=== PATIENT | male | born 1955 | race Caucasian/White ===

== ENCOUNTER 2016-06-09 09:32 | Outpatient (CLI) | payer MEDICAID | END 2016-06-09 09:33 | disposition home or self-care (01) | DX: E11.65 Type 2 diabetes mellitus with hyperglycemia (principal); Z79.899 Other long term (current) drug therapy ==

== ENCOUNTER 2016-07-16 09:00 | Outpatient (CLI) | payer MEDICAID | END 2016-07-16 09:01 | disposition home or self-care (01) | DX: I48.91 Unspecified atrial fibrillation (principal); Z79.01 Long term (current) use of anticoagulants ==

== ENCOUNTER 2016-07-29 13:55 | Outpatient (CLI) | payer MEDICAID | END 2016-07-29 13:56 | disposition home or self-care (01) | DX: G47.33 Obstructive sleep apnea (adult) (pediatric) (principal) ==

== ENCOUNTER 2016-08-15 20:18 | Outpatient (CLI) | payer MEDICAID | END 2016-08-15 20:19 | disposition home or self-care (01) | DX: G47.33 Obstructive sleep apnea (adult) (pediatric) (principal); I48.91 Unspecified atrial fibrillation; Z68.41 Body mass index [BMI] 40.0-44.9, adult ==

== ENCOUNTER 2016-08-21 09:43 | Outpatient (CLI) | payer MEDICAID | END 2016-08-21 09:44 | disposition home or self-care (01) | DX: I48.91 Unspecified atrial fibrillation (principal); Z79.01 Long term (current) use of anticoagulants; E11.65 Type 2 diabetes mellitus with hyperglycemia; Z79.899 Other long term (current) drug therapy ==

== ENCOUNTER 2016-08-25 13:25 | Outpatient (CLI) | payer MEDICAID | END 2016-08-25 13:26 | disposition home or self-care (01) | DX: G47.33 Obstructive sleep apnea (adult) (pediatric) (principal) ==

== ENCOUNTER 2016-09-28 09:51 | Outpatient (CLI) | payer MEDICAID | END 2016-09-28 09:52 | disposition home or self-care (01) | LOC: LAB 09:51 | PROVIDERS: ATTEND Internal Medicine | DX: I48.91 Unspecified atrial fibrillation (principal); Z79.01 Long term (current) use of anticoagulants | CPT/HCPCS: 85610 ==

== ENCOUNTER 2016-10-20 12:37 | Outpatient (CLI) | payer MEDICAID | END 2016-10-20 12:38 | disposition home or self-care (01) | LOC: LAB 12:37 | PROVIDERS: ATTEND Internal Medicine | DX: I48.91 Unspecified atrial fibrillation (principal); Z79.01 Long term (current) use of anticoagulants | CPT/HCPCS: 81599; 85610 ==

== ENCOUNTER 2016-12-06 11:56 | Outpatient (CLI) | payer MEDICAID | END 2016-12-06 11:57 | disposition home or self-care (01) | LOC: LAB 11:56 | PROVIDERS: ATTEND Internal Medicine | DX: I48.91 Unspecified atrial fibrillation (principal); Z79.01 Long term (current) use of anticoagulants | CPT/HCPCS: 85610 ==

== ENCOUNTER 2016-12-17 13:02 | Outpatient (CLI) | payer MEDICAID ==
[2016-12-17 13:56] LABS: HEMOGLOBIN A1C 1.52 g/dL
== END 2016-12-17 13:03 | disposition home or self-care (01) ==
LOC: LAB 13:02
PROVIDERS: ATTEND Physician Assistant Medical
DX: E11.65 Type 2 diabetes mellitus with hyperglycemia (principal); Z79.899 Other long term (current) drug therapy
CPT/HCPCS: 36415; 83036

== ENCOUNTER 2016-12-30 11:37 | Outpatient (CLI) | payer MEDICAID ==
[2016-12-30 12:15] LABS: ALBUMIN/GLOBULIN RATIO 1.1 (1.0-2.2); BILIRUBIN,TOTAL 0.5 mg/dL (0.2-1.0); POTASSIUM 4.8 mmol/L (3.5-5.0)
== END 2016-12-30 11:38 | disposition home or self-care (01) ==
LOC: LAB 11:37
PROVIDERS: ATTEND Physician Assistant Medical
DX: E11.65 Type 2 diabetes mellitus with hyperglycemia (principal); Z79.899 Other long term (current) drug therapy
CPT/HCPCS: 36415; 80053

== ENCOUNTER 2017-02-10 23:29 | Outpatient (CLI) | payer MEDICAID | END 2017-02-10 23:30 | disposition EMS.NT | LOC: EMS 23:29 | PROVIDERS: ATTEND Surgery | DX: T38.3X1A Poisoning by insulin and oral hypoglycemic [antidiabetic] drugs, accidental (unintentional), initial encounter (principal) ==

== ENCOUNTER 2017-02-10 23:48 | Emergency (ER) | payer MEDICAID ==
[2017-02-11 00:10] VITALS: BP 157/95
--- NOTE | 2017-02-11 00:33 | ED Physician Documentation ---
PD HPI OVERDOSE - Stated complaint Stated Complaint: TOOK TOO MUCH INSULIN - Chief complaint Chief Complaint: General - History obtained from History obtained from: Patient - History of Present Illness Timing - onset: How many hours ago (1) Subtance(s) ingested: Diabetes med Associated symptoms: Other (none) Contributing factors: Accidental Similar symptoms before: Has not had sx before Recently seen: Not recently seen - Additional information Additional information: Patient is a 61 year old male with a history of diabetes who is presenting to the emergency department for taking too much insulin. Patient mixed up his long acting and short acting insulins. Patient took 45 of his humalog. Patient states that his sugar originally dropped, but it improved after eating, while on the way to the emergency department. Patient denies any other symptoms at this time. Review of Systems Constitutional: denies: Fever, Chills, Fatigue Eyes: reports: Reviewed and negative Ears: reports: Reviewed and negative Nose: reports: Reviewed and negative Throat: reports: Reviewed and negative Cardiac: denies: Chest pain / pressure, Palpitations GI: denies: Nausea, Vomiting : reports: Reviewed and negative Skin: denies: Rash, Lesions Musculoskeletal: reports: Reviewed and negative Neurologic: denies: Generalized weakness, Focal weakness, Numbness, Difficulty speaking, Near syncope, Syncope, Confused, Altered mental status Immunocompromised: denies: Immunocompromised PD PAST MEDICAL HISTORY - Past Medical History Past Medical History: Yes Cardiovascular: Hypertension, Atrial fibrillation Respiratory: Sleep apnea Neuro: None Endocrine/Autoimmune: Type 2 diabetes GI: None : None HEENT: None Psych: None Musculoskeletal: None Derm: None - Past Surgical History Past Surgical History: Yes General: Colonoscopy Ortho: Knee replacement, Arthroscopic surgery, Other - Present Medications Home Medications: Ambulatory Orders Medication Instructions Recorded Confirmed Metoprolol Succinate 100 mg PO DAILY 05/05/13 02/11/17 Furosemide [Lasix] 80 mg PO DAILY PRN 01/03/14 02/11/17 Insulin Lispro [Humalog] 10 - 20 unit SUBQ QID PRN 01/03/14 02/11/17 Lisinopril 20 mg PO DAILY 01/03/14 02/11/17 Spironolactone 12.5 mg PO DAILY 01/03/14 02/11/17 Warfarin Sodium [Coumadin] 5 mg PO DAILY 01/03/14 02/11/17 Insulin Glargine,Hum.rec.anlog 80 unit SQ QPM 02/03/17 02/11/17 [Edis Walker U-100] - Allergies Allergies/Adverse Reactions: Allergies Allergy/AdvReac Type Severity Reaction Status Date / Time No Known Drug Allergies Allergy Verified 02/11/17 00:13 - Social History Does the pt smoke?: No Smoking Status: Never smoker Does the pt drink ETOH?: No Does the pt have substance abuse?: No - Immunizations Immunizations are current?: Yes - POLST Patient has POLST: No PD ED PE NORMAL - Vitals Vital signs reviewed: Yes - General General: Alert and oriented X 3, No acute distress - HEENT HEENT: Atraumatic, PERRL - Cardiac Cardiac: RRR, No murmur - Respiratory Respiratory: No respiratory distress - Abdomen Abdomen: Other (obese) - Derm Derm: Normal color, Warm and dry - Extremities Extremities: No deformity, No tenderness to palpate - Neuro Neuro: Alert and oriented X 3, No motor deficit, No sensory deficit, Normal speech - Psych Psych: Normal mood Results - Vitals Vitals: Vital Signs - 24 hr 02/10/17 23:52 Temperature 36.1 C L Heart Rate 55 L Respiratory 18 Rate Blood Pressure 157/95 H O2 Saturation 100 Oxygen O2 Source [With Activity] Room air O2 Source [Without Activity] Room air O2 Source Room air - Labs Labs: Laboratory Tests 02/11/17 02/11/17 00:04 00:58 POC Whole Bld Glucose 170 H 182 H PD MEDICAL DECISION MAKING - ED course Complexity details: reviewed old records, reviewed results, re-evaluated patient , considered differential, d/w patient, d/w family ED course: Patient was seen and examined at bedside. Patient was well appearing and in no acute distress. Patient's blood glucose on arrival was 170. Patient was given a sandwich and milk. Repeat blood glucose at 1 hr, was 180. Patient and stated that they wanted to go home and that they would repeat the blood sugar again in an hour. Patient required no further work up and was stable for discharge with outpatient follow up. Departure - Departure Disposition: 01 Home, Self Care Clinical Impression: Insulin overdose Condition: Good Instructions: ED Overdose Accidental Follow-Up: primary,care provider [Other] - As Needed Comments: Your blood sugars remained stable while in the emergency department. You will need to check your blood sugar in an hour from now, but you should be in the clear. You should follow up with your routine visits with your pmd. You may return to the emergency department at any time for new, worsening or uncontrollable symptoms.
== END 2017-02-11 01:16 | disposition home or self-care (01) ==
LOC: ED 23:48
DX: T38.3X1A Poisoning by insulin and oral hypoglycemic [antidiabetic] drugs, accidental (unintentional), initial encounter (principal); E11.9 Type 2 diabetes mellitus without complications; Z79.4 Long term (current) use of insulin; I10 Essential (primary) hypertension; Z96.659 Presence of unspecified artificial knee joint; Z79.01 Long term (current) use of anticoagulants
CPT/HCPCS: 99283

== ENCOUNTER 2017-03-31 13:02 | Outpatient (CLI) | payer MEDICAID | END 2017-03-31 13:03 | disposition home or self-care (01) | LOC: LAB 13:02 | PROVIDERS: ATTEND Internal Medicine | DX: I48.91 Unspecified atrial fibrillation (principal); Z79.01 Long term (current) use of anticoagulants | CPT/HCPCS: 85610 ==

== ENCOUNTER 2017-05-11 16:47 | Outpatient (CLI) | payer MEDICAID | END 2017-05-11 16:48 | disposition home or self-care (01) | LOC: LAB 16:47 | PROVIDERS: ATTEND Internal Medicine | DX: I48.91 Unspecified atrial fibrillation (principal); Z79.01 Long term (current) use of anticoagulants | CPT/HCPCS: 85610 ==

== ENCOUNTER 2017-05-29 13:52 | Emergency (ER) | payer MEDICAID ==
[2017-05-29 14:17] LABS: BILIRUBIN,URINE NEGATIVE (NEGATIVE); GLUCOSE, URINE (UA) NEGATIVE (NEGATIVE); KETONES,URINE (UA) NEGATIVE (NEGATIVE); LEUKOCYTE ESTERASE, URINE NEGATIVE (NEGATIVE); NITRITE,URINE NEGATIVE (NEGATIVE); OCCULT BLOOD,URINE LARGE (NEGATIVE); PH,URINE 6.5 PH (5.0-7.5); PROTEIN,URINE 100 mg/dL (NEGATIVE); UROBILINOGEN,URINE 0.2 (NORMAL) E.U./dL (NORMAL)
[2017-05-29 14:21] LABS: CLARITY,URINE CLOUDY (CLEAR)
[2017-05-29 14:24] LABS: BACTERIA,URINE None Seen /HPF (None Seen); RBC,URINE TNTC /HPF (0-5); SQUAMOUS EPITHELIAL CELL,UR RARE Squamous (<= Few)
[2017-05-29 14:51] LABS: BASOPHILS # (AUTO) 0.1 10^3/uL (0.0-0.1); BASOPHILS % (AUTO) 1.2 %; EOSINOPHILS # (AUTO) 0.1 10^3/uL (0.0-0.7); EOSINOPHILS % (AUTO) 0.9 %; HGB - HEMOGLOBIN 13.6 g/dL (14.0-18.0); LYMPHOCYTES # (AUTO) 1.1 10^3/uL (1.5-3.5); LYMPHOCYTES % (AUTO) 10.3 %; MEAN CORPUSCULAR HEMOGLOBIN 26.8 pg (27.0-31.0); MEAN PLATELET VOLUME 9.3 fL (7.4-11.4); MONOCYTES % (AUTO) 9.1 %; NEUTROPHILS # (AUTO) 8.5 10^3/uL (1.5-6.6); NEUTROPHILS % (AUTO) 78.5 %; PLT - PLATELET COUNT 324 10^3/uL (130-450); RED BLOOD COUNT 5.06 10^6/uL (4.70-6.10); RED CELL DISTRIBUTION WIDTH 15.4 % (12.0-15.0); WHITE BLOOD COUNT 10.9 x10^3/uL (4.8-10.8)
[2017-05-29 15:03] LABS: ALBUMIN 3.5 g/dL (3.2-5.5); ALBUMIN/GLOBULIN RATIO 0.9 (1.0-2.2); BILIRUBIN,TOTAL 0.6 mg/dL (0.2-1.0); CALCIUM 10.2 mg/dL (8.5-10.3); CREATININE 1.1 mg/dL (0.6-1.2); TOTAL PROTEIN 7.2 g/dL (6.7-8.2)
[2017-05-29 15:04] LABS: INR 1.5 (0.8-1.2); PT - PROTHROMBIN TIME 16.2 secs (9.9-12.6)
[2017-05-29] MEDS ORDERED: SODIUM CHLORIDE 0.9% 1,000 ML IV ONE (15:12)
--- NOTE | 2017-05-29 15:12 | ED Physician Documentation ---
PD HPI MALE - Stated complaint Stated Complaint: MALE - Chief complaint Chief Complaint: UTI - History obtained from History obtained from: Patient - History of Present Illness Timing - onset: Other (62-year-old gentleman with history of single kidney stone in the age of 20s without intervention. He is on warfarin for atrial fibrillation. He had an episode of hematuria with small clots that lasted maybe a day about a week and a half ago. He saw his physician, and has to see a new family doctor for a referral to a urologist for I guess probably a cystoscopy. That appointment is not happening for about a month. Today he had gross hematuria again with some anterior discomfort but no flank pain and a small amount of urinary hesitancy.) Review of Systems Ten Systems: 10 systems reviewed and negative Constitutional: denies: Fever, Chills Respiratory: denies: Dyspnea, Cough GI: denies: Nausea, Vomiting, Diarrhea PD PAST MEDICAL HISTORY - Past Medical History Past Medical History: Yes Cardiovascular: Hypertension, Atrial fibrillation Respiratory: Sleep apnea Neuro: None Endocrine/Autoimmune: Type 2 diabetes GI: None : None HEENT: None Psych: None Musculoskeletal: None Derm: None - Past Surgical History Past Surgical History: Yes General: Colonoscopy Ortho: Knee replacement, Arthroscopic surgery, Other - Present Medications Home Medications: Ambulatory Orders Medication Instructions Recorded Confirmed Metoprolol Succinate 100 mg PO DAILY 05/05/13 02/11/17 Furosemide [Lasix] 80 mg PO DAILY PRN 01/03/14 02/11/17 Insulin Lispro [Humalog] 10 - 20 unit SUBQ QID PRN 01/03/14 02/11/17 Lisinopril 20 mg PO DAILY 01/03/14 02/11/17 Spironolactone 12.5 mg PO DAILY 01/03/14 02/11/17 Warfarin Sodium [Coumadin] 5 mg PO DAILY 01/03/14 02/11/17 Insulin Glargine,Hum.rec.anlog 87 unit SQ QPM 02/03/17 03/21/17 [Basaglar Kwikpen U-100] Lorazepam [Ativan] 1 mg PO TID PRN #15 tablet 05/29/17 - Allergies Allergies/Adverse Reactions: Allergies Allergy/AdvReac Type Severity Reaction Status Date / Time No Known Drug Allergies Allergy Verified 02/11/17 00:13 - Social History Does the pt smoke?: No Smoking Status: Never smoker Does the pt drink ETOH?: No Does the pt have substance abuse?: No - Immunizations Immunizations are current?: Yes - POLST Patient has POLST: No PD ED PE NORMAL - Vitals Vital signs reviewed: Yes - General General: Alert and oriented X 3, No acute distress - Abdomen Abdomen: Normal bowel sounds, Soft, Non tender - Derm Derm: Normal color, Warm and dry - Extremities Extremities: No edema, No calf tenderness / cord - Neuro Neuro: Alert and oriented X 3, Normal speech Results - Vitals Vitals: Vital Signs - 24 hr 05/29/17 05/29/17 14:01 19:27 Temperature 37 C 36.2 C L Heart Rate 98 99 Respiratory 20 16 Rate Blood Pressure 123/91 H 155/102 H O2 Saturation 98 100 Oxygen O2 Source [] Room air O2 Source [] Room air O2 Source Room air - Labs Labs: Laboratory Tests 05/29/17 05/29/17 05/29/17 14:08 14:42 14:42 WBC 10.9 H RBC 5.06 Hgb 13.6 L Hct 41.0 L MCV 81.0 MCH 26.8 L MCHC 33.0 RDW 15.4 H Plt Count 324 MPV 9.3 Neut # 8.5 H Lymph # 1.1 L Hyde # 1.0 Eos # 0.1 Baso # 0.1 Absolute Nucleated RBC 0.00 Nucleated RBC % 0.0 PT INR Sodium 131 L Potassium 4.7 Chloride 95 L Carbon Dioxide 26 Anion Gap 10.0 BUN 20 Creatinine 1.1 Estimated GFR (MDRD) 67 L Glucose 270 H Calcium 10.2 Total Bilirubin 0.6 AST 16 ALT 17 Alkaline Phosphatase 93 Total Protein 7.2 Albumin 3.5 Globulin 3.7 Albumin/Globulin Ratio 0.9 L Lipase 23 Urine Color YELLOW Urine Clarity CLOUDY Urine pH 6.5 Ur Specific Franklin 1.020 Urine Protein 100 H Urine Glucose (UA) NEGATIVE Urine Ketones NEGATIVE Urine Occult Blood LARGE H Urine Nitrite NEGATIVE Urine Bilirubin NEGATIVE Urine Urobilinogen 0.2 (NORMAL) Ur Leukocyte Esterase NEGATIVE Urine RBC TNTC H Urine WBC 0-3 Ur Squamous Epith Cells RARE Squamous Urine Bacteria None Seen Ur Microscopic Review INDICATED Urine Culture Comments NOT INDICATED 05/29/17 14:42 WBC RBC Hgb Hct MCV MCH MCHC RDW Plt Count MPV Neut # Lymph # Hyde # Eos # Baso # Absolute Nucleated RBC Nucleated RBC % PT 16.2 H INR 1.5 H Sodium Potassium Chloride Carbon Dioxide Anion Gap BUN Creatinine Estimated GFR (MDRD) Glucose Calcium Total Bilirubin AST ALT Alkaline Phosphatase Total Protein Albumin Globulin Albumin/Globulin Ratio Lipase Urine Color Urine Clarity Urine pH Ur Specific Franklin Urine Protein Urine Glucose (UA) Urine Ketones Urine Occult Blood Urine Nitrite Urine Bilirubin Urine Urobilinogen Ur Leukocyte Esterase Urine RBC Urine WBC Ur Squamous Epith Cells Urine Bacteria Ur Microscopic Review Urine Culture Comments - Rads (name of study) CT IVP Radiology: EMP read contemporaneously (Large exophytic mass from the superior pole of left kidney compatible with renal cell carcinoma, multiple left perirenal and retroperitoneal nodules and masses compatible with metastases, also multiple bibasilar pulmonary nodules, compatible with metastases. There is a soft tissue density in the posterior bladder, could be a bladder mass or blood products.) PD MEDICAL DECISION MAKING - ED course ED course: 62-year-old gentleman is found to have gross hematuria and unfortunately imaging shows likely left renal cell carcinoma with metastases. He did have urinary retention here likely because of clot in the bladder, a Rico was placed and it was irrigated. I spoke with Dr. Trinidad, they will see him in clinic to arrange for appropriate referrals the next few days. We did Remove the Rico to see if he could urinate after this, he was unable to and the Rico was replaced with good output. He was counseled at length about the diagnosis, need for follow-up, necessity to stop warfarin at this point. Departure - Departure Disposition: 01 Home, Self Care Clinical Impression: Hematuria Qualifiers: Hematuria type: gross Qualified Code(s): R31.0 - Gross hematuria Renal cell carcinoma Qualifiers: Laterality: left Qualified Code(s): C64.2 - Malignant neoplasm of left kidney, except renal pelvis Condition: Good Record reviewed to determine appropriate education?: Yes Instructions: ED Catheter Care Rico Prescriptions: Lorazepam [Ativan] 1 mg PO TID PRN #15 tablet PRN Reason: Anxiety Comments: Stop your warfarin for now, follow-up with Dr. Trinidad or Dr. Pennington in the next few days. Return if worse. You can contact me anytime if you have questions, my phone number is [phone], or my email is [email or web address]
[2017-05-29] MEDS ORDERED: IOPAMIDOL-300 100 ML VIAL ONE (16:21)
[2017-05-29] MEDS ORDERED: IOPAMIDOL-300 100 ML VIAL IVP ONE (17:23)
[2017-05-29] MEDS ORDERED: LIDOCAINE 2% URO-JET 5 ML SYRINGE UR STA ×2 (17:38→19:57)
--- NOTE | 2017-05-29 18:08 | CT Report ---
EXAM: CT ABDOMEN AND PELVIS WITHOUT AND WITH CONTRAST (CT IVP) EXAM DATE: 05/29/2017 04:35 PM. CLINICAL HISTORY: Hematuria. COMPARISONS: None. TECHNIQUE: Routine helical imaging was performed through the kidneys, ureters and bladder in the prec ontrast and delayed phases. IV Contrast: 100 mL Isovue-300. Reconstructions: Coronal and sagittal. In accordance with CT protocol optimization, one or more of the following dose reduction techniques w ere utilized for this exam: automated exposure control, adjustment of mA and/or KV based on patient s ize, or use of iterative reconstructive technique. FINDINGS: Lung Bases: Multiple (at least 7) bibasilar pulmonary nodules, the largest a 3.0 x 2.5 cm nodule in t he left lower lobe base (series 6 image 11). Right Kidney/Ureter: Two tiny 1-2 mm nonobstructive intrarenal calculi in the upper pole. Two subcent imeter hypoattenuating foci in the lower pole cortex are too small to characterize further (best seen on coronal series 9 image 52). No hydronephrosis or hydroureter. No perinephric fat stranding. Left Kidney/Ureter: Large multilobular centrally necrotic partially calcified exophytic mass arising from the upper pole measuring approximately 14.6 x 9.1 x 8.0 cm (series 6 image 33, series 9 image 58 ), with adjacent ill-defined retroperitoneal fat stranding. The fat planes between the mass and the s pleen, proximal descending colon, and pancreatic tail are effaced. Multiple enhancing nodules in the left perirenal and left retroperitoneal fat, compatible with metast ases, including the followin. Perirenal nodule anterior to the midportion of the kidney, 3.0 x 2.1 cm (series 6 image 38). 2. Perirenal nodule medial to the midportion of the kidney, 1.8 x 1.4 cm (series 6 image 44). 3. Two adjacent retroperitoneal lesions inferior to the kidney, measuring 4.6 x 3.7 cm and 2.2 x 1.8 cm, respectively (series 6 image 56). Ill-defined nodular soft tissue abutting the medial left hemidiaphragm, measuring up to 2.0 cm thick (series 6 images and 27 through 30). Other Solid Organs: Grossly unremarkable appearance of the liver, spleen, pancreas, and adrenal gland s. Peritoneal Cavity/Bowel: No evidence for bowel obstruction or acute inflammatory process. The appendi x is normal. No free fluid or pneumoperitoneum. Pelvic Organs: Approximately 2.3 x 2.2 cm soft tissue density nodule abutting the posterior bladder w all on the precontrast images (series 5 image 79). A larger filling defect is seen in the posterior b ladder on the delayed phase images (series 6 image 79). Vasculature: Unremarkable. Bones: No suspicious lytic or blastic osseous lesion. Other: Small fat-containing umbilical hernia. IMPRESSION: 1. Large partially calcified exophytic mass arising from the superior pole of the left kidney, maximu m diameter 14.6 cm, appears compatible with renal cell carcinoma. 2. Multiple left perirenal/retroperitoneal nodules and masses, compatible with metastases. 3. Multiple bibasilar pulmonary nodules, also compatible with metastases. 4. Soft tissue density nodule any posterior bladder, with discordant appearance between the precontra st and delayed phase images. Differential considerations include bladder mass and blood products. Con ui developer with angular js direct evaluation. [facility] Referring Provider Line: [phone] SITE ID: [id number]
[2017-05-29] MEDS ORDERED: LORazepam 0.5 MG TABLET PO STA (21:06)
[2017-05-29 21:45] VITALS: BP 152/94
== END 2017-05-29 21:46 | disposition home or self-care (01) ==
LOC: ED 13:52
DX: C64.2 Malignant neoplasm of left kidney, except renal pelvis (principal); C79.9 Secondary malignant neoplasm of unspecified site; R31.0 Gross hematuria; I10 Essential (primary) hypertension; E11.9 Type 2 diabetes mellitus without complications; Z79.4 Long term (current) use of insulin; I48.91 Unspecified atrial fibrillation; Z79.01 Long term (current) use of anticoagulants
CPT/HCPCS: 36415; 51702; 51798; 74178; 80053; 81001; 83690; 85025; 85610; 96360; 96361; 99283; 99284; A9270; Q9967; 81003; 87086

== ENCOUNTER 2017-06-05 11:43 | Emergency (ER) | payer MEDICAID ==
[2017-06-05] MEDS ORDERED: LIDOCAINE 2% URO-JET 5 ML SYRINGE UR STA (12:53)
--- NOTE | 2017-06-05 12:54 | ED Physician Documentation ---
PD HPI MALE - Stated complaint Stated Complaint: MALE - Chief complaint Chief Complaint: Abd Pain - History obtained from History obtained from: Patient - History of Present Illness Timing - onset: How many weeks ago (has had urinary retention apparently from clots and hematuria, with hall in place last week, removed couple days later and then retentiona gain. Had in and out hall in office with clearing of some clots but now retention again. He says he strains at home and will pass a clot and then urinate okay for brief time. Has had gross hematuria for a week or so, with Dx of likely kidney CA. Has biopsy planned in of days and appt with [facility] later this week.) Timing - details: Intermittant Associated symptoms: Unable to urinate, Hematuria. No: Genital sore / lesion PD HPI MALE CONTRIB FACTORS: No: Indwelling catheter Recently seen: Clinic, Emergency Dept Review of Systems Constitutional: denies: Fever, Chills GI: denies: Nausea, Vomiting, Diarrhea : reports: Frequency, Hesitancy, Hematuria Skin: denies: Rash, Lesions PD PAST MEDICAL HISTORY - Past Medical History Past Medical History: Yes Cardiovascular: Hypertension, Atrial fibrillation Respiratory: Sleep apnea Neuro: None Endocrine/Autoimmune: Type 2 diabetes GI: None : None HEENT: None Psych: None Musculoskeletal: None Derm: None - Past Surgical History Past Surgical History: Yes General: Colonoscopy Ortho: Knee replacement, Arthroscopic surgery, Other - Present Medications Home Medications: Ambulatory Orders Medication Instructions Recorded Confirmed Metoprolol Succinate 100 mg PO DAILY 05/05/13 02/11/17 Furosemide [Lasix] 80 mg PO DAILY PRN 01/03/14 02/11/17 Insulin Lispro [Humalog] 10 - 20 unit SUBQ QID PRN 01/03/14 02/11/17 Lisinopril 20 mg PO DAILY 01/03/14 02/11/17 Spironolactone 12.5 mg PO DAILY 01/03/14 02/11/17 Warfarin Sodium [Coumadin] 5 mg PO DAILY 01/03/14 02/11/17 Insulin Glargine,Hum.rec.anlog 87 unit SQ QPM 02/03/17 03/21/17 [Basaglar Kwikpen U-100] Lorazepam [Ativan] 1 mg PO TID PRN #15 tablet 05/29/17 Cephalexin [Keflex] 500 mg PO TID #21 capsule 06/05/17 Oxybutynin [Ditropan] 5 mg PO BID #14 tablet 06/05/17 - Allergies Allergies/Adverse Reactions: Allergies Allergy/AdvReac Type Severity Reaction Status Date / Time No Known Drug Allergies Allergy Verified 02/11/17 00:13 - Social History Does the pt smoke?: No Smoking Status: Never smoker Does the pt drink ETOH?: No Does the pt have substance abuse?: No - Immunizations Immunizations are current?: Yes - POLST Patient has POLST: No PD ED PE NORMAL - Vitals Vital signs reviewed: Yes - General General: Alert and oriented X 3, No acute distress, Well developed/nourished - Neck Neck: Supple, no meningeal sign, No adenopathy - Cardiac Cardiac: RRR, No murmur - Respiratory Respiratory: Clear bilaterally - Abdomen Abdomen: Normal bowel sounds, Soft, No organomegaly, Other (some fullness in bladder area. ) - Male Male : Other (no genital rash nor sores. ) - Back Back: No CVA TTP - Derm Derm: Normal color, Warm and dry - Extremities Extremities: No deformity, No tenderness to palpate - Neuro Neuro: Alert and oriented X 3, No motor deficit, Normal speech Results - Vitals Vitals: Oxygen O2 Source [With Activity] Room air O2 Source [Without Activity] Room air O2 Source Room air PD MEDICAL DECISION MAKING - ED course Complexity details: reviewed results (did get culture result from recent ED visit in [facility] and had positive urine culture, so will start antibiotics based on sensitivities from that. ), re-evaluated patient (feeling better with hall and bladder irrigation. Nurse could not pass 3 way hall ( presume inflammation from recent hall) but did get regular hall and got clots out and regular flow. ), considered differential (does have UTI from recent culture. Also lots of bleeding so most of the retention seems clogging from that. he is flowing okay here and is show how to irrigate his hall. Has had it in third time now, so plan to leave in until better Dx and will probably have more bleeding after kidney biopsy in a couple of days, so best to leave it in for now until bleeding clears. Has appt with [facility] later in the week. ), d/w patient Departure - Departure Disposition: Home, Self Care Clinical Impression: Acute urinary retention Hematuria Qualifiers: Hematuria type: gross Qualified Code(s): R31.0 - Gross hematuria UTI (urinary tract infection) Qualifiers: Urinary tract infection type: acute cystitis Hematuria presence: with hematuria Qualified Code(s): N30.01 - Acute cystitis with hematuria Condition: Stable Record reviewed to determine appropriate education?: Yes Instructions: ED Hematuria, ED Retention Urinary Male Follow-Up: Nirmala Mora ARNP [Primary Care Provider] - Prescriptions: Cephalexin [Keflex] 500 mg PO TID #21 capsule Oxybutynin [Ditropan] 5 mg PO BID #14 tablet Comments: Your urine count culture from [facility] was showing growth of bacteria so we will place her on an antibiotic for the bladder infection. Hopefully this is contributing to some of the bleeding is occurring. It may be coming from the kidney tumor as well. I think the clots are what is causing your urinary retention. Keep the Hall catheter in at this point since removing it did not work very well. Will have an antibiotic and an antispasmodic. Stay off the Coumadin as you currently are. Follow-up with your plans for the kidney biopsy this week as well as following up with the [facility]. Discharge Date/Time: 06/05/17 14:50
[2017-06-05] MEDS ORDERED: cephALEXin 250 MG CAPSULE PO STA (14:22)
[2017-06-05 14:30] VITALS: BP 154/80
[2017-06-05] MEDS ORDERED: OXYBUTYNIN 5MG TABLET PO STA (14:41)
== END 2017-06-05 14:50 | disposition home or self-care (01) ==
LOC: ED 11:43
DX: R33.9 Retention of urine, unspecified (principal); N30.01 Acute cystitis with hematuria; I10 Essential (primary) hypertension; I48.91 Unspecified atrial fibrillation; Z79.01 Long term (current) use of anticoagulants; E11.9 Type 2 diabetes mellitus without complications; Z79.4 Long term (current) use of insulin
CPT/HCPCS: 51703; 51798; 99283; A9270; 81001; 81003; 87086

== ENCOUNTER 2017-06-08 16:43 | Emergency (ER) | payer MEDICAID ==
--- NOTE | 2017-06-08 16:57 | ED Physician Documentation ---
PD HPI MALE - Stated complaint Stated Complaint: BLOCKED HALL CATH - Chief complaint Chief Complaint: UTI - History obtained from History obtained from: Patient - History of Present Illness Timing - onset: Today Timing - details: Abrupt onset Associated symptoms: Hall problem (hall had been working well and much less hematuria. Feeling of retention and hall not flowing today. He tried to irrigate it at home. Does not have appt with Oncology nor for biopsy of kidney until .) Review of Systems Constitutional: denies: Fever, Chills GI: denies: Nausea, Vomiting : reports: Hematuria. denies: Dysuria PD PAST MEDICAL HISTORY - Past Medical History Cardiovascular: Hypertension, Atrial fibrillation Respiratory: Sleep apnea Neuro: None Endocrine/Autoimmune: Type 2 diabetes GI: None : None HEENT: None Psych: None Musculoskeletal: None Derm: None - Past Surgical History Past Surgical History: Yes General: Colonoscopy Ortho: Knee replacement, Arthroscopic surgery, Other - Present Medications Home Medications: Ambulatory Orders Medication Instructions Recorded Confirmed Metoprolol Succinate 100 mg PO DAILY 05/05/13 02/11/17 Furosemide [Lasix] 80 mg PO DAILY PRN 01/03/14 02/11/17 Insulin Lispro [Humalog] 10 - 20 unit SUBQ QID PRN 01/03/14 02/11/17 Lisinopril 20 mg PO DAILY 01/03/14 02/11/17 Spironolactone 12.5 mg PO DAILY 01/03/14 02/11/17 Warfarin Sodium [Coumadin] 5 mg PO DAILY 01/03/14 02/11/17 Insulin Glargine,Hum.rec.anlog 87 unit SQ QPM 02/03/17 03/21/17 [Basaglar Kwikpen U-100] Lorazepam [Ativan] 1 mg PO TID PRN #15 tablet 05/29/17 Cephalexin [Keflex] 500 mg PO TID #21 capsule 06/05/17 Oxybutynin [Ditropan] 5 mg PO BID #14 tablet 06/05/17 - Allergies Allergies/Adverse Reactions: Allergies Allergy/AdvReac Type Severity Reaction Status Date / Time No Known Drug Allergies Allergy Verified 06/08/17 16:52 - Social History Does the pt smoke?: No Smoking Status: Never smoker Does the pt drink ETOH?: No Does the pt have substance abuse?: No - Immunizations Immunizations are current?: Yes - POLST Patient has POLST: No PD ED PE NORMAL - Vitals Vital signs reviewed: Yes - General General: Alert and oriented X 3, No acute distress, Well developed/nourished - Abdomen Abdomen: Normal bowel sounds, Soft, Non tender, No organomegaly, Other (mild distension in bladder area. Hall in place. No draiange at this time. Meatus appears normal. ) - Back Back: No CVA TTP - Derm Derm: Normal color, Warm and dry Results - Vitals Vitals: Vital Signs - 24 hr 06/08/17 06/08/17 16:48 17:57 Temperature 35.8 C L Heart Rate 103 H 90 Respiratory 22 18 Rate Blood Pressure 165/94 H 154/102 H O2 Saturation 97 97 Oxygen O2 Source [With Activity] Room air O2 Source [Without Activity] Room air O2 Source Room air PD MEDICAL DECISION MAKING - ED course Complexity details: considered differential (nursing irrigated the hall and got a clot out and then it flowed well. I would prefer not to swap the hall so to minimize recurrent bleeding. He continues on abx for UTI; presume this is helping some of the bleeding, so it might not be all from the renal tumor. ), d/ w patient Departure - Departure Disposition: 01 Home, Self Care Clinical Impression: Hematuria Qualifiers: Hematuria type: gross Qualified Code(s): R31.0 - Gross hematuria Complication, blocked Hall catheter Qualifiers: Encounter type: subsequent encounter Qualified Code(s): T83.091D - Other mechanical complication of indwelling urethral catheter, subsequent encounter Condition: Stable Record reviewed to determine appropriate education?: Yes Follow-Up: Nirmala Mora ARNP [Primary Care Provider] - [facility] [Provider Group] Comments: Continue current medications. Keep the Hall in place for now. Follow-up with your primary care in the next few days. You could consider following up with urology as well, call for an appointment. Discharge Date/Time: 06/08/17 18:02
[2017-06-08 18:00] VITALS: BP 154/102
== END 2017-06-08 18:02 | disposition home or self-care (01) ==
LOC: ED 16:43
DX: T83.098A Other mechanical complication of other urinary catheter, initial encounter (principal); R31.0 Gross hematuria; I10 Essential (primary) hypertension; I48.91 Unspecified atrial fibrillation; Z79.01 Long term (current) use of anticoagulants; E11.9 Type 2 diabetes mellitus without complications; Z79.4 Long term (current) use of insulin
CPT/HCPCS: 99282

== ENCOUNTER 2017-07-25 16:18 | Outpatient (CLI) | payer MEDICAID | END 2017-07-25 16:19 | disposition home or self-care (01) | LOC: LAB 16:18 | PROVIDERS: ATTEND Nurse Practitioner Family | DX: I48.0 Paroxysmal atrial fibrillation (principal) | CPT/HCPCS: 85610 ==

== ENCOUNTER 2017-08-01 14:24 | Outpatient (CLI) | payer MEDICAID | END 2017-08-01 14:25 | disposition home or self-care (01) | LOC: LAB 14:24 | PROVIDERS: ATTEND Nurse Practitioner Family | DX: I48.0 Paroxysmal atrial fibrillation (principal) | CPT/HCPCS: 85610 ==

== ENCOUNTER 2017-08-05 14:19 | Outpatient (CLI) | payer MEDICAID | END 2017-08-05 14:20 | disposition home or self-care (01) | LOC: LAB 14:19 | PROVIDERS: ATTEND Nurse Practitioner Family | DX: I48.0 Paroxysmal atrial fibrillation (principal) | CPT/HCPCS: 85610 ==

== ENCOUNTER 2017-08-12 16:29 | Outpatient (CLI) | payer MEDICAID | END 2017-08-12 16:30 | disposition home or self-care (01) | LOC: LAB 16:29 | PROVIDERS: ATTEND Nurse Practitioner Family | DX: I48.0 Paroxysmal atrial fibrillation (principal) | CPT/HCPCS: 85610 ==

== ENCOUNTER 2017-08-14 11:19 | Emergency (ER) | payer MEDICAID ==
[2017-08-14 12:08] LABS: BILIRUBIN,URINE NEGATIVE (NEGATIVE); GLUCOSE, URINE (UA) 500 mg/dL (NEGATIVE); KETONES,URINE (UA) NEGATIVE (NEGATIVE); LEUKOCYTE ESTERASE, URINE TRACE (NEGATIVE); NITRITE,URINE NEGATIVE (NEGATIVE); OCCULT BLOOD,URINE LARGE (NEGATIVE); PH,URINE 8.5 PH (5.0-7.5); PROTEIN,URINE 100 mg/dL (NEGATIVE); UROBILINOGEN,URINE 0.2 (NORMAL) E.U./dL (NORMAL)
[2017-08-14 12:10] LABS: CLARITY,URINE HAZY (CLEAR)
[2017-08-14 12:14] LABS: BACTERIA,URINE Many /HPF (None Seen); CRYSTALS,URINE 3-5 Calcium Oxalate /LPF; RBC,URINE TNTC /HPF (0-5); SQUAMOUS EPITHELIAL CELL,UR NONE SEEN (<= Few)
--- NOTE | 2017-08-14 13:36 | ED Physician Documentation ---
PD HPI MALE - Stated complaint Stated Complaint: MALE - Chief complaint Chief Complaint: Abd Pain - History obtained from History obtained from: Patient - History of Present Illness Timing - onset: Last night Timing - duration: Hours (20) Timing - details: Abrupt onset, Now resolved Associated symptoms: Dysuria, Unable to urinate PD HPI MALE CONTRIB FACTORS: Other (bladder cancer) Similar symptoms before: Has not had sx before Recently seen: Other (The patient is undergoing immune modulation for bladder cancer.) - Additional information Additional information: 62-year-old male with bladder cancer has developed acute urinary retention last night. He has been having some pale pink yellow urine and a foul smell and dysuria for 3 days. He has passed blood off and on and last night he was not able to urinate he comes to the emergency department today still unable to urinate and shortly after arrival passes a clot and is able to urinate. He has been able to urinate again since being in the emergency department. He is not taking coumadin now. Review of Systems Constitutional: denies: Fever Eyes: denies: Decreased vision Ears: denies: Ear pain Nose: denies: Congestion Throat: denies: Sore throat Cardiac: denies: Chest pain / pressure, Palpitations Respiratory: denies: Dyspnea, Cough GI: denies: Abdominal Pain, Nausea, Vomiting : reports: Dysuria, Frequency, Unable to Void Skin: denies: Rash Musculoskeletal: denies: Neck pain, Back pain, Extremity pain PD PAST MEDICAL HISTORY - Past Medical History Past Medical History: Yes Cardiovascular: Hypertension, Atrial fibrillation Respiratory: Sleep apnea Neuro: None Endocrine/Autoimmune: Type 2 diabetes GI: None : Other HEENT: None Psych: None Musculoskeletal: None Derm: None Other Past Medical History: Kidney Cancer at [facility] - Past Surgical History Past Surgical History: Yes General: Colonoscopy Ortho: Knee replacement, Arthroscopic surgery, Other - Present Medications Home Medications: Ambulatory Orders Medication Instructions Recorded Confirmed Metoprolol Succinate 100 mg PO DAILY 05/05/13 02/11/17 Furosemide [Lasix] 80 mg PO DAILY PRN 01/03/14 02/11/17 Insulin Lispro [Humalog] 10 - 20 unit SUBQ QID PRN 01/03/14 02/11/17 Lisinopril 20 mg PO DAILY 01/03/14 02/11/17 Spironolactone 12.5 mg PO DAILY 01/03/14 02/11/17 Warfarin Sodium [Coumadin] 5 mg PO DAILY 01/03/14 02/11/17 Insulin Glargine,Hum.rec.anlog 87 unit SQ QPM 02/03/17 03/21/17 [Basaglar Toanikpen U-100] Lorazepam [Ativan] 1 mg PO TID PRN #15 tablet 05/29/17 Cephalexin [Keflex] 500 mg PO TID #21 capsule 06/05/17 Oxybutynin [Ditropan] 5 mg PO BID #14 tablet 06/05/17 Levofloxacin [Levaquin] 500 mg PO DAILY #7 tablet 08/14/17 - Allergies Allergies/Adverse Reactions: Allergies Allergy/AdvReac Type Severity Reaction Status Date / Time No Known Drug Allergies Allergy Verified 08/14/17 11:28 - Social History Does the pt smoke?: No Smoking Status: Never smoker Does the pt drink ETOH?: No Does the pt have substance abuse?: No - Immunizations Immunizations are current?: Yes - POLST Patient has POLST: No PD ED PE NORMAL - Vitals Vital signs reviewed: Yes (tachy and hypertensive) - General General: Alert and oriented X 3, No acute distress, Well developed/nourished - HEENT HEENT: Atraumatic, PERRL - Neck Neck: Supple, no meningeal sign - Respiratory Respiratory: No respiratory distress - Back Back: No CVA TTP, No spinal TTP - Derm Derm: Normal color, Warm and dry, No rash - Extremities Extremities: No deformity, No edema - Neuro Neuro: No motor deficit, No sensory deficit Eye Opening: Spontaneous Motor: Obeys Commands Verbal: Oriented GCS Score: 15 - Psych Psych: Normal mood, Normal affect Results - Vitals Vitals: Vital Signs - 24 hr 08/14/17 11:25 Temperature 36.4 C L Heart Rate 106 H Respiratory 18 Rate Blood Pressure 188/101 H O2 Saturation 110 H Oxygen O2 Source [With Activity] Room air O2 Source [Without Activity] Room air O2 Source Room air - Labs Labs: Laboratory Tests 08/14/17 11:40 Urine Color LT RED Urine Clarity HAZY Urine pH 8.5 H Ur Specific [place] 1.015 Urine Protein 100 H Urine Glucose (UA) 500 H Urine Ketones NEGATIVE Urine Occult Blood LARGE H Urine Nitrite NEGATIVE Urine Bilirubin NEGATIVE Urine Urobilinogen 0.2 (NORMAL) Ur Leukocyte Esterase TRACE H Urine RBC TNTC H Urine WBC 11-25 H Ur Squamous Epith Cells NONE SEEN Urine Crystals 3-5 Calcium Oxalate Urine Bacteria Many H Ur Microscopic Review INDICATED Urine Culture Comments INDICATED PD MEDICAL DECISION MAKING - ED course Complexity details: reviewed old records, reviewed results, re-evaluated patient , considered differential, d/w patient ED course: 62-year-old male has developed acute urinary retention related to hematuria and he appears to have spontaneously resolved this and is able to urinate again. He does not appear to have infection on examination of the urine and we will start him on some Levaquin. Departure - Departure Disposition: 01 Home, Self Care Clinical Impression: UTI (urinary tract infection) Qualifiers: Urinary tract infection type: acute cystitis Hematuria presence: with hematuria Qualified Code(s): N30.01 - Acute cystitis with hematuria Condition: Stable Instructions: ED UTI Cystitis Male Follow-Up: Nirmala Mora ARNP [Primary Care Provider] - Prescriptions: Levofloxacin [Levaquin] 500 mg PO DAILY #7 tablet
[2017-08-14 13:49] VITALS: BP 183/99
== END 2017-08-14 13:53 | disposition home or self-care (01) ==
LOC: ED 11:19
DX: N30.01 Acute cystitis with hematuria (principal); C67.9 Malignant neoplasm of bladder, unspecified; I10 Essential (primary) hypertension; I48.91 Unspecified atrial fibrillation; Z79.01 Long term (current) use of anticoagulants; E11.9 Type 2 diabetes mellitus without complications; Z79.4 Long term (current) use of insulin
CPT/HCPCS: 81001; 81003; 87077; 87086; 99283

== ENCOUNTER 2017-12-12 10:10 | Outpatient (CLI) | payer MEDICAID ==
[2017-12-12 17:59] LABS: BASOPHILS # (AUTO) 0.1 10^3/uL (0.0-0.1); BASOPHILS % (AUTO) 1.1 %; EOSINOPHILS # (AUTO) 0.3 10^3/uL (0.0-0.7); EOSINOPHILS % (AUTO) 3.6 %; LYMPHOCYTES # (AUTO) 1.5 10^3/uL (1.5-3.5); LYMPHOCYTES % (AUTO) 16.3 %; MEAN CORPUSCULAR HEMOGLOBIN 27.7 pg (27.0-31.0); MEAN CORPUSCULAR HGB CONC 32.5 g/dL (32.0-36.0); MEAN CORPUSCULAR VOLUME 85.1 fL (80.0-94.0); MEAN PLATELET VOLUME 10.5 fL (7.4-11.4); MONOCYTES # (AUTO) 1.1 10^3/uL (0.0-1.0); MONOCYTES % (AUTO) 11.7 %; NEUTROPHILS # (AUTO) 6.2 10^3/uL (1.5-6.6); NEUTROPHILS % (AUTO) 67.3 %; PLT - PLATELET COUNT 318 10^3/uL (130-450); RED BLOOD COUNT 5.43 10^6/uL (4.70-6.10); RED CELL DISTRIBUTION WIDTH 15.5 % (12.0-15.0); WHITE BLOOD COUNT 9.2 x10^3/uL (4.8-10.8)
[2017-12-12 18:08] LABS: HB2 TOTAL 16.2 g/dL; HEMOGLOBIN A1C 2.07 g/dL; HEMOGLOBIN A1C % 13.8 % (4.6-6.2)
[2017-12-12 18:28] LABS: ALBUMIN 3.8 g/dL (3.2-5.5); ALBUMIN/GLOBULIN RATIO 1.1 (1.0-2.2); ALKALINE PHOSPHATASE 78 IU/L (42-121); ALT ALANINE AMINOTRANSFERASE 24 IU/L (10-60); AST ASPARTATE AMINOTRANSFERASE 20 IU/L (10-42); BILIRUBIN,TOTAL 0.7 mg/dL (0.2-1.0); BUN - BLOOD UREA NITROGEN 42 mg/dL (6-20); CARBON DIOXIDE - CO2 30 mmol/L (21-32); CHLORIDE 95 mmol/L (101-111); CHOL/HDL RATIO 6.6 (<5.0); CHOLESTEROL 205 mg/dL; CREATININE 0.6 mg/dL (0.6-1.2); GFR - MDRD 136 (>89); GLUCOSE 204 mg/dL (70-100); HDL CHOLESTEROL 31 mg/dL; LDL CHOLESTEROL,CALCULATED 131 mg/dL; LDL/HDL RATIO 4.2 (<3.6); SODIUM 134 mmol/L (135-145); TOTAL PROTEIN 7.3 g/dL (6.7-8.2); VLDL CHOLESTEROL 43 mg/dL
== END 2017-12-12 10:11 ==
LOC: LAB.S 10:10
PROVIDERS: ATTEND Nurse Practitioner Family
DX: E11.9 Type 2 diabetes mellitus without complications (principal); E78.5 Hyperlipidemia, unspecified; I10 Essential (primary) hypertension
CPT/HCPCS: 36415; 80050; 80061; 82043; 83036; 83721

== ENCOUNTER 2018-03-28 11:48 | Outpatient (CLI) | payer OTHER ==
[2018-03-28 12:51] LABS: CREATININE 1.3 mg/dL (0.6-1.2)
== END 2018-03-28 11:49 | disposition home or self-care (01) ==
LOC: LAB 11:48
PROVIDERS: ATTEND Internal Medicine Medical Oncology
DX: C64.9 Malignant neoplasm of unspecified kidney, except renal pelvis (principal)
CPT/HCPCS: 36415; 80048

== ENCOUNTER 2018-11-08 14:18 | Outpatient (CLI) | payer MEDICARE, OTHER ==
--- NOTE | 2018-11-08 20:06 | XRAY Report ---
Reason: COUGH Procedure Date: 11/08/2018 Accession Number: [id number] / [id number] Procedure: WCP - Chest 2 View X-Ray CPT Code: 87984 FULL RESULT: EXAM: CHEST RADIOGRAPHY EXAM DATE: 11/08/2018 02:26 PM. CLINICAL HISTORY: COUGH. COMPARISON: None. TECHNIQUE: 2 views. FINDINGS: Lungs/Pleura: No focal opacities evident. No pleural effusion. No pneumothorax. Normal volumes. Mediastinum: Heart and mediastinal contours are unremarkable. Other: None. IMPRESSION: Normal 2-view chest radiography. RADIA
== END 2018-11-08 14:19 | disposition home or self-care (01) ==
LOC: DI.WCP 14:18
PROVIDERS: ATTEND Family Medicine
DX: R05 Cough (principal); C79.02 Secondary malignant neoplasm of left kidney and renal pelvis
CPT/HCPCS: 36415; 71046; 80053; 84443; 85025

== ENCOUNTER 2018-11-08 14:44 | Outpatient (CLI) | payer MEDICARE, OTHER ==
[2018-11-08 19:01] LABS: BASOPHILS # (AUTO) 0.1 10^3/uL (0.0-0.1); BASOPHILS % (AUTO) 0.9 %; EOSINOPHILS # (AUTO) 0.1 10^3/uL (0.0-0.7); HGB - HEMOGLOBIN 14.7 g/dL (14.0-18.0); LYMPHOCYTES # (AUTO) 0.8 10^3/uL (1.5-3.5); LYMPHOCYTES % (AUTO) 11.2 %; MEAN CORPUSCULAR HEMOGLOBIN 27.6 pg (27.0-31.0); MEAN CORPUSCULAR HGB CONC 31.5 g/dL (32.0-36.0); MEAN CORPUSCULAR VOLUME 87.6 fL (80.0-94.0); MEAN PLATELET VOLUME 12.5 fL (7.4-11.4); MONOCYTES # (AUTO) 0.9 10^3/uL (0.0-1.0); MONOCYTES % (AUTO) 13.2 %; NEUTROPHILS % (AUTO) 72.1 %; PLT - PLATELET COUNT 234 10^3/uL (130-450); RED BLOOD COUNT 5.32 10^6/uL (4.70-6.10); RED CELL DISTRIBUTION WIDTH 13.7 % (12.0-15.0)
[2018-11-08 19:28] LABS: ALBUMIN 3.8 g/dL (3.2-5.5); BILIRUBIN,TOTAL 0.7 mg/dL (0.2-1.0); CALCIUM 8.9 mg/dL (8.5-10.3); CREATININE 1.1 mg/dL (0.6-1.2); TOTAL PROTEIN 7.5 g/dL (6.7-8.2)
== END 2018-11-08 23:59 | disposition home or self-care (01) ==
LOC: LAB.WCP 14:44
PROVIDERS: ATTEND Family Medicine
DX: C79.02 Secondary malignant neoplasm of left kidney and renal pelvis (principal); R05 Cough
CPT/HCPCS: 36415; 80053; 84443; 85025

== ENCOUNTER 2019-01-27 10:58 | Outpatient (CLI) | payer MEDICARE, OTHER ==
[2019-01-27 11:35] LABS: CALCIUM 8.5 mg/dL (8.5-10.3); CREATININE 1.3 mg/dL (0.6-1.2)
== END 2019-01-27 10:59 | disposition home or self-care (01) ==
LOC: LAB 10:58
PROVIDERS: ATTEND Nurse Practitioner
DX: C64.9 Malignant neoplasm of unspecified kidney, except renal pelvis (principal)
CPT/HCPCS: 36415; 80048

== ENCOUNTER 2019-02-28 11:49 | Outpatient (CLI) | payer MEDICARE, OTHER ==
[2019-02-28 19:11] LABS: BASOPHILS # (AUTO) 0.1 10^3/uL (0.0-0.1); BASOPHILS % (AUTO) 1.1 %; EOSINOPHILS # (AUTO) 0.4 10^3/uL (0.0-0.7); EOSINOPHILS % (AUTO) 6.4 %; HGB - HEMOGLOBIN 15.6 g/dL (14.0-18.0); LYMPHOCYTES # (AUTO) 1.6 10^3/uL (1.5-3.5); LYMPHOCYTES % (AUTO) 23.9 %; MEAN CORPUSCULAR HEMOGLOBIN 28.4 pg (27.0-31.0); MEAN CORPUSCULAR HGB CONC 31.5 g/dL (32.0-36.0); MEAN CORPUSCULAR VOLUME 90.2 fL (80.0-94.0); MEAN PLATELET VOLUME 12.4 fL (7.4-11.4); MONOCYTES # (AUTO) 0.8 10^3/uL (0.0-1.0); MONOCYTES % (AUTO) 12.4 %; NEUTROPHILS # (AUTO) 3.6 10^3/uL (1.5-6.6); NEUTROPHILS % (AUTO) 55.4 %; PLT - PLATELET COUNT 286 10^3/uL (130-450); RED CELL DISTRIBUTION WIDTH 14.6 % (12.0-15.0); WHITE BLOOD COUNT 6.5 x10^3/uL (4.8-10.8)
[2019-02-28 19:28] LABS: HB2 TOTAL 15.8 g/dL; HEMOGLOBIN A1C 2.3 g/dL; HEMOGLOBIN A1C % 15.5 % (4.6-6.2)
[2019-02-28 19:29] LABS: ALBUMIN 3.5 g/dL (3.2-5.5); ALBUMIN/GLOBULIN RATIO 1.1 (1.0-2.2); BILIRUBIN,TOTAL 0.9 mg/dL (0.2-1.0); CREATININE 1.1 mg/dL (0.6-1.2); TOTAL PROTEIN 6.7 g/dL (6.7-8.2)
[2019-02-28 19:38] LABS: CREATININE,URINE 133.8 mg/dL; MICROALBUM/CREATININE RATIO,UR 40.4 ug/mg (<30.0); MICROALBUMIN,URINE 5.4 mg/dL (0-300.0)
== END 2019-02-28 23:59 | disposition home or self-care (01) ==
LOC: LAB.WCP 11:49
PROVIDERS: ATTEND Family Medicine
DX: I42.8 Other cardiomyopathies (principal); E11.9 Type 2 diabetes mellitus without complications; I10 Essential (primary) hypertension
CPT/HCPCS: 36415; 80053; 82043; 82570; 83036; 84443; 85025

== ENCOUNTER 2019-04-15 14:26 | Emergency (ER) | payer MEDICARE, OTHER ==
[2019-04-15 14:37] VITALS: BP 116/78
[2019-04-15] MEDS ORDERED: HYDROCORTISONE 10 MG TABLET PO STA (14:48)
--- NOTE | 2019-04-15 14:51 | ED Physician Documentation ---
History of Present Illness - Stated complaint Stated Complaint: MED REFILL - Chief complaint Chief Complaint: General - History obtained from History obtained from: Patient (He is on longstanding hydrocortisone, 15 mg in the morning and 5 mg at night. He ran out yesterday and his usual pharmacy is out of it.) Review of Systems Constitutional: denies: Fever, Chills Eyes: reports: Reviewed and negative Throat: reports: Reviewed and negative Cardiac: reports: Reviewed and negative PD PAST MEDICAL HISTORY - Past Medical History Cardiovascular: Hypertension, Atrial fibrillation Respiratory: Sleep apnea Endocrine/Autoimmune: Type 2 diabetes GI: None : Other HEENT: None Psych: None Musculoskeletal: None Derm: None - Past Surgical History Past Surgical History: Yes General: Colonoscopy Ortho: Knee replacement, Arthroscopic surgery, Other - Present Medications Home Medications: Ambulatory Orders Medication Instructions Recorded Confirmed Metoprolol Succinate 100 mg PO DAILY 05/05/13 02/11/17 Furosemide [Lasix] 80 mg PO DAILY PRN 01/03/14 02/11/17 Insulin Lispro [Humalog] 10 - 20 unit SUBQ QID PRN 01/03/14 02/11/17 Lisinopril 20 mg PO DAILY 01/03/14 02/11/17 Spironolactone 12.5 mg PO DAILY 01/03/14 02/11/17 Warfarin Sodium [Coumadin] 5 mg PO DAILY 01/03/14 02/11/17 Insulin Glargine,Hum.rec.anlog 87 unit SQ QPM 02/03/17 03/21/17 [Basaglar Kwikpen U-100] Lorazepam [Ativan] 1 mg PO TID PRN #15 tablet 05/29/17 Cephalexin [Keflex] 500 mg PO TID #21 capsule 06/05/17 Oxybutynin [Ditropan] 5 mg PO BID #14 tablet 06/05/17 Levofloxacin [Levaquin] 500 mg PO DAILY #7 tablet 08/14/17 Hydrocortisone 3 tab PO DAILY #120 tablet 04/15/19 - Allergies Allergies/Adverse Reactions: Allergies Allergy/AdvReac Type Severity Reaction Status Date / Time No Known Drug Allergies Allergy Verified 04/15/19 14:28 - Social History Does the pt smoke?: No Smoking Status: Never smoker Does the pt drink ETOH?: No Does the pt have substance abuse?: No - Immunizations Immunizations are current?: Yes - POLST Patient has POLST: No PD ED PE NORMAL - Vitals Vital signs reviewed: Yes - General General: Alert and oriented X 3, No acute distress - Derm Derm: Normal color, Warm and dry - Neuro Neuro: Alert and oriented X 3, Normal speech Results - Vitals Vitals: Vital Signs - 24 hr 04/15/19 14:28 Temperature 36.6 C Heart Rate 90 Respiratory 14 Rate Blood Pressure 116/78 O2 Saturation 97 Oxygen O2 Source [With Activity] Room air O2 Source [Without Activity] Room air O2 Source Room air PD MEDICAL DECISION MAKING - ED course ED course: He was given a dose here. I called [facility], they were also out. [facility] does have them. Departure - Departure Disposition: 01 Home, Self Care Clinical Impression: Adrenal insufficiency Condition: Good Record reviewed to determine appropriate education?: Yes Prescriptions: Hydrocortisone 3 tab PO DAILY #120 tablet Comments: [facility] has the medication in [place]. They are open till 6 tonight.
== END 2019-04-15 15:06 | disposition home or self-care (01) ==
LOC: ED 14:26
DX: E27.40 Unspecified adrenocortical insufficiency (principal); Z76.0 Encounter for issue of repeat prescription; I10 Essential (primary) hypertension; E11.9 Type 2 diabetes mellitus without complications; Z79.4 Long term (current) use of insulin; I48.91 Unspecified atrial fibrillation; Z79.01 Long term (current) use of anticoagulants
CPT/HCPCS: 99281; A9270

== ENCOUNTER 2019-05-23 15:27 | Emergency (ER) | payer MEDICARE, OTHER ==
[2019-05-23 15:51] LABS: BILIRUBIN,URINE NEGATIVE (NEGATIVE); GLUCOSE, URINE (UA) NEGATIVE (NEGATIVE); KETONES,URINE (UA) NEGATIVE (NEGATIVE); LEUKOCYTE ESTERASE, URINE NEGATIVE (NEGATIVE); NITRITE,URINE NEGATIVE (NEGATIVE); OCCULT BLOOD,URINE LARGE (NEGATIVE); PROTEIN,URINE NEGATIVE (NEGATIVE); UROBILINOGEN,URINE 0.2 (NORMAL) E.U./dL (NORMAL)
[2019-05-23 15:53] LABS: CLARITY,URINE CLEAR (CLEAR)
[2019-05-23 15:59] LABS: BACTERIA,URINE None Seen /HPF (None Seen); RBC,URINE TNTC /HPF (0-5); SQUAMOUS EPITHELIAL CELL,UR NONE SEEN (<= Few)
[2019-05-23 16:28] LABS: BASOPHILS # (AUTO) 0.1 10^3/uL (0.0-0.1); BASOPHILS % (AUTO) 1.1 %; EOSINOPHILS # (AUTO) 0.4 10^3/uL (0.0-0.7); EOSINOPHILS % (AUTO) 4.2 %; HGB - HEMOGLOBIN 14.4 g/dL (14.0-18.0); LYMPHOCYTES # (AUTO) 1.4 10^3/uL (1.5-3.5); LYMPHOCYTES % (AUTO) 16.5 %; MEAN CORPUSCULAR HEMOGLOBIN 28.6 pg (27.0-31.0); MEAN CORPUSCULAR VOLUME 86.9 fL (80.0-94.0); MEAN PLATELET VOLUME 10.7 fL (7.4-11.4); MONOCYTES # (AUTO) 0.8 10^3/uL (0.0-1.0); MONOCYTES % (AUTO) 9.5 %; NEUTROPHILS # (AUTO) 5.8 10^3/uL (1.5-6.6); NEUTROPHILS % (AUTO) 68.3 %; PLT - PLATELET COUNT 273 10^3/uL (130-450); RED BLOOD COUNT 5.03 10^6/uL (4.70-6.10); RED CELL DISTRIBUTION WIDTH 13.1 % (12.0-15.0); WHITE BLOOD COUNT 8.5 x10^3/uL (4.8-10.8)
[2019-05-23 16:41] LABS: ALBUMIN 3.7 g/dL (3.2-5.5); ALBUMIN/GLOBULIN RATIO 1.2 (1.0-2.2); BILIRUBIN,TOTAL 0.7 mg/dL (0.2-1.0); CALCIUM 8.6 mg/dL (8.5-10.3); CREATININE 1.1 mg/dL (0.6-1.2); TOTAL PROTEIN 6.9 g/dL (6.7-8.2)
--- NOTE | 2019-05-23 16:42 | ED Physician Documentation ---
History of Present Illness - Stated complaint Stated Complaint: MALE - Chief complaint Chief Complaint: Abd Pain - History obtained from History obtained from: Patient, Family - History of Present Illness Timing: Today Pain level max: 8 Pain level now: 0 - Additonal information Additional information: 64-year-old male presents to the emergency department with hematuria today. He has not had an episode of hematuria for several years. The last time was when he was diagnosed with renal cell carcinoma. He is currently on immunotherapy for this. No fevers. No chills. Did have pain in the left flank as well. Chauvin like he had difficulty urinating. He states he did pass a blood clot in his urine. No fevers. No vomiting. Nothing makes it better or worse. He does have a history of ureteral stones as well. Review of Systems Ten Systems: 10 systems reviewed and negative Constitutional: denies: Fever, Chills Cardiac: denies: Chest pain / pressure Respiratory: denies: Cough GI: denies: Vomiting, Diarrhea : reports: Hesitancy, Hematuria. denies: Dysuria Skin: denies: Rash Musculoskeletal: denies: Neck pain Neurologic: denies: Focal weakness, Numbness, Headache PD PAST MEDICAL HISTORY - Past Medical History Cardiovascular: Hypertension, Atrial fibrillation Respiratory: Sleep apnea Endocrine/Autoimmune: Type 2 diabetes GI: None : Other HEENT: None Psych: None Musculoskeletal: None Derm: None - Past Surgical History Past Surgical History: Yes General: Colonoscopy Ortho: Knee replacement, Arthroscopic surgery, Other - Present Medications Home Medications: Ambulatory Orders Medication Instructions Recorded Confirmed Metoprolol Succinate 100 mg PO DAILY 05/05/13 02/11/17 Furosemide [Lasix] 80 mg PO DAILY PRN 01/03/14 02/11/17 Insulin Lispro [Humalog] 10 - 20 unit SUBQ QID PRN 01/03/14 02/11/17 Lisinopril 20 mg PO DAILY 01/03/14 02/11/17 Spironolactone 12.5 mg PO DAILY 01/03/14 02/11/17 Warfarin Sodium [Coumadin] 5 mg PO DAILY 01/03/14 02/11/17 Insulin Glargine,Hum.rec.anlog 87 unit SQ QPM 02/03/17 03/21/17 [Basaglar Kwikpen U-100] Lorazepam [Ativan] 1 mg PO TID PRN #15 tablet 05/29/17 Cephalexin [Keflex] 500 mg PO TID #21 capsule 06/05/17 Oxybutynin [Ditropan] 5 mg PO BID #14 tablet 06/05/17 Levofloxacin [Levaquin] 500 mg PO DAILY #7 tablet 08/14/17 Hydrocortisone 3 tab PO DAILY #120 tablet 04/15/19 - Allergies Allergies/Adverse Reactions: Allergies Allergy/AdvReac Type Severity Reaction Status Date / Time atorvastatin [From Lipitor] Allergy Unknown Verified 04/17/19 11:11 - Social History Does the pt smoke?: No Smoking Status: Never smoker Does the pt drink ETOH?: No Does the pt have substance abuse?: No - Immunizations Immunizations are current?: Yes - POLST Patient has POLST: No PD ED PE NORMAL - Vitals Vital signs reviewed: Yes - General General: Alert and oriented X 3, No acute distress, Well developed/nourished - HEENT HEENT: PERRL, Moist mucous membranes - Neck Neck: Supple, no meningeal sign - Cardiac Cardiac: RRR - Respiratory Respiratory: No respiratory distress, Clear bilaterally - Abdomen Abdomen: Soft, Non tender, Non distended - Back Back: No CVA TTP - Derm Derm: Warm and dry - Neuro Neuro: Alert and oriented X 3 - Psych Psych: Normal mood, Normal affect Results - Vitals Vitals: Vital Signs - 24 hr 05/23/19 05/23/19 15:35 18:28 Temperature 36.1 C L 36.6 C Heart Rate 70 54 L Respiratory 18 18 Rate Blood Pressure 155/108 H 114/68 O2 Saturation 97 95 Oxygen O2 Source [With Activity] Room air O2 Source [Without Activity] Room air O2 Source Room air - Labs Labs: Laboratory Tests 05/23/19 05/23/19 05/23/19 15:42 16:23 16:23 WBC 8.5 RBC 5.03 Hgb 14.4 Hct 43.7 MCV 86.9 MCH 28.6 MCHC 33.0 RDW 13.1 Plt Count 273 MPV 10.7 Neut # (Auto) 5.8 Lymph # (Auto) 1.4 L [place] # (Auto) 0.8 Eos # (Auto) 0.4 Baso # (Auto) 0.1 Absolute Nucleated RBC 0.00 Nucleated RBC % 0.0 Sodium 130 L Potassium 4.1 Chloride 96 L Carbon Dioxide 26 Anion Gap 8.0 BUN 21 H Creatinine 1.1 Estimated GFR (MDRD) 67 L Glucose 104 H Calcium 8.6 Total Bilirubin 0.7 AST 21 ALT 21 Alkaline Phosphatase 58 Total Protein 6.9 Albumin 3.7 Globulin 3.2 Albumin/Globulin Ratio 1.2 Lipase 25 Urine Color YELLOW Urine Clarity CLEAR Urine pH 6.0 Ur Specific [place] 1.010 Urine Protein NEGATIVE Urine Glucose (UA) NEGATIVE Urine Ketones NEGATIVE Urine Occult Blood LARGE H Urine Nitrite NEGATIVE Urine Bilirubin NEGATIVE Urine Urobilinogen 0.2 (NORMAL) Ur Leukocyte Esterase NEGATIVE Urine RBC TNTC H Urine WBC 0-3 Ur Squamous Epith Cells NONE SEEN Urine Bacteria None Seen Ur Microscopic Review INDICATED Urine Culture Comments NOT INDICATED - Rads (name of study) CT abdomen pelvis Radiology: Prelim report reviewed, EMP read contemporaneously, See rad report PD MEDICAL DECISION MAKING - ED course Complexity details: reviewed results, re-evaluated patient, considered differential, d/w patient, d/w family ED course: 64-year-old male with what sounds like ureteral stone that likely passed. He has had ureteral stones in the distant past. His renal cell carcinoma appears to be decreasing. His urinary bladder is diffusely thickened, urinalysis does not show infection. Recommend that he follow-up with urology for cystoscopy. Patient is well-appearing, nontoxic. Afebrile. Patient counseled regarding signs and symptoms for which I believe and urgent re-evaluation would be necessary. Patient with good understanding of and agreement to plan and is comfortable going home at this time This document was made in part using voice recognition software. While efforts are made to proofread this document, sound alike and grammatical errors may occur. Bladder scanner also revealed an empty bladder. IMPRESSION: 1. Interval decrease in the size of the multilobular centrally necrotic and calcified exophytic mass arising from the upper pole of the left kidney now measuring 8 x 5.1 x 7.8 cm compared to 11.8 x 6.7 x 10 cm. 2. Interval near total resolution of the previously seen multiple pulmonary nodules in the bilateral lower lobes with a few remaining tiny nodules as detailed in the findings section of the report. 3. Mild left-sided hydronephrosis. Minimal left-sided hydroureter. This is of unclear etiology. 4. Nonspecific diffuse urinary bladder wall thickening. Departure - Departure Disposition: 01 Home, Self Care Clinical Impression: Hematuria Qualifiers: Hematuria type: gross Qualified Code(s): R31.0 - Gross hematuria Condition: Good Instructions: ED Hematuria Follow-Up: Marcellus Matute MD [Primary Care Provider] - Within 1 week Comments: The cause of your symptoms is unclear today, but may be related to a recently passed kidney stone. Your bladder wall does appear thickened and you should have a cystoscopy with a urologist. Discharge Date/Time: 05/23/19 18:36
[2019-05-23] MEDS ORDERED: IOVERSOL 320 100 ML VIAL IVP ONE (17:07)
[2019-05-23] MEDS ORDERED: SODIUM CHLORIDE 0.9% 1,000 ML IV ONE (17:09)
--- NOTE | 2019-05-23 17:42 | CT Report ---
Reason: L flank pain, hematuria, renal mass Procedure Date: 05/23/2019 Accession Number: [id number] / [id number] Procedure: CT - Abdomen/Pelvis W CPT Code: Final Report FULL RESULT: EXAM: CT ABDOMEN AND PELVIS EXAM DATE: 05/23/2019 05:04 PM. CLINICAL HISTORY: Left flank pain, hematuria, renal mass. COMPARISONS: IVP 05/29/2017 4:35 PM. TECHNIQUE: Routine helical CT imaging was performed through the abdomen and pelvis. IV contrast: OPTI 320 100ML. Enteric contrast: No. Reconstructions: Coronal and sagittal. In accordance with CT protocol optimization, one or more of the following dose reduction techniques were utilized for this exam: automated exposure control, adjustment of mA and/or KV based on patient size, or use of iterative reconstructive technique. FINDINGS: Lung Bases: Mild cardiomegaly. No infiltrates. Bilateral gynecomastia. Interval near total resolution of the previously seen multiple pulmonary nodules in the bilateral lower lobes with a few remaining tiny nodules. Pleural-based nodule measuring 3 mm in the left lower lobe (series #4, image #12). Juxtapleural 5 mm nodule in the left lower lobe (series #4, image #17). Juxtapleural nodule in the right lower lobe measuring 4.5 mm in diameter (series #4 image #4). Liver: Normal. No masses. Gallbladder/Bile Ducts: Unremarkable. Spleen: Normal. Pancreas: Atrophic pancreas. No pancreatic lesions. Adrenal Glands: Normal. Kidneys: Interval decrease in the size of the multilobular centrally necrotic and calcified exophytic mass arising from the upper pole of the left kidney now measuring 8 x 5.1 x 7.8 cm compared to 11.8 x 6.7 x 10 cm. Mild left-sided hydronephrosis. Minimal left-sided hydroureter. No urinary tract stones identified. Peritoneal Cavity/Bowel: Normal caliber of the small bowel without evidence of obstruction. The appendix is well visualized and normal. Pelvic Organs: Diffuse urinary bladder wall thickening. Vasculature: No aneurysms or other significant abnormality. Bones: No significant focal osseous lesions. Other: None. IMPRESSION: 1. Interval decrease in the size of the multilobular centrally necrotic and calcified exophytic mass arising from the upper pole of the left kidney now measuring 8 x 5.1 x 7.8 cm compared to 11.8 x 6.7 x 10 cm. 2. Interval near total resolution of the previously seen multiple pulmonary nodules in the bilateral lower lobes with a few remaining tiny nodules as detailed in the findings section of the report. 3. Mild left-sided hydronephrosis. Minimal left-sided hydroureter. This is of unclear etiology. 4. Nonspecific diffuse urinary bladder wall thickening. RADIA
[2019-05-23] MEDS ORDERED: ACETAMINOPHEN 325 MG TABLET PO STA (17:54)
[2019-05-23 18:29] VITALS: BP 114/68
== END 2019-05-23 18:36 | disposition home or self-care (01) ==
LOC: ED 15:27
DX: R31.0 Gross hematuria (principal); N32.89 Other specified disorders of bladder; C64.2 Malignant neoplasm of left kidney, except renal pelvis; I10 Essential (primary) hypertension; I48.91 Unspecified atrial fibrillation; Z79.01 Long term (current) use of anticoagulants; E11.9 Type 2 diabetes mellitus without complications; Z79.4 Long term (current) use of insulin; R22.32 Localized swelling, mass and lump, left upper limb
CPT/HCPCS: 36415; 74177; 76882; 80053; 81001; 83690; 85025; 99284; A9270; 81003; 87086

== ENCOUNTER 2019-05-23 19:00 | Outpatient (CLI) | payer MEDICARE, OTHER ==
--- NOTE | 2019-05-24 14:15 | Ultrasound Report ---
Reason: LOCALIZED SWELLING. PALP MASS/NODULE LT ARM -SUP TO ELBOW Procedure Date: 05/23/2019 Accession Number: [id number] / [id number] Procedure: US - Ext Limited Non Vascular CPT Code: Final Report FULL RESULT: EXAM: LEFT UPPER EXTREMITY ULTRASOUND - LIMITED EXAM DATE: 05/23/2019 06:49 PM. CLINICAL HISTORY: Localized swelling. Palpable mass/nodule left arm-superior to elbow. COMPARISON: None. TECHNIQUE: Real-time scanning was performed with static images obtained. FINDINGS: Limited focused soft tissue ultrasound of the left arm just above the elbow is performed as indicated by the patient. In the immediate subcutaneous tissues is a wider than tall heterogeneous hypoechoic area with ill-defined borders which overall measures 2.2 x 0.6 x 1.6 cm and demonstrates no appreciable flow by color Doppler. This appearance is nonspecific. IMPRESSION: Nonspecific area in subcutaneous soft tissues. No discrete fluid collection and no convincing vascular mass detected. RADIA
== END 2019-05-23 23:59 | disposition home or self-care (01) ==
LOC: DI 19:00
PROVIDERS: ATTEND Physician Assistant Medical
DX: R22.32 Localized swelling, mass and lump, left upper limb (principal); C64.2 Malignant neoplasm of left kidney, except renal pelvis
CPT/HCPCS: 76882

== ENCOUNTER 2020-02-22 08:25 | Emergency (ER) | payer MEDICARE ==
--- NOTE | 2020-02-22 08:44 | ED Physician Documentation ---
PD HPI MALE - Stated complaint Stated Complaint: MALE - History obtained from History obtained from: Patient - History of Present Illness Timing - onset: Last night (he has intermittent hematuria due to renal cancer. He says the tumor is improved but occasional bleeding. Typically passes small clots and lasts few hours or so. He had more bleeding and clots last night, and was unable to urinate until passed large clot and now feeling distended again.) Timing - duration: Hours (6-8) Timing - details: Abrupt onset, Still present Associated symptoms: Unable to urinate, Hematuria. No: Dysuria PD HPI MALE CONTRIB FACTORS: No: Indwelling catheter Similar symptoms before: Diagnosis (hematuria intermittent from renal cancer) Recently seen: Not recently seen Review of Systems Constitutional: denies: Fever, Chills Nose: denies: Rhinorrhea / runny nose, Congestion Throat: denies: Sore throat Respiratory: denies: Cough GI: reports: Abdominal Pain (bladder area). denies: Nausea, Vomiting : reports: Unable to Void, Hematuria PD PAST MEDICAL HISTORY - Past Medical History Cardiovascular: Hypertension, Atrial fibrillation Respiratory: Sleep apnea Endocrine/Autoimmune: Type 2 diabetes GI: None : Other HEENT: None Psych: None Musculoskeletal: None Derm: None - Past Surgical History Past Surgical History: Yes General: Colonoscopy Ortho: Knee replacement, Arthroscopic surgery, Other - Present Medications Home Medications: Ambulatory Orders Medication Instructions Recorded Confirmed Metoprolol Succinate 100 mg PO DAILY 05/05/13 02/22/20 Lisinopril 20 mg PO DAILY 01/03/14 02/22/20 Spironolactone 12.5 mg PO DAILY 01/03/14 02/22/20 Gabapentin [Neurontin] 600 mg PO TID 02/22/20 02/22/20 Hydrocortisone 5 mg PO BID 02/22/20 02/22/20 Levothyroxine Sodium [Euthyrox] 125 mcg PO DAILY 02/22/20 02/22/20 - Allergies Allergies/Adverse Reactions: Allergies Allergy/AdvReac Type Severity Reaction Status Date / Time atorvastatin [From Lipitor] Allergy Unknown Verified 02/22/20 08:50 - Social History Does the pt smoke?: No Smoking Status: Never smoker Does the pt drink ETOH?: No Does the pt have substance abuse?: No - Immunizations Immunizations are current?: Yes - POLST Patient has POLST: No PD ED PE NORMAL - Vitals Vital signs reviewed: Yes - General General: Alert and oriented X 3, Well developed/nourished, Other (appears uncomfortable due to full bladder) - Cardiac Cardiac: RRR, No murmur - Respiratory Respiratory: Clear bilaterally - Abdomen Abdomen: Normal bowel sounds, Soft, No organomegaly, Other (fullness in bladder area. ) - Male Male : Other (normal external genitalia) - Rectal Rectal: Deferred - Derm Derm: Normal color, Warm and dry - Neuro Neuro: Alert and oriented X 3, No motor deficit, Normal speech Results - Vitals Vitals: Vital Signs - 24 hr 02/22/20 02/22/20 02/22/20 08:33 09:45 10:05 Temperature 36.9 C 36.6 C Heart Rate 59 L 56 L 54 L Respiratory 18 18 18 Rate Blood Pressure 126/68 119/72 119/72 O2 Saturation 96 96 98 02/22/20 02/22/20 10:38 12:00 Temperature 97.7 C H Heart Rate 66 66 Respiratory 18 18 Rate Blood Pressure 121/69 136/79 H O2 Saturation 100 96 Oxygen O2 Source [With Activity] Room air O2 Source [Without Activity] Room air O2 Source Room air - Labs Labs: Laboratory Tests 02/22/20 02/22/20 02/22/20 09:20 09:20 10:04 WBC 8.7 RBC 4.61 L Hgb 13.3 L Hct 40.5 L MCV 87.9 MCH 28.9 MCHC 32.8 RDW 15.4 H Plt Count 227 MPV 11.7 H Neut # (Auto) 5.0 Lymph # (Auto) 1.7 [place] # (Auto) 1.1 H Eos # (Auto) 0.7 Baso # (Auto) 0.1 Absolute Nucleated RBC 0.00 Nucleated RBC % 0.0 Sodium 130 L Potassium 4.0 Chloride 94 L Carbon Dioxide 26 Anion Gap 10.0 BUN 29 H Creatinine 1.6 H Estimated GFR (MDRD) 43 L Glucose 139 H Calcium 8.5 Urine Color RED/BLOODY Urine Clarity CLOUDY Urine pH 6.5 Ur Specific [place] 1.015 Urine Protein 100 H Urine Glucose (UA) NEGATIVE Urine Ketones NEGATIVE Urine Occult Blood LARGE H Urine Nitrite NEGATIVE Urine Bilirubin NEGATIVE Urine Urobilinogen 0.2 (NORMAL) Ur Leukocyte Esterase NEGATIVE Urine RBC TNTC H Urine WBC 0-3 Ur Squamous Epith Cells NONE SEEN Urine Bacteria Rare Ur Microscopic Review INDICATED Urine Culture Comments NOT INDICATED PD MEDICAL DECISION MAKING - ED course Complexity details: re-evaluated patient (presume once his hematuria stops (which has done so in the past on its own) then hall could come out, presume 1- 2 days. ), considered differential (bladder scan showing over 500 ml. Hall placed by nursing with CBI of 2 then third liter of NS. Urine cleared with irrigation (had clots out first) and then was down to very mild hematuria after (faintly red). Sent with hall. ), d/w patient Departure - Departure Disposition: 01 Home, Self Care Clinical Impression: Gross hematuria, Acute urinary retention Condition: Stable Record reviewed to determine appropriate education?: Yes Instructions: ED Catheter Care Hall Follow-Up: [facility] [Provider Group] Comments: Keep the catheter in to allow better drainage while you are still having the bleeding. Once the bleeding resolves, we should build to take the catheter out so hopefully just the next couple of days. Follow-up with your primary care early next week, call today for an appointment. If your bleeding stops and you are doing okay presumably we can get the catheter out at that point. Follow-up here in the ER if your other providers are not able to see you in appropriate timeframe. Discharge Date/Time: 02/22/20 13:45
[2020-02-22] MEDS ORDERED: TRANEXAMIC ACID 1,000 MG in SODIUM CHLORIDE 0.9% 100ML 100 ML IV STA (08:59)
[2020-02-22] MEDS ORDERED: SODIUM CHLORIDE 0.9% 1,000 ML IV STA (08:59)
[2020-02-22 09:25] LABS: BASOPHILS # (AUTO) 0.1 10^3/uL (0.0-0.1); EOSINOPHILS # (AUTO) 0.7 10^3/uL (0.0-0.7); EOSINOPHILS % (AUTO) 8.2 %; HGB - HEMOGLOBIN 13.3 g/dL (14.0-18.0); LYMPHOCYTES # (AUTO) 1.7 10^3/uL (1.5-3.5); LYMPHOCYTES % (AUTO) 19.7 %; MEAN CORPUSCULAR HEMOGLOBIN 28.9 pg (27.0-31.0); MEAN CORPUSCULAR HGB CONC 32.8 g/dL (32.0-36.0); MEAN CORPUSCULAR VOLUME 87.9 fL (80.0-94.0); MEAN PLATELET VOLUME 11.7 fL (7.4-11.4); MONOCYTES # (AUTO) 1.1 10^3/uL (0.0-1.0); MONOCYTES % (AUTO) 12.6 %; NEUTROPHILS % (AUTO) 58.2 %; PLT - PLATELET COUNT 227 10^3/uL (130-450); RED BLOOD COUNT 4.61 10^6/uL (4.70-6.10); RED CELL DISTRIBUTION WIDTH 15.4 % (12.0-15.0); WHITE BLOOD COUNT 8.7 x10^3/uL (4.8-10.8)
[2020-02-22 09:34] LABS: CALCIUM 8.5 mg/dL (8.5-10.3); CREATININE 1.6 mg/dL (0.6-1.2)
[2020-02-22] MEDS ORDERED: LIDOCAINE 2% URO-JET 5 ML SYRINGE UR STA (09:44)
[2020-02-22 10:31] LABS: BILIRUBIN,URINE NEGATIVE (NEGATIVE); CLARITY,URINE CLOUDY (CLEAR); GLUCOSE, URINE (UA) NEGATIVE (NEGATIVE); KETONES,URINE (UA) NEGATIVE (NEGATIVE); LEUKOCYTE ESTERASE, URINE NEGATIVE (NEGATIVE); NITRITE,URINE NEGATIVE (NEGATIVE); OCCULT BLOOD,URINE LARGE (NEGATIVE); PH,URINE 6.5 PH (5.0-7.5); PROTEIN,URINE 100 mg/dL (NEGATIVE); UROBILINOGEN,URINE 0.2 (NORMAL) E.U./dL (NORMAL)
[2020-02-22 10:38] LABS: BACTERIA,URINE Rare /HPF (None Seen); RBC,URINE TNTC /HPF (0-5); SQUAMOUS EPITHELIAL CELL,UR NONE SEEN (<= Few)
[2020-02-22 12:01] VITALS: BP 136/79
== END 2020-02-22 13:45 | disposition home or self-care (01) ==
LOC: ED 08:25
DX: R31.0 Gross hematuria (principal); R33.9 Retention of urine, unspecified; C64.9 Malignant neoplasm of unspecified kidney, except renal pelvis; I10 Essential (primary) hypertension; I48.91 Unspecified atrial fibrillation; Z79.01 Long term (current) use of anticoagulants; E11.9 Type 2 diabetes mellitus without complications
CPT/HCPCS: 36415; 80048; 81001; 81003; 85025; 87086; 99283; 99284

== ENCOUNTER 2020-02-23 05:43 | Emergency (ER) | payer MEDICARE, OTHER ==
--- NOTE | 2020-02-23 06:07 | ED Physician Documentation ---
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 Hall catheter was placed at that time and left in at time of discharge; he slept most of the day after getting back home and thus did not drink as much fluid as he intended to. 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 Review of Systems Constitutional: denies: Fever, Chills, Sweats GI: reports: Abdominal Pain (suprapubic fullness). denies: Nausea, Vomiting : reports: Unable to Void, Hall Problem PD PAST MEDICAL HISTORY - Past Medical History Cardiovascular: Hypertension, Atrial fibrillation Respiratory: Sleep apnea Endocrine/Autoimmune: Type 2 diabetes GI: None : Other HEENT: None Psych: None Musculoskeletal: None Derm: None - Past Surgical History Past Surgical History: Yes General: Colonoscopy Ortho: Knee replacement, Arthroscopic surgery, Other - Present Medications Home Medications: Ambulatory Orders Medication Instructions Recorded Confirmed Metoprolol Succinate 100 mg PO DAILY 05/05/13 02/22/20 Lisinopril 20 mg PO DAILY 01/03/14 02/22/20 Spironolactone 12.5 mg PO DAILY 01/03/14 02/22/20 Gabapentin [Neurontin] 600 mg PO TID 02/22/20 02/22/20 Hydrocortisone 5 mg PO BID 02/22/20 02/22/20 Levothyroxine Sodium [Euthyrox] 125 mcg PO DAILY 02/22/20 02/22/20 - Allergies Allergies/Adverse Reactions: Allergies Allergy/AdvReac Type Severity Reaction Status Date / Time atorvastatin [From Lipitor] Allergy Unknown Verified 02/22/20 08:50 - Social History Does the pt smoke?: No Smoking Status: Never smoker Does the pt drink ETOH?: No Does the pt have substance abuse?: No - Immunizations Immunizations are current?: Yes - POLST Patient has POLST: No PD ED PE NORMAL - Vitals Vital signs reviewed: Yes - General General: Alert and oriented X 3, Well developed/nourished, Other (appears uncomfortable) - Abdomen Abdomen: Soft, Other (suprapubic fullness and TTP. hall in place with no urine in bag) - Back Back: No CVA TTP Results - Vitals Vitals: Vital Signs - 24 hr 02/23/20 02/23/20 05:47 07:01 Temperature 36.5 C Heart Rate 66 70 Respiratory 16 16 Rate Blood Pressure 157/76 H 155/78 H O2 Saturation 98 97 Oxygen O2 Source [With Activity] Room air O2 Source [Without Activity] Room air O2 Source Room air PD MEDICAL DECISION MAKING - ED course Complexity details: reviewed old records, considered differential, d/w patient, d/w family ED course: RN irrigated hall with return of brown/tea-colored urine and improvement in symptoms. I then hand-irrigated the hall using a 50cc syringe (maintaining sterile technique) and was able to retrieve several clots this way. The last se veral 50cc irrigations were smooth going in and returned without clots and very faint blood-tinge in otherwise clear irrigant, which would suggest against any active, significant bleeding. Patient reported complete resolution of his symptoms. I emphasized the need for maintaining steady PO intake in order to keep UO up and steady (which, in turn, will minimize risk of clots forming and blocking the catheter). Departure - Departure Disposition: 01 Home, Self Care Clinical Impression: Complication, blocked Hall catheter Condition: Good Instructions: ED Catheter Care Hall, ED Hematuria, ED Retention Urinary Male Follow-Up: Marcellus Matute MD [Primary Care Provider] - Comments: You will need to follow up with your primary care provider in the next 2-3 days for removal of the catheter. Your primary care provider might refer you to a urologist instead. If you cannot arrange to have the catheter taken out within this time frame, you can go to an urgent care center, walk-in clinic, or return to the emergency department for catheter removal. You will likely need a referral to see a urologist if you are not already established with one. Depending on your insurance, options might include the [facility] in [place] ([address] [address], [address] in [place] or [place]). The general number for [facility] is . Discharge Date/Time: 02/23/20 07:01
[2020-02-23 07:02] VITALS: BP 155/78
== END 2020-02-23 07:01 | disposition home or self-care (01) ==
LOC: ED 05:43
DX: T83.091A Other mechanical complication of indwelling urethral catheter, initial encounter (principal); Y84.6 Urinary catheterization as the cause of abnormal reaction of the patient, or of later complication, without mention of misadventure at the time of the procedure; I10 Essential (primary) hypertension; E11.9 Type 2 diabetes mellitus without complications
CPT/HCPCS: 99281; 99283

== ENCOUNTER 2020-02-25 07:17 | Outpatient (CLI) | payer MEDICARE, OTHER | END 2020-02-25 07:18 | disposition critical access hospital (66) | LOC: EMS 07:17 | PROVIDERS: ATTEND Surgery | DX: R41.0 Disorientation, unspecified (principal) | CPT/HCPCS: A0425; A0429 ==

== ENCOUNTER 2020-02-25 07:31 | Inpatient (IN) | payer MEDICARE, OTHER ==
--- NOTE | 2020-02-25 07:54 | ED Physician Documentation ---
PD HPI ALTERED MENTAL STATUS - Stated complaint Stated Complaint: AMS - History obtained from History obtained from: Family, EMS - History of Present Illness Timing - onset: Last night Timing - duration: Hours Timing - details: Gradual onset, Still present Quality / character: Less responsive Associated symptoms: Urinary sx, General weakness. No: Fever, Headache, Stiff neck, Dyspnea, Cough, NVD, Focal weakness, Seizure activity, Syncope Contributing factors: Diabetic, Cancer, Recent illness (hall cath placed). 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 He recently had a Hall catheter placed in the emergency department for clot retention and this remains in place. He has developed altered level of consciousness on awakening this morning his summoned the ambulance. She is not initially available for history. The patient himself is unable to provide any meaningful history. The is able to acknowledge that he was less responsive last night than usual and needed help to use his insulin last night. She relates that he was not febrile and that he watched the game yesterday and sat by the [employer]. 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 Review of Systems Unable to obtain: Confused PD PAST MEDICAL HISTORY - Past Medical History Cardiovascular: Hypertension, Atrial fibrillation Respiratory: Sleep apnea Endocrine/Autoimmune: Type 2 diabetes GI: None : Other HEENT: None Psych: None Musculoskeletal: None Derm: None - Past Surgical History Past Surgical History: Yes General: Colonoscopy Ortho: Knee replacement, Arthroscopic surgery, Other - Present Medications Home Medications: Ambulatory Orders Medication Instructions Recorded Confirmed Metoprolol Succinate 150 mg PO DAILY 05/05/13 02/25/20 Lisinopril 20 mg PO DAILY 01/03/14 02/25/20 Spironolactone 12.5 mg PO DAILY PRN 01/03/14 02/25/20 Gabapentin [Neurontin] 600 mg PO TID 02/22/20 02/25/20 Hydrocortisone 5 mg PO BID 02/22/20 02/25/20 Furosemide 80 mg PO DAILY 02/25/20 02/25/20 Levothyroxine Sodium [Euthyrox] 125 mcg PO DAILY 02/25/20 02/25/20 - Allergies Allergies/Adverse Reactions: Allergies Allergy/AdvReac Type Severity Reaction Status Date / Time atorvastatin [From Lipitor] Allergy Unknown Verified 02/25/20 10:16 - Social History Does the pt smoke?: No Smoking Status: Never smoker Does the pt drink ETOH?: No Does the pt have substance abuse?: No - Immunizations Immunizations are current?: Yes - POLST Patient has POLST: No PD ED PE NORMAL - Vitals Vital signs reviewed: Yes (hypertensive mild) - General General: No acute distress, Well developed/nourished - HEENT HEENT: Atraumatic, PERRL, EOMI - Neck Neck: Supple, no meningeal sign, No bony TTP - Cardiac Cardiac: RRR, No murmur - Respiratory Respiratory: No respiratory distress, Clear bilaterally - Abdomen Abdomen: Normal bowel sounds, Soft, Non tender, Non distended, No organomegaly - Back Back: No CVA TTP, No spinal TTP - Derm Derm: Normal color, Warm and dry, No rash - Extremities Extremities: No deformity, No edema - Neuro Neuro: funds development director 2-12 intact, No motor deficit, No sensory deficit, Normal speech Eye Opening: Spontaneous Motor: Localizes to Pain Verbal: Confused GCS Score: 13 - Psych Psych: Normal mood, Normal affect Results - Vitals Vitals: Vital Signs - 24 hr 02/25/20 02/25/20 02/25/20 07:32 08:26 08:53 Temperature 37.1 C Heart Rate 83 82 87 Respiratory 18 18 Rate Blood Pressure 122/97 H 151/82 H O2 Saturation 98 95 02/25/20 02/25/20 02/25/20 09:41 11:29 11:49 Temperature Heart Rate 85 79 89 Respiratory 16 18 18 Rate Blood Pressure 114/84 H 171/88 H 124/72 O2 Saturation 94 95 92 Oxygen O2 Source [] Room air O2 Source [] Room air O2 Source Room air - EKG (time done) 0856 Rate: Rate (enter#) (84) Rhythm: Atrial fibrillation Intervals: LBBB Compare to prior EKG: Changed from prior EKG (SPT Left bundle branch block has occurred ) Computer interpretation: Agree with computer - Labs Labs: Laboratory Tests 02/25/20 02/25/20 02/25/20 08:05 08:05 08:05 WBC 10.5 RBC 4.43 L Hgb 13.0 L Hct 38.1 L MCV 86.0 MCH 29.3 MCHC 34.1 RDW 14.0 Plt Count 241 MPV 11.2 Neut # (Auto) 7.2 H Lymph # (Auto) 1.4 L [place] # (Auto) 1.5 H Eos # (Auto) 0.4 Baso # (Auto) 0.1 Absolute Nucleated RBC 0.00 Nucleated RBC % 0.0 Sodium 121 L Potassium 4.1 Chloride 84 L Carbon Dioxide 25 Anion Gap 12.0 BUN 20 Creatinine 1.7 H Estimated GFR (MDRD) 41 L Glucose 93 Lactic Acid 1.1 Calcium 8.2 L Total Bilirubin 1.7 H AST 16 ALT 13 Alkaline Phosphatase 81 Troponin I High Sens Total Protein 6.5 L Albumin 3.6 Globulin 2.9 Albumin/Globulin Ratio 1.2 Lipase 20 L Urine Color Urine Clarity Urine pH Ur Specific [place] Urine Protein Urine Glucose (UA) Urine Ketones Urine Occult Blood Urine Nitrite Urine Bilirubin Urine Urobilinogen Ur Leukocyte Esterase Urine RBC Urine WBC Ur Squamous Epith Cells Urine Bacteria Ur Microscopic Review Urine Culture Comments Urine Opiates Screen Ur Oxycodone Screen Urine Methadone Screen Ur Propoxyphene Screen Ur Barbiturates Screen Ur Tricyclics Screen Ur Phencyclidine Scrn Ur Amphetamine Screen U Methamphetamines Scrn U Benzodiazepines Scrn Urine Cocaine Screen U Cannabinoids Screen SARS-CoV-2 (PCR) 02/25/20 02/25/20 02/25/20 08:05 08:26 09:48 WBC RBC Hgb Hct MCV MCH MCHC RDW Plt Count MPV Neut # (Auto) Lymph # (Auto) [place] # (Auto) Eos # (Auto) Baso # (Auto) Absolute Nucleated RBC Nucleated RBC % Sodium Potassium Chloride Carbon Dioxide Anion Gap BUN Creatinine Estimated GFR (MDRD) Glucose Lactic Acid Calcium Total Bilirubin AST ALT Alkaline Phosphatase Troponin I High Sens 9.1 Total Protein Albumin Globulin Albumin/Globulin Ratio Lipase Urine Color YELLOW Urine Clarity CLEAR Urine pH 7.0 Ur Specific [place] 1.015 Urine Protein 100 H Urine Glucose (UA) NEGATIVE Urine Ketones 15 H Urine Occult Blood LARGE H Urine Nitrite NEGATIVE Urine Bilirubin NEGATIVE Urine Urobilinogen 1 (NORMAL) Ur Leukocyte Esterase NEGATIVE Urine RBC TNTC H Urine WBC 0-3 Ur Squamous Epith Cells NONE SEEN Urine Bacteria Few Ur Microscopic Review INDICATED Urine Culture Comments NOT INDICATED Urine Opiates Screen NEGATIVE Ur Oxycodone Screen NEGATIVE Urine Methadone Screen NEGATIVE Ur Propoxyphene Screen NEGATIVE Ur Barbiturates Screen NEGATIVE Ur Tricyclics Screen NEGATIVE Ur Phencyclidine Scrn NEGATIVE Ur Amphetamine Screen NEGATIVE U Methamphetamines Scrn NEGATIVE U Benzodiazepines Scrn NEGATIVE Urine Cocaine Screen NEGATIVE U Cannabinoids Screen NEGATIVE SARS-CoV-2 (PCR) NOT DETECTED - Rads (name of study) CT head Radiology: Prelim report reviewed (Impression: 1. No acute intracranial abnormality.), EMP read indepedently, See rad report chest Radiology: Prelim report reviewed (Impression: Reduced inspiratory volume but mild pulmonary edema and a new finding of cardiomegaly is present when compared to 11/08/2018 comparison chest plain films.), EMP read indepedently, See rad report Procedures - IVC sono (time) 0748 Bedside IVC sono: IVC measures (cm) (0.79), IVC collapsed c insp (cm) (complete), Dehydration (est >2 liter deficit.) PD MEDICAL DECISION MAKING - ED course Complexity details: reviewed old records, reviewed results, re-evaluated patient, considered differential, d/w patient, d/w family, d/w financial consultant ([facility]affae[facility]don[facility] recommends checking cortisol level and administering hydrocortisone. ) ED course: 64-year-old male with a history of renal cell carcinoma and diabetes and atrial fibrillation has developed altered mental status is found to be significantly dehydrated on interrogation the inferior vena cava and he is found to be hyponatremic. He is administered IV saline. Urine does not appear infected. Chest does not appear infected. lactate is normal as well as WBC. Vitals are stable. Findings are hyponatremia and dehydration. CT of head is without abnormality. CVA is in the differential but symptoms came on slowly like a metabolic encephalopathy. He is able to answer questions with less latency but still with the wrong or no answer. Hospitalist paged [phone]. Departure - Departure Disposition: 66 [facility] DC/Xfer Clinical Impression: Hyponatremia Altered mental status Qualifiers: Altered mental status type: stupor Qualified Code(s): R40.1 - Stupor
[2020-02-25 08:16] LABS: BASOPHILS # (AUTO) 0.1 10^3/uL (0.0-0.1); BASOPHILS % (AUTO) 0.8 %; EOSINOPHILS # (AUTO) 0.4 10^3/uL (0.0-0.7); EOSINOPHILS % (AUTO) 3.7 %; LYMPHOCYTES # (AUTO) 1.4 10^3/uL (1.5-3.5); LYMPHOCYTES % (AUTO) 13.3 %; MEAN CORPUSCULAR HEMOGLOBIN 29.3 pg (27.0-31.0); MEAN CORPUSCULAR HGB CONC 34.1 g/dL (32.0-36.0); MEAN PLATELET VOLUME 11.2 fL (7.4-11.4); MONOCYTES # (AUTO) 1.5 10^3/uL (0.0-1.0); MONOCYTES % (AUTO) 13.9 %; NEUTROPHILS # (AUTO) 7.2 10^3/uL (1.5-6.6); NEUTROPHILS % (AUTO) 67.8 %; PLT - PLATELET COUNT 241 10^3/uL (130-450); RED BLOOD COUNT 4.43 10^6/uL (4.70-6.10); WHITE BLOOD COUNT 10.5 x10^3/uL (4.8-10.8)
[2020-02-25 08:28] LABS: MUDS CUTOFF CONCENTRATIONS CUTOFF CONC BELOW:
[2020-02-25 08:29] LABS: ALBUMIN 3.6 g/dL (3.2-5.5); ALBUMIN/GLOBULIN RATIO 1.2 (1.0-2.2); BILIRUBIN,TOTAL 1.7 mg/dL (0.2-1.0); CALCIUM 8.2 mg/dL (8.5-10.3); CREATININE 1.7 mg/dL (0.6-1.2); TOTAL PROTEIN 6.5 g/dL (6.7-8.2)
[2020-02-25 08:54] LABS: BILIRUBIN,URINE NEGATIVE (NEGATIVE); GLUCOSE, URINE (UA) NEGATIVE (NEGATIVE); KETONES,URINE (UA) 15 mg/dL (NEGATIVE); LEUKOCYTE ESTERASE, URINE NEGATIVE (NEGATIVE); NITRITE,URINE NEGATIVE (NEGATIVE); OCCULT BLOOD,URINE LARGE (NEGATIVE); PROTEIN,URINE 100 mg/dL (NEGATIVE); UROBILINOGEN,URINE 1 (NORMAL) E.U./dL (NORMAL)
--- NOTE | 2020-02-25 08:57 | XRAY Report ---
PROCEDURE: Chest 1 View X-Ray INDICATIONS: alterered LOC TECHNIQUE: One view of the chest was acquired. COMPARISON: 2 view chest 11/08/2018 FINDINGS: Surgical changes and devices: None. Lungs and pleura: No pleural effusions or pneumothorax. Lungs are abnormal with reduced inspiratory volume but also a mild pulmonary edema pattern. Mediastinum: Mediastinal contours appear normal. Heart size is mildly enlarged. Bones and chest wall: No suspicious bony lesions. Overlying soft tissues appear unremarkable. IMPRESSION: Reduced inspiratory volume but mild pulmonary edema and a new finding of cardiomegaly is present when compared to the 11/08/2018 comparison chest plain films. Reviewed by: Jurgen Sanabria MD on 02/25/2020 8:55 AM [facility] Approved by: Jurgen Saanbria MD on 02/25/2020 8:55 AM [facility] Station ID: [id number]
[2020-02-25 09:02] LABS: CLARITY,URINE CLEAR (CLEAR)
[2020-02-25 09:11] LABS: AMPHETAMINE SCREEN,URINE NEGATIVE (NEGATIVE); BENZODIAZEPINES SCREEN, URINE NEGATIVE (NEGATIVE); COCAINE SCREEN URINE NEGATIVE (NEGATIVE); METHADONE SCREEN, URINE NEGATIVE (NEGATIVE); METHAMPHETAMINES SCREEN, URINE NEGATIVE (NEGATIVE); OPIATE SCREEN, URINE NEGATIVE (NEGATIVE); OXYCODONE SCREEN, URINE NEGATIVE (NEGATIVE); PROPOXYPHENE SCREEN, URINE NEGATIVE (NEGATIVE); TRICYCLIC ANTIDEPRESSANT,URINE NEGATIVE (NEGATIVE)
--- NOTE | 2020-02-25 09:29 | CT Report ---
PROCEDURE: HEAD WO INDICATIONS: altered LOC TECHNIQUE: Noncontrast 4.5 mm thick angled axial sections acquired from the foramen magnum to the vertex. For r adiation dose reduction, the following was used: automated exposure control, adjustment of mA and/or kV according to patient size. COMPARISON: None. FINDINGS: Image quality: There is mild motion artifact. CSF spaces: Basal cisterns are patent. No extra-axial fluid collections. Ventricles are normal in size and shape. Brain: No intracranial hemorrhage, mass, or mass effect. Whitley-white matter interface appears preser geno. Skull and face: Calvarium and visualized facial bones are intact, without suspicious lesions. Sinuses: Visualized sinuses demonstrate moderate mucosal thickening within the ethmoid sinuses. Ther e is also mild mucosal thickening in the sphenoid sinuses. A mucosal polyp or sinus retention cyst is demonstrated within the left maxillary sinus inferiorly. IMPRESSION: 1. No acute intracranial abnormality. Reviewed by: Franc Juarez MD on 02/25/2020 9:28 AM [facility] Approved by: Franc Juarez MD on 02/25/2020 9:28 AM [facility] Station ID: [id number]
[2020-02-25 09:35] LABS: BACTERIA,URINE Few /HPF (None Seen); RBC,URINE TNTC /HPF (0-5); SQUAMOUS EPITHELIAL CELL,UR NONE SEEN (<= Few)
[2020-02-25] MEDS ORDERED: SODIUM CHLORIDE 0.9% 1,000 ML IV STA (09:38)
[2020-02-25] MEDS ORDERED: ACETAMINOPHEN 325 MG TABLET PO STA (11:51)
[2020-02-25] MEDS ORDERED: HYDROCORTISONE SUCCINATE 100 MG/2 ML VIAL IVP STA (11:51)
[2020-02-25] MEDS ORDERED: ACETAMINOPHEN 325 MG TABLET PO PRN (12:51)
[2020-02-25] MEDS ORDERED: ONDANSETRON 4 MG/2 ML VIAL IVP PRN (12:51)
[2020-02-25] MEDS ORDERED: DEXTROSE 5%-0.9% NACL 1,000 ML IV SCH (13:00)
--- NOTE | 2020-02-25 13:06 | PHARMACY PROGRESS NOTE ---
- Best Possible Medication History Admit Date and Time: 02/25/20 1249 Processed by: Pharmacy Medication History completed: Yes Patient Interview: Completed Secondary Source(s): Physician records, Pharmacy records, Insurance records (PATIENT INTERVIEWED BY HOLE PUNCHER STRAP. PATIENT PROVIDED A LIST OF HIS MEDICATIONS ) As the person ultimately responsible for medication therapy, providers are able to order a medication from an existing home medication list in [facility] via the "Reconcile Routine" prior to Confirmation of that medication by bioinformatics support specialist. Such practice is discouraged except when the physician, in their clinical judgment, deems that a medical need exists for a medication without regard to previous use.
[2020-02-25 14:08] LABS: CALCIUM 7.8 mg/dL (8.5-10.3); CREATININE 1.6 mg/dL (0.6-1.2)
[2020-02-25] MEDS ORDERED: LORazepam 2 MG/ML VIAL IVP ONE (14:21)
[2020-02-25] MEDS ORDERED: LORazepam 2 MG/ML VIAL IVP SCH (14:21)
[2020-02-25] MEDS: HYDROCORTISONE SUCCINATE 100 MG/2 ML VIAL IVP SCH (17:51)
[2020-02-25] MEDS: SODIUM CHLORIDE FLUSH 0.9% 10 ML SYRINGE IVP SCH (17:51)
--- NOTE | 2020-02-25 19:40 | PROVIDER PROGRESS NOTE ---
Hospitalist Cross-cover Note - Cross-Cover Note Cross-Cover Note: I was called to evaluate the patient by the ICU nurse; he is behaving more combative, trying to pull off his wrist restraints. When Ativan 0.5 mg IV x1 was given, he did sleep for approximately 20 minutes and was apneic and needed nasal cannula supplemental oxygen but awoke after 20 minutes and is now possibly more confused I evaluated the patient. BP and HR are within normal limits. He responds to his name and tries to have a conversation, and momentarily stops fidgeting and tries to answer but first has a long pause and then his answer is not on topic. The speech is not slurred. He has no focal deficits grossly, by evaluating his movements. Impression: Continued altered mental status of unknown etiology Plan: Continue with treatment as begun including ICU monitoring of neuro checks Plan brain MRI if there is no improvement overnight, and with the use of sedatives during the imaging, to prevent motion artifact. We will try to not give sedatives or narcotics in order to monitor improvement of his neuro status. Critical care time spent: 30 minutes.
--- NOTE | 2020-02-25 20:04 | HISTORY & PHYSICAL EXAMINATION ---
DATE OF SERVICE: 02/25/2020 Physician: Kinga Galvan MD HISTORY OF PRESENT ILLNESS: This is a 64-year-old white male with a history of diabetes, no longer o n insulin. Therefore, presumed diet controlled, history of atrial fibrillation, not on anticoagulant s, history of renal cell carcinoma, undergoing some type of treatment, has had hematuria in the past, has history of hypertension, sleep apnea, knee replacement. Patient came to this ER the last 2 days for hematuria, had a Rico catheter placed on the first visit and was sent home, developed obstructi on with clots and required an ER visit yesterday and had the bladder flushed, clots were removed. Th e same Rico catheter was left in place and he was discharged home again. After that, he became some what unlike himself, was slow to answer. This morning he did not recognize his . She found him on the floor and called an ambulance. He was brought to the ER and found to have normal vital signs with blood pressure 114/84, atrial fibrillation at a rate of 85 and labs showed normal white blood co unt, normal lactic acid level, urinalysis that had hematuria, but electrolytes showed a sodium of 121 , which was new. He also had a mildly elevated creatinine, which was new at 1.6. He was very confus ed and fidgety, pulling at things. He underwent a head CT that showed no abnormalities. The emergen cy room doctor called the [facility] who are his oncologists and they recommended t hat he have a cortisol level checked and hydrocortisone IV administered for probable adrenal insuffic iency. The cortisol level came back somewhat after leaving the emergency room at a very low value co nsistent with adrenal crisis. Patient is being admitted to the ICU for findings of adrenal crisis, a ltered mental status, new left bundle branch block and chest x-ray showing new CHF. He received 2 li ters of IV saline in the ER; therefore close observation for development of pulmonary edema is plancindi mccall in the ICU. PAST MEDICAL HISTORY 1. Diabetes. 2. Sleep apnea. 3. Hypertension. 4. Hypothyroidism. 5. Chronic atrial fibrillation. 6. Renal cell cancer. 7. History of hematuria. 8. Recent hematuria. ALLERGIES: ATORVASTATIN. MEDICATIONS 1. Gabapentin 600 mg t.i.d. 2. Lisinopril 20 mg daily. 3. Spironolactone 12.5 mg daily p.r.n. 4. Lasix 80 mg daily. 5. Hydrocortisone 5 mg b.i.d. 6. Levothyroxine 125 mcg daily. 7. Toprol-XL 150 mg daily. REVIEW OF SYSTEMS: A comprehensive review of systems was performed from chart review and speaking to patient with his minimal and vague answers and speaking to the ER doctor. The pertinent positives a re listed above, the rest are negative. 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 He lives with his . He is a nonsmoker, who never smoked. Alcohol history is not known. FAMILY HISTORY: No inherited diseases. PHYSICAL EXAMINATION GENERAL: Middle-aged white male who is squirming in bed, pulling at his handrails, lifting up his fe et and kicking. He stops doing that when his name is called, and he answers by a very long pause and then a somewhat inappropriate answers and gives no details. VITAL SIGNS: Blood pressure 161/100, heart rate 105 in atrial fibrillation, low grade temperature of 37.6, room air saturation 95%, respiratory rate 19. HEENT: Reveals cheeks are flushed. Oral mucosa is moist. NECK: Positive JVD, but he is performing Valsalva and is supine. CHEST: Clear. HEART: Irregular. No murmurs are heard. ABDOMEN: Soft, nontender, nondistended. Decreased bowel sounds. EXTREMITIES: No clubbing, cyanosis or edema. NEUROLOGIC: Nonfocal, disoriented x3. LABORATORY DATA: Sodium 121, potassium 4.1, BUN 20, creatinine 1.7, glucose 93. Lactic acid 1.1, bi lirubin 1.7, normal liver tests. Troponin I 9.1. The repeat troponin is 18.9. BNP 685. Lipase nor mal. TSH high at 11.3. The 8 a.m. cortisol low at 0.4. White blood count 10.5, hemoglobin 13, plat elet count 241. INR was not done. Urinalysis showed high protein, high ketones, large blood and few bacteria and negative leukocyte esterase and negative nitrites. Serum toxicology was entirely negat ki. His serologies showed COVID negative status. Head CT was within normal limits. CHEST X-RAY: Mild pulmonary edema and cardiomegaly. EKG: Atrial fibrillation, left bundle branch block. Since his last EKG, which was 5 years ago appro ximately, left bundle branch block is new. A bedside echo currently being done is showing 4-chamber enlargement, septal flattening, depressed left ventricular function with ejection fraction of about 2 0%. Depressed RV function severely as well. Mild pulmonary hypertension. IMPRESSION/DIAGNOSES 1. Altered mental status. This could be from his hyponatremia, a stroke that is not seen on CT scan , would require a brain MRI, possibly from UTI related to bladder manipulation with the Rico repeate dly over the last few days, from brain hypoperfusion given the adrenal crisis and findings of cardiom yopathy, unlikely to be from diabetes. 2. Hyponatremia. 3. Adrenal crisis. 4. Acute kidney injury. 5. Renal cell cancer. 6. Chronic atrial fibrillation 7. New left bundle branch block. 8. New onset of congestive heart failure. 9. Cor pulmonale. 10. Hypothyroid. 11. History of hypertension. 12. History of sleep apnea. 13. Diabetes mellitus, presumably diet controlled. PLAN: Admit patient to the ICU on telemetry. Continue with hydrocortisone IV management 100 mg t.i. d. and transition to oral treatment when he is able. Cycle troponins to determine if this is an acut e myocardial infarction, currently there is concern with doubling of his troponin I, but it has not r isen excessively. Continue with IV hydration of saline, but at a very slow rate, because of the alre aram existent mild congestive heart failure on chest x-ray and elevated BNP and findings of cardiomyop athy, but continue to replace his serum sodium slowly, following his sodium q.8-12h. Continue the Fo jasmine in place, measure her I's and O's. Follow his electrolytes and creatinine daily. Begin treatmen t of the hypothyroidism with a higher dose of thyroid replacement, which will be given by IV now sinc e oral intake is not reliable. Continue with any CPAP device that he has while he is here. Advance his diet when possible to a diabetic diet. Begin hypoglycemic protocol and fingerstick checks and in sulin sliding scale coverage. We will proceed on to a brain MRI if he is no longer agitated for furt her workup of his persistent altered mental status. He currently will need wrist restraints for safe ty. We will try to avoid narcotics or benzodiazepines for sedatives in order to watch his neurologic status. Do neurologic checks every shift. CODE STATUS: FULL CODE. DEEP VENOUS THROMBOSIS PROPHYLAXIS: SCDs. ATTESTATION: Patient is expected to be discharged or transferred to another facility within 96 hours : Yes. cc: Marcellus Matute MD TD: 02/25/2020 19:38
[2020-02-25] MEDS: SODIUM CHLORIDE FLUSH 0.9% 10 ML SYRINGE IVP PRN (20:54)
[2020-02-25] MEDS: DEXTROSE 5%-0.9% NACL 1,000 ML IV SCH (20:54)
[2020-02-25] MEDS: HALOPERIDOL 5 MG/ML VIAL IVP PRN (20:54)
[2020-02-25] MEDS: FAMOTIDINE 20 MG/2 ML SYRINGE IVP SCH (20:55)
[2020-02-25] MEDS ORDERED: HYDROCORTISONE 10 MG TABLET PO SCH (21:00)
[2020-02-25] MEDS: GABAPENTIN 300 MG CAPSULE PO SCH (21:06)
[2020-02-26] MEDS: HYDROCORTISONE SUCCINATE 100 MG/2 ML VIAL IVP SCH ×3 (00:08→21:34)
[2020-02-26] MEDS: SODIUM CHLORIDE FLUSH 0.9% 10 ML SYRINGE IVP SCH ×4 (00:09→17:45)
[2020-02-26] MEDS: DEXTROSE 5%-0.9% NACL 1,000 ML IV SCH (02:36)
[2020-02-26] MEDS: HALOPERIDOL 5 MG/ML VIAL IVP PRN ×2 (02:37→17:44)
[2020-02-26 05:53] LABS: BASOPHILS % (AUTO) 0.2 %; HGB - HEMOGLOBIN 13.7 g/dL (14.0-18.0); LYMPHOCYTES # (AUTO) 0.5 10^3/uL (1.5-3.5); LYMPHOCYTES % (AUTO) 4.5 %; MEAN CORPUSCULAR HGB CONC 34.3 g/dL (32.0-36.0); MEAN CORPUSCULAR VOLUME 84.6 fL (80.0-94.0); MEAN PLATELET VOLUME 11.8 fL (7.4-11.4); MONOCYTES # (AUTO) 0.5 10^3/uL (0.0-1.0); MONOCYTES % (AUTO) 4.7 %; NEUTROPHILS # (AUTO) 10.3 10^3/uL (1.5-6.6); NEUTROPHILS % (AUTO) 90.1 %; PLT - PLATELET COUNT 253 10^3/uL (130-450); RED BLOOD COUNT 4.73 10^6/uL (4.70-6.10); RED CELL DISTRIBUTION WIDTH 13.7 % (12.0-15.0); WHITE BLOOD COUNT 11.4 x10^3/uL (4.8-10.8)
[2020-02-26 06:03] LABS: ALBUMIN 3.6 g/dL (3.2-5.5); ALBUMIN/GLOBULIN RATIO 1.1 (1.0-2.2); BILIRUBIN,TOTAL 1.9 mg/dL (0.2-1.0); CALCIUM 8.3 mg/dL (8.5-10.3); CREATININE 1.6 mg/dL (0.6-1.2)
[2020-02-26] MEDS: GABAPENTIN 300 MG CAPSULE PO SCH (06:32)
[2020-02-26] MEDS ORDERED: LEVOTHYROXINE 125 MCG TABLET PO SCH (07:00)
[2020-02-26] MEDS ORDERED: LEVOTHYROXINE 100 MCG VIAL IVP SCH (07:00)
[2020-02-26] MEDS ORDERED: HYDROCORTISONE SUCCINATE 100 MG/2 ML VIAL IVP SCH (08:00)
[2020-02-26] MEDS ORDERED: METOPROLOL SUCCINATE 50 MG TABLET PO SCH (09:00)
[2020-02-26] MEDS ORDERED: DEXTROSE 5% 1,000 ML IV SCH (09:00)
[2020-02-26] MEDS: ACETAMINOPHEN 1,000 MG/100 ML 100 ML IV PRN ×2 (09:30→15:43)
[2020-02-26] MEDS: METOPROLOL 5 MG/5 ML VIAL IVP SCH ×3 (09:39→23:31)
[2020-02-26] MEDS: NITROGLYCERIN 0.2 MG/HR PATCH TOP SCH (09:50)
[2020-02-26] MEDS: FAMOTIDINE 20 MG/2 ML SYRINGE IVP SCH ×2 (10:33→21:34)
[2020-02-26] MEDS: SODIUM CHLORIDE FLUSH 0.9% 10 ML SYRINGE IVP PRN ×4 (10:34→15:46)
[2020-02-26] MEDS: KETOROLAC 15 MG/ML VIAL IVP PRN ×2 (12:12→21:34)
[2020-02-26] MEDS: hydrALAZINE INJ 20 MG/ML VIAL IVP SCH ×2 (12:16→21:34)
[2020-02-26] MEDS: INSULIN REGULAR HUMAN 300 UNIT/3 ML VIAL SUBQ SCH ×2 (14:11→17:40)
[2020-02-26] MEDS ORDERED: SODIUM CHLORIDE 0.65% NASAL SPRAY NAS PRN (16:15)
--- NOTE | 2020-02-26 17:57 | PROVIDER PROGRESS NOTE ---
Assessment/Plan - Problem List (1) Altered mental status Qualifiers: Altered mental status type: disorientation Qualified Code(s): R41.0 - Disorientation, unspecified Assessment/Plan: The was able to give some more back information: During the 2 days he had to come to the ER for hematuria and the Rico plugged with clots, the instructions were to drink plenty of fluids and he was drinking just water. She says that he had about 1 gallon on Tuesday and 1 gallon on Tuesday. She then herself realized he should have been having electrolyte drinks. His sodium is improving and it is paralleling a slow improvement in his confusion. A brain MRI is still pending today (2) Hyponatremia Assessment/Plan: With the above explanation, it appears to be free water excess as the cause and his hypopnatremia, which is improving with a rising sodium. He received saline but then this was discontinued because of findings of new cardiomyopathy on Echo. (3) Acute urinary retention Assessment/Plan: This was likely related to clots obstructing his urethra on Sat and then needed irrigation of the bladder for bladder obstruction on Sun. He still has his Rico. Since being admitted there has been no hematuria on gross inspection (4) RAMBO (acute kidney injury) Assessment/Plan: Proving with the gentle hydration that he received and avoiding nephrotoxins. Follow BMP daily. (5) Adrenal crisis Assessment/Plan: His serum cortisol level was negligible. He is on stress doses of hydrocortisone 100 mg IV 3 times daily, since he cannot yet swallow (6) Renal cell carcinoma Qualifiers: Qualified Code(s): C64.2 - Malignant neoplasm of left kidney, except renal pelvis Assessment/Plan: The explained today that he was getting immunotherapy which had side effects of hypothyroidism and adrenal insufficiency which were known and he does need higher doses of each of these replacements currently. (7) Hypothyroidism Assessment/Plan: TSH was measured and was very low. He received IV thyroid treatment. The etiology appears to be related to the immunotherapy he is getting for his renal cell cancer. When he is able to eat, will resume his thyroid replacement, a higher dose as needed. (8) Chronic a-fib Assessment/Plan: The rate is under good control since he has been here. He has needed IV forms of medications due to his confusion and could not follow directions to even swallow. He will have switch back to p.o. meds tomorrow. He is not on anticoagulation because of hematuria in the past and currently. (9) New onset left bundle branch block (LBBB) Assessment/Plan: The told me that he has not seen a greenskeeper head in about 2 years when he used to be followed by Dr. Tracy at the [facility] for his chronic A. fib. She thinks it was because he did not accept the patient's medical insurance. It is unknown when he last had an EKG, the last one here on record is 4 years previously. Echo was done to evaluate the new LBBB and it showed a cardiomyopathy. The was informed of this. He is on IV forms of beta-yajaira, hydralazine and nitrates (because of creatinine elevation). Tomorrow we will switch over to oral meds for treatment of cardiomyopathy. He will need cardiology follow-up after discharge (10) Cardiomyopathy Assessment/Plan: New LBBB was the clue the which led to the order for the Echo that found four- chamber dilatation and cardiomyopathy. He ruled out for an acute DE by his troponins Perhaps he has uncontrolled A. fib RVR that has created a tachycardia-induced cardiomyopathy. He needs work-up for CAD as the cause. His thyroid level is also low which could have made this a mix edematous cardiomyopathy. The said that he has been "very tired recently". He was not really short of breath however. He could not walk far because of painful peripheral neuropathy related to his immune therapy. He will need cardiology follow-up as an outpatient soon after discharge (11) Cor pulmonale Assessment/Plan: With this finding in addition to the left-sided failure, perhaps he does not have CAD but a more global problem like tachycardia induced or thyroid failure associated heart dysfunction. (12) Peripheral neuropathy Assessment/Plan: He had pain which was improved slightly with Tylenol then a dose of Toradol. Usually is on gabapentin but has not been able to take p.o. meds. The was able to describe that this was caused by his immunotherapy for renal cell CA. Hopefully he can be restarted on his gabapentin tomorrow. (13) History of hypertension Assessment/Plan: Will start to resume p.o. meds hopefully tomorrow (14) History of sleep apnea Assessment/Plan: If he is on a CPAP device at home, it was ordered to be used here (15) Diet-controlled diabetes mellitus Assessment/Plan: 1 year ago he was on insulin. The told me he worked hard on his weight and lost about 60 pounds and the insulin needs decreased. Insulin is not on his med list currently therefore we assumed he was diet controlled diabetic. The A1c is 7 which is outstanding. Continue with a diabetic diet and sliding scale insulin coverage - Current Meds Current Meds: Current Medications Generic Name Dose Route Start Last Admin Trade Name Freq PRN Reason Stop Dose Admin Famotidine 20 mg 02/25/20 21:00 02/26/20 10:33 Pepcid IVP 20 mg BID TORI Administration Haloperidol 5 mg 02/25/20 20:43 02/26/20 17:44 Haldol Inj IVP 5 mg Q6H PRN Administration Agitation Hydralazine HCl 5 mg 02/26/20 09:00 02/26/20 12:16 Apresoline Inj IVP 5 mg BID TORI Administration Hydrocortisone Sodium Succinate 100 mg 02/26/20 14:00 02/26/20 14:20 Solu-Cortef IVP 100 mg TID TORI Administration Acetaminophen 100 mls @ 400 mls/hr 02/26/20 08:54 02/26/20 16:00 Ofirmev IV Infused Q6HR PRN Infusion Pain or Fever > 38C (100.4F) Insulin Human Regular 1 - 5 unit 02/26/20 13:10 02/26/20 17:40 Humulin R SUBQ 1 unit Q6HR TORI Administration Protocol Ketorolac Tromethamine 15 mg 02/26/20 10:44 02/26/20 12:12 Toradol Inj (15mg) IVP 03/02/20 10:43 15 mg Q6HR PRN Administration PAIN Levothyroxine Sodium 150 mcg 02/26/20 07:00 02/26/20 06:31 Synthroid Inj IVP 150 mcg Q5D TORI Administration Metoprolol Tartrate 5 mg 02/26/20 09:00 02/26/20 15:46 Lopressor Inj IVP 5 mg Q8H TORI Administration Nitroglycerin 1 patch 02/26/20 10:00 02/26/20 09:50 Nitro-Dur TOP 1 patch DAILY TORI Administration Sodium Chloride 10 ml 02/25/20 12:51 02/26/20 15:46 Normal Saline Flush 0.9% IVP 10 ml PRN PRN Administration NEEDED PER PROVIDER ORDERS Sodium Chloride 10 ml 02/25/20 17:00 02/26/20 17:45 Normal Saline Flush 0.9% IVP 10 ml 0100,0900,1700 TORI Administration Sodium Chloride 2 sprays 02/26/20 16:15 02/26/20 17:09 Whitman AYANA 2 sprays Q4HR PRN Administration Nasal Congestion - Lab Result Fish Bone Diagrams: 02/26/20 05:24 02/26/20 14:57 - Additional Planning My Orders: My Active Orders 02/25/20 17:00 Sodium Chloride Flush 0.9% [Normal Saline Flush 0.9%] 10 ml IVP 0100,0900,1700 02/25/20 20:16 Home CPAP/BiPAP [RC] .ONCE 02/25/20 21:00 Famotidine [Pepcid] 20 mg IVP BID 02/26/20 07:00 Levothyroxine Inj [Synthroid Inj] 150 mcg IVP Q5D 02/26/20 08:54 Acetaminophen 1,000 mg/100 ml [Ofirmev] 100 ml IV Q6HR 02/26/20 08:56 DIET [NPO] [DIET] 02/26/20 09:00 Dextrose 5% [D5w] 1,000 ml IV TKO Metoprolol Inj [Lopressor Inj] 5 mg IVP Q8H hydrALAZINE INJ [Apresoline Inj] 5 mg IVP BID 02/26/20 10:00 Nitroglycerin 0.2 mg/Hr Patch [Nitro-Dur] 1 patch TOP DAILY 02/26/20 10:44 Ketorolac Inj (15Mg) [Toradol Inj (15Mg)] 15 mg IVP Q6HR PRN 02/26/20 13:09 Blood Glucose POC [RC] 0000,0600,1200,1800 Initiate Hypoglycemia Protocol [RC] .protocol 02/26/20 13:10 Insulin Regular Human [Humulin R] 1 - 5 unit SUBQ Q6HR 02/26/20 14:00 Hydrocortisone Succinate [Solu-CORTEF] 100 mg IVP TID 02/26/20 16:15 Sodium Chloride 0.65% [Whitman] 2 sprays AYANA Q4HR PRN 02/26/20 21:00 SODIUM [CHEM] Q6H Triamcinolone 0.1% Cream [Kenalog 0.1% Cream] 1 applic TOP BID 02/27/20 03:00 SODIUM [CHEM] Q6H 02/27/20 05:00 BMP - BASIC METABOLIC PANEL [CHEM] DAILYLAB CBC W/O DIFF (HEMOGRAM) [HEME] DAILYLAB 02/27/20 09:00 SODIUM [CHEM] Q6H 02/28/20 05:00 BMP - BASIC METABOLIC PANEL [CHEM] DAILYLAB CBC W/O DIFF (HEMOGRAM) [HEME] DAILYLAB 02/29/20 05:00 BMP - BASIC METABOLIC PANEL [CHEM] DAILYLAB CBC W/O DIFF (HEMOGRAM) [HEME] DAILYLAB Subjective - Subjective Patient Reports: Feeling Better, Resting Comfortably, Other (Says hi and smiles, tries to follow cues, feels tired) Nursing Reports: Other (He was still fidgety and confused this morning, by 4 PM he was able to smile and carry on a conversation and tell jokes but is still intermittently disoriented) Objective Vital Signs: Vital Signs - 24 hr 02/25/20 02/25/20 02/25/20 18:00 19:00 20:00 Temperature 36.7 C Heart Rate [ 101 H 93 112 H Monitoring electrodes] Respiratory 19 17 23 Rate Blood Pressure Blood Pressure 154/105 H 161/101 H [Left Brachial artery] Blood Pressure [Right Brachial artery] O2 Saturation 95 98 100 02/25/20 02/25/20 02/25/20 21:15 22:00 23:00 Temperature Heart Rate [ 96 86 94 Monitoring electrodes] Respiratory 14 14 15 Rate Blood Pressure Blood Pressure [Left Brachial artery] Blood Pressure 130/93 H 153/94 H 153/94 H [Right Brachial artery] O2 Saturation 94 99 97 02/26/20 02/26/20 02/26/20 00:00 01:00 02:00 Temperature 36.4 C L Heart Rate [ 96 101 H 103 H Monitoring electrodes] Respiratory 16 21 16 Rate Blood Pressure Blood Pressure [Left Brachial artery] Blood Pressure 164/93 H 145/99 H [Right Brachial artery] O2 Saturation 92 96 02/26/20 02/26/20 02/26/20 03:08 04:00 05:29 Temperature 36.9 C Heart Rate [ 85 75 96 Monitoring electrodes] Respiratory 16 16 19 Rate Blood Pressure Blood Pressure [Left Brachial artery] Blood Pressure 116/77 136/79 H 187/97 H [Right Brachial artery] O2 Saturation 94 97 02/26/20 02/26/20 02/26/20 06:25 07:42 09:00 Temperature 36.8 C Heart Rate [ 99 84 93 Monitoring electrodes] Respiratory 21 24 22 Rate Blood Pressure Blood Pressure [Left Brachial artery] Blood Pressure 170/95 H 161/120 H 171/86 H [Right Brachial artery] O2 Saturation 96 98 02/26/20 02/26/20 02/26/20 09:39 09:52 09:55 Temperature Heart Rate [ 73 79 Monitoring electrodes] Respiratory 16 Rate Blood Pressure 171/86 H Blood Pressure [Left Brachial artery] Blood Pressure 148/82 H 150/127 H [Right Brachial artery] O2 Saturation 99 02/26/20 02/26/20 02/26/20 10:02 10:05 10:20 Temperature Heart Rate [ 78 82 80 Monitoring electrodes] Respiratory Rate Blood Pressure Blood Pressure [Left Brachial artery] Blood Pressure 143/86 H 139/96 H 152/89 H [Right Brachial artery] O2 Saturation 02/26/20 02/26/20 02/26/20 10:30 11:00 11:56 Temperature 36.5 C Heart Rate [ 82 75 95 Monitoring electrodes] Respiratory 15 23 Rate Blood Pressure Blood Pressure [Left Brachial artery] Blood Pressure 126/57 L 116/73 [Right Brachial artery] O2 Saturation 96 02/26/20 02/26/20 02/26/20 12:16 12:31 12:45 Temperature Heart Rate [ 92 90 Monitoring electrodes] Respiratory Rate Blood Pressure 170/104 H Blood Pressure [Left Brachial artery] Blood Pressure 166/90 H 155/109 H [Right Brachial artery] O2 Saturation 02/26/20 02/26/20 02/26/20 12:56 13:31 14:00 Temperature Heart Rate [ 94 103 H 87 Monitoring electrodes] Respiratory 15 18 Rate Blood Pressure Blood Pressure [Left Brachial artery] Blood Pressure 144/129 H 158/92 H 152/90 H [Right Brachial artery] O2 Saturation 97 02/26/20 02/26/20 02/26/20 15:00 15:46 16:00 Temperature 36.9 C Heart Rate [ 104 H 87 Monitoring electrodes] Respiratory 17 17 Rate Blood Pressure 147/93 H Blood Pressure [Left Brachial artery] Blood Pressure 147/93 H 128/74 [Right Brachial artery] O2 Saturation 96 02/26/20 02/26/20 02/26/20 16:05 16:12 17:00 Temperature 36.6 C Heart Rate [ 82 84 Monitoring electrodes] Respiratory 19 Rate Blood Pressure Blood Pressure [Left Brachial artery] Blood Pressure 112/92 H 139/80 H 160/87 H [Right Brachial artery] O2 Saturation Oxygen O2 Source [With Activity] Room air O2 Source [Without Activity] Room air O2 Source Room air I&O (Last 24 Hrs): Intake and Output Totals x24h 02/24/20 02/25/20 02/26/20 23:59 23:59 23:59 Intake Total 1999 2040.25 Output Total 1520 2757 Balance 480 -715.75 General: Alert HEENT: Atraumatic, Mucous membr. moist/pink Neck: Supple, No JVD Neuro: Alert, Disoriented Cardiovascular: No murmurs, Other (Irregularly irregular) Respiratory: No respiratory distress Abdomen: Soft Extremities: No edema - Results Results: Laboratory Results WBC 11.4 x10^3/uL (4.8-10.8) H 02/26/20 05:24 RBC 4.73 10^6/uL (4.70-6.10) 02/26/20 05:24 Hgb 13.7 g/dL (14.0-18.0) L 02/26/20 05:24 Hct 40.0 % (42.0-52.0) L 02/26/20 05:24 MCV 84.6 fL (80.0-94.0) 02/26/20 05:24 MCH 29.0 pg (27.0-31.0) 02/26/20 05:24 MCHC 34.3 g/dL (32.0-36.0) 02/26/20 05:24 RDW 13.7 % (12.0-15.0) 02/26/20 05:24 Plt Count 253 10^3/uL (130-450) 02/26/20 05:24 MPV 11.8 fL (7.4-11.4) H 02/26/20 05:24 Neut # (Auto) 10.3 10^3/uL (1.5-6.6) H 02/26/20 05:24 Lymph # (Auto) 0.5 10^3/uL (1.5-3.5) L 02/26/20 05:24 [place] # (Auto) 0.5 10^3/uL (0.0-1.0) 02/26/20 05:24 Eos # (Auto) 0.0 10^3/uL (0.0-0.7) 02/26/20 05:24 Baso # (Auto) 0.0 10^3/uL (0.0-0.1) 02/26/20 05:24 Absolute Nucleated RBC 0.00 x10^3/uL 02/26/20 05:24 Nucleated RBC % 0.0 /100WBC 02/26/20 05:24 Sodium 130 mmol/L (135-145) L 02/26/20 14:57 Potassium 4.3 mmol/L (3.5-5.0) 02/26/20 05:24 Chloride 98 mmol/L (101-111) L 02/26/20 05:24 Carbon Dioxide 20 mmol/L (21-32) L 02/26/20 05:24 Anion Gap 11.0 (6-13) 02/26/20 05:24 BUN 18 mg/dL (6-20) 02/26/20 05:24 Creatinine 1.6 mg/dL (0.6-1.2) H 02/26/20 05:24 Estimated GFR (MDRD) 43 (>89) L 02/26/20 05:24 Glucose 232 mg/dL (70-100) H 02/26/20 05:24 Estimat Average Glucose 154 mg/dL (70-100) H 02/26/20 08:45 Hemoglobin A1c % 7.0 % (4.27-6.07) H 02/26/20 08:45 Lactic Acid 1.1 mmol/L (0.5-2.2) 02/25/20 08:05 Calcium 8.3 mg/dL (8.5-10.3) L 02/26/20 05:24 Total Bilirubin 1.9 mg/dL (0.2-1.0) H 02/26/20 05:24 AST 21 IU/L (10-42) 02/26/20 05:24 ALT 15 IU/L (10-60) 02/26/20 05:24 Alkaline Phosphatase 82 IU/L (42-121) 02/26/20 05:24 Total Creatine Kinase 172 IU/L (22-269) 02/26/20 05:04 Troponin I High Sens 18.4 ng/L (2.3-19.7) 02/26/20 05:04 B-Natriuretic Peptide 2189 pg/mL (5-100) H 02/26/20 05:04 Total Protein 7.0 g/dL (6.7-8.2) 02/26/20 05:24 Albumin 3.6 g/dL (3.2-5.5) 02/26/20 05:24 Globulin 3.4 g/dL (2.1-4.2) 02/26/20 05:24 Albumin/Globulin Ratio 1.1 (1.0-2.2) 02/26/20 05:24 Lipase 20 U/L (22-51) L 02/25/20 08:05 TSH 11.23 uIU/mL (0.34-5.60) H 02/25/20 13:10 Cortisol 0.4 ug/dL 02/25/20 08:05 Urine Color YELLOW 02/25/20 08:26 Urine Clarity CLEAR (CLEAR) 02/25/20 08:26 Urine pH 7.0 PH (5.0-7.5) 02/25/20 08:26 Ur Specific [place] 1.015 (1.002-1.030) 02/25/20 08:26 Urine Protein 100 mg/dL (NEGATIVE) H 02/25/20 08:26 Urine Glucose (UA) NEGATIVE mg/dL (NEGATIVE) 02/25/20 08:26 Urine Ketones 15 mg/dL (NEGATIVE) H 02/25/20 08:26 Urine Occult Blood LARGE (NEGATIVE) H 02/25/20 08:26 Urine Nitrite NEGATIVE (NEGATIVE) 02/25/20 08:26 Urine Bilirubin NEGATIVE (NEGATIVE) 02/25/20 08:26 Urine Urobilinogen 1 (NORMAL) E.U./dL (NORMAL) 02/25/20 08:26 Ur Leukocyte Esterase NEGATIVE (NEGATIVE) 02/25/20 08:26 Urine RBC TNTC /HPF (0-5) H 02/25/20 08:26 Urine WBC 0-3 /HPF (0-3) 02/25/20 08:26 Ur Squamous Epith Cells NONE SEEN (<= Few) 02/25/20 08:26 Urine Bacteria Few /HPF (None Seen) 02/25/20 08:26 Ur Microscopic Review INDICATED 02/25/20 08:26 Urine Culture Comments NOT INDICATED 02/25/20 08:26 Nasal Screen MRSA (PCR) NEGATIVE (NEGATIVE) 02/26/20 05:40 Urine Opiates Screen NEGATIVE (NEGATIVE) 02/25/20 08:26 Ur Oxycodone Screen NEGATIVE (NEGATIVE) 02/25/20 08:26 Urine Methadone Screen NEGATIVE (NEGATIVE) 02/25/20 08:26 Ur Propoxyphene Screen NEGATIVE (NEGATIVE) 02/25/20 08:26 Ur Barbiturates Screen NEGATIVE (NEGATIVE) 02/25/20 08:26 Ur Tricyclics Screen NEGATIVE (NEGATIVE) 02/25/20 08:26 Ur Phencyclidine Scrn NEGATIVE (NEGATIVE) 02/25/20 08:26 Ur Amphetamine Screen NEGATIVE (NEGATIVE) 02/25/20 08:26 U Methamphetamines Scrn NEGATIVE (NEGATIVE) 02/25/20 08:26 U Benzodiazepines Scrn NEGATIVE (NEGATIVE) 02/25/20 08:26 Urine Cocaine Screen NEGATIVE (NEGATIVE) 02/25/20 08:26 U Cannabinoids Screen NEGATIVE (NEGATIVE) 02/25/20 08:26 SARS-CoV-2 (PCR) NOT DETECTED 02/25/20 09:48 - Procedures Procedures: Procedures ENDO RECTUM POLYPECTOMY (05/28/14) ENDOSC POLYPECTOMY OF LG INTEST (05/28/14) TOTAL KNEE REPLACEMENT (01/07/14)
[2020-02-26] MEDS: TRIAMCINOLONE 0.1% CREAM 15 GM TUBE TOP SCH (20:42)
[2020-02-26] MEDS ORDERED: HYDROCORTISONE 10 MG TABLET PO SCH (21:00)
[2020-02-27] MEDS: INSULIN REGULAR HUMAN 300 UNIT/3 ML VIAL SUBQ SCH (00:16)
[2020-02-27] MEDS: SODIUM CHLORIDE FLUSH 0.9% 10 ML SYRINGE IVP PRN ×5 (02:10→14:08)
[2020-02-27] MEDS: HALOPERIDOL 5 MG/ML VIAL IVP PRN ×2 (02:10→04:09)
[2020-02-27] MEDS: KETOROLAC 15 MG/ML VIAL IVP PRN (04:11)
[2020-02-27 07:14] LABS: CALCIUM 8.3 mg/dL (8.5-10.3); CREATININE 1.9 mg/dL (0.6-1.2)
[2020-02-27 07:17] LABS: MEAN CORPUSCULAR HEMOGLOBIN 29.2 pg (27.0-31.0); MEAN CORPUSCULAR HGB CONC 34.1 g/dL (32.0-36.0); MEAN CORPUSCULAR VOLUME 85.6 fL (80.0-94.0); MEAN PLATELET VOLUME 11.6 fL (7.4-11.4); RED BLOOD COUNT 4.45 10^6/uL (4.70-6.10); RED CELL DISTRIBUTION WIDTH 14.5 % (12.0-15.0); WHITE BLOOD COUNT 17.3 x10^3/uL (4.8-10.8)
[2020-02-27] MEDS ORDERED: ACETAMINOPHEN 325 MG TABLET PO PRN (07:41)
[2020-02-27] MEDS: HYDROCORTISONE SUCCINATE 100 MG/2 ML VIAL IVP SCH ×2 (08:18→14:08)
[2020-02-27] MEDS: SODIUM CHLORIDE FLUSH 0.9% 10 ML SYRINGE IVP SCH ×3 (08:18→21:14)
--- NOTE | 2020-02-27 08:38 | MRI Report ---
PROCEDURE: Brain W/O INDICATIONS: Acute altered mental status TECHNIQUE: Noncontrast axial T1 spin echo, axial T2 fast spin echo, sagittal and axial FLAIR, coronal T2 fast sp in echo, axial gradient echo, axial diffusion and ADC through the brain. COMPARISON: CT head 02/25/2020. FINDINGS: Image quality: Excellent. CSF Spaces: Basal cisterns are patent. No extra-axial fluid collections. Ventricles are normal in size and shape. Brain: No intracranial masses or hemorrhage. Small, approximately 5 mm in diameter lesion with mixed T2 signal and susceptibility artifact noted in the right frontal lobe which likely represents a smal l cavernous angioma. [place]/white matter interface is normal. Brainstem appears normal. Diffusion-robinson ghted images demonstrate no acute ischemic insult. Small, chronic lacunar infarcts are noted in the r ight parietal subcortical white matter in the left thalamus. Normal intravascular flow voids are pres ent. Skull and face: Calvarium has normal marrow signal. Orbits appear normal. Sinuses: Sinuses and mastoids are clear. IMPRESSION: 1. No acute intracranial disease process. 2. Small, chronic right parietal subcortical white matter and left thalamic lacunar infarcts. 3. Mild, diffuse cerebral volume loss. 4. Probable 5 mm right frontal cavernous angioma. Reviewed by: Eli Forbes MD, PhD on 02/27/2020 8:37 AM PST Approved by: Eli Forbes MD, PhD on 02/27/2020 8:37 AM PST Station ID: [id number]
[2020-02-27] MEDS: GABAPENTIN 300 MG CAPSULE PO SCH ×3 (08:40→21:02)
[2020-02-27] MEDS: METOPROLOL SUCCINATE 50 MG TABLET PO SCH (08:41)
[2020-02-27] MEDS: NITROGLYCERIN 0.2 MG/HR PATCH TOP SCH (08:42)
[2020-02-27] MEDS: INSULIN ASPART 300 UNIT/3 ML PEN SUBQ SCH ×4 (08:50→21:04)
[2020-02-27] MEDS: FAMOTIDINE 20 MG/2 ML SYRINGE IVP SCH (09:37)
[2020-02-27] MEDS: hydrALAZINE INJ 20 MG/ML VIAL IVP SCH (09:37)
[2020-02-27 09:46] LABS: BILIRUBIN,URINE NEGATIVE (NEGATIVE); GLUCOSE, URINE (UA) NEGATIVE (NEGATIVE); KETONES,URINE (UA) TRACE mg/dL (NEGATIVE); LEUKOCYTE ESTERASE, URINE TRACE (NEGATIVE); NITRITE,URINE NEGATIVE (NEGATIVE); OCCULT BLOOD,URINE LARGE (NEGATIVE); PH,URINE 5.5 PH (5.0-7.5); PROTEIN,URINE 100 mg/dL (NEGATIVE); UROBILINOGEN,URINE 1 (NORMAL) E.U./dL (NORMAL)
[2020-02-27 09:50] LABS: CLARITY,URINE CLOUDY (CLEAR); RBC,URINE TNTC /HPF (0-5); SQUAMOUS EPITHELIAL CELL,UR NONE SEEN (<= Few)
[2020-02-27 09:51] LABS: BACTERIA,URINE Few /HPF (None Seen)
[2020-02-27] MEDS: TRIAMCINOLONE 0.1% CREAM 15 GM TUBE TOP SCH ×2 (12:30→21:10)
--- NOTE | 2020-02-27 15:39 | PROVIDER PROGRESS NOTE ---
Assessment/Plan - Problem List (1) Altered mental status Qualifiers: Altered mental status type: disorientation Qualified Code(s): R41.0 - Disorientation, unspecified Assessment/Plan: The MRI of the brain shows old lacunar infarct in the left thalamus and diffuse volume loss. Still hyponatremic at 131. We cannot give saline any faster because of his newly diagnosed cardiomyopathy. Will allow him to rest today, hopefully the Haldol will be wearing off. We will plan to not use any further sedatives, sleeping meds, narcotics, anti-psychotics. Possible Neurology input may be needed tomorrow. (2) Hyponatremia Assessment/Plan: 130 has improved to 131 today, then again 130. This was done by giving 2 L of saline on the day of admission then IV rates were decreased significantly when cardiomyopathy was diagnosed on Echo. Will limit free water intake daily The diet has no salt restriction Will start loop diuretic tomorrow (3) Acute urinary retention Assessment/Plan: Was the reason for ER visit on Tuesday and Tuesday and the Tuesday visit was for bladder irrigation and clots were found. Today the urine in the Rico bag is brown-red. We will order urinalysis to determine if this is heme pigment. Will order as needed Rico irrigation (4) RAMBO (acute kidney injury) Assessment/Plan: Is creatinine still remains elevated, this is despite no IV diuretics since admission, he got 2 L of saline on the first day to manage the hyponatremia. Follow BUN/creatinine daily. Avoid nephrotoxins. Because of the orthostasis, will treat this like cardiorenal syndrome and begin his p.o. Lasix and spironolactone starting tomorrow (5) Adrenal insufficiency Assessment/Plan: Will resume his own p.o. hydrocortisone 5 mg twice daily starting tomorrow, stop the IV dose (6) Hypothyroidism Assessment/Plan: TSH was very elevated at 11. When he was somnolent he got a dose of IV thyroid 150 micrograms x1. We will start a higher dose of Synthroid tomorrow, he was on 125 mcg at home, will begin 150 mcg daily (7) Renal cell carcinoma Qualifiers: Qualified Code(s): C64.2 - Malignant neoplasm of left kidney, except renal pelvis Assessment/Plan: As per history. (8) Chronic a-fib Assessment/Plan: He is on Toprol-XL for rate control, the dose at home was 150 mg, here he is on 100 mg because of "soft" blood pressures. He is not on any aspirin or DOAC because of recurrent hematuria (9) New onset left bundle branch block (LBBB) Assessment/Plan: New diagnosis this admission. Led to an echo which showed findings of a newly diagnosed cardiomyopathy (10) Cardiomyopathy Assessment/Plan: He was already on beta-yajaira and JUSTIN inhibitor. The JUSTIN has been stopped because of RAMBO. Yesterday he was put on IV hydralazine with nitrates. Tomorrow we will change t his to p.o. hydralazine and continue topical nitro patch. Bobby will start Lasix because of continued orthopnea symptoms. Also resume spironolactone (11) Cor pulmonale Assessment/Plan: New diagnosis by echo done this admission (12) Peripheral neuropathy Assessment/Plan: His p.o. gabapentin has been started today for treatment of painful neuropathy (13) History of hypertension Assessment/Plan: As per history. (14) History of sleep apnea Assessment/Plan: As per history, his home CPAP device has been ordered to use here (15) Diet-controlled diabetes mellitus Assessment/Plan: 1 year ago the A1c was 14, on this admission it is 7. The described that he did a lot of work to lose 60 pounds and adjusted his diet. He is no longer on oral agents or insulin at home. He is on a carb controlled diet ordered here and sliding scale insulin insulin for coverage - Current Meds Current Meds: Current Medications Generic Name Dose Route Start Last Admin Trade Name Freq PRN Reason Stop Dose Admin Acetaminophen 650 mg 02/27/20 07:41 02/27/20 08:40 Tylenol PO 650 mg Q4HR PRN Administration Pain or Fever > 38C (100.4F) Famotidine 20 mg 02/25/20 21:00 02/27/20 09:37 Pepcid IVP 20 mg BID TORI Administration Gabapentin 600 mg 02/27/20 08:00 02/27/20 13:54 Neurontin PO 600 mg TID TORI Administration Haloperidol 5 mg 02/25/20 20:43 02/27/20 04:09 Haldol Inj IVP 5 mg Q6H PRN Administration Agitation Hydralazine HCl 5 mg 02/26/20 09:00 02/27/20 09:37 Apresoline Inj IVP 5 mg BID TORI Administration Hydrocortisone Sodium Succinate 100 mg 02/26/20 14:00 02/27/20 14:08 Solu-Cortef IVP 100 mg TID TORI Administration Insulin Aspart 1 - 5 unit 02/27/20 08:00 02/27/20 12:12 Novolog SUBQ 2 unit 0800,1200,1700,2100 TORI Administration Protocol Levothyroxine Sodium 150 mcg 02/26/20 07:00 02/26/20 06:31 Synthroid Inj IVP 150 mcg Q5D TORI Administration Metoprolol Succinate 100 mg 02/27/20 09:00 02/27/20 08:41 Toprol Xl PO 100 mg DAILY TORI Administration Nitroglycerin 1 patch 02/26/20 10:00 02/27/20 08:42 Nitro-Dur TOP 1 patch DAILY TORI Administration Sodium Chloride 10 ml 02/25/20 12:51 02/27/20 14:08 Normal Saline Flush 0.9% IVP 10 ml PRN PRN Administration NEEDED PER PROVIDER ORDERS Sodium Chloride 10 ml 02/25/20 17:00 02/27/20 08:18 Normal Saline Flush 0.9% IVP 10 ml 0100,0900,1700 TORI Administration Sodium Chloride 2 sprays 02/26/20 16:15 02/26/20 17:09 Starke AYANA 2 sprays Q4HR PRN Administration Nasal Congestion Triamcinolone Acetonide 1 applic 02/26/20 21:00 02/26/20 20:42 Kenalog 0.1% Cream TOP 1 applic BID TORI Administration - Lab Result Fish Bone Diagrams: 02/27/20 07:00 02/27/20 14:22 - Additional Planning My Orders: My Active Orders 02/26/20 16:15 Sodium Chloride 0.65% [Starke] 2 sprays AYANA Q4HR PRN 02/26/20 21:00 Triamcinolone 0.1% Cream [Kenalog 0.1% Cream] 1 applic TOP BID 02/27/20 Lunch Regular Diet [DIET] 02/27/20 Dinner Carb-controlled Diet [DIET] 02/28/20 05:00 BMP - BASIC METABOLIC PANEL [CHEM] DAILYLAB CBC W/O DIFF (HEMOGRAM) [HEME] DAILYLAB 02/29/20 05:00 BMP - BASIC METABOLIC PANEL [CHEM] DAILYLAB CBC W/O DIFF (HEMOGRAM) [HEME] DAILYLAB Subjective - Subjective Patient Reports: Resting Comfortably Nursing Reports: Other (He prefers to sleep sitting up (has been orthopneic for weeks, per )) Objective Vital Signs: Vital Signs - 24 hr 02/26/20 02/26/20 02/26/20 15:46 16:00 16:05 Temperature Heart Rate Heart Rate [ 87 82 Monitoring electrodes] Respiratory 17 Rate Blood Pressure 147/93 H Blood Pressure [Left Brachial artery] Blood Pressure 128/74 112/92 H [Right Brachial artery] O2 Saturation 02/26/20 02/26/20 02/26/20 16:12 17:00 17:56 Temperature 36.6 C Heart Rate Heart Rate [ 84 78 Monitoring electrodes] Respiratory 19 18 Rate Blood Pressure Blood Pressure [Left Brachial artery] Blood Pressure 139/80 H 160/87 H 152/82 H [Right Brachial artery] O2 Saturation 98 02/26/20 02/26/20 02/26/20 19:52 20:00 21:00 Temperature 36.6 C Heart Rate Heart Rate [ 96 107 H Monitoring electrodes] Respiratory 19 28 H Rate Blood Pressure Blood Pressure [Left Brachial artery] Blood Pressure 162/100 H [Right Brachial artery] O2 Saturation 97 02/26/20 02/26/20 02/26/20 22:00 23:00 23:31 Temperature Heart Rate Heart Rate [ 100 89 Monitoring electrodes] Respiratory 16 9 L Rate Blood Pressure 130/87 H Blood Pressure 130/87 H [Left Brachial artery] Blood Pressure [Right Brachial artery] O2 Saturation 02/27/20 02/27/20 02/27/20 00:00 01:00 02:00 Temperature 36.4 C L Heart Rate Heart Rate [ 84 100 98 Monitoring electrodes] Respiratory 12 16 20 Rate Blood Pressure Blood Pressure [Left Brachial artery] Blood Pressure 137/81 H 156/95 H [Right Brachial artery] O2 Saturation 97 98 02/27/20 02/27/20 02/27/20 03:00 04:17 05:00 Temperature 36.9 C Heart Rate Heart Rate [ 84 95 93 Monitoring electrodes] Respiratory 18 23 Rate Blood Pressure Blood Pressure [Left Brachial artery] Blood Pressure 158/59 H 125/88 H [Right Brachial artery] O2 Saturation 27 L 02/27/20 02/27/20 02/27/20 06:00 07:00 08:00 Temperature 36.3 C L Heart Rate Heart Rate [ 84 109 H 93 Monitoring electrodes] Respiratory 19 16 13 Rate Blood Pressure Blood Pressure [Left Brachial artery] Blood Pressure 124/83 H 172/104 H 145/103 H [Right Brachial artery] O2 Saturation 97 02/27/20 02/27/20 02/27/20 09:00 09:37 10:00 Temperature Heart Rate Heart Rate [ 93 118 H Monitoring electrodes] Respiratory 15 25 H Rate Blood Pressure 155/87 H Blood Pressure [Left Brachial artery] Blood Pressure 155/87 H 114/84 H [Right Brachial artery] O2 Saturation 02/27/20 02/27/20 02/27/20 10:30 11:03 11:56 Temperature 36.4 C L Heart Rate Heart Rate [ 95 104 H 70 Monitoring electrodes] Respiratory 13 14 Rate Blood Pressure Blood Pressure [Left Brachial artery] Blood Pressure 128/81 H 138/101 H 136/101 H [Right Brachial artery] O2 Saturation 96 02/27/20 02/27/20 02/27/20 12:00 13:00 13:03 Temperature 36.4 C L 36.4 C L Heart Rate 86 Heart Rate [ 70 71 Monitoring electrodes] Respiratory 14 14 15 Rate Blood Pressure Blood Pressure [Left Brachial artery] Blood Pressure 136/101 H 106/76 [Right Brachial artery] O2 Saturation 96 98 02/27/20 14:00 Temperature Heart Rate Heart Rate [ 85 Monitoring electrodes] Respiratory 17 Rate Blood Pressure Blood Pressure [Left Brachial artery] Blood Pressure 127/82 H [Right Brachial artery] O2 Saturation Oxygen O2 Source [With Activity] Room air O2 Source [Without Activity] Room air O2 Source Room air I&O (Last 24 Hrs): Intake and Output Totals x24h 02/25/20 02/26/20 02/27/20 23:59 23:59 23:59 Intake Total 1999 2040.25 200 Output Total 1520 2897 336 Balance 480 -855.75 -136 General: Other (sleeping in a chair) HEENT: Mucous membr. moist/pink Neck: Supple Neuro: Other (He was able to carry out conversations with the nurse before falling asleep and could feed himself today but was still "foggy" after getting Haldol last night for MRI) - Results Results: Laboratory Results WBC 17.3 x10^3/uL (4.8-10.8) H 02/27/20 07:00 RBC 4.45 10^6/uL (4.70-6.10) L 02/27/20 07:00 Hgb 13.0 g/dL (14.0-18.0) L 02/27/20 07:00 Hct 38.1 % (42.0-52.0) L 02/27/20 07:00 MCV 85.6 fL (80.0-94.0) 02/27/20 07:00 MCH 29.2 pg (27.0-31.0) 02/27/20 07:00 MCHC 34.1 g/dL (32.0-36.0) 02/27/20 07:00 RDW 14.5 % (12.0-15.0) 02/27/20 07:00 Plt Count 280 10^3/uL (130-450) 02/27/20 07:00 MPV 11.6 fL (7.4-11.4) H 02/27/20 07:00 Neut # (Auto) 10.3 10^3/uL (1.5-6.6) H 02/26/20 05:24 Lymph # (Auto) 0.5 10^3/uL (1.5-3.5) L 02/26/20 05:24 [place] # (Auto) 0.5 10^3/uL (0.0-1.0) 02/26/20 05:24 Eos # (Auto) 0.0 10^3/uL (0.0-0.7) 02/26/20 05:24 Baso # (Auto) 0.0 10^3/uL (0.0-0.1) 02/26/20 05:24 Absolute Nucleated RBC 0.00 x10^3/uL 02/26/20 05:24 Nucleated RBC % 0.0 /100WBC 02/26/20 05:24 Sodium 130 mmol/L (135-145) L 02/27/20 14:22 Potassium 4.5 mmol/L (3.5-5.0) 02/27/20 07:00 Chloride 99 mmol/L (101-111) L 02/27/20 07:00 Carbon Dioxide 20 mmol/L (21-32) L 02/27/20 07:00 Anion Gap 12.0 (6-13) 02/27/20 07:00 BUN 25 mg/dL (6-20) H 02/27/20 07:00 Creatinine 1.9 mg/dL (0.6-1.2) H 02/27/20 07:00 Estimated GFR (MDRD) 36 (>89) L 02/27/20 07:00 Glucose 166 mg/dL (70-100) H 02/27/20 07:00 Estimat Average Glucose 154 mg/dL (70-100) H 02/26/20 08:45 Hemoglobin A1c % 7.0 % (4.27-6.07) H 02/26/20 08:45 Lactic Acid 1.1 mmol/L (0.5-2.2) 02/25/20 08:05 Calcium 8.3 mg/dL (8.5-10.3) L 02/27/20 07:00 Total Bilirubin 1.9 mg/dL (0.2-1.0) H 02/26/20 05:24 AST 21 IU/L (10-42) 02/26/20 05:24 ALT 15 IU/L (10-60) 02/26/20 05:24 Alkaline Phosphatase 82 IU/L (42-121) 02/26/20 05:24 Total Creatine Kinase 145 IU/L (22-269) 02/27/20 07:00 Troponin I High Sens 18.4 ng/L (2.3-19.7) 02/26/20 05:04 B-Natriuretic Peptide 2189 pg/mL (5-100) H 02/26/20 05:04 Total Protein 7.0 g/dL (6.7-8.2) 02/26/20 05:24 Albumin 3.6 g/dL (3.2-5.5) 02/26/20 05:24 Globulin 3.4 g/dL (2.1-4.2) 02/26/20 05:24 Albumin/Globulin Ratio 1.1 (1.0-2.2) 02/26/20 05:24 Lipase 20 U/L (22-51) L 02/25/20 08:05 TSH 11.23 uIU/mL (0.34-5.60) H 02/25/20 13:10 Cortisol 0.4 ug/dL 11/02/20 08:05 Urine Color RED/BLOODY 02/27/20 09:22 Urine Clarity CLOUDY (CLEAR) 02/27/20 09:22 Urine pH 5.5 PH (5.0-7.5) 02/27/20 09:22 Ur Specific [place] 1.025 (1.002-1.030) 02/27/20 09:22 Urine Protein 100 mg/dL (NEGATIVE) H 02/27/20 09:22 Urine Glucose (UA) NEGATIVE mg/dL (NEGATIVE) 02/27/20 09:22 Urine Ketones TRACE mg/dL (NEGATIVE) 02/27/20 09:22 Urine Occult Blood LARGE (NEGATIVE) H 02/27/20 09:22 Urine Nitrite NEGATIVE (NEGATIVE) 02/27/20 09:22 Urine Bilirubin NEGATIVE (NEGATIVE) 02/27/20 09:22 Urine Urobilinogen 1 (NORMAL) E.U./dL (NORMAL) 02/27/20 09:22 Ur Leukocyte Esterase TRACE (NEGATIVE) H 02/27/20 09:22 Urine RBC TNTC /HPF (0-5) H 02/27/20 09:22 Urine WBC 0-3 /HPF (0-3) 02/27/20 09:22 Ur Squamous Epith Cells NONE SEEN (<= Few) 02/27/20 09:22 Urine Bacteria Few /HPF (None Seen) 02/27/20 09:22 Ur Microscopic Review INDICATED 02/25/20 08:26 Urine Culture Comments NOT INDICATED 02/25/20 08:26 Urine Sodium 16.0 mmol/L 02/27/20 09:22 Nasal Screen MRSA (PCR) NEGATIVE (NEGATIVE) 02/26/20 05:40 Urine Opiates Screen NEGATIVE (NEGATIVE) 02/25/20 08:26 Ur Oxycodone Screen NEGATIVE (NEGATIVE) 02/25/20 08:26 Urine Methadone Screen NEGATIVE (NEGATIVE) 02/25/20 08:26 Ur Propoxyphene Screen NEGATIVE (NEGATIVE) 02/25/20 08:26 Ur Barbiturates Screen NEGATIVE (NEGATIVE) 02/25/20 08:26 Ur Tricyclics Screen NEGATIVE (NEGATIVE) 02/25/20 08:26 Ur Phencyclidine Scrn NEGATIVE (NEGATIVE) 02/25/20 08:26 Ur Amphetamine Screen NEGATIVE (NEGATIVE) 02/25/20 08:26 U Methamphetamines Scrn NEGATIVE (NEGATIVE) 02/25/20 08:26 U Benzodiazepines Scrn NEGATIVE (NEGATIVE) 02/25/20 08:26 Urine Cocaine Screen NEGATIVE (NEGATIVE) 02/25/20 08:26 U Cannabinoids Screen NEGATIVE (NEGATIVE) 02/25/20 08:26 SARS-CoV-2 (PCR) NOT DETECTED 02/25/20 09:48 - Procedures Procedures: Procedures ENDO RECTUM POLYPECTOMY (05/28/14) ENDOSC POLYPECTOMY OF LG INTEST (05/28/14) TOTAL KNEE REPLACEMENT (01/07/14)
[2020-02-27] MEDS ORDERED: SPIRONOLACTONE 25 MG TABLET PO PRN (16:05)
[2020-02-27] MEDS: FAMOTIDINE 20 MG TABLET PO SCH (21:03)
[2020-02-27] MEDS ORDERED: diphenhydrAMINE 25 MG CAPSULE PO STA (21:20)
[2020-02-28 04:52] LABS: HGB - HEMOGLOBIN 12.1 g/dL (14.0-18.0); MEAN CORPUSCULAR HEMOGLOBIN 29.2 pg (27.0-31.0); MEAN CORPUSCULAR VOLUME 85.8 fL (80.0-94.0); MEAN PLATELET VOLUME 11.5 fL (7.4-11.4); RED BLOOD COUNT 4.15 10^6/uL (4.70-6.10); RED CELL DISTRIBUTION WIDTH 15.1 % (12.0-15.0); WHITE BLOOD COUNT 14.5 x10^3/uL (4.8-10.8)
[2020-02-28 04:57] LABS: CALCIUM 8.1 mg/dL (8.5-10.3); CREATININE 1.9 mg/dL (0.6-1.2)
[2020-02-28] MEDS: GABAPENTIN 300 MG CAPSULE PO SCH ×3 (06:16→21:03)
[2020-02-28] MEDS: LEVOTHYROXINE 25 MCG TABLET PO SCH (06:17)
[2020-02-28] MEDS: LEVOTHYROXINE 100 MCG TABLET PO SCH (06:18)
--- NOTE | 2020-02-28 07:50 | PROVIDER PROGRESS NOTE ---
Assessment/Plan - Problem List (1) Altered mental status Qualifiers: Altered mental status type: disorientation Qualified Code(s): R41.0 - Disorientation, unspecified Assessment/Plan: Last night he became oriented x3, but could not remember the events that led up to this hospitalization. Brain MRI was completed and shows 2 small areas with lacunar thalamic infarcts plus some brain atrophy. It appears that the inciting event to cause this confusion is the hyponatremia with sodium of 121 at admission. It probably occurred when he was told to " drink a lot of fluids" and he drank a gallon of plain water each day, Tuesday and Tuesday then the confusion started Tuesday. Will transfer patient out of ICU today. Will order PT and OT evaluation. If his mental status remains stable and the OT and PT evaluations are good, and if serum sodium continues to improves tomorrow, we are planning discharge tomorrow to his home. (2) Hyponatremia Assessment/Plan: Today sodium was 132. Today he will start his loop diuretic and free water restriction has been added to his diet. Follow BMP daily. (3) Acute urinary retention Assessment/Plan: This Rico has been in place since he came to the ER on Tuesday which is 5 days ago, Then he came back 4 days ago because it was blocked with clots that needed to be irrigated. His urinalysis yesterday showed high RBCs and high blood on dipstick. Irrigation of the bladder has been ordered to be done daily. He will need Urology follow-up and will be discharged with a Rico. (4) RAMBO (acute kidney injury) Assessment/Plan: Admission creatinine was 1.7. It has increased to 1.9 and has been stable at this number for 3 days. His baseline creatinine is 0.8-1.3. I suspect this is continued ATN from urinary tract obstruction as above or from hypovolemia which she had at admission. Because he will be starting Lasix and spironolactone today, watching BUN/creatinine carefully. Depending on the morning labs tomorrow, his doses of diuretics will be adjusted and he will need follow-up by his PCP/ or a computer information science professor. (5) Adrenal insufficiency Assessment/Plan: Per history, he was on hydrocortisone 5 mg p.o. twice daily because of adrenal insufficiency caused by his cancer therapy. This has been resumed orally, he received several days of IV when he could not eat because of obtundation. (6) Hypothyroidism Assessment/Plan: The TSH is elevated at 11.3 indicating under treatment with thyroid replacement. He received a dose of IV thyroid and his oral thyroid dose has been increased from what he was on pre-admission. Need a TSH level done in several months and follow-up with the PCP regarding proper dose (7) Renal cell carcinoma Qualifiers: Qualified Code(s): C64.2 - Malignant neoplasm of left kidney, except renal pelvis Assessment/Plan: As per Hx (8) Chronic a-fib Assessment/Plan: Heart rate is controlled on his current dose of oral metoprolol. He is not on anticoagulation or aspirin because of recurrent hematuria (9) New onset left bundle branch block (LBBB) Assessment/Plan: As seen at this admission (10) Cardiomyopathy Assessment/Plan: An echo was ordered because of the new left bundle branch block, this shows four-chamber dilatation and LV and RV cardiomyopathy. Because it is global, it is suspected to be from possibly tachycardia-induced cardiomyopathy or hypothyroidism related. He will need work-up for CAD after discharge. His beta-yajaira dose continues while here. He is on hydralazine with nitrates now, because of the RAMBO and lisinopril has been stopped. His Lasix and spironolactone are being resumed today. He has not needed supplemental oxygen at rest during this hospitalization. An oximetry walk test will be done on the day of discharge to see if he needs new home O2. (11) History of hypertension Assessment/Plan: Current new combination of meds are keeping blood pressure under control (12) Peripheral neuropathy Assessment/Plan: He is back on his p.o. meds to treat his painful peripheral neuropathy (13) Cor pulmonale Assessment/Plan: As per the Echo done this admission. It was learned today that the patient has sleep apnea and does not use his CPAP, does not tolerate it. (14) History of sleep apnea Assessment/Plan: As above (15) Diet-controlled diabetes mellitus Assessment/Plan: A1c was fourteen 1 year ago, is 7 at this admission. He lost 60 pounds and was able to come off Insulin use, and now has diet controlled diabetes. Diabetic diet is ordered here, with sliding scale insulin coverage if needed. - Current Meds Current Meds: Current Medications Generic Name Dose Route Start Last Admin Trade Name Freq PRN Reason Stop Dose Admin Acetaminophen 650 mg 02/27/20 07:41 02/27/20 08:40 Tylenol PO 650 mg Q4HR PRN Administration Pain or Fever > 38C (100.4F) Famotidine 20 mg 02/27/20 21:00 02/27/20 21:03 Pepcid PO 20 mg BID TORI Administration Gabapentin 600 mg 02/27/20 08:00 02/28/20 06:16 Neurontin PO 600 mg TID TORI Administration Insulin Aspart 1 - 5 unit 02/27/20 08:00 02/27/20 21:04 Novolog SUBQ 2 unit 0800,1200,1700,2100 TORI Administration Protocol Levothyroxine Sodium 100 mcg 02/28/20 07:00 02/28/20 06:18 Synthroid PO 100 mcg QDAC TORI Administration Levothyroxine Sodium 50 mcg 02/28/20 07:00 02/28/20 06:17 Synthroid PO 50 mcg QDAC TORI Administration Metoprolol Succinate 100 mg 02/27/20 09:00 02/27/20 08:41 Toprol Xl PO 100 mg DAILY TORI Administration Nitroglycerin 1 patch 02/26/20 10:00 02/27/20 08:42 Nitro-Dur TOP 1 patch DAILY TORI Administration Sodium Chloride 10 ml 02/25/20 12:51 02/27/20 14:08 Normal Saline Flush 0.9% IVP 10 ml PRN PRN Administration NEEDED PER PROVIDER ORDERS Sodium Chloride 10 ml 02/25/20 17:00 02/27/20 21:14 Normal Saline Flush 0.9% IVP 10 ml 0100,0900,1700 TORI Administration Sodium Chloride 2 sprays 02/26/20 16:15 02/26/20 17:09 [place] AYANA 2 sprays Q4HR PRN Administration Nasal Congestion Triamcinolone Acetonide 1 applic 02/26/20 21:00 02/27/20 21:10 Kenalog 0.1% Cream TOP 1 applic BID TORI Administration - Lab Result Fish Bone Diagrams: 02/28/20 04:40 02/28/20 04:40 - Additional Planning My Orders: My Active Orders 02/27/20 16:05 Spironolactone [Aldactone] 12.5 mg PO DAILY PRN 02/27/20 Dinner Carb-controlled Diet [DIET] 02/27/20 16:22 Miscellaenous Nursing Order [RC] DAILY 02/27/20 21:00 Famotidine [Pepcid] 20 mg PO BID 02/28/20 Evaluate and Treat OT [OT] Routine Evaluate and Treat PT [PT] Routine 02/28/20 07:00 Levothyroxine [Synthroid] 100 mcg PO QDAC Levothyroxine [Synthroid] 50 mcg PO QDAC 02/28/20 07:43 Transfer [Admit \\ Transfer \\ Status] [RC] .ONCE 02/28/20 07:44 Telemetry-Discontinue [RC] .ONCE 02/28/20 08:00 Hydrocortisone [Cortef] 5 mg PO BID 02/28/20 09:00 Furosemide [Lasix] 80 mg PO DAILY 02/28/20 17:00 hydrALAZINE [Apresoline] 10 mg PO TIDWM 02/29/20 05:00 BMP - BASIC METABOLIC PANEL [CHEM] DAILYLAB CBC W/O DIFF (HEMOGRAM) [HEME] DAILYLAB Subjective - Subjective Patient Reports: Feeling Better, Resting Comfortably (sitting up in chair) Objective Vital Signs: Vital Signs - 24 hr 02/27/20 02/27/20 02/27/20 08:00 09:00 09:37 Temperature 36.3 C L Heart Rate Heart Rate [ 93 93 Monitoring electrodes] Respiratory 13 15 Rate Blood Pressure 155/87 H Blood Pressure 145/103 H 155/87 H [Right Brachial artery] O2 Saturation 97 02/27/20 02/27/20 02/27/20 10:00 10:30 11:03 Temperature Heart Rate Heart Rate [ 118 H 95 104 H Monitoring electrodes] Respiratory 25 H 13 Rate Blood Pressure Blood Pressure 114/84 H 128/81 H 138/101 H [Right Brachial artery] O2 Saturation 02/27/20 02/27/20 02/27/20 11:56 12:00 13:00 Temperature 36.4 C L 36.4 C L Heart Rate Heart Rate [ 70 70 71 Monitoring electrodes] Respiratory 14 14 14 Rate Blood Pressure Blood Pressure 136/101 H 136/101 H 106/76 [Right Brachial artery] O2 Saturation 96 96 02/27/20 02/27/20 02/27/20 13:03 14:00 16:58 Temperature 36.4 C L 36.6 C Heart Rate 86 Heart Rate [ 85 82 Monitoring electrodes] Respiratory 15 17 17 Rate Blood Pressure Blood Pressure 127/82 H 142/88 H [Right Brachial artery] O2 Saturation 98 97 02/27/20 02/28/20 21:07 04:00 Temperature 36.7 C Heart Rate Heart Rate [ 86 84 Monitoring electrodes] Respiratory 14 16 Rate Blood Pressure Blood Pressure 132/86 H 131/60 H [Right Brachial artery] O2 Saturation 98 98 Oxygen O2 Source [With Activity] Room air O2 Source [Without Activity] Room air O2 Source Room air I&O (Last 24 Hrs): Intake and Output Totals x24h 02/26/20 02/27/20 02/28/20 23:59 23:59 23:59 Intake Total 2041.25 650 200 Output Total 2897 706 170 Balance -855.75 -56 30 General: Alert, Oriented x3 HEENT: Mucous membr. moist/pink Neck: Supple, No JVD Neuro: Alert, Non Focal Cardiovascular: Regular rate Respiratory: No respiratory distress Abdomen: Soft Extremities: No edema - Results Results: Laboratory Results WBC 14.5 x10^3/uL (4.8-10.8) H 02/28/20 04:40 RBC 4.15 10^6/uL (4.70-6.10) L 02/28/20 04:40 Hgb 12.1 g/dL (14.0-18.0) L 02/28/20 04:40 Hct 35.6 % (42.0-52.0) L 02/28/20 04:40 MCV 85.8 fL (80.0-94.0) 02/28/20 04:40 MCH 29.2 pg (27.0-31.0) 02/28/20 04:40 MCHC 34.0 g/dL (32.0-36.0) 02/28/20 04:40 RDW 15.1 % (12.0-15.0) H 02/28/20 04:40 Plt Count 281 10^3/uL (130-450) 02/28/20 04:40 MPV 11.5 fL (7.4-11.4) H 02/28/20 04:40 Neut # (Auto) 10.3 10^3/uL (1.5-6.6) H 02/26/20 05:24 Lymph # (Auto) 0.5 10^3/uL (1.5-3.5) L 02/26/20 05:24 [place] # (Auto) 0.5 10^3/uL (0.0-1.0) 02/26/20 05:24 Eos # (Auto) 0.0 10^3/uL (0.0-0.7) 02/26/20 05:24 Baso # (Auto) 0.0 10^3/uL (0.0-0.1) 02/26/20 05:24 Absolute Nucleated RBC 0.00 x10^3/uL 02/26/20 05:24 Nucleated RBC % 0.0 /100WBC 02/26/20 05:24 Sodium 132 mmol/L (135-145) L 02/28/20 04:40 Potassium 4.4 mmol/L (3.5-5.0) 02/28/20 04:40 Chloride 100 mmol/L (101-111) L 02/28/20 04:40 Carbon Dioxide 23 mmol/L (21-32) 02/28/20 04:40 Anion Gap 9.0 (6-13) 02/28/20 04:40 BUN 33 mg/dL (6-20) H 02/28/20 04:40 Creatinine 1.9 mg/dL (0.6-1.2) H 02/28/20 04:40 Estimated GFR (MDRD) 36 (>89) L 02/28/20 04:40 Glucose 151 mg/dL (70-100) H 02/28/20 04:40 Estimat Average Glucose 154 mg/dL (70-100) H 02/26/20 08:45 Hemoglobin A1c % 7.0 % (4.27-6.07) H 02/26/20 08:45 Lactic Acid 1.1 mmol/L (0.5-2.2) 02/25/20 08:05 Calcium 8.1 mg/dL (8.5-10.3) L 02/28/20 04:40 Total Bilirubin 1.9 mg/dL (0.2-1.0) H 02/26/20 05:24 AST 21 IU/L (10-42) 02/26/20 05:24 ALT 15 IU/L (10-60) 02/26/20 05:24 Alkaline Phosphatase 82 IU/L (42-121) 02/26/20 05:24 Total Creatine Kinase 145 IU/L (22-269) 02/27/20 07:00 Troponin I High Sens 18.4 ng/L (2.3-19.7) 02/26/20 05:04 B-Natriuretic Peptide 2189 pg/mL (5-100) H 02/26/20 05:04 Total Protein 7.0 g/dL (6.7-8.2) 02/26/20 05:24 Albumin 3.6 g/dL (3.2-5.5) 02/26/20 05:24 Globulin 3.4 g/dL (2.1-4.2) 02/26/20 05:24 Albumin/Globulin Ratio 1.1 (1.0-2.2) 02/26/20 05:24 Lipase 20 U/L (22-51) L 02/25/20 08:05 TSH 11.23 uIU/mL (0.34-5.60) H 02/25/20 13:10 Cortisol 0.4 ug/dL 02/25/20 08:05 Urine Color RED/BLOODY 02/27/20 09:22 Urine Clarity CLOUDY (CLEAR) 02/27/20 09:22 Urine pH 5.5 PH (5.0-7.5) 02/27/20 09:22 Ur Specific [place] 1.025 (1.002-1.030) 02/27/20 09:22 Urine Protein 100 mg/dL (NEGATIVE) H 02/27/20 09:22 Urine Glucose (UA) NEGATIVE mg/dL (NEGATIVE) 02/27/20 09:22 Urine Ketones TRACE mg/dL (NEGATIVE) 02/27/20 09:22 Urine Occult Blood LARGE (NEGATIVE) H 02/27/20 09:22 Urine Nitrite NEGATIVE (NEGATIVE) 02/27/20 09:22 Urine Bilirubin NEGATIVE (NEGATIVE) 02/27/20 09:22 Urine Urobilinogen 1 (NORMAL) E.U./dL (NORMAL) 02/27/20 09:22 Ur Leukocyte Esterase TRACE (NEGATIVE) H 02/27/20 09:22 Urine RBC TNTC /HPF (0-5) H 02/27/20 09:22 Urine WBC 0-3 /HPF (0-3) 02/27/20 09:22 Ur Squamous Epith Cells NONE SEEN (<= Few) 02/27/20 09:22 Urine Bacteria Few /HPF (None Seen) 02/27/20 09:22 Ur Microscopic Review INDICATED 02/25/20 08:26 Urine Culture Comments NOT INDICATED 02/25/20 08:26 Urine Sodium 16.0 mmol/L 02/27/20 09:22 Nasal Screen MRSA (PCR) NEGATIVE (NEGATIVE) 02/26/20 05:40 Urine Opiates Screen NEGATIVE (NEGATIVE) 02/25/20 08:26 Ur Oxycodone Screen NEGATIVE (NEGATIVE) 02/25/20 08:26 Urine Methadone Screen NEGATIVE (NEGATIVE) 02/25/20 08:26 Ur Propoxyphene Screen NEGATIVE (NEGATIVE) 02/25/20 08:26 Ur Barbiturates Screen NEGATIVE (NEGATIVE) 02/25/20 08:26 Ur Tricyclics Screen NEGATIVE (NEGATIVE) 02/25/20 08:26 Ur Phencyclidine Scrn NEGATIVE (NEGATIVE) 02/25/20 08:26 Ur Amphetamine Screen NEGATIVE (NEGATIVE) 02/25/20 08:26 U Methamphetamines Scrn NEGATIVE (NEGATIVE) 02/25/20 08:26 U Benzodiazepines Scrn NEGATIVE (NEGATIVE) 02/25/20 08:26 Urine Cocaine Screen NEGATIVE (NEGATIVE) 02/25/20 08:26 U Cannabinoids Screen NEGATIVE (NEGATIVE) 02/25/20 08:26 SARS-CoV-2 (PCR) NOT DETECTED 02/25/20 09:48 - Procedures Procedures: Procedures ENDO RECTUM POLYPECTOMY (05/28/14) ENDOSC POLYPECTOMY OF LG INTEST (05/28/14) TOTAL KNEE REPLACEMENT (01/07/14)
[2020-02-28] MEDS: HYDROCORTISONE 10 MG TABLET PO SCH (08:28)
[2020-02-28] MEDS: NITROGLYCERIN 0.2 MG/HR PATCH TOP SCH (08:30)
[2020-02-28] MEDS: METOPROLOL SUCCINATE 50 MG TABLET PO SCH (08:30)
[2020-02-28] MEDS: FAMOTIDINE 20 MG TABLET PO SCH ×2 (08:32→21:03)
[2020-02-28] MEDS: FUROSEMIDE 40 MG TABLET PO SCH (08:32)
[2020-02-28] MEDS: SODIUM CHLORIDE FLUSH 0.9% 10 ML SYRINGE IVP PRN (08:33)
[2020-02-28] MEDS: INSULIN ASPART 300 UNIT/3 ML PEN SUBQ SCH ×4 (08:34→21:04)
[2020-02-28] MEDS: TRIAMCINOLONE 0.1% CREAM 15 GM TUBE TOP SCH ×2 (08:43→21:05)
[2020-02-28] MEDS ORDERED: SPIRONOLACTONE 25 MG TABLET PO SCH (12:00)
[2020-02-28] MEDS: SODIUM CHLORIDE FLUSH 0.9% 10 ML SYRINGE IVP SCH ×3 (16:55→21:05)
--- NOTE | 2020-02-28 17:01 | Discharge Plan ---
Discharge Plan Problem Reviewed?: Yes Disposition: Home, Self Care Condition: Stable Prescriptions: hydrALAZINE [Apresoline] 10 mg PO TIDWM #90 tablet Nitroglycerin 0.2 mg/Hr Patch [Nitro-Dur] 1 patch TOP DAILY #30 patch Levothyroxine [Synthroid] 100 mcg PO QDAC #30 tablet Levothyroxine [Synthroid] 50 mcg PO QDAC #30 tablet Metoprolol Succinate [Toprol Xl] 100 mg PO DAILY #30 tablet Calcium Carbonate [Tums (Calcium Carbonate 500mg)] 500 mg PO BID #14 tablet Diet: Diabetic Activity Restrictions: Activity as Tolerated Shower Restrictions: No Driving Restrictions: Yes (You must see your PCP to be cleared to resume driving) Instruction Topics: Hyponatremia Dc Health Concerns: You were admitted in serious condition, confused, delusional and the cause appeared to be severely low sodium in your bloodstream and low thyroid level. The imaging of your brain showed mild changes of aging. Because of how confused you were, you need to see your PCP for the okay to resume driving. A separate new finding is congestive heart failure from a weak heart muscle. You are being discharged on several new medications to treat this. Your PCP needs to refer you to a Director Clinical Data for further evaluation and management of your heart condition. After that, you qualify to attend CHF Education and Cardiac Rehab classes here at the "[facility]"; you will need a referral from your Director Clinical Data or Primary Care Provider then. We continued your Rico catheter to help drain your bladder, because it appears you are still getting blood and clots occasionally. You need to see a Urologist soon for further management of this. Keep any upcoming appointments with your Oncologist. Your Synthroid dose needed to be increased. Take the medicines on this new medication list, do not take any of the old medications not listed here. Your new medication prescriptions were electronically sent to your [facility] pharmacy in [place]. Plan of Treatment: As above. Care Goals: Improvement in symptoms and stabilization are the goals. Assessment: Patient and understand and are agreeable with the plan. Additional Instructions or Follow Up instructions: If you have new or worsening symptoms, call your PCP, or Director Clinical Data, Oncologist or Urologist for advice, or come to the ER. No Smoking: If you smoke, Please STOP! Call for help. Follow-up with: Marcellus Matute MD [Primary Care Provider] -
[2020-02-28] MEDS: hydrALAZINE 10 MG TABLET PO SCH (17:18)
[2020-02-29 05:25] LABS: HGB - HEMOGLOBIN 12.6 g/dL (14.0-18.0); MEAN CORPUSCULAR HEMOGLOBIN 29.1 pg (27.0-31.0); MEAN CORPUSCULAR HGB CONC 32.9 g/dL (32.0-36.0); MEAN CORPUSCULAR VOLUME 88.5 fL (80.0-94.0); MEAN PLATELET VOLUME 11.4 fL (7.4-11.4); RED BLOOD COUNT 4.33 10^6/uL (4.70-6.10); RED CELL DISTRIBUTION WIDTH 15.4 % (12.0-15.0)
[2020-02-29 05:37] LABS: CALCIUM 7.7 mg/dL (8.5-10.3); CREATININE 1.7 mg/dL (0.6-1.2)
[2020-02-29] MEDS: LEVOTHYROXINE 25 MCG TABLET PO SCH (06:16)
[2020-02-29] MEDS: GABAPENTIN 300 MG CAPSULE PO SCH (06:16)
[2020-02-29] MEDS: LEVOTHYROXINE 100 MCG TABLET PO SCH (06:17)
[2020-02-29 07:50] VITALS: BP 121/85
--- NOTE | 2020-02-29 07:59 | DISCHARGE SUMMARY ---
Discharge Summary Admit Date: 02/25/20 Discharge Date: 02/29/20 Discharging Provider: Dr Kinga Galvan Primary Care Provider: Dr Marcellus Matute Code Status: Attempt Resuscitation Condition at Discharge: Stable Discharge Disposition: 01 Home, Self Care - HPI History of Present Illness: This is a 64-year-old white male with history of diabetes on diet control, chronic A.fib, not on anticoagulation because of hematuria, history of renal cell carcinoma, adrenal insufficiency from his cancer treatment, hypertension, and sleep apnea but does not tolerate CPAP. He came to the ER 2 days ago for hematuria and a Rico catheter was placed, but he developed urinary obstruction from blood clots on the next day and required bladder irrigation in the ER. The Rico catheter was left in place and he was discharged home. The following day he was slow to answer, very confused, did not recognize his . She called an ambulance. He had normal vital signs, A.fib at a rate of 85, normal white blood count, normal lactic acid level, urinalysis with hematuria and electrolytes showed a sodium of 121 which is new. He has mildly elevated creatinine of 1.6 which is new. He is very confused, fidgety, delirious. His head CT showed no abnormalities. His EKG shows a new LBBB, compared to several years ago. He has received 2L of saline in the ER. The ER doctor called the [facility] who advised that we give him higher doses of cortisol to avoid adrenal crisis. The patient is being admitted to the ICU for altered mental status, hem aturia, marked hyponatremia, EKG showing new left bundle branch block, and on chest x-ray he has new CHF. - HOSPITAL COURSE Hospital Course: (1) Altered mental status He remained delerious and confused for 3 days, exacerbated by needing to give Haldol, to undergo MRI. The brain MRI showed 2 small areas with lacunar thalamic infarcts plus some brain atrophy. As the serum sodium david, he became oriented x3, but could not remember the events that led up to this hospitalization. It appears that the inciting event to cause this confusion was the hyponatremia, with sodium of 121 at admission. It probably occurred when he was told to "drink a lot of fluids" by the ER, and he drank a gallon of plain water each day, Tuesday and Tuesday, then the confusion started Tuesday. He had PT and OT evaluation, was able to walk and do ADLs independently, and was discharged home in stable condition. (2) Hyponatremia The ER gave 2L of saline before it was known that he had an LVEF of 20%. He then got D5NS at [facility], while he was obtunded and not eating for several days. The serum sodium was closely monitored. It david very slowly, over several days, to 131. When he awoke, Lasix was started, in the hope it would give free water clearance. The admitted she had been forcing him to drink a gallon of w ater on that Sat and Sun when he came to the ER for hematuria, having been instructed to "drink alot of fluids". On the day of discharge, serum sodium was 135. He was told to NOT to drink plain water, to use salt sparingly and was discharged on daily Lasix. (3) Acute urinary retention This Rico has been in place to releive urinary retension, when he came to the ER on Tuesday02/23/20. Then he came back on 02/24/20 because it was the catheter was plugged with clots that needed to be irrigated. His urinalysis showed high RBCs and high blood on dipstick. Daily Irrigation of the bladder with saline was ordered here. He will need referral to Urology SAR[facility], or follow- up with Oncology SARAH (if they managed his prior hematuria). He was discharged with a Rico. (4) RAMBO (acute kidney injury) His baseline creatinine is 0.8-1.3. Admission creatinine was 1.7, which increased to 1.9 for several days. I suspect this was RAMBO from post- obstruction or from cardio-renal syndrome. When he was awake, Lasix and Spironolactone were started and his BUN/creatinine were 34/1.7 at discharge. This will need follow-up by his PCP or Oncologist or Urologist. (5) Adrenal insufficiency Per history, he was on hydrocortisone 5 mg p.o. twice daily because of adrenal insufficiency caused by his cancer therapy. He received several days of iv Hydrocortisone, then we resumed his dose orally. (6) Hypothyroidism The TSH was very elevated at 11.3, indicating under-treatment with thyroid replacement. This may have contributed to his lethargy. He received a dose of IV thyroid and his oral thyroid dose was increased from what he was on pre- admission. He needs a TSH level done in several months and follow-up with the PCP or Oncologist regarding proper dosing. (7) Renal cell carcinoma As per Hx. (8) Chronic a-fib Heart rate was controlled on Metoprolol, but his home dose was decreased, in order to start new meds, because he ran a "soft" blood pressure. He is not on a nticoagulation or aspirin because of recurrent hematuria. (9) New onset left bundle branch block (LBBB) This was seen at this admission. The could not recall where the most recent latest EKG was done, for comparison. (10) Cardiomyopathy An Echo was ordered because of the new left bundle branch block, that showed four-chamber dilatation and LV and RV cardiomyopathy. The LVEF is 20%. Because it is global, it is suspected to be possibly from tachycardia-induced cardiomyopathy or hypothyroidism related. The later admitted he has been sleeping upright in a recliner for months; he was likely orthopneic. He will need work-up for CAD after discharge and referral to a Diagnostics Sales Developer. His beta- yajaira continued while here. He was started on Hydralazine with Nitrates, because of the RAMBO and Lisinopril was stopped. His Lasix and Spironolactone wer resumed when he could swallow pills. He had an oximetry walk test done on the day of discharge, and kailey were 96% on room air, he did not need new home O2 ordered. (11) History of hypertension Current new combination of meds are keeping blood pressure under control. (12) Peripheral neuropathy He was kept on his p.o. meds to treat his painful peripheral neuropathy. (13) Cor pulmonale Cor pulmonale was found on Echo done this admission. Perhaps untreated sleep apnea caused this. (14) History of sleep apnea As above. He unfortunately does not tolerate a CPAP, per his . (15) Diet-controlled diabetes mellitus A1c was 14, one year ago, and now A1c is 7 at this admission. He lost 60 pounds over a year and was able to come off Insulin use, and now has diet controlled diabetes. A diabetic diet was ordered here, with sliding scale insulin coverage if needed. - ALLERGIES Allergies/Adverse Reactions: Allergies Allergy/AdvReac Type Severity Reaction Status Date / Time atorvastatin [From Lipitor] Allergy Unknown Verified 02/25/20 10:16 - MEDICATIONS Home Medications: Ambulatory Orders Medication Instructions Recorded Confirmed Gabapentin [Neurontin] 600 mg PO TID 02/22/20 02/25/20 Hydrocortisone 5 mg PO BID 02/22/20 02/25/20 Furosemide 80 mg PO DAILY 02/25/20 02/25/20 Levothyroxine [Synthroid] 50 mcg PO QDAC #30 tablet 02/28/20 Levothyroxine [Synthroid] 100 mcg PO QDAC #30 tablet 02/28/20 Metoprolol Succinate [Toprol Xl] 100 mg PO DAILY #30 tablet 02/28/20 Nitroglycerin 0.2 mg/Hr Patch 1 patch TOP DAILY #30 patch 02/28/20 [Nitro-Dur] Spironolactone [Aldactone] 12.5 mg PO 1200 tablet 02/28/20 hydrALAZINE [Apresoline] 10 mg PO TIDWM #90 tablet 02/28/20 Calcium Carbonate [Tums (Calcium 500 mg PO BID #14 tablet 02/29/20 Carbonate 500mg)] - PHYSICAL EXAM AT DISCHARGE General Appearance: positive: No acute distress, Alert Eyes Bilateral: positive: Normal inspection, EOMI ENT: positive: ENT inspection nml, No signs of dehydration Neck: positive: Nml inspection, No JVD Respiratory: positive: No respiratory distress, Breath sounds nml Cardiovascular: positive: No murmur, Irregularly irregular Abdomen: positive: Non-tender, Nml bowel sounds, No distention Skin: positive: Warm, Dry Extremities: positive: Non-tender, No pedal edema Neurologic/Psychiatric: positive: Oriented x3, Motor nml - LABS Result Diagrams: 02/29/20 04:35 02/29/20 04:35 - DIAGNOSTIC IMAGING Diagnostic Imaging Results: Final report reviewed - FOLLOW UP Follow Up: See PCP, and see [facility] Oncologist in the next 1-2 weeks. Patient needs a referral to Cardiology and probably to Urology. - TIME SPENT Time Spent in Discharge (Minutes): 60
[2020-02-29] MEDS: METOPROLOL SUCCINATE 50 MG TABLET PO SCH (08:09)
[2020-02-29] MEDS: hydrALAZINE 10 MG TABLET PO SCH (08:10)
[2020-02-29] MEDS: FUROSEMIDE 40 MG TABLET PO SCH (08:10)
[2020-02-29] MEDS: NITROGLYCERIN 0.2 MG/HR PATCH TOP SCH (08:10)
[2020-02-29] MEDS: FAMOTIDINE 20 MG TABLET PO SCH (08:10)
[2020-02-29] MEDS: HYDROCORTISONE 10 MG TABLET PO SCH (08:11)
[2020-02-29] MEDS: SODIUM CHLORIDE FLUSH 0.9% 10 ML SYRINGE IVP SCH (08:16)
[2020-02-29] MEDS ORDERED: CALCIUM CARBONATE CHEW 500 MG TABLET PO SCH ×2 (09:00→10:00)
[2020-02-29] MEDS ORDERED: BACITRACIN ZINC OINT 1 PACKET TOP PRN (09:43)
[2020-03-01] MEDS ORDERED: LEVOTHYROXINE 75 MCG TABLET PO SCH (07:00)
== END 2020-02-29 10:20 | disposition home or self-care (01) | DRG 640 ==
LOC: EDUNIT# → ED 07:31 → ICU 12:49
PROVIDERS: ADMIT Internal Medicine; ATTEND Internal Medicine
DX: E87.1 Hypo-osmolality and hyponatremia (principal); N17.0 Acute kidney failure with tubular necrosis; E27.2 Addisonian crisis; I48.20 Chronic atrial fibrillation, unspecified; C64.2 Malignant neoplasm of left kidney, except renal pelvis; I50.1 Left ventricular failure, unspecified; I13.0 Hypertensive heart and chronic kidney disease with heart failure and stage 1 through stage 4 chronic kidney disease, or unspecified chronic kidney disease; I43 Cardiomyopathy in diseases classified elsewhere; E27.3 Drug-induced adrenocortical insufficiency; R41.0 Disorientation, unspecified; T45.1X5A Adverse effect of antineoplastic and immunosuppressive drugs, initial encounter; R31.9 Hematuria, unspecified; I44.7 Left bundle-branch block, unspecified; G47.30 Sleep apnea, unspecified; R33.8 Other retention of urine; E03.2 Hypothyroidism due to medicaments and other exogenous substances; I27.81 Cor pulmonale (chronic); E11.42 Type 2 diabetes mellitus with diabetic polyneuropathy; E11.22 Type 2 diabetes mellitus with diabetic chronic kidney disease; N18.9 Chronic kidney disease, unspecified; G31.9 Degenerative disease of nervous system, unspecified; I48.91 Unspecified atrial fibrillation; Z86.73 Personal history of transient ischemic attack (TIA), and cerebral infarction without residual deficits; Z78.1 Physical restraint status; E11.9 Type 2 diabetes mellitus without complications; Z79.899 Other long term (current) drug therapy; Z79.52 Long term (current) use of systemic steroids; Z20.828 Contact with and (suspected) exposure to other viral communicable diseases
CPT/HCPCS: 36415; 70450; 70551; 71045; 80048; 80053; 81001; 82533; 82550; 83036; 83605; 83690; 83880; 84295; 84300; 84443; 84484; 85025; 85027; 87040; 87150; 93005; 93306; 96374; 97161; 97165; 99285; A9270; J0131; J1815; J2060; U0004; 80306; 81003; 87086

== ENCOUNTER 2020-03-03 22:07 | Emergency (ER) | payer MEDICARE, OTHER ==
--- NOTE | 2020-03-03 22:42 | ED Physician Documentation ---
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 This was relieved with irrigation of the bladder which resulted in return of several clots and the output was mostly clear (only faint red tinge) by the time he was discharged (I was the ED physician at that time). He returned 02/24 for AMS and found to be hyponatremic, which was attributed to patient drinking excessive amount of free water, as he was instructed to increase his oral fluid intake to decrease risk of the catheter clotting up again with blood clot. This inpatient stay was also complicated by fluid overload, and d/c summary indicates he has a 20% EF. His sodium deficit was eventually corrected as was his fluid overload and he was discharged 02/28. He has upcoming appointment with PMD which is to obtain urology referral. He returns at this time due to the catheter once again becoming blocked as indicated by gradually increasing suprapubic pain and pressure and urge to urin ate without UO into the hall bag. His urine continues to have gross hematuria. Just prior to my evaluation of patient, the ED RN was able to hand-irrigate the catheter with return of blood clots and large UO which resulted in resolution of his symptoms Review of Systems Constitutional: denies: Fever GI: reports: Abdominal Pain (suprapubic pain) : reports: Unable to Void, Hall Problem PD PAST MEDICAL HISTORY - Past Medical History Cardiovascular: Hypertension, Atrial fibrillation Respiratory: Sleep apnea Endocrine/Autoimmune: Type 2 diabetes GI: None : Other HEENT: None Psych: None Musculoskeletal: None Derm: None - Past Surgical History Past Surgical History: Yes General: Colonoscopy Ortho: Knee replacement, Arthroscopic surgery, Other - Present Medications Home Medications: Ambulatory Orders Medication Instructions Recorded Confirmed Gabapentin [Neurontin] 600 mg PO TID 02/22/20 03/03/20 Hydrocortisone 5 mg PO BID 02/22/20 03/03/20 Furosemide 80 mg PO DAILY 02/25/20 03/03/20 Levothyroxine [Synthroid] 50 mcg PO QDAC #30 tablet 02/28/20 03/03/20 Levothyroxine [Synthroid] 100 mcg PO QDAC #30 tablet 02/28/20 03/03/20 Metoprolol Succinate [Toprol Xl] 100 mg PO DAILY #30 tablet 02/28/20 03/03/20 Nitroglycerin 0.2 mg/Hr Patch 1 patch TOP DAILY #30 patch 02/28/20 03/03/20 [Nitro-Dur] Spironolactone [Aldactone] 12.5 mg PO 1200 tablet 02/28/20 03/03/20 hydrALAZINE [Apresoline] 10 mg PO TIDWM #90 tablet 02/28/20 03/03/20 Calcium Carbonate [Tums (Calcium 500 mg PO BID #14 tablet 02/29/20 03/03/20 Carbonate 500mg)] Isosorbide Mononitrate ER [Imdur] 30 PO DAILY 03/03/20 - Allergies Allergies/Adverse Reactions: Allergies Allergy/AdvReac Type Severity Reaction Status Date / Time atorvastatin [From Lipitor] Allergy Unknown Verified 02/25/20 10:16 - Social History Does the pt smoke?: No Smoking Status: Unknown if ever smoked Does the pt drink ETOH?: No Does the pt have substance abuse?: No - Immunizations Immunizations are current?: Yes - POLST Patient has POLST: No PD ED PE NORMAL - Vitals Vital signs reviewed: Yes - General General: Alert and oriented X 3, No acute distress (ED RN notes that patient was in obvious painful distress on arrival, resolved after hall irrigated), Well developed/nourished - Respiratory Respiratory: No respiratory distress, Clear bilaterally - Abdomen Abdomen: Soft, Non tender - Male Male : Other (3-way hall catheter in place with UO in bag with gross hematuria) - Back Back: No CVA TTP - Derm Derm: Normal color, Warm and dry Results - Vitals Vitals: Vital Signs - 24 hr 03/03/20 03/04/20 03/04/20 22:12 00:14 02:00 Temperature 36.1 C L 36.4 C L 36.4 C L Heart Rate 84 82 84 Respiratory 20 16 14 Rate Blood Pressure 139/106 H 145/89 H 130/82 H O2 Saturation 98 99 99 03/04/20 02:04 Temperature 36.4 C L Heart Rate 84 Respiratory 14 Rate Blood Pressure 130/83 H O2 Saturation 99 Oxygen O2 Source [With Activity] Room air O2 Source [Without Activity] Room air O2 Source Room air - Labs Labs: Laboratory Tests 03/03/20 03/03/20 03/04/20 23:25 23:25 00:40 WBC 12.5 H RBC 4.27 L Hgb 12.4 L Hct 37.7 L MCV 88.3 MCH 29.0 MCHC 32.9 RDW 15.4 H Plt Count 327 MPV 11.1 Neut # (Auto) 7.9 H Lymph # (Auto) 2.1 [place] # (Auto) 1.4 H Eos # (Auto) 1.0 H Baso # (Auto) 0.1 Absolute Nucleated RBC 0.00 Nucleated RBC % 0.0 PT 12.8 H INR 1.2 APTT 31.8 Sodium 135 Potassium 4.5 Chloride 97 L Carbon Dioxide 27 Anion Gap 11.0 BUN 34 H Creatinine 2.0 H Estimated GFR (MDRD) 34 L Glucose 136 H Calcium 8.8 Total Bilirubin 0.8 AST 18 ALT 20 Alkaline Phosphatase 83 Total Protein 7.0 Albumin 3.9 Globulin 3.1 Albumin/Globulin Ratio 1.3 Lipase 31 PD MEDICAL DECISION MAKING - ED course Complexity details: reviewed old records, reviewed results, re-evaluated patient, considered differential, d/w patient ED course: tonight's labs reveal stable h/h. bun are comparable to previous, with creatinine up from recent values of 1.7 and 1.9 to 2.0, but BUN slightly dec reased/improved from previous/most recent. Patient did not have obstruction of hall for remainder of stay although his UO continued to have gross hematuria (I did not see clots in bag during ED stay). I tried to obtain urology consult for consideration of transfer and inpatient evaluation, first at [facility] and then at [place]. Unfortunately, neither of these facilities have beds available and thus I did not speak to a urologist (if urologist were to recommend transfer, this would not be feasible, and contacting urology would not expedite outpatient f/u without proper referral). I offered to contact other facilities in ensuing discussion with the patient (such as [place] or hospitals in [place] such as [facility], [facility] or [facility]). He declines this and says he prefers d/c home at this time, will contact his PMD and his oncologist in the morning to see if there might be a means of expediting the referral and f/u process to get in to see a urologist. I encouraged him to return if he feels worse in any way Departure - Departure Disposition: 01 Home, Self Care Clinical Impression: Gross hematuria Complication, blocked Hall catheter Qualifiers: Encounter type: initial encounter Qualified Code(s): T83.091A - Other mechanical complication of indwelling urethral catheter, initial encounter Condition: Good Instructions: ED Catheter Care Jacky, DELICIA Hematuria Follow-Up: Alban Connor MD [Primary Care Provider] - Discharge Date/Time: 03/04/20 02:05
[2020-03-04 00:15] LABS: BASOPHILS # (AUTO) 0.1 10^3/uL (0.0-0.1); BASOPHILS % (AUTO) 0.7 %; EOSINOPHILS % (AUTO) 7.6 %; HGB - HEMOGLOBIN 12.4 g/dL (14.0-18.0); LYMPHOCYTES # (AUTO) 2.1 10^3/uL (1.5-3.5); LYMPHOCYTES % (AUTO) 16.4 %; MEAN CORPUSCULAR HGB CONC 32.9 g/dL (32.0-36.0); MEAN CORPUSCULAR VOLUME 88.3 fL (80.0-94.0); MEAN PLATELET VOLUME 11.1 fL (7.4-11.4); MONOCYTES # (AUTO) 1.4 10^3/uL (0.0-1.0); MONOCYTES % (AUTO) 11.1 %; NEUTROPHILS # (AUTO) 7.9 10^3/uL (1.5-6.6); NEUTROPHILS % (AUTO) 63.3 %; PLT - PLATELET COUNT 327 10^3/uL (130-450); RED BLOOD COUNT 4.27 10^6/uL (4.70-6.10); RED CELL DISTRIBUTION WIDTH 15.4 % (12.0-15.0); WHITE BLOOD COUNT 12.5 x10^3/uL (4.8-10.8)
[2020-03-04 00:28] LABS: ALBUMIN 3.9 g/dL (3.2-5.5); ALBUMIN/GLOBULIN RATIO 1.3 (1.0-2.2); BILIRUBIN,TOTAL 0.8 mg/dL (0.2-1.0); CALCIUM 8.8 mg/dL (8.5-10.3)
[2020-03-04 00:51] LABS: INR 1.2 (0.8-1.2); PT - PROTHROMBIN TIME 12.8 secs (9.9-12.6)
[2020-03-04 00:58] LABS: PARTIAL THROMBOPLASTIN TIME 31.8 secs (24.9-33.3)
[2020-03-04 02:05] VITALS: BP 130/83
== END 2020-03-04 02:05 | disposition home or self-care (01) ==
LOC: ED 22:07
DX: T83.091A Other mechanical complication of indwelling urethral catheter, initial encounter (principal); Y84.6 Urinary catheterization as the cause of abnormal reaction of the patient, or of later complication, without mention of misadventure at the time of the procedure; R31.0 Gross hematuria; I10 Essential (primary) hypertension; E11.9 Type 2 diabetes mellitus without complications
CPT/HCPCS: 36415; 80053; 83690; 85025; 85610; 85730; 99283; 99284

== ENCOUNTER 2020-03-06 12:10 | Outpatient (CLI) | payer MEDICARE, OTHER ==
[2020-03-06 12:53] LABS: CALCIUM 9.6 mg/dL (8.5-10.3); CREATININE 1.8 mg/dL (0.6-1.2)
== END 2020-03-06 12:11 | disposition home or self-care (01) ==
LOC: LAB 12:10
PROVIDERS: ATTEND Internal Medicine Cardiovascular Disease
DX: I50.9 Heart failure, unspecified (principal)
CPT/HCPCS: 36415; 80048; 83880

== ENCOUNTER 2020-03-06 19:30 | Emergency (ER) | payer MEDICARE, OTHER ==
[2020-03-06 21:25] LABS: GLUCOSE, URINE (UA) NEGATIVE (NEGATIVE); KETONES,URINE (UA) TRACE mg/dL (NEGATIVE); LEUKOCYTE ESTERASE, URINE LARGE (NEGATIVE); NITRITE,URINE POSITIVE (NEGATIVE); OCCULT BLOOD,URINE LARGE (NEGATIVE)
[2020-03-06 21:28] LABS: BILIRUBIN,URINE NEGATIVE (NEGATIVE); CLARITY,URINE BLOODY (CLEAR); ICTOTEST,URINE NEGATIVE
[2020-03-06 21:35] LABS: BACTERIA,URINE Many /HPF (None Seen); RBC,URINE TNTC /HPF (0-5); SQUAMOUS EPITHELIAL CELL,UR RARE Squamous (<= Few)
--- NOTE | 2020-03-06 21:39 | ED Physician Documentation ---
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 He has been seen in the emergency department with clot retention and a Rico catheter was placed he has had retention to other times and has had success with irrigation of the catheter. He has not seen urology as yet and he is seeing his oncologist and his primary care doctor. Review of Systems Constitutional: denies: Fever Eyes: denies: Decreased vision Ears: denies: Ear pain Nose: denies: Congestion Throat: denies: Sore throat Cardiac: denies: Chest pain / pressure, Palpitations Respiratory: denies: Dyspnea, Cough GI: denies: Abdominal Pain, Nausea, Vomiting : reports: Hematuria, Rico Problem. denies: Dysuria, Frequency Skin: denies: Rash Musculoskeletal: denies: Neck pain, Back pain, Extremity pain PD PAST MEDICAL HISTORY - Past Medical History Past Medical History: Yes Cardiovascular: Hypertension, Atrial fibrillation Respiratory: Sleep apnea Endocrine/Autoimmune: Type 2 diabetes GI: None : Other HEENT: None Psych: None Musculoskeletal: None Derm: None - Past Surgical History Past Surgical History: Yes General: Colonoscopy Ortho: Knee replacement, Arthroscopic surgery, Other - Present Medications Home Medications: Ambulatory Orders Medication Instructions Recorded Confirmed Gabapentin [Neurontin] 600 mg PO TID 02/22/20 03/03/20 Hydrocortisone 5 mg PO BID 02/22/20 03/03/20 Furosemide 80 mg PO DAILY 02/25/20 03/03/20 Levothyroxine [Synthroid] 50 mcg PO QDAC #30 tablet 02/28/20 03/03/20 Levothyroxine [Synthroid] 100 mcg PO QDAC #30 tablet 02/28/20 03/03/20 Metoprolol Succinate [Toprol Xl] 100 mg PO DAILY #30 tablet 02/28/20 03/03/20 Nitroglycerin 0.2 mg/Hr Patch 1 patch TOP DAILY #30 patch 02/28/20 03/03/20 [Nitro-Dur] Spironolactone [Aldactone] 12.5 mg PO 1200 tablet 02/28/20 03/03/20 hydrALAZINE [Apresoline] 10 mg PO TIDWM #90 tablet 02/28/20 03/03/20 Calcium Carbonate [Tums (Calcium 500 mg PO BID #14 tablet 02/29/20 03/03/20 Carbonate 500mg)] Isosorbide Mononitrate ER [Imdur] 30 PO DAILY 03/03/20 Amox/Clav 875/125 [Augmentin] 1 each PO Q12H #14 tablet 03/06/20 - Allergies Allergies/Adverse Reactions: Allergies Allergy/AdvReac Type Severity Reaction Status Date / Time atorvastatin [From Lipitor] Allergy Unknown Verified 03/06/20 19:44 - Social History Does the pt smoke?: No Smoking Status: Never smoker Does the pt drink ETOH?: No Does the pt have substance abuse?: No - Immunizations Immunizations are current?: Yes - POLST Patient has POLST: No PD ED PE NORMAL - Vitals Vital signs reviewed: Yes (Hypertensive mild) - General General: Alert and oriented X 3, No acute distress, Well developed/nourished - HEENT HEENT: Atraumatic, PERRL, EOMI - Neck Neck: Supple, no meningeal sign, No bony TTP - Cardiac Cardiac: RRR, No murmur - Respiratory Respiratory: No respiratory distress, Clear bilaterally - Abdomen Abdomen: Normal bowel sounds, Soft, Non tender, Non distended, No organomegaly - Back Back: No CVA TTP, No spinal TTP - Derm Derm: Normal color, Warm and dry, No rash - Extremities Extremities: No deformity - Neuro Neuro: Alert and oriented X 3, 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, No motor deficit, No sensory deficit, Normal speech Eye Opening: Spontaneous Motor: Obeys Commands Verbal: Oriented GCS Score: 15 - Psych Psych: Normal mood, Normal affect Results - Vitals Vitals: Vital Signs - 24 hr 03/06/20 03/06/20 19:36 22:04 Temperature 98.2 C H 36.6 C Heart Rate 56 L 60 Respiratory 18 18 Rate Blood Pressure 134/92 H 130/90 H O2 Saturation 97 98 Oxygen O2 Source [With Activity] Room air O2 Source [Without Activity] Room air O2 Source Room air - Labs Labs: Laboratory Tests 03/06/20 21:19 Urine Color RED/BLOODY Urine Clarity BLOODY Urine pH 7.0 Ur Specific [place] 1.010 Urine Protein Urine Glucose (UA) NEGATIVE Urine Ketones TRACE Urine Occult Blood LARGE H Urine Nitrite POSITIVE H Urine Bilirubin NEGATIVE Urine Urobilinogen Ur Leukocyte Esterase LARGE H Urine RBC TNTC H Urine WBC 6-10 H Ur Squamous Epith Cells RARE Squamous Urine Bacteria Many H Ur Microscopic Review INDICATED Urine Culture Comments INDICATED PD MEDICAL DECISION MAKING - ED course Complexity details: reviewed results, re-evaluated patient, considered differential, d/w patient, d/w family ED course: 64-year-old male with a Rico catheter in place has developed clot retention again and his catheter is irrigated by the RN with success and he has free- flowing hematuria. A urinalysis done is concerning for the possibility of infection and the patient is administered Augmentin orally. We will place him on a short course. The patient is concerned about the reason for his intermittent hematuria and there is consideration for tumor necrosis. Departure - Departure Disposition: 01 Home, Self Care Clinical Impression: Complication, blocked Rico catheter Qualifiers: Encounter type: initial encounter Qualified Code(s): T83.091A - Other mechanical complication of indwelling urethral catheter, initial encounter UTI (urinary tract infection) Qualifiers: Urinary tract infection type: acute cystitis Hematuria presence: with hematuria Qualified Code(s): N30.01 - Acute cystitis with hematuria Instructions: ED Catheter Care Rico, ED UTI Cystitis Male Follow-Up: Alban Connor MD [Primary Care Provider] - Prescriptions: Amox/Clav 875/125 [Augmentin] 1 each PO Q12H #14 tablet Discharge Date/Time: 03/06/20 22:04
[2020-03-06] MEDS ORDERED: AMOX/CLAV 875 MG/125 MG TABLET PO STA (21:56)
[2020-03-06 22:06] VITALS: BP 130/90
== END 2020-03-06 22:04 | disposition home or self-care (01) ==
LOC: ED 19:30
DX: T83.83XA Hemorrhage due to genitourinary prosthetic devices, implants and grafts, initial encounter (principal); N39.0 Urinary tract infection, site not specified; I48.91 Unspecified atrial fibrillation; Z79.01 Long term (current) use of anticoagulants; E11.9 Type 2 diabetes mellitus without complications; I11.0 Hypertensive heart disease with heart failure; I50.9 Heart failure, unspecified
CPT/HCPCS: 36415; 80048; 81001; 83880; 87077; 87086; 87181; 99283; A9270; 81003

== ENCOUNTER 2020-03-19 13:31 | Inpatient (IN) | payer MEDICARE, OTHER ==
[2020-03-19] MEDS ORDERED: SODIUM CHLORIDE 0.9% 1,000 ML IV STA (13:55)
[2020-03-19] MEDS ORDERED: HYDROCORTISONE SUCCINATE 100 MG/2 ML VIAL IVP STA (13:58)
[2020-03-19 14:00] LABS: BASOPHILS # (AUTO) 0.1 10^3/uL (0.0-0.1); BASOPHILS % (AUTO) 0.6 %; EOSINOPHILS # (AUTO) 0.4 10^3/uL (0.0-0.7); EOSINOPHILS % (AUTO) 5.5 %; HGB - HEMOGLOBIN 13.4 g/dL (14.0-18.0); LYMPHOCYTES # (AUTO) 0.8 10^3/uL (1.5-3.5); LYMPHOCYTES % (AUTO) 9.9 %; MEAN CORPUSCULAR HEMOGLOBIN 29.3 pg (27.0-31.0); MEAN CORPUSCULAR HGB CONC 33.1 g/dL (32.0-36.0); MEAN CORPUSCULAR VOLUME 88.4 fL (80.0-94.0); MEAN PLATELET VOLUME 10.7 fL (7.4-11.4); MONOCYTES # (AUTO) 0.5 10^3/uL (0.0-1.0); MONOCYTES % (AUTO) 6.8 %; NEUTROPHILS # (AUTO) 6.1 10^3/uL (1.5-6.6); NEUTROPHILS % (AUTO) 76.6 %; PLT - PLATELET COUNT 404 10^3/uL (130-450); RED BLOOD COUNT 4.58 10^6/uL (4.70-6.10); RED CELL DISTRIBUTION WIDTH 14.6 % (12.0-15.0)
[2020-03-19 14:10] LABS: ALBUMIN 4.1 g/dL (3.2-5.5); ALBUMIN/GLOBULIN RATIO 1.1 (1.0-2.2); CALCIUM 9.6 mg/dL (8.5-10.3); CREATININE 1.8 mg/dL (0.6-1.2)
--- NOTE | 2020-03-19 14:18 | ED Physician Documentation ---
History of Present Illness - Stated complaint Stated Complaint: ALTERED MENTAL STATUS - Chief complaint Chief Complaint: Neuro - History obtained from History obtained from: Patient, Family - History of Present Illness Timing: Today - Additonal information Additional information: 64 y/o male undergoing treatment for renal cell CA has developed altered mental status this morning while his was picking up his hydrocortisone. She indicates he is agitated and cannot recall. His is able to help us with history and indicates he has had follow up with his primary and the catheter has been removed and he no longer has the hematuria. He still has not seen the urologist. He is seeing his cancer doctor at [facility] and has planned follow up for the hematuria with the urologist at the beginning of next month. Review of Systems Constitutional: denies: Fever Eyes: denies: Decreased vision Ears: denies: Ear pain Nose: denies: Rhinorrhea / runny nose, Congestion Throat: denies: Sore throat Cardiac: denies: Chest pain / pressure Respiratory: denies: Dyspnea, Cough GI: reports: Abdominal Pain : denies: Dysuria, Frequency, Incontinent, Hematuria Skin: denies: Rash Musculoskeletal: denies: Neck pain, Back pain, Extremity pain Neurologic: reports: Confused, Altered mental status. denies: Generalized weakness, Focal weakness, Numbness, Difficulty speaking, Syncope, Seizure, Headache, Head injury, LOC PD PAST MEDICAL HISTORY - Past Medical History Cardiovascular: Hypertension, Atrial fibrillation Respiratory: Sleep apnea Endocrine/Autoimmune: Type 2 diabetes GI: None : Other HEENT: None Psych: None Musculoskeletal: None Derm: None - Past Surgical History Past Surgical History: Yes General: Colonoscopy Ortho: Knee replacement, Arthroscopic surgery, Other - Present Medications Home Medications: Ambulatory Orders Medication Instructions Recorded Confirmed Gabapentin [Neurontin] 600 mg PO TID 02/22/20 03/03/20 Hydrocortisone 5 mg PO BID 02/22/20 03/03/20 Furosemide 80 mg PO DAILY 02/25/20 03/03/20 Levothyroxine [Synthroid] 50 mcg PO QDAC #30 tablet 02/28/20 03/03/20 Levothyroxine [Synthroid] 100 mcg PO QDAC #30 tablet 02/28/20 03/03/20 Metoprolol Succinate [Toprol Xl] 100 mg PO DAILY #30 tablet 02/28/20 03/03/20 Nitroglycerin 0.2 mg/Hr Patch 1 patch TOP DAILY #30 patch 02/28/20 03/03/20 [Nitro-Dur] Spironolactone [Aldactone] 12.5 mg PO 1200 tablet 02/28/20 03/03/20 hydrALAZINE [Apresoline] 10 mg PO TIDWM #90 tablet 02/28/20 03/03/20 Calcium Carbonate [Tums (Calcium 500 mg PO BID #14 tablet 02/29/20 03/03/20 Carbonate 500mg)] Isosorbide Mononitrate ER [Imdur] 30 PO DAILY 03/03/20 Amox/Clav 875/125 [Augmentin] 1 each PO Q12H #14 tablet 03/06/20 - Allergies Allergies/Adverse Reactions: Allergies Allergy/AdvReac Type Severity Reaction Status Date / Time atorvastatin [From Lipitor] Allergy Unknown Verified 03/19/20 13:51 - Social History Does the pt smoke?: No Smoking Status: Never smoker Does the pt drink ETOH?: No Does the pt have substance abuse?: No - Immunizations Immunizations are current?: Yes - POLST Patient has POLST: No PD ED PE NORMAL - Vitals Vital signs reviewed: Yes (hypertensive mild) - General General: Well developed/nourished, Other (aggitated and not oriented. recognized me on arrival but could not say where he was. ) - HEENT HEENT: Atraumatic, PERRL, EOMI - Neck Neck: Supple, no meningeal sign - Cardiac Cardiac: RRR, No murmur - Respiratory Respiratory: No respiratory distress, Clear bilaterally - Abdomen Abdomen: Normal bowel sounds, Soft, Non tender, Non distended, No organomegaly - Back Back: No CVA TTP, No spinal TTP - Derm Derm: Normal color, Warm and dry, No rash - Extremities Extremities: No deformity, Other (There are petechiae to the feet and part way up the calf bilaterally associated with the patient's wearing of compression stockings.) - Neuro Neuro: No motor deficit, No sensory deficit, Normal speech Eye Opening: Spontaneous Motor: Obeys Commands Verbal: Confused GCS Score: 14 - Psych Psych: Normal affect, Other (mood is aggitated and anxious) Results - Vitals Vitals: Vital Signs - 24 hr 03/19/20 03/19/20 03/19/20 13:45 14:07 15:06 Temperature 36.0 C L 36.7 C Heart Rate 80 80 68 Respiratory 13 19 18 Rate Blood Pressure 138/75 H 116/88 H 143/74 H O2 Saturation 100 97 99 03/19/20 03/19/20 03/19/20 15:42 16:27 16:38 Temperature 36.6 C Heart Rate 84 76 80 Respiratory 18 16 14 Rate Blood Pressure 121/73 139/87 H 135/80 H O2 Saturation 97 96 98 Oxygen O2 Source [] Room air O2 Source [] Room air O2 Source Room air - EKG (time done) 1339 Rate: Rate (enter#) (85) Rhythm: Atrial fibrillation Intervals: LBBB - Labs Labs: Laboratory Tests 03/19/20 03/19/20 03/19/20 13:37 13:40 13:40 WBC 8.0 RBC 4.58 L Hgb 13.4 L Hct 40.5 L MCV 88.4 MCH 29.3 MCHC 33.1 RDW 14.6 Plt Count 404 MPV 10.7 Neut # (Auto) 6.1 Lymph # (Auto) 0.8 L [place] # (Auto) 0.5 Eos # (Auto) 0.4 Baso # (Auto) 0.1 Absolute Nucleated RBC 0.00 Nucleated RBC % 0.0 Sodium 137 Potassium 4.3 Chloride 97 L Carbon Dioxide 27 Anion Gap 13.0 BUN 40 H Creatinine 1.8 H Estimated GFR (MDRD) 38 L Glucose 224 H POC Whole Bld Glucose 218 H Lactic Acid Calcium 9.6 Total Bilirubin 1.0 AST 24 ALT 25 Alkaline Phosphatase 83 Total Protein 8.0 Albumin 4.1 Globulin 3.9 Albumin/Globulin Ratio 1.1 Lipase 36 Urine Color Urine Clarity Urine pH Ur Specific [place] Urine Protein Urine Glucose (UA) Urine Ketones Urine Occult Blood Urine Nitrite Urine Bilirubin Urine Urobilinogen Ur Leukocyte Esterase Ur Microscopic Review Urine Culture Comments 03/19/20 03/19/20 14:09 14:15 WBC RBC Hgb Hct MCV MCH MCHC RDW Plt Count MPV Neut # (Auto) Lymph # (Auto) [place] # (Auto) Eos # (Auto) Baso # (Auto) Absolute Nucleated RBC Nucleated RBC % Sodium Potassium Chloride Carbon Dioxide Anion Gap BUN Creatinine Estimated GFR (MDRD) Glucose POC Whole Bld Glucose Lactic Acid 1.4 Calcium Total Bilirubin AST ALT Alkaline Phosphatase Total Protein Albumin Globulin Albumin/Globulin Ratio Lipase Urine Color YELLOW Urine Clarity CLEAR Urine pH 7.0 Ur Specific [place] 1.015 Urine Protein NEGATIVE Urine Glucose (UA) NEGATIVE Urine Ketones NEGATIVE Urine Occult Blood TRACE-INTA Urine Nitrite NEGATIVE Urine Bilirubin NEGATIVE Urine Urobilinogen 0.2 (NORMAL) Ur Leukocyte Esterase NEGATIVE Ur Microscopic Review NOT INDICATED Urine Culture Comments NOT INDICATED - Rads (name of study) CT head Radiology: Prelim report reviewed (Impression: 1. No acute intracranial abnormality.), EMP read indepedently, See rad report Procedures - IVC sono (time) 1350 Bedside IVC sono: IVC measures (cm) (0.89), Dehydration (est 2 liter deficit.) PD MEDICAL DECISION MAKING - ED course Complexity details: reviewed old records, reviewed results, re-evaluated patient, considered differential, d/w patient, d/w family ED course: 64-year-old male with history of diabetes and afib is undergoing treatment for renal cell carcinoma arrives to the emergency department today acutely confused. He has had similar presentation previously associated with hyponatremia and with infection. In the past 2 weeks since his last ED visit the patient has been back in to see the oncologist and his primary and he has been able to get the catheter removed and no further hematuria has occurred. Todays presentation with altered mental status does not have an obvious reason. He did not clear up after administration of hydrocortisone and fluids and acutely required ativan for sedation as he was anxious and agitated. Departure - Departure Disposition: ED Place in Observation Clinical Impression: Altered mental status Qualifiers: Altered mental status type: delirium Qualified Code(s): R41.0 - Disorientation, unspecified
[2020-03-19 14:19] LABS: BILIRUBIN,URINE NEGATIVE (NEGATIVE); GLUCOSE, URINE (UA) NEGATIVE (NEGATIVE); KETONES,URINE (UA) NEGATIVE (NEGATIVE); LEUKOCYTE ESTERASE, URINE NEGATIVE (NEGATIVE); NITRITE,URINE NEGATIVE (NEGATIVE); OCCULT BLOOD,URINE TRACE-INTA (NEGATIVE); PROTEIN,URINE NEGATIVE (NEGATIVE); UROBILINOGEN,URINE 0.2 (NORMAL) E.U./dL (NORMAL)
[2020-03-19 14:20] LABS: CLARITY,URINE CLEAR (CLEAR)
[2020-03-19] MEDS ORDERED: LORazepam 2 MG/ML VIAL IVP STA ×2 (14:30→17:11)
--- NOTE | 2020-03-19 15:48 | CT Report ---
PROCEDURE: HEAD WO INDICATIONS: altered LOC TECHNIQUE: Noncontrast 4.5 mm thick angled axial sections acquired from the foramen magnum to the vertex. For r adiation dose reduction, the following was used: automated exposure control, adjustment of mA and/or kV according to patient size. COMPARISON: 02/25/2020. FINDINGS: Image quality: Excellent. CSF spaces: Basal cisterns are patent. No extra-axial fluid collections. Ventricles are normal in size. Brain: No intracranial hemorrhage, mass, or mass effect. Whitley-white matter interface appears preserv ed. Skull and face: Calvarium and visualized facial bones are intact, without suspicious lesions. Sinuses: Visualized sinuses demonstrate mild mucosal thickening within the ethmoid and sphenoid sinu ses. There is also a mucosal polyp or sinus retention cyst within the visualized left maxillary sinus . Mastoid air cells are clear. IMPRESSION: 1. No acute intracranial abnormality. Reviewed by: Franc Juarez MD on 03/19/2020 3:47 PM PST Approved by: Franc Juarez MD on 03/19/2020 3:47 PM PST Station ID: [id number]
--- NOTE | 2020-03-19 16:46 | XRAY Report ---
PROCEDURE: Chest 1 View X-Ray INDICATIONS: delerium TECHNIQUE: One view of the chest was acquired. COMPARISON: 02/25/2020 FINDINGS: Surgical changes and devices: None. Lungs and pleura: No pleural effusions or pneumothorax. There is central pulmonary vascular congesti on and interstitial prominence. Mediastinum: Mediastinal contours appear normal. Heart is enlarged Bones and chest wall: No suspicious bony lesions. Overlying soft tissues appear unremarkable. IMPRESSION: CHF. Reviewed by: Eli Forbes MD, PhD on 03/19/2020 4:45 PM PST Approved by: Eli Forbes MD, PhD on 03/19/2020 4:45 PM PST Station ID: [id number]
[2020-03-19] MEDS ORDERED: ONDANSETRON 4 MG/2 ML VIAL IVP PRN (17:29)
[2020-03-19 17:43] LABS: MUDS CUTOFF CONCENTRATIONS CUTOFF CONC BELOW:
[2020-03-19 17:53] LABS: C. PNEUMONIAE- RESP PCR PANEL NOT DETECTED
[2020-03-19 18:11] LABS: AMPHETAMINE SCREEN,URINE NEGATIVE (NEGATIVE); BENZODIAZEPINES SCREEN, URINE NEGATIVE (NEGATIVE); COCAINE SCREEN URINE NEGATIVE (NEGATIVE); METHAMPHETAMINES SCREEN, URINE NEGATIVE (NEGATIVE); OPIATE SCREEN, URINE NEGATIVE (NEGATIVE); TRICYCLIC ANTIDEPRESSANT,URINE NEGATIVE (NEGATIVE)
[2020-03-19 18:12] LABS: METHADONE SCREEN, URINE NEGATIVE (NEGATIVE); OXYCODONE SCREEN, URINE NEGATIVE (NEGATIVE); PROPOXYPHENE SCREEN, URINE NEGATIVE (NEGATIVE)
[2020-03-19] MEDS ORDERED: HALOPERIDOL 5 MG/ML VIAL IVP ONE (18:40)
--- NOTE | 2020-03-19 20:03 | HISTORY & PHYSICAL EXAMINATION ---
Chief Complaint - Chief Complaint Chief Complaint: Abrupt change in mental status this morning History of Present Illness - Admitted From Admitted From:: Home - History Obtained From Records Reviewed: Jose History obtained from: Dr. Cordova, Jose, and Exam Limitations: Patient is confused - History of Present Illness HPI Comment/Other: This gentleman has a history of renal cell carcinoma dx'd 2 yrs ago and is on immunotherapy and was just admitted February 24 for altered mental status due to hyponatremia. 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 His last dose of nivolumab was over a month ago. He was due for a dose a week ago. Was placed in the ICU and treated as adrenal crisis and his labs gradually normali zed with discharge February 28. During that stay he was found to have an ejection fraction of 20%. We also found out that the had been forcing him to drink a gallon of water for his hematuria after having been instructed "to drink lots of fluids" for the hematuria. With that discharge he was told to use salt sparingly, drink plain water but not force himself. He was discharged with a Rico catheter because hematuria was causing clots that would cause him to be obstructed. He was also hypothyroid and Synthroid was started after IV Synthroid. He was seen in the ER March 03 because his catheter was not working. It was irrigated and he was sent home. This was after several attempts were made to transfer him for urological evaluation but there were no beds available. He then returned again March 06. Still as yet not seeing urology and again having clot retention and catheter obstruction. He was given Augmentin orally sent home.He has also been seen by his senior group manager, Dr. Tracy. His medications were reviewed. Hydralazine was increased from 10 mg 3 times daily to 25 mg 3 times daily. His does not think there were any other changes. She does not oversee his medications. He struggles with remembering to take them. Usually his hydralazine is only twice daily. On Tuesday she prompted him to change his pill pack for the week and he said that he did it and so she trusted him. For unclear reasons he has not taken his hydrocortisone for the last 3 days. She realized that today. But has seemed "normal". There has been no fever, chills, sore throat. No headache. No rhinorrhea, coryza. There has been no coughing, wheezing, chest congestion. There is no abdominal pain, diarrhea, change in bowel habits. His catheter has been removed. There is no urgency, frequency, or hematuria. The only thing that she noted about him was he was "not feeling well". This is for about 2 days. He was nauseated, not wanting to eat anything. Very quiet. Did not want to talk and was much less interactive than usual. But there were no hallucinations, no episodes of disorientation. While he and his are at the pharmacy picking up his medications this morning, he abruptly had a change in his speech pattern and orientation. She had gotten him up this morning. Again he was very quiet did not want to eat. But she did not want to leave him at home so she drove to the [facility] pharmacy to the [facility] [place] pickup. While they were there picking it up, he suddenly became very confused. Agitated. Tried to get out of the car but could not do it because he could not unhook the seatbelt. She got herself out of the car and went to the passenger side and managed to prompt him to stay in the car. He was not making much sense. Every once in while he was groaning and moaning. He was not saying he was in pain. She drove from the [facility] pharmacy parking lot to the EMS office located next to the hospital. They know the EMS people there. The EMS person instructed her to drive to the hospital and they met them here in our emergency room. His temperature was 36. Heart rate 80. Respiration 13. Blood pressure 138/75. 100% saturation on room air. He was seen by the same emergency physician that is seen him for the last 2 times for his Rico catheter so the patient is well-known to this ER physician. It was noted that this was a completely new status for this patient. He was disoriented. Fighting with the nurses. Once he did state that his stomach hurt. He kept on reaching for the socks on his feet. Neck was supple without meningismus. A negative respiratory, cardiac exam. Negative abdominal exam. He had some petechiae of the feet and calf associated with his compression stocking. He was able to obey commands but disoriented. CT of the head had no acute intracranial abnormality. White cell count was 8. BMP was normal other than an elevated glucose of 224. Liver enzymes were normal. Review of systems: Review of systems not able to be done since the patient is still confused and unable to be prompted. She describes him as less interactive over the last couple of years due to the immunotherapy. Sleeps a lot, and his previous habit of avid book reading has come down to him reading his Bible and not much else. He will also occasionally watch TV. Maximum weight was 127 kg in May 2017. His maximum weight this year was 115 kg. Then he went down to 103 kg with his February admission. He is now 94 kg with today's admission. His main complaints are that of fatigue. And he itches all over. He is scratching himself raw. He is also developing peripheral neuropathy of his feet that make his sting and burn. He has a little bit of edema so he has been using 2 pairs of compression stockings but they are not knee-high. They are only up to his ankles. That has left him with a little bit of rash where his socks are compressing them.She pays the bills. She always has. He rarely drives in the last couple of years because he is just so tired. But he has driven a couple of times in the last month.He is able to complete his activities of daily living with bathing himself, feeding himself, dressing himself. The patient is now placed in observation for acute change in mental status. History - Past Medical History Cardiovascular: reports: Congestive heart failure (Chronic systolic heart failure on echo April 2013 with severe global left ventricular systolic dysfunction and ejection fraction of 30 to 35%. Pulmonary hypertension. Transfer to [place] for coronary angiogram with Fidel Tracy after that admission. EF on 02/2020 20%), Hypertension, Atrial fibrillation (diagnosed 04/2013 w eval for cp. ) Respiratory: reports: Sleep apnea (mild on sleep study 06/2015 w CPAP recomm) Neuro: reports: CVA ( Brain MRI done February 26 with a hyponatremia had no acute intracranial disease. Small, chronic right parietal subcortical white matter and left thalamic lacunar infarcts. ) Endocrine/Autoimmune: reports: Type 2 diabetes GI: reports: Colon polyps (Constipation bright red blood per rectum with colonoscopy May 2014 with polypectomy and diverticulosis) : reports: Other (Renal cell carcinoma with adrenal insufficiency. still on treatment. Sees Raffaele BRADY.) HEENT: reports: None Psych: reports: None Musculoskeletal: reports: Osteoarthritis (oxford uni arthroplasty Left 12/2013) Derm: reports: None MRSA Hx?: No Other Past Medical History: kidney cancer - Past Surgical History General: reports: Colonoscopy Ortho: reports: Knee replacement, Arthroscopic surgery, Other - Family & Social History Family History Comment/Other: Dad of old age 89. Mom was living in care facility, diabetic. 80s when she . half Sister with diabetes. brother of suicide. other sister in car accident. 4 kids: completely healthy. one son w crohn's? Living arrangement: At home Living Situation: With spouse/s.o. 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 and and his live in their own home. Does not smoke. Drinks 1 drink once a month. No history of alcohol abuse or recreational substance abuse - Substance History Use: Uses substance without health or social issues: NONE Abuse: Recurrent use of substance despite neg consequences: NONE Dependence: Experiences withdrawal or developed tolerances: NONE - POLST Patient has POLST: No POLST Status: DNR Meds/Allgy - Home Medications Home Medications: Ambulatory Orders Medication Instructions Recorded Confirmed Gabapentin [Neurontin] 600 mg PO TID 02/22/20 03/19/20 Hydrocortisone 5 mg PO BID 02/22/20 03/03/20 Furosemide 80 mg PO DAILY 02/25/20 03/19/20 Spironolactone [Aldactone] 12.5 mg PO 1200 tablet 02/28/20 03/19/20 Isosorbide Mononitrate ER [Imdur] 30 mg PO DAILY 03/03/20 03/19/20 Aspirin [Aspirin EC] 81 mg PO DAILY 03/19/20 03/19/20 Levothyroxine Sodium [Euthyrox] 150 mcg PO QDAC 03/19/20 03/19/20 Metoprolol Succinate [Toprol Xl] 100 mg PO DAILY 03/19/20 03/19/20 hydrALAZINE [Apresoline] 25 mg PO TID 03/19/20 03/19/20 - Allergies Allergies/Adverse Reactions: Allergies Allergy/AdvReac Type Severity Reaction Status Date / Time atorvastatin [From Lipitor] Allergy Unknown Verified 03/19/20 13:51 Review of Systems - All Other Systems All Other Systems: reports: Other Prior Level of Functionality: See history of present illness Exam - Vital Signs Reviewed Vital Signs: Yes Vital Signs: Vital Signs x48h Temp Pulse Pulse Resp BP BP Pulse Ox 03/19/20 19:21 36.3 C L 98 18 153/83 H 98 03/19/20 16:38 80 14 135/80 H 98 03/19/20 16:27 76 16 139/87 H 96 03/19/20 15:42 36.6 C 84 18 121/73 97 03/19/20 15:06 36.7 C 68 18 143/74 H 99 03/19/20 14:07 80 19 116/88 H 97 03/19/20 13:45 36.0 C L 80 13 138/75 H 100 - Physical Exam General Appearance: positive: Moderate distress, Other (He lays on his back, groans/moans and is scratching himself wherever he can reach. He has numerous excoriations on the triceps and shoulder area bilaterally. He is starting to rub his right lateral calf raw. He can be calm down with the touch and the use of voice but only momentarily and it start) Eyes Bilateral: positive: PERRL, EOMI ENT: positive: Dry mucous membranes, Other (No mucosal petechiae, no Rosana) Neck: positive: No JVD. negative: Stiff neck, Carotid bruit Respiratory: positive: Chest non-tender, No respiratory distress. negative: Wheezes, Rales, Rhonchi Cardiovascular: positive: Irregularly irregular, Systolic murmur. negative: Gallop/S4, Friction rub Peripheral Pulses: positive: 1+ Abdomen: positive: Non-tender, No organomegaly, Nml bowel sounds, No distention Skin: positive: Warm, Dry, Pallor, Other (Numerous, numerous excoriations from scratching wherever his hands contact. Petechiae where his socks are around his ankles) Extremities: positive: Non-tender, Full ROM Neurologic/Psychiatric: positive: CN's nml (2-12), Motor nml, Disoriented to person, Disoriented to place, Disoriented to time, Slurred/abnml speech Conclusion/Plan - Problem List (1) Altered mental status Conclusion/Plan: With his last admission this gentleman had hyponatremia in the face of water intoxication. He also had adrenal insufficiency. His sodium was slowly corrected with water restriction, steroids. In the face of an ejection fraction of 20%. He now presents with a sudden, abrupt change in mental status and d elirium. There is no infectious review of systems that preceded this. His exam is negative for infection. He does not have an elevated white cell count, fever, and CT of head without acute intracranial abnormality. He does not drink alcohol. He has not had any recent travel. I thought of ITP or TTP but his platelets are normal. Nivolumab is not associated with this type of encephalopathy. It is associated with pituitary and adrenal insufficiency as noted in this patient. I thought of lymphangitic spread of his cancer but Brain MRI done February 26 with a hyponatremia had no acute intracranial disease. Small, chronic right parietal subcortical white matter and left thalamic lacunar infarcts. Mild diffuse cerebral volume loss. A 5 mm right frontal cavernous angioma. No signs of meningismus on exam. The only new factor is stopping his hydrocortisone 3 to 4 days ago. He is not taking any mood altering or mind altering substances. He is received 1 L of fluid in the emergency room. Ativan. Masters.I discussed the case with the PA on-call for [facility], Romina Mckeon. She reviewed the case. She has been involved with nivolumab since it was in human trial and is very experience with this medication over 8 years. She does not think he is getting a reaction to this medication. Plan: Place in observation Resume steroids but do so in stress doses.Will assume that it is the lack of hydrocortisone that is causing this. Continue to monitor to see if he improves Consider Repeat MRI of head if he does not clear. Would be looking for metastatic disease. Consider lumbar puncture tomorrow morning. Urine tox screen Orders. Qualifiers: Altered mental status type: delirium Qualified Code(s): R41.0 - Disorientation, unspecified (2) Adrenal insufficiency Conclusion/Plan: Cortisol level drawn is 4.6. Low. Plan: Stress dose steroids and then adjust as needed (3) Acute kidney injury Conclusion/Plan: Baseline creatinine is usually 0.8-1.6. Since his status, he has been consistently above that. Some element of obstruction on Rico catheter in the ER has been addressed. P.o. intake has been slightly restricted since his admission for water intoxication and he is on diuretics. Plan: Gingerly hydrate with 1 to 2 L of fluid and repeat creatinine in the morning (4) Chronic systolic heart failure Conclusion/Plan: Medications include spironolactone, metoprolol, hydralazine, Lasix, Imdur. Will verify with his if he has been seen by Dr. Tracy recently. At this time exam shows his CHF to be compensated. There is no crackles, no JVD. (5) Diet-controlled diabetes mellitus Conclusion/Plan: He is not on any diabetic medications at home. Glucose was 218 and 224 on admission. Plan: [id number] glucose checks with sliding scale insulin (6) Generalized pruritus Conclusion/Plan: Benadryl IV. Topical lotion - Lab Results Lab results reviewed: Yes Fish Bones: 03/19/20 13:40 03/19/20 13:40 - Diagnostic Imaging Results Diagnostic Imaging Results: positive: Final report reviewed Diagnostic Imaging Results Comments: Chest x-ray has central pulmonary vascular congestion and interstitial prominence. CT of head without acute intracranial abnormality Brain MRI done February 26 with a hyponatremia had no acute intracranial disease. Small, chronic right parietal subcortical white matter and left thalamic lacunar infarcts. - EKG Results EKG Interpreted Independently: No EKG Comparison: Unchanged from prior EKG EKG Findings: Atrial fibrillation with rate is controlled. Left bundle branch block. No change from previous EKG. Core Measures - Anticipated LOS I expect patient to be DC'd or transferred within 96 hours.: Yes - DVT/VTE - Prophylaxis VTE/DVT Device ordered at admit?: Yes
[2020-03-19] MEDS ORDERED: LACTATED RINGERS 1,000 ML IV SCH (21:00)
[2020-03-19] MEDS: INSULIN ASPART 300 UNIT/3 ML PEN SUBQ SCH (21:33)
[2020-03-19 21:40] LABS: MUDS CUTOFF CONCENTRATIONS CUTOFF CONC BELOW:
[2020-03-19] MEDS ORDERED: CALAMINE/ZINC OXIDE 177 ML BOTTLE TOP PRN (21:49)
[2020-03-19 21:50] LABS: AMPHETAMINE SCREEN,URINE NEGATIVE (NEGATIVE); BENZODIAZEPINES SCREEN, URINE NEGATIVE (NEGATIVE); COCAINE SCREEN URINE NEGATIVE (NEGATIVE); METHADONE SCREEN, URINE NEGATIVE (NEGATIVE); METHAMPHETAMINES SCREEN, URINE NEGATIVE (NEGATIVE); OPIATE SCREEN, URINE NEGATIVE (NEGATIVE); OXYCODONE SCREEN, URINE NEGATIVE (NEGATIVE); PROPOXYPHENE SCREEN, URINE NEGATIVE (NEGATIVE); TRICYCLIC ANTIDEPRESSANT,URINE NEGATIVE (NEGATIVE)
--- NOTE | 2020-03-19 21:52 | ADVANCE CARE PLANNING NOTE ---
Advance Care Planning - Planning Encounter Date: 03/19/20 Time: 21:50 Purpose: Establish CODE STATUS Parties in Attendance: , patient, hospitalist. is on the phone. Decisional Capacity of the Patient: Patient is not able to contribute to the conversation. He intermittently moans, is frantically reaching places to scratch himself. - Diagnosis for Encounter (1) Renal cell carcinoma Qualifiers: Laterality: unspecified laterality Qualified Code(s): C64.9 - Malignant neoplasm of unspecified kidney, except renal pelvis Summary: Diagnosed approximately 2 years ago. On nivolumab therapy. That in turn causes pituitary and adrenal insufficiency. Last dose a month ago. Was due last week and unclear why he did not have follow-up dose. - Encounter Subjective/Patient's Story: History is obtained mainly through the . 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 He is a very independent person. She hesitates to offer him help too much because he may not accept the help. And she would like him to remain as independent as possible. He was diagnosed with renal cell carcinoma approximately 2 years ago. In reviewing his history she is surprised at some of the things I am discussing. For instance she is not aware that he has had congestive heart failure diagnosed since 2013. As far she knows he just had "atrial fibrillation" diagnosed in April 2013. She is now aware of his congestive heart failure because of the recent echo that showed him to have an ejection of 20% with his recent hospitalization earlier this month for hyponatremia. He is on "therapy" but she is unable to name the medication. While she knows that he takes his medications for diabetes, hypertension, congestive heart failure, she lets him create his own pill pack and take his own medications. She describes him as less interactive over the last couple of years due to the immunotherapy. Sleeps a lot, and his previous habit of avid book reading has come down to him reading his Bible and not much else. He will also occasionally watch TV. Maximum weight was 127 kg in May 2017. His maximum weight this year was 115 kg. Then he went down to 103 kg with his February admission. He is now 94 kg with today's admission. His main complaints are that of fatigue. And he itches all over. He is scratching himself raw. He is also developing peripheral neuropathy of his feet that make his sting and burn. He has a little bit of edema so he has been using 2 pairs of compression stockings but they are not knee-high. They are only up to his ankles. That has left him with a little bit of rash where his socks are compressing them.She pays the bills. She always has. He rarely drives in the last couple of years because he is just so tired. But he has driven a couple of times in the last month.He is able to complete his activities of daily living with bathing himself, feeding himself, dressing himself. He has been having problems with hematuria. Has not been able to see urology yet. But has seen his sleeve machine tender in follow-up. Unfortunately he has been unable to take his medications as instructed. He just does not remember to do so. When I asked about resuscitation status, she hesitated because they have not discussed resuscitative status in an open and nessa discussion. She generally knows what he would want, and she does know that he would not want to be on life support or have his life prolonged if it was his time to go. She is worried that "you need a legal piece of paper" to make that happen. They do not have that piece of paper. She is also started to get more overwhelmed with just the day-to-day aspect of managing his illnesses, doctor's appointments, and what needs to be done. She laments that she probably gave him too much water to control his hematuria at the beginning of the month with led to his admission for hyponatremia. She and his primary care provider have discussed getting some help. Primary care provider is making referral for palliative care. Objective/Medical Story: This gentleman has a history of renal cell carcinoma dx'd 2 yrs ago and is on immunotherapy and was just admitted February 24 for altered mental status due to hyponatremia. 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 His last dose of nivolumab was over a month ago. He was due for a dose a week ago. Was placed in the ICU and treated as adrenal crisis and his labs gradually normalized with discharge February 28. During that stay he was found to have an ejection fraction of 20%. We also found out that the had been forcing him to drink a gallon of water for his hematuria after having been instructed "to drink lots of fluids" for the hematuria. With that discharge he was told to use salt sparingly, drink plain water but not force himself. He was discharged with a Rico catheter because hematuria was causing clots that would cause him to be obstructed. He was also hypothyroid and Synthroid was started after IV Synthroid. He was seen in the ER March 03 because his catheter was not working. It was irrigated and he was sent home. This was after several attempts were made to transfer him for urological evaluation but there were no beds available. He then returned again March 06. Still as yet not seeing urology and again having clot retention and catheter obstruction. He was given Augmentin orally sent home.He has also been seen by his sleeve machine tender, Dr. Tracy. His medications were reviewed. Hydralazine was increased from 10 mg 3 times daily to 25 mg 3 times daily. His does not think there were any other changes. She does not oversee his medications. He struggles with remembering to take them. Usually his hydralazine is only twice daily. On Tuesday she prompted him to change his pill pack for the week and he said that he did it and so she trusted him. For unclear reasons he has not taken his hydrocortisone for the last 3 days. She realized that today. But has seemed "normal". There has been no fever, chills, sore throat. No headache. No rhinorrhea, coryza. There has been no coughing, wheezing, chest congestion. There is no abdominal pain, diarrhea, change in bowel habits. His catheter has been removed. There is no urgency, frequency, or hematuria. The only thing that she noted about him was he was "not feeling well". This is for about 2 days. He was nauseated, not wanting to eat anything. Very quiet. Did not want to talk and was much less interactive than usual. But there were no hallucinations, no episodes of disorientation. While he and his are at the pharmacy picking up his medications this morning, he abruptly had a change in his speech pattern and orientation. She had gotten him up this morning. Again he was very quiet did not want to eat. But she did not want to leave him at home so she drove to the [facility] to the [facility] pickup. While they were there picking it up, he suddenly became very confused. Agitated. Tried to get out of the car but could not do it because he could not unhook the seatbelt. She got herself out of the car and went to the passenger side and managed to prompt him to stay in the car. He was not making much sense. Every once in while he was groaning and moaning. He was not saying he was in pain. She drove from the [facility] pharmacy parking lot to the EMS office located next to the hospital. They know the EMS people there. The EMS person instructed her to drive to the hospital and they met them here in our emergency room. His temperature was 36. Heart rate 80. Respiration 13. Blood pressure 138/75. 100% saturation on room air. He was seen by the same emergency physician that is seen him for the last 2 times for his Rico catheter so the patient is well-known to this ER physician. It was noted that this was a completely new status for this patient. He was disoriented. Fighting with the nurses. Once he did state that his stomach hurt. He kept on reaching for the socks on his feet. Neck was supple without meningismus. A negative respiratory, cardiac exam. Negative abdominal exam. He had some petechiae of the feet and calf associated with his compression stocking. He was able to obey commands but disoriented. CT of the head had no acute intracranial abnormality. White cell count was 8. BMP was normal other than an elevated glucose of 224. Liver enzymes were normal. - Past Medical History Cardiovascular: reports: Congestive heart failure (Chronic systolic heart failure on April 2013 with severe global left ventricular systolic dysfunction and ejection fraction of 30 to 35%. Pulmonary hypertension. Transfer to [place] for coronary angiogram with Fidel Tracy after that admission. EF on 02/2020 20%), Hypertension, Atrial fibrillation (diagnosed 04/2013 w eval for cp. ) Respiratory: reports: Sleep apnea (mild on sleep study 06/2015 w CPAP recomm) Neuro: reports: CVA ( Brain MRI done February 26 with a hyponatremia had no acute intracranial disease. Small, chronic right parietal subcortical white matter and left thalamic lacunar infarcts. ) Endocrine/Autoimmune: reports: Type 2 diabetes GI: reports: Colon polyps (Constipation bright red blood per rectum with colonoscopy May 2014 with polypectomy and diverticulosis) : reports: Other (Renal cell carcinoma with adrenal insufficiency. still on treatment. Sees Raffaele BRADY.) HEENT: reports: None Psych: reports: None Musculoskeletal: reports: Osteoarthritis (oxford uni arthroplasty Left 12/2013) Derm: reports: None MRSA Hx?: No Other Past Medical History: kidney cancer - Past Surgical History General: reports: Colonoscopy Ortho: reports: Knee replacement, Arthroscopic surgery, Other Goals of Care: 1. Goals of care of actually not been discussed between she and her , for him. In speaking for him tonight she knows that he would not want his life prolonged if it was this time to go. He would want to remain as independent as possible. They have not discussed what would happen if he got completely dependent on someone to take care of him with his illness. They have never really discussed placement in a chcf facility, assisted living facility, etc. 2. To get through this admission and work-up to find out why he is so confused 3. To continue treatment for his renal cell carcinoma Plan: 1. Palliative care consultation will be called in. 2. DO NOT RESUSCITATE status. 3. After this admission, sit down with and kids to discuss plans for the future. Code Status: Do Not Attempt Resuscitation Time spent on advance care plannin
[2020-03-19] MEDS: diphenhydrAMINE INJ 50 MG/ML VIAL IVP PRN (22:16)
[2020-03-19] MEDS: HYDROCORTISONE SUCCINATE 100 MG/2 ML VIAL IVP SCH (23:09)
[2020-03-20] MEDS: ACETAMINOPHEN 325 MG TABLET PO PRN ×2 (00:47→06:44)
[2020-03-20] MEDS: SODIUM CHLORIDE FLUSH 0.9% 10 ML SYRINGE IVP SCH ×3 (04:20→17:06)
[2020-03-20] MEDS: diphenhydrAMINE INJ 50 MG/ML VIAL IVP PRN (04:25)
[2020-03-20] MEDS: SODIUM CHLORIDE FLUSH 0.9% 10 ML SYRINGE IVP PRN ×5 (04:25→21:13)
[2020-03-20 05:05] LABS: BASOPHILS # (AUTO) 0.1 10^3/uL (0.0-0.1); BASOPHILS % (AUTO) 0.6 %; EOSINOPHILS % (AUTO) 0.4 %; HGB - HEMOGLOBIN 12.8 g/dL (14.0-18.0); LYMPHOCYTES # (AUTO) 0.8 10^3/uL (1.5-3.5); LYMPHOCYTES % (AUTO) 7.6 %; MEAN CORPUSCULAR HEMOGLOBIN 28.4 pg (27.0-31.0); MEAN CORPUSCULAR HGB CONC 31.8 g/dL (32.0-36.0); MEAN CORPUSCULAR VOLUME 89.6 fL (80.0-94.0); MEAN PLATELET VOLUME 10.7 fL (7.4-11.4); MONOCYTES # (AUTO) 0.5 10^3/uL (0.0-1.0); MONOCYTES % (AUTO) 4.7 %; NEUTROPHILS # (AUTO) 9.3 10^3/uL (1.5-6.6); NEUTROPHILS % (AUTO) 86.1 %; PLT - PLATELET COUNT 402 10^3/uL (130-450); RED CELL DISTRIBUTION WIDTH 14.6 % (12.0-15.0); WHITE BLOOD COUNT 10.8 x10^3/uL (4.8-10.8)
[2020-03-20 05:27] LABS: CALCIUM 9.2 mg/dL (8.5-10.3); CREATININE 1.8 mg/dL (0.6-1.2); PHOSPHORUS 4.4 mg/dL (2.5-4.6)
[2020-03-20] MEDS ORDERED: HALOPERIDOL 5 MG/ML VIAL IVP ONE ×2 (05:31→15:52)
[2020-03-20] MEDS: HYDROCORTISONE SUCCINATE 100 MG/2 ML VIAL IVP SCH ×3 (06:43→19:30)
--- NOTE | 2020-03-20 08:09 | PROVIDER PROGRESS NOTE ---
Subjective - Prog Note Date Prog Note Date: 03/20/20 - Subjective Subjective: He still remains altered in bed. He will mumble words when spoken to. Current Medications - Current Medications Current Medications: Active Medications Acetaminophen (Tylenol) 650 mg PO Q4HR PRN PRN Reason: Pain 1 to 4 Last Admin: 03/20/20 06:44 Dose: 650 mg Documented by: Calamine (Calamine Lotion) 1 applic TOP Q6HR PRN PRN Reason: ITCHING Last Admin: 03/20/20 16:50 Dose: 1 applic Documented by: Diphenhydramine HCl (Benadryl Inj) 25 mg IVP Q6H PRN PRN Reason: ITCHING Last Admin: 03/20/20 04:25 Dose: 25 mg Documented by: Hydralazine HCl (Apresoline) 25 mg PO TID [facility] Hydrocortisone Sodium Succinate (Solu-Cortef) 50 mg IVP Q6HR [facility] Last Admin: 03/20/20 11:57 Dose: 50 mg Documented by: Thiamine HCl 100 mg/ Sodium (Chloride) 51 mls @ 100 mls/hr IV DAILY [facility] Last Infusion: 03/20/20 15:38 Dose: Infused Documented by: Insulin Aspart (Novolog) 1 - 9 unit SUBQ 0800,1200,1700,2100 [facility]; Protocol Last Admin: 03/20/20 17:06 Dose: 3 unit Documented by: Isosorbide Mononitrate (Imdur) 30 mg PO DAILY [facility] Levothyroxine Sodium (Synthroid) 125 mcg PO QDAC [facility] Metoprolol Succinate (Toprol Xl) 100 mg PO DAILY [facility] Sodium Chloride (Normal Saline Flush 0.9%) 10 ml IVP PRN PRN PRN Reason: NEEDED PER PROVIDER ORDERS Last Admin: 03/20/20 11:57 Dose: 10 ml Documented by: Sodium Chloride (Normal Saline Flush 0.9%) 10 ml IVP 0100,0900,1700 [facility] Last Admin: 03/20/20 17:06 Dose: 10 ml Documented by: Spironolactone (Aldactone) 12.5 mg PO 1200 [facility] Gabapentin [Neurontin] 600 mg PO TID 02/22/20 Furosemide 80 mg PO DAILY 02/25/20 Isosorbide Mononitrate ER [Imdur] 30 mg PO DAILY 03/03/20 Aspirin [Aspirin EC] 81 mg PO DAILY 03/19/20 Levothyroxine Sodium [Euthyrox] 150 mcg PO QDAC 03/19/20 Metoprolol Succinate [Toprol Xl] 100 mg PO DAILY 03/19/20 hydrALAZINE [Apresoline] 25 mg PO TID 03/19/20 Hydrocortisone [Cortef] 5 mg PO BID 03/20/20 Objective - Vital Signs/Intake & Output Reviewed Vital Signs: Yes Vital Signs: Vital Signs x48h Temp Pulse Resp BP BP Pulse Ox 03/20/20 07:45 107 H 16 140/67 H 97 03/20/20 05:00 36.3 C L 59 L 18 153/95 H 95 Intake & Output: Intake & Output 03/17/20 03/18/20 03/19/20 03/20/20 23:59 23:59 23:59 23:59 Intake Total 1000 Output Total 1000 Balance 1000 -1000 - Objective General Appearance: positive: Alert, Mild distress, Other (He is very restless in bed moving around) Eyes Bilateral: positive: Normal inspection, PERRL, Conjunctivae nml ENT: positive: ENT inspection nml Neck: positive: Nml inspection, Other (He does not appear to have any neck tenderness on exam. He is moving his neck in all directions.) Respiratory: positive: No respiratory distress. negative: Wheezes, Rales Cardiovascular: positive: Regular rate & rhythm, No murmur. negative: Tachycardia, Systolic murmur Abdomen: positive: Non-tender, No distention. negative: Tenderness Skin: positive: Warm, Dry, Other (Multiple excoriations noted over all his extre mities.) Extremities: positive: No pedal edema Neurologic/Psychiatric: positive: Other (He appears to have no focal deficits on exam. He is moving all 4 extremities. Speech is mumbled. He is very restless.) - Lab Results Fish Bones: 03/20/20 04:45 03/20/20 04:45 Other Labs: Lab Results x24hrs 03/20/20 03/20/20 03/20/20 Range/Units 07:41 04:45 04:45 WBC (4.8-10.8) x10^3/uL RBC (4.70-6.10) 10^6/uL Hgb (14.0-18.0) g/dL Hct (42.0-52.0) % MCV (80.0-94.0) fL MCH (27.0-31.0) pg MCHC (32.0-36.0) g/dL RDW (12.0-15.0) % Plt Count (130-450) 10^3/uL MPV (7.4-11.4) fL Neut # (Auto) (1.5-6.6) 10^3/uL Lymph # (Auto) (1.5-3.5) 10^3/uL Emmet # (Auto) (0.0-1.0) 10^3/uL Eos # (Auto) (0.0-0.7) 10^3/uL Baso # (Auto) (0.0-0.1) 10^3/uL Absolute Nucleated RBC x10^3/uL Nucleated RBC % /100WBC Sodium 139 (135-145) mmol/L Potassium 4.1 (3.5-5.0) mmol/L Chloride 99 L (101-111) mmol/L Carbon Dioxide 26 (21-32) mmol/L Anion Gap 14.0 H (6-13) BUN 40 H (6-20) mg/dL Creatinine 1.8 H (0.6-1.2) mg/dL Estimated GFR (MDRD) 38 L (>89) Glucose 184 H (70-100) mg/dL POC Whole Bld Glucose 153 H (70 - 100) mg/dL Lactic Acid (0.5-2.2) mmol/L Calcium 9.2 (8.5-10.3) mg/dL Phosphorus 4.4 (2.5-4.6) mg/dL Magnesium 2.0 (1.7-2.8) mg/dL Total Bilirubin (0.2-1.0) mg/dL AST (10-42) IU/L ALT (10-60) IU/L Alkaline Phosphatase (42-121) IU/L Total Protein (6.7-8.2) g/dL Albumin (3.2-5.5) g/dL Globulin (2.1-4.2) g/dL Albumin/Globulin Ratio (1.0-2.2) Lipase (22-51) U/L TSH 0.61 (0.34-5.60) uIU/mL Cortisol 4pm Sample ug/dL Urine Color Urine Clarity (CLEAR) Urine pH (5.0-7.5) PH Ur Specific [place] (1.002-1.030) Urine Protein (NEGATIVE) mg/dL Urine Glucose (UA) (NEGATIVE) mg/dL Urine Ketones (NEGATIVE) mg/dL Urine Occult Blood (NEGATIVE) Urine Nitrite (NEGATIVE) Urine Bilirubin (NEGATIVE) Urine Urobilinogen (NORMAL) E.U./dL Ur Leukocyte Esterase (NEGATIVE) Ur Microscopic Review Urine Culture Comments Nasal Adenovirus (PCR) Nasal B. parapertussis DNA (PCR) Nasal Coronavir 229E PCR Nasal Coronavir HKU1 PCR Nasal Coronavir NL63 PCR Nasal Coronavir OC43 PCR Nasal Enterovir/Rhinovir PCR Nasal Influenza B PCR Nasal Influenza A PCR Nasal Parainfluen 1 PCR Nasal Parainfluen 2 PCR Nasal Parainfluen 3 PCR Nasal Parainfluen 4 PCR Nasal RSV (PCR) Nasal B.pertussis DNA PCR Nasal C.pneumoniae (PCR) [place] Human Metapneumo PCR Nasal M.pneumoniae (PCR) Nasal SARS-CoV-2 (PCR) Urine Opiates Screen (NEGATIVE) Ur Oxycodone Screen (NEGATIVE) Urine Methadone Screen (NEGATIVE) Ur Propoxyphene Screen (NEGATIVE) Ur Barbiturates Screen (NEGATIVE) Ur Tricyclics Screen (NEGATIVE) Ur Phencyclidine Scrn (NEGATIVE) Ur Amphetamine Screen (NEGATIVE) U Methamphetamines Scrn (NEGATIVE) U Benzodiazepines Scrn (NEGATIVE) Urine Cocaine Screen (NEGATIVE) U Cannabinoids Screen (NEGATIVE) 03/20/20 03/19/20 03/19/20 Range/Units 04:45 20:37 16:55 WBC 10.8 (4.8-10.8) x10^3/uL RBC 4.50 L (4.70-6.10) 10^6/uL Hgb 12.8 L (14.0-18.0) g/dL Hct 40.3 L (42.0-52.0) % MCV 89.6 (80.0-94.0) fL MCH 28.4 (27.0-31.0) pg MCHC 31.8 L (32.0-36.0) g/dL RDW 14.6 (12.0-15.0) % Plt Count 402 (130-450) 10^3/uL MPV 10.7 (7.4-11.4) fL Neut # (Auto) 9.3 H (1.5-6.6) 10^3/uL Lymph # (Auto) 0.8 L (1.5-3.5) 10^3/uL Emmet # (Auto) 0.5 (0.0-1.0) 10^3/uL Eos # (Auto) 0.0 (0.0-0.7) 10^3/uL Baso # (Auto) 0.1 (0.0-0.1) 10^3/uL Absolute Nucleated RBC 0.00 x10^3/uL Nucleated RBC % 0.0 /100WBC Sodium (135-145) mmol/L Potassium (3.5-5.0) mmol/L Chloride (101-111) mmol/L Carbon Dioxide (21-32) mmol/L Anion Gap (6-13) BUN (6-20) mg/dL Creatinine (0.6-1.2) mg/dL Estimated GFR (MDRD) (>89) Glucose (70-100) mg/dL POC Whole Bld Glucose 186 H (70 - 100) mg/dL Lactic Acid (0.5-2.2) mmol/L Calcium (8.5-10.3) mg/dL Phosphorus (2.5-4.6) mg/dL Magnesium (1.7-2.8) mg/dL Total Bilirubin (0.2-1.0) mg/dL AST (10-42) IU/L ALT (10-60) IU/L Alkaline Phosphatase (42-121) IU/L Total Protein (6.7-8.2) g/dL Albumin (3.2-5.5) g/dL Globulin (2.1-4.2) g/dL Albumin/Globulin Ratio (1.0-2.2) Lipase (22-51) U/L TSH (0.34-5.60) uIU/mL Cortisol 4pm Sample ug/dL Urine Color Urine Clarity (CLEAR) Urine pH (5.0-7.5) PH Ur Specific [place] (1.002-1.030) Urine Protein (NEGATIVE) mg/dL Urine Glucose (UA) (NEGATIVE) mg/dL Urine Ketones (NEGATIVE) mg/dL Urine Occult Blood (NEGATIVE) Urine Nitrite (NEGATIVE) Urine Bilirubin (NEGATIVE) Urine Urobilinogen (NORMAL) E.U./dL Ur Leukocyte Esterase (NEGATIVE) Ur Microscopic Review Urine Culture Comments Nasal Adenovirus (PCR) NOT DETECTED Nasal B. parapertussis DNA (PCR) NOT DETECTED Nasal Coronavir 229E PCR NOT DETECTED Nasal Coronavir HKU1 PCR NOT DETECTED Nasal Coronavir NL63 PCR NOT DETECTED Nasal Coronavir OC43 PCR NOT DETECTED Nasal Enterovir/Rhinovir PCR NOT DETECTED Nasal Influenza B PCR NOT DETECTED Nasal Influenza A PCR NOT DETECTED Nasal Parainfluen 1 PCR NOT DETECTED Nasal Parainfluen 2 PCR NOT DETECTED Nasal Parainfluen 3 PCR NOT DETECTED Nasal Parainfluen 4 PCR NOT DETECTED Nasal RSV (PCR) NOT DETECTED Nasal B.pertussis DNA PCR NOT DETECTED Nasal C.pneumoniae (PCR) NOT DETECTED [place] Human Metapneumo PCR NOT DETECTED Nasal M.pneumoniae (PCR) NOT DETECTED Nasal SARS-CoV-2 (PCR) NOT DETECTED Urine Opiates Screen (NEGATIVE) Ur Oxycodone Screen (NEGATIVE) Urine Methadone Screen (NEGATIVE) Ur Propoxyphene Screen (NEGATIVE) Ur Barbiturates Screen (NEGATIVE) Ur Tricyclics Screen (NEGATIVE) Ur Phencyclidine Scrn (NEGATIVE) Ur Amphetamine Screen (NEGATIVE) U Methamphetamines Scrn (NEGATIVE) U Benzodiazepines Scrn (NEGATIVE) Urine Cocaine Screen (NEGATIVE) U Cannabinoids Screen (NEGATIVE) 03/19/20 03/19/20 03/19/20 Range/Units 14:15 14:15 14:15 WBC (4.8-10.8) x10^3/uL RBC (4.70-6.10) 10^6/uL Hgb (14.0-18.0) g/dL Hct (42.0-52.0) % MCV (80.0-94.0) fL MCH (27.0-31.0) pg MCHC (32.0-36.0) g/dL RDW (12.0-15.0) % Plt Count (130-450) 10^3/uL MPV (7.4-11.4) fL Neut # (Auto) (1.5-6.6) 10^3/uL Lymph # (Auto) (1.5-3.5) 10^3/uL Emmet # (Auto) (0.0-1.0) 10^3/uL Eos # (Auto) (0.0-0.7) 10^3/uL Baso # (Auto) (0.0-0.1) 10^3/uL Absolute Nucleated RBC x10^3/uL Nucleated RBC % /100WBC Sodium (135-145) mmol/L Potassium (3.5-5.0) mmol/L Chloride (101-111) mmol/L Carbon Dioxide (21-32) mmol/L Anion Gap (6-13) BUN (6-20) mg/dL Creatinine (0.6-1.2) mg/dL Estimated GFR (MDRD) (>89) Glucose (70-100) mg/dL POC Whole Bld Glucose (70 - 100) mg/dL Lactic Acid (0.5-2.2) mmol/L Calcium (8.5-10.3) mg/dL Phosphorus (2.5-4.6) mg/dL Magnesium (1.7-2.8) mg/dL Total Bilirubin (0.2-1.0) mg/dL AST (10-42) IU/L ALT (10-60) IU/L Alkaline Phosphatase (42-121) IU/L Total Protein (6.7-8.2) g/dL Albumin (3.2-5.5) g/dL Globulin (2.1-4.2) g/dL Albumin/Globulin Ratio (1.0-2.2) Lipase (22-51) U/L TSH (0.34-5.60) uIU/mL Cortisol 4pm Sample ug/dL Urine Color YELLOW Urine Clarity CLEAR (CLEAR) Urine pH 7.0 (5.0-7.5) PH Ur Specific [place] 1.015 (1.002-1.030) Urine Protein NEGATIVE (NEGATIVE) mg/dL Urine Glucose (UA) NEGATIVE (NEGATIVE) mg/dL Urine Ketones NEGATIVE (NEGATIVE) mg/dL Urine Occult Blood TRACE-INTA (NEGATIVE) Urine Nitrite NEGATIVE (NEGATIVE) Urine Bilirubin NEGATIVE (NEGATIVE) Urine Urobilinogen 0.2 (NORMAL) (NORMAL) E.U./dL Ur Leukocyte Esterase NEGATIVE (NEGATIVE) Ur Microscopic Review NOT INDICATED Urine Culture Comments NOT INDICATED Nasal Adenovirus (PCR) Nasal B. parapertussis DNA (PCR) Nasal Coronavir 229E PCR Nasal Coronavir HKU1 PCR Nasal Coronavir NL63 PCR Nasal Coronavir OC43 PCR Nasal Enterovir/Rhinovir PCR Nasal Influenza B PCR Nasal Influenza A PCR Nasal Parainfluen 1 PCR Nasal Parainfluen 2 PCR Nasal Parainfluen 3 PCR Nasal Parainfluen 4 PCR Nasal RSV (PCR) Nasal B.pertussis DNA PCR Nasal C.pneumoniae (PCR) [place] Human Metapneumo PCR Nasal M.pneumoniae (PCR) Nasal SARS-CoV-2 (PCR) Urine Opiates Screen NEGATIVE NEGATIVE (NEGATIVE) Ur Oxycodone Screen NEGATIVE NEGATIVE (NEGATIVE) Urine Methadone Screen NEGATIVE NEGATIVE (NEGATIVE) Ur Propoxyphene Screen NEGATIVE NEGATIVE (NEGATIVE) Ur Barbiturates Screen NEGATIVE NEGATIVE (NEGATIVE) Ur Tricyclics Screen NEGATIVE NEGATIVE (NEGATIVE) Ur Phencyclidine Scrn NEGATIVE NEGATIVE (NEGATIVE) Ur Amphetamine Screen NEGATIVE NEGATIVE (NEGATIVE) U Methamphetamines Scrn NEGATIVE NEGATIVE (NEGATIVE) U Benzodiazepines Scrn NEGATIVE NEGATIVE (NEGATIVE) Urine Cocaine Screen NEGATIVE NEGATIVE (NEGATIVE) U Cannabinoids Screen NEGATIVE NEGATIVE (NEGATIVE) 03/19/20 03/19/20 03/19/20 Range/Units 14:09 13:40 13:40 WBC (4.8-10.8) x10^3/uL RBC (4.70-6.10) 10^6/uL Hgb (14.0-18.0) g/dL Hct (42.0-52.0) % MCV (80.0-94.0) fL MCH (27.0-31.0) pg MCHC (32.0-36.0) g/dL RDW (12.0-15.0) % Plt Count (130-450) 10^3/uL MPV (7.4-11.4) fL Neut # (Auto) (1.5-6.6) 10^3/uL Lymph # (Auto) (1.5-3.5) 10^3/uL Emmet # (Auto) (0.0-1.0) 10^3/uL Eos # (Auto) (0.0-0.7) 10^3/uL Baso # (Auto) (0.0-0.1) 10^3/uL Absolute Nucleated RBC x10^3/uL Nucleated RBC % /100WBC Sodium (135-145) mmol/L Potassium (3.5-5.0) mmol/L Chloride (101-111) mmol/L Carbon Dioxide (21-32) mmol/L Anion Gap (6-13) BUN (6-20) mg/dL Creatinine (0.6-1.2) mg/dL Estimated GFR (MDRD) (>89) Glucose (70-100) mg/dL POC Whole Bld Glucose (70 - 100) mg/dL Lactic Acid 1.4 (0.5-2.2) mmol/L Calcium (8.5-10.3) mg/dL Phosphorus (2.5-4.6) mg/dL Magnesium (1.7-2.8) mg/dL Total Bilirubin (0.2-1.0) mg/dL AST (10-42) IU/L ALT (10-60) IU/L Alkaline Phosphatase (42-121) IU/L Total Protein (6.7-8.2) g/dL Albumin (3.2-5.5) g/dL Globulin (2.1-4.2) g/dL Albumin/Globulin Ratio (1.0-2.2) Lipase (22-51) U/L TSH 0.80 (0.34-5.60) uIU/mL Cortisol 4pm Sample 4.6 ug/dL Urine Color Urine Clarity (CLEAR) Urine pH (5.0-7.5) PH Ur Specific [place] (1.002-1.030) Urine Protein (NEGATIVE) mg/dL Urine Glucose (UA) (NEGATIVE) mg/dL Urine Ketones (NEGATIVE) mg/dL Urine Occult Blood (NEGATIVE) Urine Nitrite (NEGATIVE) Urine Bilirubin (NEGATIVE) Urine Urobilinogen (NORMAL) E.U./dL Ur Leukocyte Esterase (NEGATIVE) Ur Microscopic Review Urine Culture Comments Nasal Adenovirus (PCR) Nasal B. parapertussis DNA (PCR) Nasal Coronavir 229E PCR Nasal Coronavir HKU1 PCR Nasal Coronavir NL63 PCR Nasal Coronavir OC43 PCR Nasal Enterovir/Rhinovir PCR Nasal Influenza B PCR Nasal Influenza A PCR Nasal Parainfluen 1 PCR Nasal Parainfluen 2 PCR Nasal Parainfluen 3 PCR Nasal Parainfluen 4 PCR Nasal RSV (PCR) Nasal B.pertussis DNA PCR Nasal C.pneumoniae (PCR) [place] Human Metapneumo PCR Nasal M.pneumoniae (PCR) Nasal SARS-CoV-2 (PCR) Urine Opiates Screen (NEGATIVE) Ur Oxycodone Screen (NEGATIVE) Urine Methadone Screen (NEGATIVE) Ur Propoxyphene Screen (NEGATIVE) Ur Barbiturates Screen (NEGATIVE) Ur Tricyclics Screen (NEGATIVE) Ur Phencyclidine Scrn (NEGATIVE) Ur Amphetamine Screen (NEGATIVE) U Methamphetamines Scrn (NEGATIVE) U Benzodiazepines Scrn (NEGATIVE) Urine Cocaine Screen (NEGATIVE) U Cannabinoids Screen (NEGATIVE) 03/19/20 03/19/20 03/19/20 Range/Units 13:40 13:40 13:37 WBC 8.0 (4.8-10.8) x10^3/uL RBC 4.58 L (4.70-6.10) 10^6/uL Hgb 13.4 L (14.0-18.0) g/dL Hct 40.5 L (42.0-52.0) % MCV 88.4 (80.0-94.0) fL MCH 29.3 (27.0-31.0) pg MCHC 33.1 (32.0-36.0) g/dL RDW 14.6 (12.0-15.0) % Plt Count 404 (130-450) 10^3/uL MPV 10.7 (7.4-11.4) fL Neut # (Auto) 6.1 (1.5-6.6) 10^3/uL Lymph # (Auto) 0.8 L (1.5-3.5) 10^3/uL Emmet # (Auto) 0.5 (0.0-1.0) 10^3/uL Eos # (Auto) 0.4 (0.0-0.7) 10^3/uL Baso # (Auto) 0.1 (0.0-0.1) 10^3/uL Absolute Nucleated RBC 0.00 x10^3/uL Nucleated RBC % 0.0 /100WBC Sodium 137 (135-145) mmol/L Potassium 4.3 (3.5-5.0) mmol/L Chloride 97 L (101-111) mmol/L Carbon Dioxide 27 (21-32) mmol/L Anion Gap 13.0 (6-13) BUN 40 H (6-20) mg/dL Creatinine 1.8 H (0.6-1.2) mg/dL Estimated GFR (MDRD) 38 L (>89) Glucose 224 H (70-100) mg/dL POC Whole Bld Glucose 218 H (70 - 100) mg/dL Lactic Acid (0.5-2.2) mmol/L Calcium 9.6 (8.5-10.3) mg/dL Phosphorus (2.5-4.6) mg/dL Magnesium (1.7-2.8) mg/dL Total Bilirubin 1.0 (0.2-1.0) mg/dL AST 24 (10-42) IU/L ALT 25 (10-60) IU/L Alkaline Phosphatase 83 (42-121) IU/L Total Protein 8.0 (6.7-8.2) g/dL Albumin 4.1 (3.2-5.5) g/dL Globulin 3.9 (2.1-4.2) g/dL Albumin/Globulin Ratio 1.1 (1.0-2.2) Lipase 36 (22-51) U/L TSH (0.34-5.60) uIU/mL Cortisol 4pm Sample ug/dL Urine Color Urine Clarity (CLEAR) Urine pH (5.0-7.5) PH Ur Specific [place] (1.002-1.030) Urine Protein (NEGATIVE) mg/dL Urine Glucose (UA) (NEGATIVE) mg/dL Urine Ketones (NEGATIVE) mg/dL Urine Occult Blood (NEGATIVE) Urine Nitrite (NEGATIVE) Urine Bilirubin (NEGATIVE) Urine Urobilinogen (NORMAL) E.U./dL Ur Leukocyte Esterase (NEGATIVE) Ur Microscopic Review Urine Culture Comments Nasal Adenovirus (PCR) Nasal B. parapertussis DNA (PCR) Nasal Coronavir 229E PCR Nasal Coronavir HKU1 PCR Nasal Coronavir NL63 PCR Nasal Coronavir OC43 PCR Nasal Enterovir/Rhinovir PCR Nasal Influenza B PCR Nasal Influenza A PCR Nasal Parainfluen 1 PCR Nasal Parainfluen 2 PCR Nasal Parainfluen 3 PCR Nasal Parainfluen 4 PCR Nasal RSV (PCR) Nasal B.pertussis DNA PCR Nasal C.pneumoniae (PCR) [place] Human Metapneumo PCR Nasal M.pneumoniae (PCR) Nasal SARS-CoV-2 (PCR) Urine Opiates Screen (NEGATIVE) Ur Oxycodone Screen (NEGATIVE) Urine Methadone Screen (NEGATIVE) Ur Propoxyphene Screen (NEGATIVE) Ur Barbiturates Screen (NEGATIVE) Ur Tricyclics Screen (NEGATIVE) Ur Phencyclidine Scrn (NEGATIVE) Ur Amphetamine Screen (NEGATIVE) U Methamphetamines Scrn (NEGATIVE) U Benzodiazepines Scrn (NEGATIVE) Urine Cocaine Screen (NEGATIVE) U Cannabinoids Screen (NEGATIVE) ABX Reporting Has patient been on IV antibiotics over the past 48 hours?: No Assessment/Plan - Problem List (1) Encephalopathy Impression: He has shown slight improvement but still quite encephalopathic. Etiology is not clear at this time. CT of the head was unremarkable. His labs unremarkable including ammonia, TSH. His cortisol was low and received stress dose steroids and would expect him to improve by now if this was adrenal crisis. Given he is immunocompromised, we will proceed with a lumbar puncture today and send out for CSF studies. Although he is not febrile, the concern for possible encephalitis. If he is still altered tomorrow, will consider MRI although this may be difficult study without sedation. Check blood cultures. Check vitamin B12, folate. If his lumbar puncture is unremarkable and there is no clear etiology, will reach out to neurology to discuss further work-up and if there is a need for transfer. (2) Adrenal insufficiency Impression: He had stopped taking his hydrocortisone prior to admission. He is now on stress dose steroids. His growth level was slightly low at 4.6. I would expect him to improve from a mental standpoint if this was due to an adrenal insufficiency. Electrolytes have been unremarkable. We will continue stress dose steroids for the time being. We will change him to oral hydrocortisone once he is consistently taking p.o. (3) Acute kidney injury Impression: His creatinine is stable at 1.8. It has been stable in this range since his last admission. His creatinine was 1.1 earlier on this year. At this point, this may be chronic kidney disease. We will hold off on further IV fluids given his x-ray showed pulmonary edema although he does not appear to be in acute heart failure. Monitor his renal function. (4) Chronic systolic heart failure Impression: His chest x-ray did reveal pulmonary edema but he is not hypoxic and is not dyspneic. We will resume his home medications although he may not be able to take p.o. due to his altered mental status. (5) Generalized pruritus Impression: The etiology of this is not clear. His LFTs are within normal limits. We will continue with calamine lotion. We will use Benadryl but will limit the use of it given his encephalopathy. (6) Renal cell carcinoma Impression: He has a history of renal cell carcinoma and is followed at the [facility]. He is on nivolumab. He will need outpatient follow-up. Qualifiers: Laterality: unspecified laterality Qualified Code(s): C64.9 - Malignant neoplasm of unspecified kidney, except renal pelvis (7) Diet-controlled diabetes mellitus Impression: His A1c is elevated 7.5%. We will continue with a diet as tolerated. Sliding scale.
[2020-03-20 08:20] LABS: HEMOGLOBIN A1c% 7.5 % (4.27-6.07)
[2020-03-20] MEDS: INSULIN ASPART 300 UNIT/3 ML PEN SUBQ SCH ×4 (11:32→21:30)
[2020-03-20] MEDS: THIAMINE INJ 100 MG in SODIUM CHLORIDE 0.9% 50 ML IV SCH (15:07)
[2020-03-20] MEDS ORDERED: LORazepam 2 MG/ML VIAL IVP STA ×3 (17:31→21:06)
[2020-03-20] MEDS ORDERED: LORazepam 2 MG/ML VIAL ONE (21:19)
[2020-03-20] MEDS: hydrALAZINE 25 MG TABLET PO SCH (21:33)
[2020-03-20 21:59] LABS: CSF - GLUCOSE 102 mg/dL (45-70)
[2020-03-20 22:13] LABS: CLARITY,CSF CLEAR (CLEAR); COLOR,CSF COLORLESS (COLORLESS); CSF TUBE # CSF TUBE# 3; CSF XANTHOCHROMIA ABSENT (ABSENT); RED BLOOD CELL,CSF 47 /mm^3 (0-1); WHITE BLOOD CELL,CSF 4 /mm^3 (0-5)
--- NOTE | 2020-03-20 22:14 | ANESTHESIA PROCEDURE NOTE ---
Diagnosis: mental status changes Procedure: diagnostic lumbar puncture Consent for Procedure(s) Verified and Reviewed: No Height and Weight: Height 5 ft 7 in Weight (kg) 94 kg Body Mass Index 32.4 Vital Signs: Temp Pulse Resp BP Pulse Ox 36.4 C L 85 20 138/66 H 95 03/20/20 20:03 03/20/20 20:03 03/20/20 20:03 03/20/20 20:03 03/20/20 20:03 Allergies atorvastatin [From Lipitor] Allergy (Verified 03/19/20 13:51) Unknown Requesting Provider: Ana Location: [facility] ASA classification: 3-Severe systemic disease Is this case an emergency?: Yes Anes. Monitoring and Equipment: Sterile prep and drape Anes. Procedure Start Time: 20:30 Anes. Procedure Stop Time: 21:25 Procedure Notes: Patient confused, combative, LP medically needed for diagnosis to work up new mental status changes. Unable to obtain consent. Patient lightly sedated with ativan. Placed right lateral, choraprep x1, 20 g spinal needle at L4-5 attempt x2, CSF clear, 1-2 ccs in each of 4 vials. opening pressures not obtained.
[2020-03-21] MEDS: HYDROCORTISONE SUCCINATE 100 MG/2 ML VIAL IVP SCH ×4 (00:17→17:37)
[2020-03-21] MEDS: SODIUM CHLORIDE FLUSH 0.9% 10 ML SYRINGE IVP SCH ×3 (00:18→17:36)
[2020-03-21] MEDS: ACETAMINOPHEN 325 MG TABLET PO PRN ×2 (01:44→11:35)
[2020-03-21 05:05] LABS: BASOPHILS # (AUTO) 0.1 10^3/uL (0.0-0.1); BASOPHILS % (AUTO) 0.6 %; EOSINOPHILS % (AUTO) 0.1 %; HGB - HEMOGLOBIN 12.2 g/dL (14.0-18.0); LYMPHOCYTES # (AUTO) 0.7 10^3/uL (1.5-3.5); LYMPHOCYTES % (AUTO) 4.5 %; MEAN CORPUSCULAR HEMOGLOBIN 28.6 pg (27.0-31.0); MEAN CORPUSCULAR HGB CONC 32.1 g/dL (32.0-36.0); MEAN CORPUSCULAR VOLUME 89.2 fL (80.0-94.0); MEAN PLATELET VOLUME 11.2 fL (7.4-11.4); MONOCYTES # (AUTO) 0.8 10^3/uL (0.0-1.0); MONOCYTES % (AUTO) 4.9 %; NEUTROPHILS # (AUTO) 14.5 10^3/uL (1.5-6.6); NEUTROPHILS % (AUTO) 89.2 %; PLT - PLATELET COUNT 379 10^3/uL (130-450); RED BLOOD COUNT 4.26 10^6/uL (4.70-6.10); RED CELL DISTRIBUTION WIDTH 14.7 % (12.0-15.0); WHITE BLOOD COUNT 16.2 x10^3/uL (4.8-10.8)
[2020-03-21 05:17] LABS: CALCIUM 9.1 mg/dL (8.5-10.3); CREATININE 1.6 mg/dL (0.6-1.2); PHOSPHORUS 3.3 mg/dL (2.5-4.6)
[2020-03-21] MEDS: hydrALAZINE 25 MG TABLET PO SCH ×2 (06:48→14:26)
[2020-03-21] MEDS: SODIUM CHLORIDE FLUSH 0.9% 10 ML SYRINGE IVP PRN ×2 (06:48→06:51)
[2020-03-21] MEDS: diphenhydrAMINE INJ 50 MG/ML VIAL IVP PRN (06:50)
[2020-03-21] MEDS ORDERED: LEVOTHYROXINE 125 MCG TABLET PO SCH (07:00)
[2020-03-21] MEDS: METOPROLOL 5 MG/5 ML VIAL IVP SCH ×3 (08:00→17:36)
[2020-03-21] MEDS: ISOSORBIDE MONONITRATE ER 30 MG TABLET PO SCH ×2 (08:11→11:36)
[2020-03-21] MEDS: INSULIN ASPART 300 UNIT/3 ML PEN SUBQ SCH ×2 (08:18→12:08)
[2020-03-21] MEDS ORDERED: HALOPERIDOL 5 MG/ML VIAL IVP ONE (08:25)
[2020-03-21] MEDS ORDERED: METOPROLOL SUCCINATE 50 MG TABLET PO SCH (09:00)
[2020-03-21] MEDS ORDERED: SPIRONOLACTONE 25 MG TABLET PO SCH (12:00)
[2020-03-21] MEDS: THIAMINE INJ 100 MG in SODIUM CHLORIDE 0.9% 50 ML IV SCH (12:00)
[2020-03-21] MEDS ORDERED: MIDAZOLAM 2 MG/2 ML VIAL IM STA (12:36)
--- NOTE | 2020-03-21 13:15 | DISCHARGE SUMMARY ---
Discharge Summary Admit Date: 03/19/20 Discharge Date: 03/21/20 Discharging Provider: Sim Perez Primary Care Provider: Alban Connor Code Status: Do Not Attempt Resuscitation Discharge Disposition: 02 Transfer Acute Care Hosp Discharge Facility Name: [facility] - DIAGNOSES Admission Diagnoses: Altered mental status Renal insufficiency Acute kidney injury Chronic systolic heart Diet-controlled diabetes mellitus Generalized pruritus Discharge Diagnoses with Status of Each Condition: Encephalopathy - ongoing. Adrenal insufficiency - stable. Acute kidney injury - stable. Chronic systolic heart failure - stable. Atrial fibrillation with rapid ventricular response - ongoing. Renal cell carcinoma - stable. Generalized pruritus - stable. Diet-controlled diabetes mellitus - stable. - HPI History of Present Illness: H&P per Dr. Tamayo: This gentleman has a history of renal cell carcinoma dx'd 2 yrs ago and is on immunotherapy and was just admitted February 24 for altered mental status due to hyponatremia. 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 His last dose of nivolumab was over a month ago. He was due for a dose a week ago. Was placed in the ICU and treated as adrenal crisis and his labs gradually normalized with discharge February 28. During that stay he was found to have an ejection fraction of 20%. We also found out that the had been forcing him to drink a gallon of water for his hematuria after having been instructed "to drink lots of fluids" for the hematuria. With that discharge he was told to use salt sparingly, drink plain water but not force himself. He was discharged with a Rico catheter because hematuria was causing clots that would cause him to be obstructed. He was also hypothyroid and Synthroid was started after IV Synthroid. He was seen in the ER March 03 because his catheter was not working. It was irrigated and he was sent home. This was after several attempts were made to transfer him for urological evaluation but there were no beds available. He then returned again March 06. Still as yet not seeing urology and again having clot retention and catheter obstruction. He was given Augmentin orally sent home.He has also been seen by his side laster, Dr. Tracy. His medications were reviewed. Hydralazine was increased from 10 mg 3 times daily to 25 mg 3 times daily. His does not think there were any other changes. She does not oversee his medications. He struggles with remembering to take them. Usually his hydralazine is only twice daily. On Tuesday she prompted him to change his pill pack for the week and he said that he did it and so she trusted him. For unclear reasons he has not taken his hydrocortisone for the last 3 days. She realized that today. But has seemed "normal". There has been no fever, chills, sore throat. No headache. No rhinorrhea, coryza. There has been no coughing, wheezing, chest congestion. There is no abdominal pain, diarrhea, change in bowel habits. His catheter has been removed. There is no urgency, frequency, or hematuria. The only thing that she noted about him was he was "not feeling well". This is for about 2 days. He was nauseated, not wanting to eat anything. Very quiet. Did not want to talk and was much less interactive than usual. But there were no hallucinations, no episodes of disorientation. While he and his are at the pharmacy picking up his medications this morning, he abruptly had a change in his speech pattern and orientation. She had gotten him up this morning. Again he was very quiet did not want to eat. But she did not want to leave him at home so she drove to the [facility] pharmacy to the [facility]. While they were there picking it up, he suddenly became very confused. Agitated. Tried to get out of the car but could not do it because he could not unhook the seatbelt. She got herself out of the car and went to the passenger side and managed to prompt him to stay in the car. He was not making much sense. Every once in while he was groaning and moaning. He was not saying he was in pain. She drove from the [facility] parking lot to the EMS office located next to the hospital. They know the EMS people there. The EMS person instructed her to drive to the hospital and they met them here in our emergency room. His temperature was 36. Heart rate 80. Respiration 13. Blood pressure 138/75. 100% saturation on room air. He was seen by the same emergency physician that is seen him for the last 2 times for his Rico catheter so the patient is well-known to this ER physician. It was noted that this was a completely new status for this patient. He was disoriented. Fighting with the nurses. Once he did state that his stomach hurt. He kept on reaching for the socks on his feet. Neck was supple without meningismus. A negative respiratory, cardiac exam. Negative abdominal exam. He had some petechiae of the feet and calf associated with his compression stocking. He was able to obey commands but disoriented. CT of the head had no acute intracranial abnormality. White cell count was 8. BMP was normal other than an elevated glucose of 224. Liver enzymes were normal. Review of systems: Review of systems not able to be done since the patient is still confused and unable to be prompted. She describes him as less interactive over the last co uple of years due to the immunotherapy. Sleeps a lot, and his previous habit of avid book reading has come down to him reading his Bible and not much else. He will also occasionally watch TV. Maximum weight was 127 kg in May 2017. His maximum weight this year was 115 kg. Then he went down to 103 kg with his February admission. He is now 94 kg with today's admission. His main complaints are that of fatigue. And he itches all over. He is scratching himself raw. He is also developing peripheral neuropathy of his feet that make his sting and burn. He has a little bit of edema so he has been using 2 pairs of compression stockings but they are not knee-high. They are only up to his ankles. That has left him with a little bit of rash where his socks are compressing them.She pays the bills. She always has. He rarely drives in the last couple of years because he is just so tired. But he has driven a couple of times in the last month.He is able to complete his activities of daily living with bathing himself, feeding himself, dressing himself. The patient is now placed in observation for acute change in mental status. - CONSULTS | PROCEDURES Procedures: CT of the head showed no acute intracranial abnormalities. Chest x-ray on admission was consistent with pulmonary vascular congestion. - HOSPITAL COURSE Hospital Course: He was admitted to the floor for encephalopathy of unclear etiology. His initial labs were unremarkable. Given he had been off of hydrocortisone for 3 days, there was concern for possible adrenal crisis causing his encephalopathy although his electrolytes did not suggest this. He was started on stress dose steroids. Cortisol checked on admission at 4 PM was 4.6. TSH was also checked and was stable at 0.61. He is on Synthroid 150 mcg at home and so this was decreased to [address] of the head showed no acute abnormalities. He was given gentle IV hydration given his creatinine was 1.8 which is relatively stable over the past month but is increased from earlier on in the year when his baseline was 1.1. An ammonia was also checked and was normal at 11.6. Vitamin B12 was elevated at 1400 and folate was 41. Lactic acid was normal. He was checked for COVID-19 and this was negative. Lactic acid was also normal. Blood cultures were drawn on hospital day 2 and have been negative to date. His urinalysis was unremarkable. Toxicology screen was negative. He still remained encephalopathic after 24 hours. Given his ongoing encephalopathy, a lumbar puncture was pursued. Initial studies showed CSF WBC was 4. RBC was 47. Glucose was 102. Total protein was 44. Gram stain showed no organisms seen and no white blood cells seen. There has been no growth to date. We were unable to obtain opening pressures. On the following hospital day, his white count did increase to 16,000. He has shown no evidence of fever and there has been no obvious source of infection. Given his history of urinary retention, he has been bladder scanned multiple times and there is no evidence of urinary retention. The plan was to obtain MRI of the brain today as it was not available on here at our facility. As the patient is being transferred to higher level of care, this was deferred until transfer. I did speak with his oncologist, Dr. Raffaele Zarate, the day of transfer to discuss his ongoing encephalopathy and unclear etiology. He agreed with transfer to higher level of care. The patient's , preferred staying local due to concerns over Covid. Dr. Zarate felt [facility] would be the ideal hospital for the patient given that is where he is followed for his renal cell carcinoma and if there is concerns for autoimmune encephalitis, he can be treated with IVIG or steroids if necessary. This was discussed with the patient's and she is in agreement for transfer. The patient does have a history of atrial fibrillation and he is currently in rapid ventricular response with rates in the 120s. He has been started on Lopressor 5 mg IV every 6 hours given he cannot take oral pills consistently. He is not on anticoagulation due to his history of hematuria. He has not been started on antibiotics due to lack of obvious infection. I did speak with Dr. Hernandez of the oncology service who graciously ac cepted the patient in transfer. - ALLERGIES Allergies/Adverse Reactions: Allergies Allergy/AdvReac Type Severity Reaction Status Date / Time atorvastatin [From Lipitor] Allergy Unknown Verified 03/19/20 13:51 - MEDICATIONS Home Medications: Ambulatory Orders Medication Instructions Recorded Confirmed Gabapentin [Neurontin] 600 mg PO TID 02/22/20 03/19/20 Furosemide 80 mg PO DAILY 02/25/20 03/19/20 Spironolactone [Aldactone] 12.5 mg PO 1200 tablet 02/28/20 03/19/20 Isosorbide Mononitrate ER [Imdur] 30 mg PO DAILY 03/03/20 03/19/20 Aspirin [Aspirin EC] 81 mg PO DAILY 03/19/20 03/19/20 Levothyroxine Sodium [Euthyrox] 150 mcg PO QDAC 03/19/20 03/19/20 Metoprolol Succinate [Toprol Xl] 100 mg PO DAILY 03/19/20 03/19/20 hydrALAZINE [Apresoline] 25 mg PO TID 03/19/20 03/19/20 Hydrocortisone [Cortef] 5 mg PO BID 03/20/20 - PHYSICAL EXAM AT DISCHARGE General Appearance: positive: Other (He is lying in bed with his legs where his head should be. He is restless and appears uncomfortable. He will mumble a few words here and there. Does not follow commands.) Eyes Bilateral: positive: PERRL, Conjunctivae nml ENT: positive: ENT inspection nml Neck: positive: Nml inspection, Other (No nuchal rigidity. No neck tenderness. He is able to move his neck spontaneously.) Respiratory: positive: No respiratory distress. negative: Wheezes, Rales Cardiovascular: positive: Irregularly irregular, Tachycardia. negative: Regular rate & rhythm, Bradycardia, Systolic murmur Abdomen: positive: Non-tender, No distention. negative: Tenderness, Guarding, Rebound Skin: positive: Warm, Dry, Other (Multiple excoriations noted over his extremities.) Extremities: positive: No pedal edema Neurologic/Psychiatric: positive: Other (Moving all 4 extremities. He does not follow commands.) Physical Exam Other/Comments: Vital Signs - 24 hr 03/20/20 03/20/20 03/20/20 16:41 16:57 20:03 Temperature 36.9 C 36.9 C 36.4 C L Heart Rate 88 Heart Rate [ 88 85 Brachial] Respiratory 19 19 20 Rate Blood Pressure Blood Pressure 162/84 H 138/66 H [Left Brachial artery] Blood Pressure [Right Ankle] O2 Saturation 96 96 95 03/20/20 03/21/20 03/21/20 23:32 04:55 08:00 Temperature 36.7 C 36.4 C L Heart Rate Heart Rate [ 90 143 H 114 H Brachial] Respiratory 18 24 Rate Blood Pressure 145/109 H Blood Pressure 149/89 H 128/83 H 127/83 H [Left Brachial artery] Blood Pressure [Right Ankle] O2 Saturation 94 97 03/21/20 03/21/20 03/21/20 08:24 12:00 13:00 Temperature 36.5 C Heart Rate Heart Rate [ 126 H 139 H Brachial] Respiratory 21 20 Rate Blood Pressure Blood Pressure 144/80 H 135/62 H 109/89 H [Left Brachial artery] Blood Pressure [Right Ankle] O2 Saturation 100 96 03/21/20 03/21/20 03/21/20 14:20 14:26 14:30 Temperature Heart Rate Heart Rate [ 45 L 127 H Brachial] Respiratory Rate Blood Pressure 148/101 H Blood Pressure 148/101 H [Left Brachial artery] Blood Pressure 153/122 H [Right Ankle] O2 Saturation 03/21/20 03/21/20 03/21/20 14:35 14:40 14:45 Temperature Heart Rate Heart Rate [ 64 116 H 119 H Brachial] Respiratory Rate Blood Pressure Blood Pressure 209/159 H 147/102 H 140/98 H [Left Brachial artery] Blood Pressure [Right Ankle] O2 Saturation 03/21/20 14:59 Temperature Heart Rate Heart Rate [ 67 Brachial] Respiratory Rate Blood Pressure Blood Pressure 153/137 H [Left Brachial artery] Blood Pressure [Right Ankle] O2 Saturation Oxygen O2 Source [With Activity] Room air O2 Source [Without Activity] Room air O2 Source Room air - LABS Result Diagrams: 03/21/20 04:10 03/21/20 04:10 Other Lab Results: Laboratory Tests 03/19/20 03/19/20 03/19/20 13:37 13:40 13:40 WBC 8.0 RBC 4.58 L Hgb 13.4 L Hct 40.5 L MCV 88.4 MCH 29.3 MCHC 33.1 RDW 14.6 Plt Count 404 MPV 10.7 Neut # (Auto) 6.1 Lymph # (Auto) 0.8 L [place] # (Auto) 0.5 Eos # (Auto) 0.4 Baso # (Auto) 0.1 Absolute Nucleated RBC 0.00 Nucleated RBC % 0.0 Sodium 137 Potassium 4.3 Chloride 97 L Carbon Dioxide 27 Anion Gap 13.0 BUN 40 H Creatinine 1.8 H Estimated GFR (MDRD) 38 L Glucose 224 H POC Whole Bld Glucose 218 H Estimat Average Glucose Hemoglobin A1c % Lactic Acid Calcium 9.6 Phosphorus Magnesium Total Bilirubin 1.0 AST 24 ALT 25 Alkaline Phosphatase 83 Ammonia Total Protein 8.0 Albumin 4.1 Globulin 3.9 Albumin/Globulin Ratio 1.1 Lipase 36 Vitamin B12 Folate TSH Cortisol AM Sample Cortisol 4pm Sample Urine Color Urine Clarity Urine pH Ur Specific [place] Urine Protein Urine Glucose (UA) Urine Ketones Urine Occult Blood Urine Nitrite Urine Bilirubin Urine Urobilinogen Ur Leukocyte Esterase Ur Microscopic Review Urine Culture Comments CSF Color CSF Clarity Xanthrochromic CSF WBC CSF RBC CSF Cell Count Tube # CSF Glucose CSF Total Protein Nasal Adenovirus (PCR) Nasal B. parapertussis DNA (PCR) Nasal Coronavir 229E PCR Nasal Coronavir HKU1 PCR Nasal Coronavir NL63 PCR Nasal Coronavir OC43 PCR Nasal Enterovir/Rhinovir PCR Nasal Influenza B PCR Nasal Influenza A PCR Nasal Parainfluen 1 PCR Nasal Parainfluen 2 PCR Nasal Parainfluen 3 PCR Nasal Parainfluen 4 PCR Nasal RSV (PCR) Nasal B.pertussis DNA PCR Nasal C.pneumoniae (PCR) [place] Human Metapneumo PCR Nasal M.pneumoniae (PCR) Nasal SARS-CoV-2 (PCR) Urine Opiates Screen Ur Oxycodone Screen Urine Methadone Screen Ur Propoxyphene Screen Ur Barbiturates Screen Ur Tricyclics Screen Ur Phencyclidine Scrn Ur Amphetamine Screen U Methamphetamines Scrn U Benzodiazepines Scrn Urine Cocaine Screen U Cannabinoids Screen 03/19/20 03/19/20 03/19/20 13:40 13:40 14:09 WBC RBC Hgb Hct MCV MCH MCHC RDW Plt Count MPV Neut # (Auto) Lymph # (Auto) [place] # (Auto) Eos # (Auto) Baso # (Auto) Absolute Nucleated RBC Nucleated RBC % Sodium Potassium Chloride Carbon Dioxide Anion Gap BUN Creatinine Estimated GFR (MDRD) Glucose POC Whole Bld Glucose Estimat Average Glucose Hemoglobin A1c % Lactic Acid 1.4 Calcium Phosphorus Magnesium Total Bilirubin AST ALT Alkaline Phosphatase Ammonia Total Protein Albumin Globulin Albumin/Globulin Ratio Lipase Vitamin B12 Folate TSH 0.80 Cortisol AM Sample Cortisol 4pm Sample 4.6 Urine Color Urine Clarity Urine pH Ur Specific [place] Urine Protein Urine Glucose (UA) Urine Ketones Urine Occult Blood Urine Nitrite Urine Bilirubin Urine Urobilinogen Ur Leukocyte Esterase Ur Microscopic Review Urine Culture Comments CSF Color CSF Clarity Xanthrochromic CSF WBC CSF RBC CSF Cell Count Tube # CSF Glucose CSF Total Protein Nasal Adenovirus (PCR) Nasal B. parapertussis DNA (PCR) Nasal Coronavir 229E PCR Nasal Coronavir HKU1 PCR Nasal Coronavir NL63 PCR Nasal Coronavir OC43 PCR Nasal Enterovir/Rhinovir PCR Nasal Influenza B PCR Nasal Influenza A PCR Nasal Parainfluen 1 PCR Nasal Parainfluen 2 PCR Nasal Parainfluen 3 PCR Nasal Parainfluen 4 PCR Nasal RSV (PCR) Nasal B.pertussis DNA PCR Nasal C.pneumoniae (PCR) [place] Human Metapneumo PCR Nasal M.pneumoniae (PCR) Nasal SARS-CoV-2 (PCR) Urine Opiates Screen Ur Oxycodone Screen Urine Methadone Screen Ur Propoxyphene Screen Ur Barbiturates Screen Ur Tricyclics Screen Ur Phencyclidine Scrn Ur Amphetamine Screen U Methamphetamines Scrn U Benzodiazepines Scrn Urine Cocaine Screen U Cannabinoids Screen 03/19/20 03/19/20 03/19/20 14:15 14:15 14:15 WBC RBC Hgb Hct MCV MCH MCHC RDW Plt Count MPV Neut # (Auto) Lymph # (Auto) [place] # (Auto) Eos # (Auto) Baso # (Auto) Absolute Nucleated RBC Nucleated RBC % Sodium Potassium Chloride Carbon Dioxide Anion Gap BUN Creatinine Estimated GFR (MDRD) Glucose POC Whole Bld Glucose Estimat Average Glucose Hemoglobin A1c % Lactic Acid Calcium Phosphorus Magnesium Total Bilirubin AST ALT Alkaline Phosphatase Ammonia Total Protein Albumin Globulin Albumin/Globulin Ratio Lipase Vitamin B12 Folate TSH Cortisol AM Sample Cortisol 4pm Sample Urine Color YELLOW Urine Clarity CLEAR Urine pH 7.0 Ur Specific [place] 1.015 Urine Protein NEGATIVE Urine Glucose (UA) NEGATIVE Urine Ketones NEGATIVE Urine Occult Blood TRACE-INTA Urine Nitrite NEGATIVE Urine Bilirubin NEGATIVE Urine Urobilinogen 0.2 (NORMAL) Ur Leukocyte Esterase NEGATIVE Ur Microscopic Review NOT INDICATED Urine Culture Comments NOT INDICATED CSF Color CSF Clarity Xanthrochromic CSF WBC CSF RBC CSF Cell Count Tube # CSF Glucose CSF Total Protein Nasal Adenovirus (PCR) Nasal B. parapertussis DNA (PCR) Nasal Coronavir 229E PCR Nasal Coronavir HKU1 PCR Nasal Coronavir NL63 PCR Nasal Coronavir OC43 PCR Nasal Enterovir/Rhinovir PCR Nasal Influenza B PCR Nasal Influenza A PCR Nasal Parainfluen 1 PCR Nasal Parainfluen 2 PCR Nasal Parainfluen 3 PCR Nasal Parainfluen 4 PCR Nasal RSV (PCR) Nasal B.pertussis DNA PCR Nasal C.pneumoniae (PCR) [place] Human Metapneumo PCR Nasal M.pneumoniae (PCR) Nasal SARS-CoV-2 (PCR) Urine Opiates Screen NEGATIVE NEGATIVE Ur Oxycodone Screen NEGATIVE NEGATIVE Urine Methadone Screen NEGATIVE NEGATIVE Ur Propoxyphene Screen NEGATIVE NEGATIVE Ur Barbiturates Screen NEGATIVE NEGATIVE Ur Tricyclics Screen NEGATIVE NEGATIVE Ur Phencyclidine Scrn NEGATIVE NEGATIVE Ur Amphetamine Screen NEGATIVE NEGATIVE U Methamphetamines Scrn NEGATIVE NEGATIVE U Benzodiazepines Scrn NEGATIVE NEGATIVE Urine Cocaine Screen NEGATIVE NEGATIVE U Cannabinoids Screen NEGATIVE NEGATIVE 03/19/20 03/19/20 03/20/20 16:55 20:37 04:45 WBC 10.8 RBC 4.50 L Hgb 12.8 L Hct 40.3 L MCV 89.6 MCH 28.4 MCHC 31.8 L RDW 14.6 Plt Count 402 MPV 10.7 Neut # (Auto) 9.3 H Lymph # (Auto) 0.8 L [place] # (Auto) 0.5 Eos # (Auto) 0.0 Baso # (Auto) 0.1 Absolute Nucleated RBC 0.00 Nucleated RBC % 0.0 Sodium Potassium Chloride Carbon Dioxide Anion Gap BUN Creatinine Estimated GFR (MDRD) Glucose POC Whole Bld Glucose 186 H Estimat Average Glucose Hemoglobin A1c % Lactic Acid Calcium Phosphorus Magnesium Total Bilirubin AST ALT Alkaline Phosphatase Ammonia Total Protein Albumin Globulin Albumin/Globulin Ratio Lipase Vitamin B12 Folate TSH Cortisol AM Sample Cortisol 4pm Sample Urine Color Urine Clarity Urine pH Ur Specific [place] Urine Protein Urine Glucose (UA) Urine Ketones Urine Occult Blood Urine Nitrite Urine Bilirubin Urine Urobilinogen Ur Leukocyte Esterase Ur Microscopic Review Urine Culture Comments CSF Color CSF Clarity Xanthrochromic CSF WBC CSF RBC CSF Cell Count Tube # CSF Glucose CSF Total Protein Nasal Adenovirus (PCR) NOT DETECTED Nasal B. parapertussis DNA (PCR) NOT DETECTED Nasal Coronavir 229E PCR NOT DETECTED Nasal Coronavir HKU1 PCR NOT DETECTED Nasal Coronavir NL63 PCR NOT DETECTED Nasal Coronavir OC43 PCR NOT DETECTED Nasal Enterovir/Rhinovir PCR NOT DETECTED Nasal Influenza B PCR NOT DETECTED Nasal Influenza A PCR NOT DETECTED Nasal Parainfluen 1 PCR NOT DETECTED Nasal Parainfluen 2 PCR NOT DETECTED Nasal Parainfluen 3 PCR NOT DETECTED Nasal Parainfluen 4 PCR NOT DETECTED Nasal RSV (PCR) NOT DETECTED Nasal B.pertussis DNA PCR NOT DETECTED Nasal C.pneumoniae (PCR) NOT DETECTED [place] Human Metapneumo PCR NOT DETECTED Nasal M.pneumoniae (PCR) NOT DETECTED Nasal SARS-CoV-2 (PCR) NOT DETECTED Urine Opiates Screen Ur Oxycodone Screen Urine Methadone Screen Ur Propoxyphene Screen Ur Barbiturates Screen Ur Tricyclics Screen Ur Phencyclidine Scrn Ur Amphetamine Screen U Methamphetamines Scrn U Benzodiazepines Scrn Urine Cocaine Screen U Cannabinoids Screen 03/20/20 03/20/20 03/20/20 04:45 04:45 04:45 WBC RBC Hgb Hct MCV MCH MCHC RDW Plt Count MPV Neut # (Auto) Lymph # (Auto) [place] # (Auto) Eos # (Auto) Baso # (Auto) Absolute Nucleated RBC Nucleated RBC % Sodium 139 Potassium 4.1 Chloride 99 L Carbon Dioxide 26 Anion Gap 14.0 H BUN 40 H Creatinine 1.8 H Estimated GFR (MDRD) 38 L Glucose 184 H POC Whole Bld Glucose Estimat Average Glucose 169 H Hemoglobin A1c % 7.5 H Lactic Acid Calcium 9.2 Phosphorus 4.4 Magnesium 2.0 Total Bilirubin AST ALT Alkaline Phosphatase Ammonia Total Protein Albumin Globulin Albumin/Globulin Ratio Lipase Vitamin B12 Folate TSH 0.61 Cortisol AM Sample Cortisol 4pm Sample Urine Color Urine Clarity Urine pH Ur Specific [place] Urine Protein Urine Glucose (UA) Urine Ketones Urine Occult Blood Urine Nitrite Urine Bilirubin Urine Urobilinogen Ur Leukocyte Esterase Ur Microscopic Review Urine Culture Comments CSF Color CSF Clarity Xanthrochromic CSF WBC CSF RBC CSF Cell Count Tube # CSF Glucose CSF Total Protein Nasal Adenovirus (PCR) Nasal B. parapertussis DNA (PCR) Nasal Coronavir 229E PCR Nasal Coronavir HKU1 PCR Nasal Coronavir NL63 PCR Nasal Coronavir OC43 PCR Nasal Enterovir/Rhinovir PCR Nasal Influenza B PCR Nasal Influenza A PCR Nasal Parainfluen 1 PCR Nasal Parainfluen 2 PCR Nasal Parainfluen 3 PCR Nasal Parainfluen 4 PCR Nasal RSV (PCR) Nasal B.pertussis DNA PCR Nasal C.pneumoniae (PCR) [place] Human Metapneumo PCR Nasal M.pneumoniae (PCR) Nasal SARS-CoV-2 (PCR) Urine Opiates Screen Ur Oxycodone Screen Urine Methadone Screen Ur Propoxyphene Screen Ur Barbiturates Screen Ur Tricyclics Screen Ur Phencyclidine Scrn Ur Amphetamine Screen U Methamphetamines Scrn U Benzodiazepines Scrn Urine Cocaine Screen U Cannabinoids Screen 03/20/20 03/20/20 03/20/20 07:41 09:39 11:57 WBC RBC Hgb Hct MCV MCH MCHC RDW Plt Count MPV Neut # (Auto) Lymph # (Auto) [place] # (Auto) Eos # (Auto) Baso # (Auto) Absolute Nucleated RBC Nucleated RBC % Sodium Potassium Chloride Carbon Dioxide Anion Gap BUN Creatinine Estimated GFR (MDRD) Glucose POC Whole Bld Glucose 153 H 171 H Estimat Average Glucose Hemoglobin A1c % Lactic Acid Calcium Phosphorus Magnesium Total Bilirubin AST ALT Alkaline Phosphatase Ammonia 11.6 Total Protein Albumin Globulin Albumin/Globulin Ratio Lipase Vitamin B12 Folate TSH Cortisol AM Sample Cortisol 4pm Sample Urine Color Urine Clarity Urine pH Ur Specific [place] Urine Protein Urine Glucose (UA) Urine Ketones Urine Occult Blood Urine Nitrite Urine Bilirubin Urine Urobilinogen Ur Leukocyte Esterase Ur Microscopic Review Urine Culture Comments CSF Color CSF Clarity Xanthrochromic CSF WBC CSF RBC CSF Cell Count Tube # CSF Glucose CSF Total Protein Nasal Adenovirus (PCR) Nasal B. parapertussis DNA (PCR) Nasal Coronavir 229E PCR Nasal Coronavir HKU1 PCR Nasal Coronavir NL63 PCR Nasal Coronavir OC43 PCR Nasal Enterovir/Rhinovir PCR Nasal Influenza B PCR Nasal Influenza A PCR Nasal Parainfluen 1 PCR Nasal Parainfluen 2 PCR Nasal Parainfluen 3 PCR Nasal Parainfluen 4 PCR Nasal RSV (PCR) Nasal B.pertussis DNA PCR Nasal C.pneumoniae (PCR) [place] Human Metapneumo PCR Nasal M.pneumoniae (PCR) Nasal SARS-CoV-2 (PCR) Urine Opiates Screen Ur Oxycodone Screen Urine Methadone Screen Ur Propoxyphene Screen Ur Barbiturates Screen Ur Tricyclics Screen Ur Phencyclidine Scrn Ur Amphetamine Screen U Methamphetamines Scrn U Benzodiazepines Scrn Urine Cocaine Screen U Cannabinoids Screen 03/20/20 03/20/20 03/20/20 13:51 16:33 20:00 WBC RBC Hgb Hct MCV MCH MCHC RDW Plt Count MPV Neut # (Auto) Lymph # (Auto) [place] # (Auto) Eos # (Auto) Baso # (Auto) Absolute Nucleated RBC Nucleated RBC % Sodium Potassium Chloride Carbon Dioxide Anion Gap BUN Creatinine Estimated GFR (MDRD) Glucose POC Whole Bld Glucose 200 H 137 H Estimat Average Glucose Hemoglobin A1c % Lactic Acid Calcium Phosphorus Magnesium Total Bilirubin AST ALT Alkaline Phosphatase Ammonia Total Protein Albumin Globulin Albumin/Globulin Ratio Lipase Vitamin B12 1404 H Folate 41.00 TSH Cortisol AM Sample Cortisol 4pm Sample Urine Color Urine Clarity Urine pH Ur Specific [place] Urine Protein Urine Glucose (UA) Urine Ketones Urine Occult Blood Urine Nitrite Urine Bilirubin Urine Urobilinogen Ur Leukocyte Esterase Ur Microscopic Review Urine Culture Comments CSF Color CSF Clarity Xanthrochromic CSF WBC CSF RBC CSF Cell Count Tube # CSF Glucose CSF Total Protein Nasal Adenovirus (PCR) Nasal B. parapertussis DNA (PCR) Nasal Coronavir 229E PCR Nasal Coronavir HKU1 PCR Nasal Coronavir NL63 PCR Nasal Coronavir OC43 PCR Nasal Enterovir/Rhinovir PCR Nasal Influenza B PCR Nasal Influenza A PCR Nasal Parainfluen 1 PCR Nasal Parainfluen 2 PCR Nasal Parainfluen 3 PCR Nasal Parainfluen 4 PCR Nasal RSV (PCR) Nasal B.pertussis DNA PCR Nasal C.pneumoniae (PCR) [place] Human Metapneumo PCR Nasal M.pneumoniae (PCR) Nasal SARS-CoV-2 (PCR) Urine Opiates Screen Ur Oxycodone Screen Urine Methadone Screen Ur Propoxyphene Screen Ur Barbiturates Screen Ur Tricyclics Screen Ur Phencyclidine Scrn Ur Amphetamine Screen U Methamphetamines Scrn U Benzodiazepines Scrn Urine Cocaine Screen U Cannabinoids Screen 03/20/20 03/21/20 03/21/20 21:25 04:10 04:10 WBC 16.2 H RBC 4.26 L Hgb 12.2 L Hct 38.0 L MCV 89.2 MCH 28.6 MCHC 32.1 RDW 14.7 Plt Count 379 MPV 11.2 Neut # (Auto) 14.5 H Lymph # (Auto) 0.7 L [place] # (Auto) 0.8 Eos # (Auto) 0.0 Baso # (Auto) 0.1 Absolute Nucleated RBC 0.00 Nucleated RBC % 0.0 Sodium 142 Potassium 3.8 Chloride 104 Carbon Dioxide 24 Anion Gap 14.0 H BUN 37 H Creatinine 1.6 H Estimated GFR (MDRD) 43 L Glucose 198 H POC Whole Bld Glucose Estimat Average Glucose Hemoglobin A1c % Lactic Acid Calcium 9.1 Phosphorus 3.3 Magnesium 2.0 Total Bilirubin AST ALT Alkaline Phosphatase Ammonia Total Protein Albumin Globulin Albumin/Globulin Ratio Lipase Vitamin B12 Folate TSH Cortisol AM Sample Cortisol 4pm Sample Urine Color Urine Clarity Urine pH Ur Specific [place] Urine Protein Urine Glucose (UA) Urine Ketones Urine Occult Blood Urine Nitrite Urine Bilirubin Urine Urobilinogen Ur Leukocyte Esterase Ur Microscopic Review Urine Culture Comments CSF Color COLORLESS CSF Clarity CLEAR Xanthrochromic ABSENT CSF WBC 4 CSF RBC 47 H CSF Cell Count Tube # CSF TUBE# 3 CSF Glucose 102 H CSF Total Protein 44 Nasal Adenovirus (PCR) Nasal B. parapertussis DNA (PCR) Nasal Coronavir 229E PCR Nasal Coronavir HKU1 PCR Nasal Coronavir NL63 PCR Nasal Coronavir OC43 PCR Nasal Enterovir/Rhinovir PCR Nasal Influenza B PCR Nasal Influenza A PCR Nasal Parainfluen 1 PCR Nasal Parainfluen 2 PCR Nasal Parainfluen 3 PCR Nasal Parainfluen 4 PCR Nasal RSV (PCR) Nasal B.pertussis DNA PCR Nasal C.pneumoniae (PCR) [place] Human Metapneumo PCR Nasal M.pneumoniae (PCR) Nasal SARS-CoV-2 (PCR) Urine Opiates Screen Ur Oxycodone Screen Urine Methadone Screen Ur Propoxyphene Screen Ur Barbiturates Screen Ur Tricyclics Screen Ur Phencyclidine Scrn Ur Amphetamine Screen U Methamphetamines Scrn U Benzodiazepines Scrn Urine Cocaine Screen U Cannabinoids Screen 03/21/20 03/21/20 03/21/20 08:16 08:49 12:04 WBC RBC Hgb Hct MCV MCH MCHC RDW Plt Count MPV Neut # (Auto) Lymph # (Auto) [place] # (Auto) Eos # (Auto) Baso # (Auto) Absolute Nucleated RBC Nucleated RBC % Sodium Potassium Chloride Carbon Dioxide Anion Gap BUN Creatinine Estimated GFR (MDRD) Glucose POC Whole Bld Glucose 213 H 237 H Estimat Average Glucose Hemoglobin A1c % Lactic Acid Calcium Phosphorus Magnesium Total Bilirubin AST ALT Alkaline Phosphatase Ammonia Total Protein Albumin Globulin Albumin/Globulin Ratio Lipase Vitamin B12 Folate TSH Cortisol AM Sample 30.3 Cortisol 4pm Sample Urine Color Urine Clarity Urine pH Ur Specific [place] Urine Protein Urine Glucose (UA) Urine Ketones Urine Occult Blood Urine Nitrite Urine Bilirubin Urine Urobilinogen Ur Leukocyte Esterase Ur Microscopic Review Urine Culture Comments CSF Color CSF Clarity Xanthrochromic CSF WBC CSF RBC CSF Cell Count Tube # CSF Glucose CSF Total Protein Nasal Adenovirus (PCR) Nasal B. parapertussis DNA (PCR) Nasal Coronavir 229E PCR Nasal Coronavir HKU1 PCR Nasal Coronavir NL63 PCR Nasal Coronavir OC43 PCR Nasal Enterovir/Rhinovir PCR Nasal Influenza B PCR Nasal Influenza A PCR Nasal Parainfluen 1 PCR Nasal Parainfluen 2 PCR Nasal Parainfluen 3 PCR Nasal Parainfluen 4 PCR Nasal RSV (PCR) Nasal B.pertussis DNA PCR Nasal C.pneumoniae (PCR) [place] Human Metapneumo PCR Nasal M.pneumoniae (PCR) Nasal SARS-CoV-2 (PCR) Urine Opiates Screen Ur Oxycodone Screen Urine Methadone Screen Ur Propoxyphene Screen Ur Barbiturates Screen Ur Tricyclics Screen Ur Phencyclidine Scrn Ur Amphetamine Screen U Methamphetamines Scrn U Benzodiazepines Scrn Urine Cocaine Screen U Cannabinoids Screen - DIAGNOSTIC IMAGING Diagnostic Imaging Results: Final report reviewed - TIME SPENT Time Spent in Discharge (Minutes): 47
[2020-03-21] MEDS ORDERED: INSULIN ASPART 300 UNIT/3 ML PEN SUBQ SCH (17:00)
[2020-03-21] MEDS ORDERED: LORazepam 2 MG/ML VIAL IVP STA (17:18)
[2020-03-21 17:37] VITALS: BP 127/94
[2020-03-22] MEDS ORDERED: polyethylene glycoL 3350 17 GM PACKET PO SCH (17:00)
== END 2020-03-21 17:55 | disposition short-term general hospital (02) | DRG 71 ==
LOC: ED 13:31 → MS3 17:29 → OBSVTOIN 03-20 08:09
PROVIDERS: ADMIT Internal Medicine; ATTEND Internal Medicine
PROC: 009U3ZX Drainage of Spinal Canal, Percutaneous Approach, Diagnostic (ICD-10-PCS; principal; 2020-03-20)
DX: G93.40 Encephalopathy, unspecified (principal); C64.9 Malignant neoplasm of unspecified kidney, except renal pelvis; N17.9 Acute kidney failure, unspecified; I50.22 Chronic systolic (congestive) heart failure; E27.3 Drug-induced adrenocortical insufficiency; E23.0 Hypopituitarism; T45.1X5A Adverse effect of antineoplastic and immunosuppressive drugs, initial encounter; I11.0 Hypertensive heart disease with heart failure; I48.91 Unspecified atrial fibrillation; L29.9 Pruritus, unspecified; E11.42 Type 2 diabetes mellitus with diabetic polyneuropathy; E03.9 Hypothyroidism, unspecified; G47.30 Sleep apnea, unspecified; F41.9 Anxiety disorder, unspecified; Z66 Do not resuscitate; Z96.652 Presence of left artificial knee joint; Z91.14 Patient's other noncompliance with medication regimen; Z79.52 Long term (current) use of systemic steroids; Z79.899 Other long term (current) drug therapy; Z86.73 Personal history of transient ischemic attack (TIA), and cerebral infarction without residual deficits
CPT/HCPCS: 36415; 51701; 51798; 70450; 71045; 80048; 80053; 81003; 81599; 82140; 82533; 82607; 82746; 82945; 83036; 83605; 83690; 83735; 84100; 84157; 84443; 85025; 87040; 87070; 87205; 87631; 89051; 93005; 96374; 96375; 96376; 99284; 99285; A9270; G0378; J1200; J2060; J3411; J7040; J7120; 0202U; 80306; 81001; 87086; 87529

== ENCOUNTER 2020-03-21 17:55 | Outpatient (CLI) | payer MEDICARE, OTHER | END 2020-03-21 17:56 | disposition short-term general hospital (02) | LOC: EMS 17:55 | PROVIDERS: ATTEND Surgery | DX: G93.40 Encephalopathy, unspecified (principal); C64.9 Malignant neoplasm of unspecified kidney, except renal pelvis | CPT/HCPCS: A0425; A0428 ==

== ENCOUNTER 2020-04-02 15:26 | Outpatient (CLI) | payer MEDICARE, OTHER | END 2020-04-02 15:27 | disposition critical access hospital (66) | LOC: EMS 15:26 | PROVIDERS: ATTEND Surgery | DX: R53.1 Weakness (principal) | CPT/HCPCS: A0425; A0427 ==

== ENCOUNTER 2020-04-02 15:41 | Emergency (ER) | payer MEDICARE, OTHER ==
--- NOTE | 2020-04-02 16:11 | XRAY Report ---
PROCEDURE: Chest 1 View X-Ray INDICATIONS: Chest Pain TECHNIQUE: One view of the chest was acquired. COMPARISON: 03/19/2020 FINDINGS: Surgical changes and devices: None. Lungs and pleura: No pleural effusions or pneumothorax. Low lung volumes patchy opacities without de finite focal consolidation.. Mediastinum: Mediastinal contours appear normal. Heart size is normal. Bones and chest wall: Bilateral shoulder joint degeneration. No suspicious bony lesions. Overlying soft tissues appear unremarkable. IMPRESSION: Low lung volumes. Scattered subsegmental scarring/atelectasis. No acute consolidation. Reviewed by: Aayush Hernandez MD on 04/02/2020 4:10 PM PST Approved by: Aayush Hernandez MD on 04/02/2020 4:10 PM PST Station ID: [id number]
[2020-04-02] MEDS ORDERED: DEXAMETHASONE 10 MG/ML VIAL IVP STA (16:13)
[2020-04-02] MEDS ORDERED: SODIUM CHLORIDE 0.9% 1,000 ML IV STA ×2 (16:15→19:54)
[2020-04-02 16:22] LABS: BASOPHILS # (AUTO) 0.2 10^3/uL (0.0-0.1); BASOPHILS % (AUTO) 1.7 %; EOSINOPHILS # (AUTO) 0.4 10^3/uL (0.0-0.7); EOSINOPHILS % (AUTO) 4.2 %; LYMPHOCYTES # (AUTO) 0.7 10^3/uL (1.5-3.5); LYMPHOCYTES % (AUTO) 7.9 %; MEAN CORPUSCULAR HEMOGLOBIN 29.2 pg (27.0-31.0); MEAN CORPUSCULAR HGB CONC 32.8 g/dL (32.0-36.0); MEAN CORPUSCULAR VOLUME 89.1 fL (80.0-94.0); MEAN PLATELET VOLUME 11.1 fL (7.4-11.4); MONOCYTES # (AUTO) 0.8 10^3/uL (0.0-1.0); NEUTROPHILS # (AUTO) 7.2 10^3/uL (1.5-6.6); NEUTROPHILS % (AUTO) 76.9 %; PLT - PLATELET COUNT 288 10^3/uL (130-450); RED BLOOD COUNT 4.79 10^6/uL (4.70-6.10); RED CELL DISTRIBUTION WIDTH 14.5 % (12.0-15.0); WHITE BLOOD COUNT 9.3 x10^3/uL (4.8-10.8)
--- NOTE | 2020-04-02 16:34 | ED Physician Documentation ---
History of Present Illness - Stated complaint Stated Complaint: WEAKNESS - Chief complaint Chief Complaint: General - Additonal information Additional information: 65-year-old male is brought into the emergency department for evaluation of we akness. Per EMS report he was ambulating to the bathroom when he got suddenly weak and was assisted to the ground by his . There do not appear to have been any focal neuro deficits. he did not strike his head and he did not lose consciousness This gentleman does have a history of renal cell carcinoma that was diagnosed about 2 years ago and he is on immune therapy. He does have chronic adrenal insufficiency and pituitary insufficiency secondary to the nivolumab that he takes for his renal cell carcinoma He was recently seen at this hospital at the end of February where he was noted to have an altered mental status and was encephalopathic. At the time of initial admission his encephalopathy was initially thought to be secondary to adrenal insufficiency in the setting of steroid non-compiance. However AMS did not improve following steroid challenge. Ultimately at the time of his last admission here he did require transfer to oncology with [facility] for concerns that he may have encephalopathy secondary to autoimmune encephalitis. Pt is not able to reliable participate in ROS at this time. I did speak with his on the phone. She reports to me that he was discharged from [facility] on March 24. Ultimately they were not able to determine the cause of his confusion while in the hospital though they suspected it may be related to gabapentin. He did undergo lumbar puncture and the results of that are not yet known. She reports that since being discharged in the hospital he has not been confused though he has been persistently tired and nauseated. However he has been ambulatory on his own with minimal assist. Review of Systems Unable to obtain: AMS, Other (obtained from ) Constitutional: reports: Fatigue. denies: Fever, Chills Cardiac: denies: Chest pain / pressure, Palpitations Respiratory: denies: Dyspnea : denies: Dysuria Neurologic: reports: Generalized weakness, Near syncope. denies: Focal weakness, Numbness, Syncope, Seizure, Confused PD PAST MEDICAL HISTORY - Past Medical History Cardiovascular: Congestive heart failure (Chronic systolic heart failure on April 2013 with severe global left ventricular systolic dysfunction and ejection fraction of 30 to 35%. Pulmonary hypertension. Transfer to [place] for coronary angiogram with Fidel Tracy after that admission. EF on 02/2020 20%), Hypertension, Atrial fibrillation (diagnosed 04/2013 w eval for cp. ) Respiratory: Sleep apnea (mild on sleep study 06/2015 w CPAP recomm) Neuro: CVA ( Brain MRI done February 26 with a hyponatremia had no acute intracranial disease. Small, chronic right parietal subcortical white matter and left thalamic lacunar infarcts. ) Endocrine/Autoimmune: Type 2 diabetes GI: Colon polyps (Constipation bright red blood per rectum with colonoscopy May 2014 with polypectomy and diverticulosis) : Other (Renal cell carcinoma with adrenal insufficiency. still on treatment. Sees Raffaele BRADY.) HEENT: None Psych: None Musculoskeletal: Osteoarthritis (oxford uni arthroplasty Left 12/2013) Derm: None - Past Surgical History Past Surgical History: Yes General: Colonoscopy Ortho: Knee replacement, Arthroscopic surgery, Other - Present Medications Home Medications: Ambulatory Orders Medication Instructions Recorded Confirmed Gabapentin [Neurontin] 600 mg PO TID 02/22/20 04/02/20 Furosemide 80 mg PO DAILY 02/25/20 04/02/20 Spironolactone [Aldactone] 12.5 mg PO 1200 tablet 02/28/20 04/02/20 Isosorbide Mononitrate ER [Imdur] 30 mg PO DAILY 03/03/20 04/02/20 Aspirin [Aspirin EC] 81 mg PO DAILY 03/19/20 04/02/20 Levothyroxine Sodium [Euthyrox] 150 mcg PO QDAC 03/19/20 04/02/20 Metoprolol Succinate [Toprol Xl] 100 mg PO DAILY 03/19/20 04/02/20 hydrALAZINE [Apresoline] 25 mg PO TID 03/19/20 04/02/20 Hydrocortisone [Cortef] 5 mg PO BID 03/20/20 04/02/20 - Allergies Allergies/Adverse Reactions: Allergies Allergy/AdvReac Type Severity Reaction Status Date / Time atorvastatin [From Lipitor] Allergy Unknown Verified 04/02/20 15:49 - Social History Does the pt smoke?: No Smoking Status: Never smoker Does the pt drink ETOH?: No Does the pt have substance abuse?: No - Immunizations Immunizations are current?: Yes - POLST Patient has POLST: No POLST Status: DNR PD ED PE EXPANDED - General General: No acute distress, Other (Lethargic but arouses easily) - HEENT HEENT: PERRL, EOMI. No: Atraumatic - Neck Neck: Supple w/out meningeal sx, No tenderness - Cardiac Cardiac: Murmur Present, Radial strong equal, Pedal strong equal, Cap refill < 2 sec. No: Irregularly irregular - Respiratory Respiratory: Clear to ausultation wisam. No: Distress, Labored - Abdomen Abdomen: Normal Bowel sounds. No: Tender to palpation - Derm Derm: Normal color. No: Petecchiae, Purpura - Extremities Extremities: Normal. No: Deformity, Tenderness - Neuro Neuro: Lethargic, CNII-XII intact - GCS Eye Opening: To Voice Motor: Obeys Commands Verbal: Confused Total: 13 Results - Vitals Vitals: Vital Signs - 24 hr 04/02/20 04/02/20 04/02/20 15:43 17:20 18:09 Temperature 36.3 C L Heart Rate 86 71 85 Heart Rate [ Sitting] Heart Rate [ Standing] Heart Rate [ Supine] Respiratory 16 20 19 Rate Blood Pressure 94/70 133/86 H 112/80 Blood Pressure [Sitting] Blood Pressure [Standing] Blood Pressure [Supine] O2 Saturation 99 100 97 04/02/20 04/02/20 19:06 19:38 Temperature Heart Rate 89 Heart Rate [ 88 Sitting] Heart Rate [ 97 Standing] Heart Rate [ 82 Supine] Respiratory 18 Rate Blood Pressure 111/72 Blood Pressure 127/81 H [Sitting] Blood Pressure 115/76 [Standing] Blood Pressure 129/79 [Supine] O2 Saturation 98 Oxygen O2 Source [With Activity] Room air O2 Source [Without Activity] Room air O2 Source Room air - EKG (time done) 1557 Rate: Rate (enter#) (93) Rhythm: Atrial fibrillation Intervals: LBBB Ischemia: Normal ST segments Compare to prior EKG: Unchanged from prior EKG Computer interpretation: Agree with computer - Labs Labs: Laboratory Tests 04/02/20 04/02/20 04/02/20 16:16 16:16 16:16 WBC 9.3 RBC 4.79 Hgb 14.0 Hct 42.7 MCV 89.1 MCH 29.2 MCHC 32.8 RDW 14.5 Plt Count 288 MPV 11.1 Neut # (Auto) 7.2 H Lymph # (Auto) 0.7 L [place] # (Auto) 0.8 Eos # (Auto) 0.4 Baso # (Auto) 0.2 H Absolute Nucleated RBC 0.00 Nucleated RBC % 0.0 Sodium 130 L Potassium 4.1 Chloride 91 L Carbon Dioxide 28 Anion Gap 11.0 BUN 25 H Creatinine 2.0 H Estimated GFR (MDRD) 33 L Glucose 195 H Lactic Acid Calcium 8.9 Total Bilirubin 1.4 H AST 135 H ALT 87 H Alkaline Phosphatase 311 H Troponin I High Sens 16.5 Total Protein 7.5 Albumin 3.9 Globulin 3.6 Albumin/Globulin Ratio 1.1 Lipase 26 Cortisol Urine Color Urine Clarity Urine pH Ur Specific [place] Urine Protein Urine Glucose (UA) Urine Ketones Urine Occult Blood Urine Nitrite Urine Bilirubin Urine Urobilinogen Ur Leukocyte Esterase Ur Microscopic Review Urine Culture Comments Nasal Adenovirus (PCR) Nasal B. parapertussis DNA (PCR) Nasal Coronavir 229E PCR Nasal Coronavir HKU1 PCR Nasal Coronavir NL63 PCR Nasal Coronavir OC43 PCR Nasal Enterovir/Rhinovir PCR Nasal Influenza B PCR Nasal Influenza A PCR Nasal Parainfluen 1 PCR Nasal Parainfluen 2 PCR Nasal Parainfluen 3 PCR Nasal Parainfluen 4 PCR Nasal RSV (PCR) Nasal B.pertussis DNA PCR Nasal C.pneumoniae (PCR) [place] Human Metapneumo PCR Nasal M.pneumoniae (PCR) Nasal SARS-CoV-2 (PCR) 04/02/20 04/02/20 04/02/20 16:16 16:16 16:41 WBC RBC Hgb Hct MCV MCH MCHC RDW Plt Count MPV Neut # (Auto) Lymph # (Auto) [place] # (Auto) Eos # (Auto) Baso # (Auto) Absolute Nucleated RBC Nucleated RBC % Sodium Potassium Chloride Carbon Dioxide Anion Gap BUN Creatinine Estimated GFR (MDRD) Glucose Lactic Acid 1.4 Calcium Total Bilirubin AST ALT Alkaline Phosphatase Troponin I High Sens Total Protein Albumin Globulin Albumin/Globulin Ratio Lipase Cortisol 6.3 Urine Color Urine Clarity Urine pH Ur Specific [place] Urine Protein Urine Glucose (UA) Urine Ketones Urine Occult Blood Urine Nitrite Urine Bilirubin Urine Urobilinogen Ur Leukocyte Esterase Ur Microscopic Review Urine Culture Comments Nasal Adenovirus (PCR) NOT DETECTED Nasal B. parapertussis DNA (PCR) NOT DETECTED Nasal Coronavir 229E PCR NOT DETECTED Nasal Coronavir HKU1 PCR NOT DETECTED Nasal Coronavir NL63 PCR NOT DETECTED Nasal Coronavir OC43 PCR NOT DETECTED Nasal Enterovir/Rhinovir PCR DETECTED A Nasal Influenza B PCR NOT DETECTED Nasal Influenza A PCR NOT DETECTED Nasal Parainfluen 1 PCR NOT DETECTED Nasal Parainfluen 2 PCR NOT DETECTED Nasal Parainfluen 3 PCR NOT DETECTED Nasal Parainfluen 4 PCR NOT DETECTED Nasal RSV (PCR) NOT DETECTED Nasal B.pertussis DNA PCR NOT DETECTED Nasal C.pneumoniae (PCR) NOT DETECTED [place] Human Metapneumo PCR NOT DETECTED Nasal M.pneumoniae (PCR) NOT DETECTED Nasal SARS-CoV-2 (PCR) NOT DETECTED 04/02/20 17:05 WBC RBC Hgb Hct MCV MCH MCHC RDW Plt Count MPV Neut # (Auto) Lymph # (Auto) [place] # (Auto) Eos # (Auto) Baso # (Auto) Absolute Nucleated RBC Nucleated RBC % Sodium Potassium Chloride Carbon Dioxide Anion Gap BUN Creatinine Estimated GFR (MDRD) Glucose Lactic Acid Calcium Total Bilirubin AST ALT Alkaline Phosphatase Troponin I High Sens Total Protein Albumin Globulin Albumin/Globulin Ratio Lipase Cortisol Urine Color YELLOW Urine Clarity CLEAR Urine pH 7.0 Ur Specific [place] 1.015 Urine Protein NEGATIVE Urine Glucose (UA) NEGATIVE Urine Ketones NEGATIVE Urine Occult Blood TRACE-INTA Urine Nitrite NEGATIVE Urine Bilirubin NEGATIVE Urine Urobilinogen 0.2 (NORMAL) Ur Leukocyte Esterase NEGATIVE Ur Microscopic Review NOT INDICATED Urine Culture Comments NOT INDICATED Nasal Adenovirus (PCR) Nasal B. parapertussis DNA (PCR) Nasal Coronavir 229E PCR Nasal Coronavir HKU1 PCR Nasal Coronavir NL63 PCR Nasal Coronavir OC43 PCR Nasal Enterovir/Rhinovir PCR Nasal Influenza B PCR Nasal Influenza A PCR Nasal Parainfluen 1 PCR Nasal Parainfluen 2 PCR Nasal Parainfluen 3 PCR Nasal Parainfluen 4 PCR Nasal RSV (PCR) Nasal B.pertussis DNA PCR Nasal C.pneumoniae (PCR) [place] Human Metapneumo PCR Nasal M.pneumoniae (PCR) Nasal SARS-CoV-2 (PCR) - Rads (name of study) CT abd Radiology: Final report received (Interval increase in size of patient's known multilevel centrally necrotic and calcified pelvic mass involving the upper pole of the left kidney above. No obstructing renal stone or hydronephrosis. No b owel obstruction no abnormal bowel wall thickening. no free fluid or air. normal appendix) PD MEDICAL DECISION MAKING - ED course Complexity details: reviewed old records, reviewed results, re-evaluated patient, considered differential, d/w patient, d/w family ED course: This is a 65-year-old male that comes to the emergency department with generalized weakness. He was walking to the bathroom when he suddenly could no longer support himself and was assisted to the ground by his . He did not have any lapse in consciousness. His history is complicated by known renal cell carcinoma currently undergoing immune therapy. He was recently hospitalized with altered mental status/encephalopathy. Ultimately the cause of that was never clear but after prolonged hospitalization was discharged from with a normal mental status. Here in the emergency department he is lethargic but arousable. He does not have any focal neuro deficits. He is able to appropriately answer most questions yes or no though he is eager to discontinue the conversation and return to sleep. He does not have any leukocytosis. UA shows no signs of infection. Chest x-ray is not consistent with pneumonia though there is suspicion for some bibasilar atelectasis. Given his history of concern for adrenal insufficiency we did stress this gentleman with 10 mg of Decadron. When he initially presented he was mildly hypotensive blood pressure of 90/40. Following the Decadron he was normotensive. A cortisol level was drawn before the Decadron was administered and based on the timing of the cortisol it is normal. His reports that he has been compliant with his hydrocortisone at home. 1915: I was updating the patient's Virginie on the phone. At this time we discussed the case. I did discuss with her that we were looking to consider transfer for the patient to [facility] for further evaluation of his weakness and altered mental status. She declines to allow him to be transferred. 2030: Patient's orthostatics have been evaluated and he does not have any significant vital sign changes with positions. At the time of this evaluation he is quite alert and oriented. He was able to answer all questions appropriately. He reported to me that he felt better. Are nursing staff was able to ambulate with him down the hallway and he did rather well with minimal assist. We did interrogate his inferior vena cava at the bedside and it was 0.76 cm. This likely indicates moderate dehydration. This gentleman was given 2 L of crystalloid here in the emergency department. I did have extensive conversation with his Virginie. She does have an appointment tomorrow with Dr. Tracy at the [facility]. 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 Given that the patient's mental status is improved and he has been hemodynamically stable here in the emergency department she feels comfortable taking him home overnight. She feels that it is very important to keep the appointment tomorrow. In addition to that this gentleman is scheduled to meet with the palliative care doctors next week to discuss longer-term care goals and management. Departure - Departure Disposition: Home, Self Care Clinical Impression: Dehydration, Collapse, Adrenal insufficiency Renal cell carcinoma Qualifiers: Laterality: right Qualified Code(s): C64.1 - Malignant neoplasm of right kidney, except renal pelvis CKD (chronic kidney disease) Qualifiers: Chronic kidney disease stage: unspecified stage Qualified Code(s): N18.9 - Chronic kidney disease, unspecified Condition: Stable Record reviewed to determine appropriate education?: Yes Comments: Today Valerio was seen in the emergency department after collapse and some altered mental status. Initially when he was here his blood pressure was in the 90s over 40s. However after IV fluids and some additional steroid his blood pressure has been quite normal. He does have chronic kidney disease which is a little worse than it has been at baseline but he does also appear to be somewhat dehydrated. This is likely contributing to his collapse earlier this afternoon. However as he has been in the emergency department he has become more awake alert and has been able to walk well with minimal assistance. Please continue to follow-up tomorrow with Dr. Tracy at the [facility] clinic. If at any point Valerio has high fevers, is excessively sleepy or lethargic and cannot be woken up, or has an altered mental status please return immediately to the ER
[2020-04-02 16:36] LABS: ALBUMIN 3.9 g/dL (3.2-5.5); ALBUMIN/GLOBULIN RATIO 1.1 (1.0-2.2); BILIRUBIN,TOTAL 1.4 mg/dL (0.2-1.0); CALCIUM 8.9 mg/dL (8.5-10.3); TOTAL PROTEIN 7.5 g/dL (6.7-8.2)
[2020-04-02 17:21] LABS: BILIRUBIN,URINE NEGATIVE (NEGATIVE); GLUCOSE, URINE (UA) NEGATIVE (NEGATIVE); KETONES,URINE (UA) NEGATIVE (NEGATIVE); LEUKOCYTE ESTERASE, URINE NEGATIVE (NEGATIVE); NITRITE,URINE NEGATIVE (NEGATIVE); OCCULT BLOOD,URINE TRACE-INTA (NEGATIVE); PROTEIN,URINE NEGATIVE (NEGATIVE); UROBILINOGEN,URINE 0.2 (NORMAL) E.U./dL (NORMAL)
[2020-04-02 17:23] LABS: CLARITY,URINE CLEAR (CLEAR)
[2020-04-02 17:47] LABS: C. PNEUMONIAE- RESP PCR PANEL NOT DETECTED
--- NOTE | 2020-04-02 18:13 | CT Report ---
PROCEDURE: Abdomen/Pelvis WO INDICATIONS: GENERALIZED WEAKNESS TECHNIQUE: Noncontrast 5 mm thick sections acquired from the diaphragms to the symphysis. 5 mm coronal and sagi ttal reformats were then performed. For radiation dose reduction, the following was used: automated exposure control, adjustment of mA and/or kV according to patient size. COMPARISON: 05/23/2019. FINDINGS: Image quality: Excellent. ABDOMEN: Lung bases: Dependent atelectasis in posterior aspect of bilateral lung bases are seen. Heart size is enlarged, no pericardial effusion. Solid organs: Liver and spleen are normal in size. Gallbladder is within normal limits Pancreas is normal in contours. No adrenal nodules. Patient is no multilobular centrally necrotic and calcified exophytic mass arising from upper pole of left kidney is again seen, now measures 10.8 x 8.7 x 8.6 c m in size compared to 8 x 5.1 x 7.8 cm on previous study. There is no hydronephrosis. No perinephric fluid collection. No obstructing renal stone or ureteral stone. Peritoneum and bowel: Unenhanced bowel loops demonstrate normal wall thickness and caliber. No free fluid or air. Appendix is visualized and is within normal limits. Nodes and vessels: No retroperitoneal or mesenteric adenopathy by size criteria. Aorta and inferior vena cava are normal in caliber. Miscellaneous: No ventral hernias. PELVIS: Genitourinary: Bladder wall thickness is normal. Miscellaneous: No inguinal hernias or adenopathy. Bones: No suspicious bony lesions. No vertebral body compression fractures. IMPRESSION: 1. Interval increase in size of patient's known multilobular centrally necrotic and calcified exophyt ic mass involving upper pole of left kidney as described above. No obstructing renal stone or hydrone phrosis. 2. Bibasilar dependent atelectasis. Previously noted bilateral tiny lower lobe nodules are not well s een on the current study. 3. No bowel obstruction. No abnormal bowel wall thickening. No free fluid of free air. Normal appendi x. Reviewed by: Ulisses Motley MD on 04/02/2020 5:11 PM [place] Approved by: Ulisses Motley MD on 04/02/2020 5:11 PM AKST Station ID: [id number]
[2020-04-02 21:23] VITALS: BP 125/70
== END 2020-04-02 21:32 | disposition home or self-care (01) ==
LOC: EDUNIT# → ED 15:41
DX: E86.0 Dehydration (principal); R55 Syncope and collapse; E27.40 Unspecified adrenocortical insufficiency; C64.1 Malignant neoplasm of right kidney, except renal pelvis; I13.0 Hypertensive heart and chronic kidney disease with heart failure and stage 1 through stage 4 chronic kidney disease, or unspecified chronic kidney disease; E11.22 Type 2 diabetes mellitus with diabetic chronic kidney disease; N18.9 Chronic kidney disease, unspecified; I50.22 Chronic systolic (congestive) heart failure; I48.91 Unspecified atrial fibrillation; I44.7 Left bundle-branch block, unspecified; Z20.828 Contact with and (suspected) exposure to other viral communicable diseases; Z79.82 Long term (current) use of aspirin
CPT/HCPCS: 0202U; 36415; 51701; 74176; 80053; 81001; 81003; 82533; 83605; 83690; 84484; 85025; 87086; 93005; 99285

== ENCOUNTER 2020-04-08 14:15 | Outpatient (CLI) | payer MEDICARE, OTHER ==
--- NOTE | 2020-04-08 17:28 | CONSULTATION NOTE ---
Palliative Care Consultation - Referral Referring Provider: Dr. Alban Connor Time of Visit: [id number] Referral setting: Home Referral Reason: CIPN/Fatigue/Met Renal Cell CA - Information Sources Records reviewed: Previous records reviewed History/Review of Systems obtained from: Patient, Family ( Arlene) Exam limitations: No limitations - History of Present Illness Brief History of Present Illness: This is a 65-year-old gentleman with a history of metastatic clear cell renal carcinoma diagnosed 2 years ago, originally presenting with hematuria which revealed a 14 cm left kidney mass on CT. Has had hypercalciumia. He was started on nivolumab 07/2017, with interval staging 11/2018 was found to have progression of disease and was transition to ipilimumab/nivolumab, but then back to nivolumab monotherapy since 03/2019. His last restaging was in 11/2019 with shown "remission", most recent therapy had been received on 02/13/2020. Patient has had a series of unfortunate events, including recent hospitalization for encephalopathy. He originally presented with abrupt change in mental status. He was hospitalized at [facility] -03/21, then transferred to [facility] 03/21-03/24. 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 They had pretty much exhausted work-up at [facility], and was sent to [facility] for possible autoimmune encephalitis. He did receive the lumbar puncture, as of discharge 03/24 was still pending for his CSF and they have not heard of anything in follow up. He did have a brain MRI that showed a small lacunar infarct, but no acute changes. He did have some fluid overload, and was discharged on furosemide. He was also cautioned that he had QTC prolongation. As it turns out he did have acute kidney injury in the hospital, with the reduction of gabapentin as a result of this. Unfortunately patient has had a severe exacerbation in his pain in his hands and feet, he has had long-term CI PN, impacting his functional status, has had severe discomfort, and has impacted his quality of life fairly acutely. Not just recently but over the last several months. Patient was also recently hospitalized at [facility] on February 24 for altered mental status due to hyponatremia at that point in time. He was placed in ICU, and treated for adrenal crisis, and discharged 02/28. He was found at that point in time to have worsening cardiac status including an ejection fraction of 20%. He does have a diagnosis of cardiomyopathy and is followed by Dr. Tracy. Of note that [facility] the echo there showed an LV with LVEF of 23% without regional wall motion abnormalities, and a mildly dilated RV with mildly reduced systolic function. He also had a left pleural effusion. He has since seen the tipple mechanic, has been changed to furosemide as needed, as he did get dehydrated and with worsening renal function as a result of an ED visit 04/02 for dehydration. During early admit, he was discharged with a Rico catheter because of hematuria and clots, he has not had follow-up with urology yet, but did have it removed when he saw his new PCP on 03/14. He has not been restarted on anticoag for atrial fib because of the bleeding yet. Palliative care is meeting with patient and for the first time, with the goal to establish services. Patient does understand he is living with his serious illness, though does perceive himself as well managed and currently" remission". Patient has been doing fairly well, he has had some decline in overall functional status, has had weight loss from 2 92- now 210, but this is with some purposeful intent has been following portion control. They have recently felt "1 step behind" and that there is spinning placed and trying to keep up. He does have multiple specialists including cardiology, endocrinology, oncology, and now a new PCP. His biggest complaints are insomnia which he has had over 3 years, often only sleeps 3 to 4 hours, persistent fatigue, and worsening peripheral neuropathy. Patient does present with some symptoms of persistent depression, denies anxiety, and has developed right sided hand tremors. and patient are still without understanding of exactly the underlying etiology of his encephalopathy and altered mental status, and currently is on a hiatus from treatment until after April. Medical/Surgical History - Past Medical History Cardiovascular: reports: Congestive heart failure ([facility] stay 03/21 Echo with kilated LV with LVEF 23 % without regional wall motion abnormalities;), Hypertension, Atrial fibrillation (diagnosed 04/2013 w eval for cp. ), Valve disorder (noted mild to mod aortic regurgiation and mild mitral regurgitation on 03/24 ECHO), Other (LBBB) Respiratory: reports: Shortness of breath, Sleep apnea (no CPAP) Neuro: CVA ( Brain MRI done February 26 with a hyponatremia had no acute intracranial disease. Small, chronic right parietal subcortical white matter and left thalamic lacunar infarcts. ), Peripheral neuropathy (severe), Tremors (right hand) Endocrine/Autoimmune: reports: Type 2 diabetes (well controlled; has lost 80 pounds and low dose insulin currently) GI: reports: Colon polyps (Constipation bright red blood per rectum with colo noscopy May 2014 with polypectomy and diverticulosis) : reports: Other (Renal cell carcinoma with adrenal insufficiency. still on treatment. Sees Raffaele BRADY.) HEENT: reports: None Psych: reports: Depression, Anxiety Musculoskeletal: reports: Osteoarthritis (oxford uni arthroplasty Left 12/2013), Fatigue Derm: reports: None MRSA Hx?: No - Past Surgical History General: reports: Colonoscopy Ortho: reports: Knee replacement, Arthroscopic surgery, Other - Substance History Use: Uses substance without health or social issues: NONE Social History - Living Situation Living arrangement: At home Living Situation: With spouse/s.o. Support System: Patient and have been over 45 years, they do have 4 children, including a son who is a metal drawer. They have had a lot of experience of cancer in their family, including a granddaughter with history of neuroblastoma stoma, herself has had stage IV cervical cancer and lung cancer, currently in remission. They have recently lost son-in-law at 42 to cancer. 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 He is still quite active in this, and finds this helpful to keep him going. They are well supported by both friends and family. Family History - Family History Family History: Mother: , CAD, Father: , CAD, CVA/TIA, Sister: Alive and Well, Diabetes, Type 2 Medications/Allergies - Medications Home Medications: Ambulatory Orders Medication Instructions Recorded Confirmed Furosemide 80 mg PO DAILY PRN 02/25/20 04/09/20 Spironolactone [Aldactone] 12.5 mg PO 1200 tablet 02/28/20 04/09/20 Isosorbide Mononitrate ER [Imdur] 60 mg PO DAILY 03/03/20 04/09/20 Aspirin [Aspirin EC] 325 mg PO DAILY 03/19/20 04/09/20 Levothyroxine Sodium [Euthyrox] 100 mcg PO QDAC 03/19/20 04/09/20 Metoprolol Succinate [Toprol Xl] 100 mg PO DAILY 03/19/20 04/09/20 hydrALAZINE [Apresoline] 25 mg PO TID 03/19/20 04/09/20 Hydrocortisone [Cortef] 5 mg PO .3TABS AM 1 TAB 1400 03/20/20 04/09/20 Insulin NPH Human [NovoLIN N] 4 unit SQ DAILY 04/09/20 04/09/20 Pregabalin [Lyrica] 50 mg PO TID 04/09/20 04/09/20 - Allergies Allergies/Adverse Reactions: Allergies Allergy/AdvReac Type Severity Reaction Status Date / Time atorvastatin [From Lipitor] Allergy Unknown Verified 04/02/20 15:49 Review of Systems - Constitutional Constitutional: reports: Fatigue (worsening), Weight loss (210). denies: Fever, Chills - Ears, Nose & Throat Ears, Nose & Throat: reports: Hearing loss - Cardiovascular Cardiovascular: reports: Irregular heart rate, Lightheadedness, Decr. exercise tolerance - Respiratory Respiratory: reports: SOB with exertion. denies: SOB at rest - Gastrointestinal Gastrointestinal: reports: Good appetite. denies: Constipation, Nausea - Genitourinary Genitourinary: reports: Frequency - Musculoskeletal Musculoskeletal: reports: Stiffness, Muscle weakness - Integumentary Integumentary: reports: Dryness - Neurological Neurological: reports: General weakness, Memory problems (mild) - Psychiatric Psychiatric: reports: Depression, Anxiety - Endocrine Endocrine: reports: Diabetes type 2, Hypothyroidism, Other (adrenal insufficiency) - All Other Systems All Other Systems: reports: Reviewed and negative Physical Exam - Physical Exam General Appearance: positive: No acute distress, Alert, Other (easily nods off) Eyes Bilateral: positive: Normal inspection ENT: positive: No signs of dehydration Neck: positive: Trachea midline Respiratory: positive: No respiratory distress Abdomen: positive: Soft, Other (rounded) Skin: positive: Pallor, Dryness Extremities: positive: No pedal edema Neurologic/Psychiatric: positive: Oriented x3, Weakness, Depressed mood/affect, Flat affect Palliative Care - POLST Patient has POLST: No Pain: Pain worsening, Location (feet worsening) Tiredness/Fatigue: Severe (7-10) (This has been most limiting symptom for patient) Drowsiness/Sedation: Moderate (4-6) Nausea: None Anorexia: Mild (1-3) Dyspnea: Mild (1-3) Depression: Moderate (4-6) Anxiety: Mild (1-3) Sleep: Sleeps poorly, Variable sleep pattern (this has been fpc; but only sleeping for 3-4 hours at a time) Constipation: No Performance Status: Patient is ambulatory, but is with discomfort. He is able to manage his ADLs, but has decreased activity tolerance, particular over the last few weeks. - Palliative Care Discussion: Both patient and are somewhat still in shock over the last month, with series of unfortunate events. It also appears there is no specific [id number] answer, though given the complexity of his underlying comorbi dities and acute presentation I suspect there will be no final answer. Patient does understand the seriousness of his illness, but has responded to treatment and remains quite hopeful. Patient's quality of life is most significantly impacted by fatigue and peripheral neuropathy. Given the severity of his nature particularly of ICU stay, we revisited the need for advanced care planning documents. 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 Recommended as a priority, to complete the DPOA, they do have forms, as well as did leave the POLST, and counseling provided regarding the intent and use of this for the medical system. Patient does express wishes at this point in time, for no heroics, DNI, and most likely DN AR. He and his have not discussed this before, will continue the discussion with our next visit after they have had a chance to review forms as well together. Impression and Recommendations - Palliative Care Impression: This is a 65-year-old gentleman with a series of unfortunate events and hospitalizations. Patient does underlying have metastatic renal cell carcinoma, currently being treated on nivolumab with treatment on hold this month. Patient presented 03/18 with severe encephalopathy, and was transferred to [facility], pending results of her autoimmune encephalitis panel, concern for renal function and possible gabapentin, he also presented with RAMBO, prolonged QTC, atrial fib, and worsening heart failure. Patient is a result of his immunotherapy, is in adrenal insufficiency and hypothyroidism and worsening peripheral neuropathy in the setting of insulin-dependent DM 2. Given the complexity of his care, multiple specialists, and serious illness referral to palliative care for symptom management and anticipatory guidance, referral was made by his PCP. Recommendations/Counseling Done: 1. CI PN. Patient does have severe and worsening peripheral neuropathy, now with deep crease in gabapentin is significantly impacting pain levels as well as quality of life. Given concern for sedation and worsening fatigue, we will go ahead and transition him to pregabalin. Equal analgesic of current dosing is 50 mg pregabalin to 300 mg of gabapentin. If patient's kidney function continues to improve, can push dosing up further, but may benefit from less side effects and improved efficacy. Awaiting follow-up from oncology, if no labs ordered will follow up on kidney function this week. 2. Depression. Patient does present with persistent depressive feelings, has had both cognitive and functional decline over this last year, more acutely over this last month. 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 Despite Covid pandemic, they have been creative and continuing with services. Patient would most likely benefit from antidepressant, will consider duloxetine given his peripheral neuropathy, but will make 1 change at a time. 3. Congestive heart failure, patient with severe cardiomyopathy. Is seen cardiology, currently off furosemide secondary to worsening kidney function. Patient does not present with any signs or symptoms of recurrence. 4. Metastatic renal cell carcinoma. Patient currently on hiatus from treatment, will resume in April. Patient does understand treatment not curative intent, but is doing fairly well at this point in time. Palliative care continue to provide ongoing support and anticipatory guidance. 5. Advanced care planning. Given patient's most recent acute hospitalizations, discussion regarding advanced care directives is important. Recommended get DPOA is priority, but will also discussed POLST and healthcare directive, forms left with encouragement of further conversation between the 2 of them. We will revisit at her next visit. Time Spent: 75 minutes with greater than 50% of this done in counseling regarding goals of care, obtaining patient's story, setting of rapport, addressing pain management issues, and anticipatory guidance.
== END 2020-04-08 14:16 | disposition home or self-care (01) ==
LOC: PC 14:15
PROVIDERS: ATTEND Nurse Practitioner Adult Health
DX: Z51.5 Encounter for palliative care (principal); G62.2 Polyneuropathy due to other toxic agents; T50.995A Adverse effect of other drugs, medicaments and biological substances, initial encounter; F32.9 Major depressive disorder, single episode, unspecified; I11.0 Hypertensive heart disease with heart failure; I50.9 Heart failure, unspecified; I43 Cardiomyopathy in diseases classified elsewhere; C64.2 Malignant neoplasm of left kidney, except renal pelvis; E27.40 Unspecified adrenocortical insufficiency; E11.9 Type 2 diabetes mellitus without complications; Z79.4 Long term (current) use of insulin
CPT/HCPCS: 99345

== ENCOUNTER 2020-04-17 12:48 | Outpatient (CLI) | payer MEDICARE, OTHER ==
[2020-04-17 13:16] LABS: ALBUMIN 3.6 g/dL (3.2-5.5); ALBUMIN/GLOBULIN RATIO 1.1 (1.0-2.2); CALCIUM 8.9 mg/dL (8.5-10.3); CREATININE 1.1 mg/dL (0.6-1.2); TOTAL PROTEIN 6.9 g/dL (6.7-8.2)
== END 2020-04-17 12:49 | disposition home or self-care (01) ==
LOC: LAB 12:48
PROVIDERS: ATTEND Nurse Practitioner Adult Health
DX: C64.9 Malignant neoplasm of unspecified kidney, except renal pelvis (principal)
CPT/HCPCS: 36415; 80053

== ENCOUNTER 2020-04-21 | Outpatient (CLI) | payer MEDICARE, OTHER ==
--- NOTE | 2020-04-21 18:58 | CONSULTATION NOTE ---
Palliative Care Follow Up - Referral Referring Provider: Dr. Alban Connor Time of Visit: [id number] Referral setting: Home Referral Reason: Peripheral neuropathy/depression/fatigue/Renal Cell CA - Information Sources Records reviewed: Previous records reviewed History/Review of Systems obtained from: Patient, Family ( Arlene present) Exam limitations: Clinical condition (patient [place]; mild STM deficits) - History of Present Illness Update Brief HPI Update: This is a 65-year-old gentleman with metastatic clear-cell renal carcinoma, diagnosed 2 years ago originally presenting with hematuria which revealed a 14 cm left kidney mass on CT. He does have a history of hypercalcemia, has been on immunotherapy since then, and on monotherapy of nivolumab since 03/2019. His last therapy received was on 02/13/2020 as he had been hospitalized for encephalopathy, originally would be health and transferred to the [facility] . Underlying etiology was never identified though concern for autoimmune encephalitis was identified but not confirmed. 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 Patient also has concerns regarding cardiac status, has known ejection fraction of 20%, with diagnosis of cardiomyopathy. He is followed by Dr. Tracy, has had difficulty with worsening renal function, the most recent labs show good recovery. Palliative care met with patient and 04/08 to establish services. Patient does have actually high symptom burden with most persistent and quality of life issue is his fatigue. This demonstrates itself both in feelings of exhaustion, activity intolerance, and a feeling of listlessness. He also has fairly severe peripheral neuropathy, worsening insomnia, persistent depressive symptoms, and mild cognitive deficits. Patient has been started and switched from gabapentin, to pregabalin, as pain was not tolerable, patient does feel may be better controlled on the pregabalin, but is having some increased sleepiness. Patient will stay on current dosing which is equal analgesic to his lowered gabapentin dose at 50 mg of pregabalin 3 times daily. He is having trouble with sleep, does appear he is got his days and nights mixed up, also concern for new diagnosis of hypothyroidism still adjusting his meds and concern for possible need for adjustment of hydrocortisone. 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 Support System: Patient lives with his Arlene, they have been for over 45 years. They do 4 children. 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 Arlene's father is currently in the hospital in [place], she is wondering about going to visit, given Valerio's underlying health problems. Patient is quite dependent on managing medications and overseeing care. Medications/Allergies - Medications Home Medications: Ambulatory Orders Medication Instructions Recorded Confirmed Furosemide 80 mg PO DAILY PRN 02/25/20 04/21/20 Spironolactone [Aldactone] 12.5 mg PO 1200 tablet 02/28/20 04/21/20 Isosorbide Mononitrate ER [Imdur] 60 mg PO DAILY 03/03/20 04/21/20 Aspirin [Aspirin EC] 325 mg PO DAILY 03/19/20 04/21/20 Levothyroxine Sodium [Euthyrox] 100 mcg PO QDAC 03/19/20 04/21/20 Metoprolol Succinate [Toprol Xl] 100 mg PO DAILY 03/19/20 04/21/20 hydrALAZINE [Apresoline] 25 mg PO TID 03/19/20 04/21/20 Hydrocortisone [Cortef] 5 mg PO .3TABS AM 1 TAB 1400 03/20/20 04/21/20 Insulin NPH Human [NovoLIN N] 4 unit SQ DAILY 04/09/20 04/21/20 Pregabalin [Lyrica] 50 mg PO TID 04/09/20 04/21/20 Senna [Senokot] 1 - 2 tab PO DAILY PRN 04/21/20 04/21/20 polyethylene glycoL 3350 [Miralax] 17 gm PO DAILY 04/21/20 04/21/20 - Allergies Allergies/Adverse Reactions: Allergies Allergy/AdvReac Type Severity Reaction Status Date / Time atorvastatin [From Lipitor] Allergy Unknown Verified 04/02/20 15:49 Review of Systems - Constitutional Constitutional: reports: Fatigue (remains persistent), Weakness, Weight stable. denies: Fever, Chills - Ears, Nose & Throat Ears, Nose & Throat: reports: Hearing loss, Dry mouth - Cardiovascular Cardiovascular: reports: Irregular heart rate, Lightheadedness, Exertional dyspnea, Decr. exercise tolerance. denies: Edema - Respiratory Respiratory: reports: SOB with exertion. denies: Cough, Wheezing, SOB at rest - Gastrointestinal Gastrointestinal: reports: Constipation, Nausea (two episodes with vomiting; did not persist so no antinausea med taken), Early satiety, Good appetite - Genitourinary Genitourinary: reports: Frequency - Musculoskeletal Musculoskeletal: reports: Stiffness, Muscle weakness - Integumentary Integumentary: reports: Dryness - Neurological Neurological: reports: General weakness, Memory problems (mild; less interest some slowing of cognition) - Psychiatric Psychiatric: reports: Depression, Anxiety - Endocrine Endocrine: reports: Diabetes type 2 (110-130), Hypothyroidism, Intolerance to cold, Other (adrenal insufficiency) - All Other Systems All Other Systems: reports: Reviewed and negative Physical Exam - Vital Signs Temperature: 96.3 C Pulse Rate: 72 Respiratory Rate: 16 O2 Saturation: 98 (ra @ rest) Blood Pressure: 108/62 - Physical Exam General Appearance: positive: No acute distress, Alert, Other (easily nods off) Eyes Bilateral: positive: Normal inspection ENT: positive: No signs of dehydration Neck: positive: Trachea midline Cardiovascular: positive: Irregularly irregular Respiratory: positive: No respiratory distress, Breath sounds nml, Diminished in bases. negative: Wheezes, Rales, Rhonchi Abdomen: positive: Soft, Other (rounded) Skin: positive: Pallor, Dryness Extremities: positive: No pedal edema Neurologic/Psychiatric: positive: Oriented x3, Weakness, Depressed mood/affect, Flat affect Palliative Care - POLST Patient has POLST: No Pain: Pain improved, Location (feet with walking; switching to pregabalin-mild improvement) Tiredness/Fatigue: Severe (7-10) Drowsiness/Sedation: Moderate (4-6) (takes long day time naps; alternately has difficulty sleeping at night) Nausea: Mild (1-3), With vomiting Anorexia: Mild (1-3) Dyspnea: Moderate (4-6) Depression: Moderate (4-6) Anxiety: Moderate (4-6) Feelings of wellbeing/Perceived Quality of Life: Poor, Worsening Sleep: Variable sleep pattern Constipation: Yes, Unmanaged Performance Status: Patient is quite limited by both his activity tolerance and feelings of overwhelming fatigue. He is ambulatory in the home, but is only able to ambulate one block before unable to be able to get home. He is able to manage his own ADLs, but does need cueing and reminding for more executive function processes. Reports this is been fairly persistent as far as his activity intolerance and fatigue for about a year, but more pronounced since hospitalization. - Palliative Care Discussion: Palliative care discussion focused on reviewing some of patient's conditions that are adding to his fatigue, how the adrenal insufficiency, hypothyroidism, as well as recent hospitalization plays into his current condition. We also discussed my concern for persistent symptoms of depression, and recommendations and rationale for addressing some of patient's symptoms. Focus much of the time regarding patient's current condition, concern for 's upcoming family visit, ways to provide support and need for oversight for medication. Patient having difficulty with follow through on tasks and involvement in care, reflected in tension between patient and . Results - Lab Results Lab results reviewed: Yes Lab and Imaging Results: Patient with improved labs, sodium 131, K4.5, BUN 23, creatinine 1.1, GFR 67, calcium 8.9, liver enzymes back into range total bili 1.0, AST 24, ALT 27, alk phos 108, TP6.9, albumin 3.6 Impression and Recommendations - Palliative Care Impression: This is a 65-year-old gentleman with metastatic clear-cell renal cell carcinoma, currently on treatment with nivolumab on hold. Patient presented 03/18 with severe encephalopathy, unknown etiology. Patient is quite complex, with resulting side effects as of immunotherapy, including adrenal insufficiency, hypothyroidism, and worsening peripheral neuropathy in the setting of insulin- dependent DM 2. Patient also with underlying complex cardiac history with prolonged QTC, atrial fib, worsening heart failure with LVEF 23%. Given the complexity of his care he is multiple specialist, currently being supported by palliative care for symptom management and anticipatory guidance. Recommendations/Counseling Done: 1. CI PN. Patient has had some improvement with transition to pregabalin, will go ahead and leave him at current dosing pregabalin 50 mg 3 times daily. Patient's kidney function has improved, but at this point balancing side effects of sedation. Patient is able to ambulate with less pain and acknowledges decreased in severity. 2. Fatigue. This is multifactorial, concern for patient's hypothyroidism and adrenal insufficiency, patient is being followed by oncology, suspect will receive labs in context of this but will follow up. Given patient tires with any kind of activity, could be adrenal insufficiency versus cardiac, counseling provided regarding slow progressive ambulation and activity program. When patient reaches a certain level could tolerate therapy, would recommend transitioning to physical therapy outpatient. Counseling provided regarding use of peddler, short frequent periods of ambulation, and increasing activity overall. 3. Congestive heart failure with severe cardiomyopathy. Patient currently not on furosemide, is tolerating without any symptoms of fluid overload, no lower extremity edema, lungs are clear, O2 sats within normal range. Blood pressures remaining stable. 4. Depression. Patient does present with persistent depressive feelings, patient has had both cognitive and functional decline over this last year, more acutely over this last month. Patient would most likely benefit from antidepressant, would consider duloxetine given his peripheral neuropathy, will hold until stabilized on pregabalin. 5. Metastatic renal carcinoma. Patient currently on hiatus from treatment, he is supposed to resume in April, no appointment set. My understanding is he was to have labs on 04/29 will follow up, recommended call and get appointment set. He is due for scans and follow-up with oncology this month. Counseling provided regarding improving patient/'s understanding of immunotherapy side effects and impact on his current quality of life, assisting and setting realistic expectations for "new normal". Palliative care to continue provide ongoing support and anticipatory guidance. 6. Constipation. Patient still having difficulty with bowels, recommended to initiate MiraLAX 1 capful daily, or senna concentrate 8.6 tabs 1-2 tabs daily, counseling provided regarding "mush" and "push" for titration of medications. This was provided to both patient and , will obtain medications. 7. Advanced care planning. Had recommended and patient discuss further about advanced care planning directives, will revisit as have been to the holidays. Given is considering leaving for couple weeks, we discussed the need to really have these have her down and put into writing particularly the POLST. Agreed we would revisit with next visit in 2 weeks. Time Spent: 60 minutes with greater than 50% of this done in counseling regarding pain and symptom management, disease management, and anticipatory guidance. Coordination of care with oncology team.
== END 2020-04-21 14:31 | disposition home or self-care (01) ==
CPT/HCPCS: 99350

== ENCOUNTER 2020-05-13 15:50 | Outpatient (CLI) | payer MEDICARE, OTHER | END 2020-05-13 23:59 | disposition home or self-care (01) | LOC: COV 15:50 | PROVIDERS: ATTEND Family Medicine | DX: R05 Cough (principal); R53.83 Other fatigue; R09.81 Nasal congestion; J34.89 Other specified disorders of nose and nasal sinuses; R11.2 Nausea with vomiting, unspecified; R43.9 Unspecified disturbances of smell and taste; Z20.822 Contact with and (suspected) exposure to COVID-19 ==

== ENCOUNTER 2020-05-14 14:00 | Outpatient (CLI) | payer MEDICARE, OTHER ==
--- NOTE | 2020-05-14 18:03 | CONSULTATION NOTE ---
Palliative Care Follow Up - Referral Referring Provider: Dr. Alban Connor Time of Visit: [id number] Referral setting: Home Referral Reason: CIPN/CKD/Sinusitis/Renal Cell CA - Information Sources Records reviewed: Previous records reviewed History/Review of Systems obtained from: Patient, Family (Arlene present) Exam limitations: Clinical condition (patient with STM issues) - History of Present Illness Update Brief HPI Update: This is a 65-year-old gentleman with metastatic clear-cell renal carcinoma, diagnosed 2 years ago originally presenting with hematuria and a 14 cm left kidney mass on CT. He is currently on monotherapy of nivolumab, since 03/2019, unfortunately is received his last one on 01/2020 has been hospitalized with encephalopathy, and has not returned back to treatment. He is due to have a CT scan, see his oncologist, and possible treatment next week. Patient has had known chronic adrenal insufficiency, and pituitary insufficiency as a side effect of nivolumab, and hypothyroidism. Patient also has concerns regarding cardiac status and known ejection fraction 20% with diagnosis of cardiomyopathy, and is followed by Dr. Tracy. There was some suspicion his encephalopathy may have been a side effect of his nivolumab as well. Patient's been managed with his peripheral neuropathy on pregabalin 50 mg 3 times daily, this has improved his pain management overall, he still is quite sedentary, is trying to increase his activity. He still has poor sleep, fluctuating cognitive status, and some functional decline. Unfortunately most recently he had an episode of sinusitis, does appear to be viral in nature, he was Covid negative. He has noticed some improvement, starting to drain is continuing with his Flonase. Patient does have a history of strokes, is unclear if his flat affect and demeanor is related to deficits or depression, continue to work with patient and family. Past Medical History: Congestive heart failure with LVEF 23%, hypertension, atrial fib, valve disorder, LBBB, sleep apnea no CPAP, CVA with known chronic parietal white matte r, left thalamic lacunar infarcts, severe peripheral neuropathy, tremors, type 2 diabetes, colon polyps, depression, anxiety, osteoarthritis, fatigue Social History - Living Situation Living arrangement: At home Living Situation: With spouse/s.o. 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 They are continuing to provide support even in the Covid pandemic, he lives with his Arlene who assists with this, they have been for 45 years. They do have 4 children, a lot of experience with cancer in their family, and have had significant stressors related to this. Virginie herself is a cancer survivor, and remains on surveillance. Arlene's father is currently in the doing poorly, she is hoping to get to a visit in [place], but is feeling overwhelmed as patient does have difficulty managing day-to-day without sig nificant cueing and reminders, particular around medication adherence. There is quite a bit of tension regarding this, they are putting together planned though for his son to provide support during this time next week. Medications/Allergies - Medications Home Medications: Ambulatory Orders Medication Instructions Recorded Confirmed Furosemide 80 mg PO DAILY PRN 02/25/20 05/15/20 Spironolactone [Aldactone] 12.5 mg PO 1200 tablet 02/28/20 05/15/20 Isosorbide Mononitrate ER [Imdur] 60 mg PO DAILY 03/03/20 05/15/20 Aspirin [Aspirin EC] 325 mg PO DAILY 03/19/20 05/15/20 Levothyroxine Sodium [Euthyrox] 100 mcg PO QDAC 03/19/20 05/15/20 Metoprolol Succinate [Toprol Xl] 100 mg PO DAILY 03/19/20 05/15/20 hydrALAZINE [Apresoline] 25 mg PO TID 03/19/20 05/15/20 Hydrocortisone [Cortef] 5 mg PO .3TABS AM 1 TAB 1400 03/20/20 05/15/20 Insulin NPH Human [NovoLIN N] 4 unit SQ BID 04/09/20 05/15/20 Pregabalin [Lyrica] 50 mg PO TID 04/09/20 05/15/20 Senna [Senokot] 1 - 2 tab PO DAILY PRN 04/21/20 05/15/20 polyethylene glycoL 3350 [Miralax] 17 gm PO DAILY PRN 04/21/20 05/15/20 Fluticasone [Flonase] 1 inh INH DAILY 05/15/20 05/15/20 - Allergies Allergies/Adverse Reactions: Allergies Allergy/AdvReac Type Severity Reaction Status Date / Time atorvastatin [From Lipitor] Allergy Unknown Verified 12/09/20 15:49 Review of Systems - Constitutional Constitutional: reports: Fatigue (remains persistent;fluctuating sleep patterns), Weakness, Weight loss (204; patient goal is for continued weight loss for 180). denies: Fever, Chills - Eyes Eyes: reports: Vision loss - Ears, Nose & Throat Ears, Nose & Throat: reports: Hearing loss, Dry mouth - Cardiovascular Cardiovascular: reports: Lightheadedness, Decr. exercise tolerance - Respiratory Respiratory: reports: SOB with exertion. denies: Cough, Wheezing, SOB at rest - Gastrointestinal Gastrointestinal: reports: Constipation, Early satiety, Good appetite - Genitourinary Genitourinary: reports: Frequency, Other (some difficulty with stream; did see urologist; has tamulosin/will call and see if to use; scheduling for cystoscopy) - Musculoskeletal Musculoskeletal: reports: Muscle aches, Stiffness, Muscle weakness - Integumentary Integumentary: reports: Dryness - Neurological Neurological: reports: General weakness, Memory problems (mild; less interest some slowing of cognition; fluctuates) - Psychiatric Psychiatric: reports: Depression, Anxiety - Endocrine Endocrine: reports: Diabetes type 2 (110-130; has had some lows to 65; currently only using 4 units), Hypothyroidism, Intolerance to cold, Other (adrenal insufficiency) - Hematologic/Lymphatic Hematologic/Lymph: Recurrent infections (recent sinusitis; suspect viral as improving; COVID test negative-ordered by PCP) - All Other Systems All Other Systems: reports: Reviewed and negative Physical Exam - Vital Signs Temperature: 96.7 C Pulse Rate: 92 Respiratory Rate: 18 O2 Saturation: 98 (ra @ rest) Blood Pressure: 112/64 - Physical Exam General Appearance: positive: No acute distress, Alert Eyes Bilateral: positive: Other (slight periorbital edema) ENT: positive: No signs of dehydration, Other (tenderness with palpation over sinuses) Neck: positive: Trachea midline Cardiovascular: positive: Regular rate & rhythm Respiratory: positive: No respiratory distress, Breath sounds nml, Diminished in bases. negative: Wheezes, Rales, Rhonchi Abdomen: positive: Soft, Other (rounded) Skin: positive: Pallor, Dryness Extremities: positive: No pedal edema Neurologic/Psychiatric: positive: Oriented x3, Weakness, Depressed mood/affect, Flat affect Palliative Care - POLST Patient has POLST: No Pain: Pain improved, Location (peripheral neuropathy of feet) Tiredness/Fatigue: Moderate (4-6) Drowsiness/Sedation: Moderate (4-6) Nausea: Mild (1-3) Anorexia: Mild (1-3) Dyspnea: Mild (1-3) Depression: Moderate (4-6) Anxiety: Mild (1-3) Feelings of wellbeing/Perceived Quality of Life: Fair, Acceptable, Improved Sleep: Sleeps poorly, Variable sleep pattern Constipation: Yes, Intermittent constipation Performance Status: Patient is quite sedentary, limited both by fatigue, as well as peripheral neuropathy. He has had fluctuating engagement in activity, with recent sinusitis, has been mostly spending time on the couch. Patient is aware needs to increase activity at baseline, will revisit when feeling better. - Palliative Care Discussion: Patient appears with flat affect, expressing much frustration patient not taking more responsibility and engaged in his care. He actually had made arrangements for spending time with his son, while she was gone. Unclear if this is related to depression, cognitive deficits, or fatigue. Patient is aware we need to continue with advanced care planning conversations, we agreed to wait and see where his next treatment plan goals will be, as well as when Arlene back and things have settled down. Results - Lab Results Lab and Imaging Results: Pending labs for oncology Impression and Recommendations - Palliative Care Impression: This is a 65-year-old gentleman with metastatic clear-cell renal carcinoma, still awaiting restarting nivolumab. He has been on hiatus secondary to hospitalization for severe encephalopathy, has had slow recovery, unfortunately now presents with a viral sinusitis but is recovering. Patient also has unde rlying complex cardiac history, with prolonged QTC, atrial fib, and worsening heart failure with LVEF 23% but currently appears stable. Patient has multiple specialist, adding to his complexity of care. Palliative care providing support for symptom management and anticipatory guidance Recommendations/Counseling Done: 1. CI PN. Patient has continued with improvement transition to pregabalin, will leave them at the current dosing 50 mg 3 times daily. Patient's kidney function has improved, balancing effects with sedation. Patient is able to ambulate with less pain, acknowledges decreased in severity. Unfortunately patient is switching insurance plans, and had delay in actually several of his important medications, including pregabalin. Instructed to take gabapentin today, to preempt any withdrawal symptoms. His understanding is he can pick it up tonight or tomorrow. 2. Fatigue. This is multifactorial, concern for patient's hypothyroidism and adrenal insufficiency, patient is being followed by oncology will receive labs in the context of this. Unfortunately one of the medications he ran out of was his hydrocortisone and has felt severely impacted. is leaving for a week, is trying to set up medications in [facility] to help patient. Has been frustrated at trying to get medications for transition from one pharmacy to another, has not gone smoothly. 3. Congestive heart failure with severe cardiomyopathy. Patient has not shown any symptoms of fluid overload, no lower extremity edema, lungs are clear, O2 sats within normal range, blood pressures remained stable. 4. Depression. Patient does present with persistent depressive feelings, patient has had both cognitive and functional decline over this last year, more acutely over this last month. May consider adding duloxetine given his peripheral neuropathy, will hold until after oncology appointment. 5. Metastatic renal carcinoma. Patient will return to oncology next week, expe cting to receive nivolumab. He will get scans at that point in time. Palliative care to continue provide support ongoing symptom management anticipatory guidance. 6. Constipation. Patient reports he is doing better with his bowels, unclear exactly what he is taking, but denies any problems currently. 7. Advanced care planning. Patient's getting ready to go visit family, significant tensions and worries about leaving him without support, do have a tentative plan which involves his son. We have not done further discussion on this, reviewed with patient, having information from his next oncology appointment may help define goals of care and help understand treatment plan for setting goals for future. Time Spent: 45 minutes with greater than 50% of this done in counseling for pain and symptom management, medication adherence, and anticipatory guidance.
== END 2020-05-14 14:01 | disposition home or self-care (01) ==
LOC: PC 14:00
PROVIDERS: ATTEND Nurse Practitioner Adult Health
DX: Z51.5 Encounter for palliative care (principal); E27.3 Drug-induced adrenocortical insufficiency; E23.0 Hypopituitarism; E03.2 Hypothyroidism due to medicaments and other exogenous substances; G62.0 Drug-induced polyneuropathy; T45.1X5A Adverse effect of antineoplastic and immunosuppressive drugs, initial encounter; R53.83 Other fatigue; I50.9 Heart failure, unspecified; I42.9 Cardiomyopathy, unspecified; F32.9 Major depressive disorder, single episode, unspecified; C64.9 Malignant neoplasm of unspecified kidney, except renal pelvis; C79.9 Secondary malignant neoplasm of unspecified site; E11.9 Type 2 diabetes mellitus without complications; Z79.4 Long term (current) use of insulin
CPT/HCPCS: 99349

== ENCOUNTER 2020-05-27 14:30 | Outpatient (CLI) | payer MEDICARE, OTHER ==
--- NOTE | 2020-05-27 16:52 | CONSULTATION NOTE ---
Palliative Care Follow Up - Referral Referring Provider: Dr. Alban Connor Time of Visit: [id number] Referral setting: Home Referral Reason: Peripheral neuropathy/Renal Cell CA/CHF - Information Sources Records reviewed: Previous records reviewed History/Review of Systems obtained from: Patient, Family ( Arlene joined us second part of visit) Exam limitations: Clinical condition (mild STM deficits) - History of Present Illness Update Brief HPI Update: This is a 65-year-old gentleman with metastatic clear-cell renal carcinoma, of the left kidney with large mass in kidney, small mets to lung, retroperitoneal lymph nodes. He has been on treatment since 2018, unfortunately was hospitalized with encephalopathy unknown cause, has been recovering slowly. He recently returned back to oncology, did have a CT scan on 05/21, which did show enlarging enhancing left renal mass, stable retroperitoneal knee nodes, c ircumferential bladder thickening, but overall felt the change to primary site was modest. Patient has lost weight, though does have underlying cardiology issues, and will be exploring whether would be appropriate now as a surgical candidate. He has seen cardiology, is awaiting a Lexiscan scan. He does have known recurrent cardiomyopathy, and congestive heart failure in the setting of atrial fib. He is not on any anticoag other than small aspirin due to hematuria from his renal cell carcinoma. Patient was seen his PCP, had taken high-dose furosemide 80 mg as directed, with recurrent hematuria over the last couple days, including clots. He reports it is lightening up. He does have a call into urology, he is due to have a cystoscopy and further follow-up. Denies any pain or distress with this. Patient presents today is quite bright and interactive, patient continues with intermittent short-term memory issues and word finding. He reports his pain of his peripheral neuropathy is currently well controlled with the pregabalin 50 mg 3 times daily, he is tolerating this with out sedation. He does still continue with persistent fatigue, activity intolerance, his blood sugars are well controlled at 1 20-1 25, and overall continues to improve. Past Medical History: Congestive heart failure with LVEF last known 23%, hypertension, atrial fib not on current anticoag, valve disorder, LBBB, sleep apnea no CPAP, CVA with known left thalamic lacunar infarcts, severe peripheral neuropathy, tremors, type 2 diabetes, colon polyps, depression, anxiety, osteoarthritis, chronic fatigue Social History - Living Situation Living arrangement: At home Living Situation: With spouse/s.o. 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 He does feel like he set it up though if he were to stepdown would have an easy transition. He lives with his arpit Virginie, they have been 45 years. They do have 4 children, currently experience significant stressors, as Virginie's parents are quite ill. They have just transition to hospice. Virginie herself is a cancer survivor remains on surveillance. There is quite a bit of tension between the 2 of them, she was able to go visit her parents though. Medications/Allergies - Medications Home Medications: Ambulatory Orders Medication Instructions Recorded Confirmed Furosemide 40 mg PO DAILY PRN 02/25/20 05/27/20 Spironolactone [Aldactone] 12.5 mg PO 1200 tablet 02/28/20 05/27/20 Isosorbide Mononitrate ER [Imdur] 60 mg PO DAILY 03/03/20 05/27/20 Aspirin [Aspirin EC] 81 mg PO DAILY 03/19/20 05/27/20 Levothyroxine Sodium [Euthyrox] 100 mcg PO QDAC 03/19/20 05/27/20 Metoprolol Succinate [Toprol Xl] 100 mg PO DAILY 03/19/20 05/27/20 hydrALAZINE [Apresoline] 25 mg PO TID 03/19/20 05/27/20 Hydrocortisone [Cortef] 5 mg PO .3TABS AM 1 TAB 1400 03/20/20 05/27/20 Insulin NPH Human [NovoLIN N] 4 unit SQ BID 04/09/20 05/27/20 Pregabalin [Lyrica] 50 mg PO TID 04/09/20 05/27/20 Senna [Senokot] 1 - 2 tab PO DAILY PRN 04/21/20 05/27/20 polyethylene glycoL 3350 [Miralax] 17 gm PO DAILY PRN 04/21/20 05/27/20 Fluticasone [Flonase] 1 inh INH DAILY 05/15/20 05/27/20 Triamcinolone Acetonide 0.1% 1 applic TOP DAILY MDD on two 05/27/20 05/27/20 [Triamcinolone Acetonide] weeks;off one - Allergies Allergies/Adverse Reactions: Allergies Allergy/AdvReac Type Severity Reaction Status Date / Time atorvastatin [From Lipitor] Allergy Unknown Verified 04/02/20 15:49 Review of Systems - Constitutional Constitutional: reports: Fatigue (remains persistent;fluctuating sleep patterns), Weakness (improving), Weight loss (requested weigh in morning for baseline weight;). denies: Fever, Chills - Eyes Eyes: reports: Vision loss - Ears, Nose & Throat Ears, Nose & Throat: reports: Hearing loss ( wondering about hearing test), Nasal congestion (had improved; sinusitis resolved; feeling some nasal stuffiness today), Dry mouth - Cardiovascular Cardiovascular: reports: Irregular heart rate, Exertional dyspnea, Decr. exercise tolerance. denies: Chest pain, Edema - Respiratory Respiratory: reports: SOB with exertion. denies: Cough, Wheezing, SOB at rest - Gastrointestinal Gastrointestinal: reports: Early satiety, Good appetite. denies: Constipation - Genitourinary Genitourinary: reports: Frequency, Hematuria (started Tuesday with some clots; improved but still slightly pink; awaiting call back from urology), Other (some difficulty with stream; did see urologist;). denies: Dysuria - Musculoskeletal Musculoskeletal: reports: Muscle aches, Stiffness, Muscle weakness - Integumentary Integumentary: reports: Rash (attributes to immunotherapy "travels" currently on neck/back), Dryness - Neurological Neurological: reports: General weakness, Memory problems (mild; less interest some slowing of cognition; fluctuates) - Psychiatric Psychiatric: reports: Depression, Anxiety - Endocrine Endocrine: reports: Diabetes type 2 (110-130; has had some lows to 65; currently only using 4 units), Hypothyroidism, Intolerance to cold, Other (adrenal insufficiency) - Hematologic/Lymphatic Hematologic/Lymph: Recurrent infections (recent sinusitis; suspect viral as improving; COVID test negative-ordered by PCP) - All Other Systems All Other Systems: reports: Reviewed and negative Physical Exam - Vital Signs Temperature: 96.4 C Pulse Rate: 67 Respiratory Rate: 18 O2 Saturation: 99 (ra @ rest) Blood Pressure: 128/80 - Physical Exam General Appearance: positive: No acute distress, Alert Eyes Bilateral: positive: Other (slight periorbital edema) ENT: positive: No signs of dehydration Neck: positive: Trachea midline Cardiovascular: positive: Irregularly irregular Respiratory: positive: No respiratory distress, Breath sounds nml, Diminished in bases. negative: Wheezes, Rales, Rhonchi Abdomen: positive: Soft, Other (rounded) Skin: positive: Pallor, Dryness, Rash (dried lesions/plaques upper neck and back area) Extremities: positive: No pedal edema Neurologic/Psychiatric: positive: Oriented x3, Mood/affect nml, Weakness, Flat affect Palliative Care - POLST Patient has POLST: No Pain: Pain improved, Location (peripheral neuropathy in feet) Tiredness/Fatigue: Severe (7-10) Drowsiness/Sedation: Moderate (4-6) Nausea: None Anorexia: Mild (1-3) Dyspnea: Mild (1-3) Depression: Moderate (4-6) Anxiety: Mild (1-3) Feelings of wellbeing/Perceived Quality of Life: Good, Acceptable, Improved Sleep: Variable sleep pattern Constipation: Yes, Managed Performance Status: Patient is quite sedentary, this is been attributed both to his persistent and chronic fatigue as well as his peripheral neuropathy. He is hesitant to consider further physical therapy. He has had it in the past, aqua therapy with his knee. He is able to manage his own ADLs. - Palliative Care Discussion: Met with patient prior to 's returning. Feels like he is doing fairly well, does have difficulty recalling details which is quite frustrating to his as far as his multiple appointments. He does feel like he is feeling more light, denies any anxiety. He uses prayer, and turns over any anxiety to his relationship with God. He is not afraid of , and continues to take things a day at a time, understanding the seriousness of his illness. He reports he and his is still not talked about advanced care planning, we did discuss in the context of his recent hospitalization, would be important to continue those conversations and decrease the pressure on her. Patient and experiencing tension and stressors related both to patient's illness, and 's experience/worry about her parents. Patient does have many specialist, and finds it overwhelming to pull all the pieces together. wants patient to be more proactive and involved in his health, but it is notable patient does have short-term memory issues and some difficulty tracking. Results - Lab Results Lab results reviewed: Yes Lab and Imaging Results: Patient with labs down at [facility], creatinine was reported at 1.16, with mildly elevated LDH. Impression and Recommendations - Palliative Care Impression: This is a 65-year-old gentleman with metastatic clear-cell renal carcinoma, has restarted his nivolumab last week. Patient is also pending Lexiscan, to follow- up with may be a candidate for nephrectomy given his weight loss. He does understand would need to be deemed stable from cardiac status standpoint. Patient with multiple specialist, does present today with hematuria, awaiting urology follow-up appointment. Patient does have a significant level of complexity to his care. Palliative care providing support for symptom management and anticipatory guidance. Recommendations/Counseling Done: 1. CI PN. Patient continues to improve with transition to pregabalin, he is doing well on 50 mg 3 times daily. Patient's kidney function has improved, appears less sedated. Patient is able to ambulate with less pain, is pleased with his current regimen. We will continue to follow. 2. Generalized weakness. This is multifactorial including deconditioning. Have suggested peddler in past, slow progressive ambulation program. Did recommend possible referral to physical therapy. Given his underlying cardiac status, would be good to have supervised exercise. Counseling provided regardin g physical therapy versus systems trainer, patient has some biases. Patient would most likely benefit, he will follow-up if wants referral. 3. Fatigue. This is multifactorial, patient has both hypothyroidism and adrenal insufficiency as well as deconditioning. Is back on his regular medications, is gone for the week, patient only missed 1 set of doses of meds. Counseling provided regarding the role of activity, good nutrition, and hydration and management of his fatigue. 4. Hematuria. This had resolved, patient had not increased his aspirin to 325 mg per PCP, at this point encouraged to continue at 81 mg as previously given recurrence of hematuria. Did appear after he took a 80 mg dose of furosemide, is clearing. Patient awaiting callback from urology, is due for cystoscopy. Recommended make this high priority is SARAH, and if hematuria persisted or worsening to seek urgent care. 5. Congestive heart failure with cardiomyopathy. Patient has done fairly well with management of his lower extremity edema. Patient only has 80 mg furosemide, counseling provided regarding recommended daily weights, to only take 40 mg furosemide if greater than 2 pound weight gain in 24 hours, or 5 pound weight gain in a week. Patient has been fairly stable up to this point, is due for Lexiscan. Patient does not show any signs of fluid overload, no lower extremity edema, lungs are clear O2 sats within normal range blood pressures remained stable today. 6. Depression. Patient has had persistent depressive symptoms, both related to cognitive and functional decline over the last year and more acutely over this last month with health changes. Have been considering adding duloxetine with peripheral neuropathy, patient does appear much brighter and engaged. At this point in time we will hold off for any further med changes as is doing better. 7. Constipation. Patient reports doing better with his bowels, is titrating his MiraLAX. 8. Metastatic renal carcinoma. Patient did receive nivolumab last week, did receive scans with slight increase in tumor, metastatic disease stable. Patient is being considered for possible nephrectomy, awaiting final outcome with this. Palliative care continue provide support with ongoing symptom management and anticipatory guidance. 9. Advanced care planning. Continuing to explore patient's goals of care, coping mechanisms, counseling provided regarding normalizing anxiety over current situation. Did encourage continue to have conversations regarding advance care planning documents.Patient and [facility], will continue monthly as has multiple complex issues Time Spent: 60 minutes with been 50% of this done in counseling regarding symptom management, coordination of care, education, and anticipatory guidance.
== END 2020-05-27 14:31 | disposition home or self-care (01) ==
LOC: PC 14:30
PROVIDERS: ATTEND Nurse Practitioner Adult Health
DX: Z51.5 Encounter for palliative care (principal); G62.0 Drug-induced polyneuropathy; T45.1X5A Adverse effect of antineoplastic and immunosuppressive drugs, initial encounter; R53.1 Weakness; R53.83 Other fatigue; E03.9 Hypothyroidism, unspecified; R31.9 Hematuria, unspecified; I11.0 Hypertensive heart disease with heart failure; I50.9 Heart failure, unspecified; I43 Cardiomyopathy in diseases classified elsewhere; F32.9 Major depressive disorder, single episode, unspecified; K59.00 Constipation, unspecified; C64.2 Malignant neoplasm of left kidney, except renal pelvis; C78.00 Secondary malignant neoplasm of unspecified lung; C77.2 Secondary and unspecified malignant neoplasm of intra-abdominal lymph nodes; R21 Rash and other nonspecific skin eruption; E11.29 Type 2 diabetes mellitus with other diabetic kidney complication; Z79.4 Long term (current) use of insulin
CPT/HCPCS: 99350

== ENCOUNTER 2020-06-04 21:17 | Emergency (ER) | payer MEDICARE, OTHER ==
[2020-06-04 23:53] LABS: BILIRUBIN,URINE NEGATIVE (NEGATIVE); GLUCOSE, URINE (UA) NEGATIVE (NEGATIVE); KETONES,URINE (UA) NEGATIVE (NEGATIVE); LEUKOCYTE ESTERASE, URINE NEGATIVE (NEGATIVE); OCCULT BLOOD,URINE LARGE (NEGATIVE); UROBILINOGEN,URINE 0.2 (NORMAL) E.U./dL (NORMAL)
[2020-06-04 23:56] LABS: CLARITY,URINE BLOODY (CLEAR)
[2020-06-04 23:57] LABS: BACTERIA,URINE None Seen /HPF (None Seen); RBC,URINE TNTC /HPF (0-5); SQUAMOUS EPITHELIAL CELL,UR NONE SEEN (<= Few)
--- NOTE | 2020-06-05 | ED Physician Documentation ---
PD HPI MALE - Stated complaint Stated Complaint: BLEEDING - Chief complaint Chief Complaint: General - History obtained from History obtained from: Patient - History of Present Illness Timing - onset: Today Timing - duration: Hours Timing - details: Abrupt onset, Still present Associated symptoms: Unable to urinate, Hematuria Similar symptoms before: Diagnosis (urinary retention) Recently seen: Clinic - Additional information Additional information: 65-year-old male with a history of kidney cancer is being treated by [facility] and he has had recurrent episodes of hematuria resulting in clot retention and tonight he is an episode of hematuria and now is unable to urinate much more than a dribble of blood. [facility]. He was recently seen by his urologist and had a cystoscopy done about 1 week ago and it does appear there is trace amount of blood coming from the left ureter the bladder itself and the prostate itself are okay. Review of Systems Constitutional: denies: Fever Eyes: denies: Decreased vision Ears: denies: Ear pain Nose: denies: Congestion Throat: denies: Sore throat Cardiac: denies: Chest pain / pressure, Palpitations Respiratory: denies: Dyspnea, Cough GI: denies: Abdominal Pain, Nausea, Vomiting, Constipation, Diarrhea : reports: Unable to Void, Hematuria. denies: Dysuria, Frequency Skin: denies: Rash, Lesions PD PAST MEDICAL HISTORY - Past Medical History Past Medical History: Yes Cardiovascular: Congestive heart failure, Hypertension, Atrial fibrillation, Valve disorder, Other Respiratory: Shortness of breath, Sleep apnea Neuro: CVA, Peripheral neuropathy, Tremors Endocrine/Autoimmune: Type 2 diabetes GI: Colon polyps : Other HEENT: None Psych: Depression, Anxiety Musculoskeletal: Osteoarthritis, Fatigue Derm: None Other Past Medical History: KIDNEY CANCER... - Past Surgical History Past Surgical History: Yes General: Colonoscopy Ortho: Knee replacement, Arthroscopic surgery, Other - Present Medications Home Medications: Ambulatory Orders Medication Instructions Recorded Confirmed Furosemide 40 mg PO DAILY PRN 02/25/20 05/27/20 Spironolactone [Aldactone] 12.5 mg PO 1200 tablet 02/28/20 05/27/20 Isosorbide Mononitrate ER [Imdur] 60 mg PO DAILY 03/03/20 05/27/20 Aspirin [Aspirin EC] 81 mg PO DAILY 03/19/20 05/27/20 Levothyroxine Sodium [Euthyrox] 100 mcg PO QDAC 03/19/20 05/27/20 Metoprolol Succinate [Toprol Xl] 100 mg PO DAILY 03/19/20 05/27/20 hydrALAZINE [Apresoline] 25 mg PO TID 03/19/20 05/27/20 Hydrocortisone [Cortef] 5 mg PO .3TABS AM 1 TAB 1400 03/20/20 05/27/20 Insulin NPH Human [NovoLIN N] 4 unit SQ BID 04/09/20 05/27/20 Pregabalin [Lyrica] 50 mg PO TID 04/09/20 05/27/20 Senna [Senokot] 1 - 2 tab PO DAILY PRN 04/21/20 05/27/20 polyethylene glycoL 3350 [Miralax] 17 gm PO DAILY PRN 04/21/20 05/27/20 Fluticasone [Flonase] 1 inh INH DAILY 05/15/20 05/27/20 Triamcinolone Acetonide 0.1% 1 applic TOP DAILY MDD on two 05/27/20 05/27/20 [Triamcinolone Acetonide] weeks;off one - Allergies Allergies/Adverse Reactions: Allergies Allergy/AdvReac Type Severity Reaction Status Date / Time atorvastatin [From Lipitor] Allergy Unknown Verified 06/04/20 21:30 - Social History Does the pt smoke?: No Smoking Status: Never smoker Does the pt drink ETOH?: No Does the pt have substance abuse?: No - Immunizations Immunizations are current?: Yes - POLST Patient has POLST: No POLST Status: DNR PD ED PE NORMAL - Vitals Vital signs reviewed: Yes (hypertensive ) - General General: Alert and oriented X 3, No acute distress, Well developed/nourished - HEENT HEENT: Atraumatic, PERRL, EOMI - Respiratory Respiratory: No respiratory distress - Abdomen Abdomen: Soft, Non tender - Derm Derm: Normal color, Warm and dry, No rash - Extremities Extremities: No deformity, No edema - Neuro Neuro: Alert and oriented X 3, 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, No motor deficit, No sensory deficit, Normal speech Eye Opening: Spontaneous Motor: Obeys Commands Verbal: Oriented GCS Score: 15 - Psych Psych: Normal mood, Normal affect Results - Vitals Vitals: Vital Signs - 24 hr 02/02/1206/04/20 06/04/20 21:25 21:53 23:35 Temperature 36.0 C L Heart Rate 81 77 Respiratory 19 18 20 Rate Blood Pressure 141/87 H O2 Saturation 97 99 06/05/20 00:40 Temperature 36.0 C L Heart Rate 76 Respiratory 20 Rate Blood Pressure 138/85 H O2 Saturation 99 Oxygen O2 Source [With Activity] Room air O2 Source [Without Activity] Room air O2 Source Room air - Labs Labs: Laboratory Tests 06/04/20 23:40 Urine Color RED/BLOODY Urine Clarity BLOODY Urine pH 7.0 Ur Specific [place] 1.020 Urine Protein Urine Glucose (UA) NEGATIVE Urine Ketones NEGATIVE Urine Occult Blood LARGE H Urine Nitrite Urine Bilirubin NEGATIVE Urine Urobilinogen 0.2 (NORMAL) Ur Leukocyte Esterase NEGATIVE Urine RBC TNTC H Urine WBC 0-3 Ur Squamous Epith Cells NONE SEEN Urine Bacteria None Seen Ur Microscopic Review INDICATED Urine Culture Comments NOT INDICATED PD MEDICAL DECISION MAKING - ED course Complexity details: reviewed old records, reviewed results, re-evaluated patient, considered differential, d/w patient ED course: 65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 Today he is again having issue with urinary retention related to hematuria. A Rico catheter is placed and drains bloody urine. There is no evidence of infection. Catheter is left in place for acute urinary retention. Departure - Departure Disposition: 01 Home, Self Care Clinical Impression: Acute urinary retention Condition: Stable Instructions: ED Catheter Care Jacky, ED Retention Urinary Male Follow-Up: Alban Connor MD [Primary Care Provider] - Discharge Date/Time: 06/05/20 00:40
[2020-06-05 00:41] VITALS: BP 138/85
== END 2020-06-05 00:40 | disposition home or self-care (01) ==
LOC: ED 21:17
DX: R33.9 Retention of urine, unspecified (principal); R31.9 Hematuria, unspecified; Z85.528 Personal history of other malignant neoplasm of kidney; I11.0 Hypertensive heart disease with heart failure; I50.9 Heart failure, unspecified; E11.42 Type 2 diabetes mellitus with diabetic polyneuropathy; Z79.4 Long term (current) use of insulin; Z79.82 Long term (current) use of aspirin; Z66 Do not resuscitate
CPT/HCPCS: 51702; 81001; 81003; 87086; 99283; 99284

== ENCOUNTER 2020-06-06 15:45 | Outpatient (CLI) | payer MEDICARE, OTHER ==
--- NOTE | 2020-06-06 18:09 | CONSULTATION NOTE ---
Palliative Care Follow Up - Referral Referring Provider: Dr. Alban Otto Time of Visit: [id number] Referral setting: Home Referral Reason: Hematuria/Urinary Retention/Renal Call CA - Information Sources Records reviewed: Previous records reviewed History/Review of Systems obtained from: Patient, Family ( Arlene) Exam limitations: Clinical condition (patient with STM deficits) - History of Present Illness Update Brief HPI Update: This is a 65-year-old gentleman with metastatic clear-cell renal carcinoma of th e left kidney, with large mass noted in kidney, mets to the lung, and retroperitoneal nodes. He was originally considered not to be a surgical candidate due to mets and comorbidities of obesity, cardiac issues, and atrial fib. He was started on nivolumab in 07/2017, and 11/2018 transition to ipilimumab and nivolumab due to progression of disease, unfortunately though in fall 2019, he was hospitalized with encephalopathy, with concern for possible side effects of immunotherapy versus results of gabapentin dosing. The patient has been off of immunotherapy for about 2 months, but did receive treatment on 05/21. Did receive a call this a.m., patient had been in the ED on 06/04 with hematuria, and urinary retention secondary to blood clots. Unfortunately he did not take a baseline hemoglobin, and he has continued to bleed since then, with no specific plan for follow-up at this point. He has been seen by urologist last week, had a cystoscopy done, there was thought there may have been some blood coming from the left ureter according to his understanding, as well as the was no issues with prostate. On examination, patient is having some intermittent bladder spasms with some leakage, but it is draining, a dark red without any clots at this time. He has a surgical Hall bag attached, does have a leg bag, but none of the connecting tubing, requesting assistance in managing as well as e valuation for spasms. Patient is not on any anticoagulant and a small aspirin, which he was asked to hold when talked to him in follow up on 06/05, I also instructed him to follow up with urology for "next steps" , neither of which he has done. He does have underlying cardiac issues, and is pending a Lexiscan. He has known cardiomyopathy, congestive heart failure, and in the setting of atrial fib. Prior to his ED visit, he had forgotten instructions to use only 40 mg of furosemide if had fluid retention, he took 80 mg and started bleeding shortly after this. He had been instructed on daily weights, and take take the furosemide only with weight gain or increase in significant symptoms. Patient is slightly lethargic today and tired. He is reporting he slept poorly last night. He denies any increase in pain, his pain is been well controlled of his peripheral neuropathy in his lower extremities with the pregabalin 50 mg 3 times daily. He has not needed any insulin for his blood sugars, patient does present with some short-term memory deficits. There is quite a bit of tension is patient does forget and has not been following through on instructions provided for his medical care. This is causing tension between he and his . 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 He and his have been for 45 years, they have 4 children. Arlene's father just 4 days ago, so the added stress of trying to go down for the . Valerio at this point does not feel he wants to go if he still has a catheter. Arlene herself is a cancer survivor remains on surveillance, there is quite a bit of tension as they are trying to navigate Valerio's ongoing complex care. Medications/Allergies - Medications Home Medications: Ambulatory Orders Medication Instructions Recorded Confirmed Furosemide 40 mg PO DAILY PRN 02/25/20 06/07/20 Spironolactone [Aldactone] 12.5 mg PO 1200 tablet 02/28/20 06/07/20 Isosorbide Mononitrate ER [Imdur] 60 mg PO DAILY 03/03/20 06/07/20 Aspirin [Aspirin EC] 81 mg PO DAILY MDD HOLD 03/19/20 06/07/20 Levothyroxine Sodium [Euthyrox] 100 mcg PO QDAC 03/19/20 06/07/20 Metoprolol Succinate [Toprol Xl] 100 mg PO DAILY 03/19/20 06/07/20 hydrALAZINE [Apresoline] 25 mg PO TID 03/19/20 06/07/20 Hydrocortisone [Cortef] 5 mg PO .3TABS AM 1 TAB 1400 03/20/20 06/07/20 Insulin NPH Human [NovoLIN N] 4 unit SQ BID PRN 04/09/20 06/07/20 Pregabalin [Lyrica] 50 mg PO TID 04/09/20 06/07/20 Senna [Senokot] 1 - 2 tab PO DAILY PRN 04/21/20 06/07/20 polyethylene glycoL 3350 [Miralax] 17 gm PO DAILY PRN 04/21/20 06/07/20 Fluticasone [Flonase] 1 inh INH DAILY 05/15/20 06/07/20 Triamcinolone Acetonide 0.1% 1 applic TOP DAILY MDD on two 05/27/20 06/07/20 [Triamcinolone Acetonide] weeks;off one Prochlorperazine Maleate 5 - 10 mg PO Q6HR PRN 06/07/20 06/07/20 [Compazine] Tamsulosin [Flomax] 0.4 mg PO DAILY 06/07/20 06/07/20 - Allergies Allergies/Adverse Reactions: Allergies Allergy/AdvReac Type Severity Reaction Status Date / Time atorvastatin [From Lipitor] Allergy Unknown Verified 06/04/20 21:30 Review of Systems - Constitutional Constitutional: reports: Fatigue, Weakness (improving), Other (has not been weighing as requested). denies: Fever, Chills - Eyes Eyes: reports: Vision loss - Ears, Nose & Throat Ears, Nose & Throat: reports: Hearing loss ( wondering about hearing test), Dry mouth - Cardiovascular Cardiovascular: reports: Irregular heart rate, Edema (increased for a few days), Exertional dyspnea, Decr. exercise tolerance. denies: Chest pain - Respiratory Respiratory: reports: SOB with exertion. denies: Cough, Wheezing, SOB at rest - Gastrointestinal Gastrointestinal: reports: Poor appetite, Early satiety. denies: Constipation - Genitourinary Genitourinary: reports: Hematuria (clots worsening; caused retention), Other (has hall catheter in). denies: Dysuria - Musculoskeletal Musculoskeletal: reports: Muscle aches, Stiffness, Muscle weakness - Integumentary Integumentary: reports: Rash (attributes to immunotherapy "travels" currently on neck/back; difficulty complying with application of triamcinolone; scrathing on arms), Dryness, Nail changes (thickened fungal nails) - Neurological Neurological: reports: General weakness, Memory problems (mild; less interest some slowing of cognition; fluctuates), Abnormal gait (shuffled) - Psychiatric Psychiatric: reports: Depression, Anxiety - Endocrine Endocrine: reports: Diabetes type 2 (reports has been okay; not using insulin currently; unclear how often checking), Hypothyroidism, Intolerance to cold, Other (adrenal insufficiency) - Hematologic/Lymphatic Hematologic/Lymph: reports: Blood clots (from bladder) - All Other Systems All Other Systems: reports: Reviewed and negative Physical Exam - Vital Signs Pulse Rate: 67 Respiratory Rate: 16 O2 Saturation: 94 (ra @ rest) Blood Pressure: 132/70 - Physical Exam General Appearance: positive: No acute distress, Alert, Other (slow to respond; awakened from nap; had slept poorly night before) Eyes Bilateral: positive: Other (slight periorbital edema) ENT: positive: No signs of dehydration Neck: positive: Trachea midline Cardiovascular: positive: Irregularly irregular Respiratory: positive: No respiratory distress, Breath sounds nml, Diminished in bases. negative: Wheezes, Rales, Rhonchi Abdomen: positive: Soft, Other (rounded) Skin: positive: Pallor, Dryness, Rash (dried lesions/plaques upper neck and back area; scratches on arms from itching) Extremities: positive: Pedal edema (1+ bilateral edema to above ankles) Neurologic/Psychiatric: positive: Oriented x3, Weakness, Depressed mood/affect, Flat affect Palliative Care - POLST Patient has POLST: No POLST Status: DNR Pain: Pain improved, Location (feet; using pregablin 50 mg tid) Tiredness/Fatigue: Severe (7-10) Drowsiness/Sedation: Moderate (4-6) Nausea: Mild (1-3) Anorexia: Mild (1-3) Dyspnea: Mild (1-3) Depression: Moderate (4-6) Anxiety: Mild (1-3) Feelings of wellbeing/Perceived Quality of Life: Fair, Acceptable Sleep: Sleeps poorly, Variable sleep pattern Constipation: Yes, Intermittent constipation Performance Status: He remains quite sedentary, able to ambulate short distances in the home, does do standby assist when bathing. He is feeling more fatigued, suspect it is related to his fluctuating sleep patterns as well as his decreasing blood counts. - Palliative Care Discussion: Patient continues to struggle with multiple medical appointments, ongoing complexity of his care, and difficulty with tracking information. is quite frustrated with him, plus feeling torn with pending , and patient's in creased needs, she will need to travel for a week. Previously there is sinus state, courage to come up with a plan, patient does not want to go down with the catheter. Patient remains somewhat perplexed by his ongoing issues, and does not want to deal with the catheter long-term. Results - Lab Results Lab results reviewed: Yes Lab and Imaging Results: Patient given a slip for CBC and BMP, given concerns for continued hematuria and blood loss. Impression and Recommendations - Palliative Care Impression: This is a 65-year-old gentleman with metastatic clear-cell renal carcinoma, has restarted back on his immunotherapy nivolumab. Patient now presents with worsening hematuria, with blood clots causing urinary retention, and no definitive plan for managing long-term. Patient does have significant levels of complexity to his care with multiple specialists, and difficulty tracking information and appointments. Palliative care providing support for symptom management and anticipatory guidance Recommendations/Counseling Done: 1. Hematuria. Patient has persistent hematuria, urine is dark red, did switch to leg bag, patient did not have appropriate pieces. Instruction given regarding changing [id number] tonight back to leg bag and proper cleaning in between. Did flush with return of urine, patient is instructed if symptomatic, worsening clots, to follow-up with ED. Attempted to call urologist, unfortunately given lateness of the hour they are not open. Will follow up with both oncology and urology given most likely related to his renal tumor. Patient has been reinstructed to stop aspirin. 2. Short-term memory issues. Patient having difficulty tracking information, this is quite frustrating for his . Patient does have a history according to see his CT scan of stroke. And follow-up with , regarding cognitive deficits, she reports he has not had any testing, will do some initial screening, unclear at this point what would be of benefit for further neurological follow-up. 3. CI PN. Patient satisfied with current level of pain relief with pregabalin 50 mg 3 times daily. 4. Congestive heart failure with cardiomyopathy. Patient has had some lower extremity edema, was been instructed to weigh daily has not, instructed if needed as needed dosing, use 40 mg not 80. Patient does exhibit small amount of fluid overload today, counseling provided regarding finding balance of pushing fluids for Hall cath management versus cardio myopathy/CHF. Instructed to stay within about 2 L. ADDENDUM 06/07. Patient has had a drop in his hemoglobin 11.7, unfortunately had not been tested at the ED visit. Last hemoglobin noted was in March at 14. His oncology notes say within normal limits. His WBC 7.1; creatinine 1.5, GFR 47. Did review with both patient and signs or symptoms to obtain assistance at the ED. Will follow up with oncology/urology on Tuesday if open secondary to holidays. and patient report somewhat tire layer today Tuesday morning when discussed results of labs 55 minutes with greater than 50% of this done in counseling regarding management of Hall catheter, signs and symptoms of worsening hematuria, coordination of care and follow-up and ordering of labs
== END 2020-06-06 15:46 | disposition home or self-care (01) ==
LOC: PC 15:45
PROVIDERS: ATTEND Nurse Practitioner Adult Health
DX: Z51.5 Encounter for palliative care (principal); R31.0 Gross hematuria; R41.3 Other amnesia; G62.0 Drug-induced polyneuropathy; T45.1X5A Adverse effect of antineoplastic and immunosuppressive drugs, initial encounter; I42.9 Cardiomyopathy, unspecified; I50.9 Heart failure, unspecified; I48.91 Unspecified atrial fibrillation; C64.2 Malignant neoplasm of left kidney, except renal pelvis; C78.02 Secondary malignant neoplasm of left lung; C78.01 Secondary malignant neoplasm of right lung; C77.2 Secondary and unspecified malignant neoplasm of intra-abdominal lymph nodes; E11.9 Type 2 diabetes mellitus without complications; Z79.4 Long term (current) use of insulin; Z79.899 Other long term (current) drug therapy; Z66 Do not resuscitate
CPT/HCPCS: 99349

== ENCOUNTER 2020-06-06 17:15 | Outpatient (CLI) | payer MEDICARE, OTHER ==
[2020-06-06 17:31] LABS: BASOPHILS # (AUTO) 0.1 10^3/uL (0.0-0.1); EOSINOPHILS # (AUTO) 0.4 10^3/uL (0.0-0.7); EOSINOPHILS % (AUTO) 5.1 %; HGB - HEMOGLOBIN 11.7 g/dL (14.0-18.0); LYMPHOCYTES # (AUTO) 0.9 10^3/uL (1.5-3.5); LYMPHOCYTES % (AUTO) 12.1 %; MEAN CORPUSCULAR HEMOGLOBIN 28.7 pg (27.0-31.0); MEAN CORPUSCULAR VOLUME 89.7 fL (80.0-94.0); MEAN PLATELET VOLUME 10.7 fL (7.4-11.4); MONOCYTES # (AUTO) 0.8 10^3/uL (0.0-1.0); MONOCYTES % (AUTO) 10.7 %; NEUTROPHILS % (AUTO) 70.8 %; PLT - PLATELET COUNT 249 10^3/uL (130-450); RED BLOOD COUNT 4.08 10^6/uL (4.70-6.10); RED CELL DISTRIBUTION WIDTH 14.2 % (12.0-15.0); WHITE BLOOD COUNT 7.1 x10^3/uL (4.8-10.8)
[2020-06-06 17:40] LABS: CREATININE 1.5 mg/dL (0.6-1.2)
== END 2020-06-06 17:16 | disposition home or self-care (01) ==
LOC: LAB 17:15
PROVIDERS: ATTEND Nurse Practitioner Adult Health
DX: D64.9 Anemia, unspecified (principal); Z79.899 Other long term (current) drug therapy
CPT/HCPCS: 36415; 80048; 85025

== ENCOUNTER 2020-07-11 09:07 | Outpatient (CLI) | payer MEDICARE, OTHER ==
[2020-07-11] MEDS ORDERED: REGADENOSON 0.4 MG/5 ML SYRINGE IVP ONE (12:01)
[2020-07-11] MEDS ORDERED: AMINOPHYLLINE 500 MG/20 ML VIAL ONE (12:01)
--- NOTE | 2020-07-11 12:33 | CARDIAC PROCEDURE NOTE ---
DATE OF SERVICE: 07/11/2020 Physician: Kinga Galvan MD, [facility] INDICATION: CHF, preop evaluation. CARDIAC RISK FACTORS: Male gender, borderline diabetic. PROCEDURE: After signing informed consent, the patient underwent a Lexiscan pharmaceutical stress test with nuclear myocardial perfusion imaging. RESTING HEART RATE: 54. PEAK HEART RATE: 75. RESTING BLOOD PRESSURE: 113/64. PEAK BLOOD PRESSURE: 109/74. Lexiscan was infused per protocol. The patient had brief flushing and shortness of breath. There was no chest pain. Oxygen saturation was 95-98% on room air throughout the test. EKG AT REST: Atrial fibrillation, atypical left bundle branch block. EKG AT PEAK: ST and T-wave changes cannot be evaluated when there is underlying left bundle branch block. SUMMARY: 1. Abnormal resting EKG, showing atrial fibrillation and left bundle branch block. 2. EKG could not be used to determine ischemic changes, due to underlying left bundle branch block. 3. Nuclear images were reported separately and showed: Moderate-sized, fixed apical perfusion defect, with apical thinning and dyskinesis and septal "rocking", consistent with apical infarct. LV enlarged. LVEF 36%. IMPRESSION: 1. Ischemic cardiomyopathy, with EF 36%, is present by nuclear imaging. 2. No reversible perfusion defect seen to suggest myocardial ischemia. 3. Afib is present. The patient reports not being on any anticoagulant despite EKG showing atrial fibrillation. cc: MD Alban Moses MD TD: 07/11/2020 12:13 [facility]
--- NOTE | 2020-07-11 15:08 | Nuclear Medicine Report ---
PROCEDURE: Rest and pharmacological stress myocardial perfusion SPECT with gated imaging and ejection fraction INDICATIONS: LEXISCAN - CHF RADIOPHARMACEUTICAL: 10.6 mCi Tc-99m Myoview IV at rest and 41.2 mCi Tc-99m Myoview IV at peak exerc ise. [id number] was performed. TECHNIQUE: Radiopharmaceutical was injected at peak stress test, and also at rest. SPECT images wer e obtained. SPECT myocardial perfusion images were displayed in short axis, horizontal long axis, an d vertical long axis views. Gated images were reviewed using [employer] software. COMPARISON: None available. FINDINGS: Raw data: There is good myocardial labeling by radiotracer. No significant motion artifacts. Lung- to-heart ratio is (normal is less than 0.38 for tetrafosmin tracer). Left ventricle function: Gated images demonstrate normal left ventricle wall thickening. There is ap ical dyskinesia. Septal rocking. No transient ischemic dilation; TID is 1.01 (normal less than 1.3). The left ventricle resting end-diastolic volume is moderately increased. Left ventricle stress ejec tion fraction is 36%; normal values are above 45%. Myocardial perfusion: There is moderate size, moderately severe, fixed perfusion defect in the left ventricular apex. There is no reversible perfusion defect to suggest myocardial ischemia. IMPRESSION: 1. Probably abnormal myocardial perfusion images. There is moderate sized, moderately severe, fixed p erfusion defect in the left ventricular apex, compatible with myocardial infarct. A degree of apical thinning is also likely present. 2. No reversible perfusion defect to suggest myocardial ischemia. 3. Moderate left ventricular enlargement. There is apical dyskinesiaand septal rocking. The left vent ricular ejection fraction is moderately decreased at 36%. 4. Please correlate with stress EKG result. PQRS ATTESTATIONS: Measure 322 - Is this imaging test primarily performed on a low-risk surgery patient for preoperative evaluation within 30 days preceding their low-risk non-cardiac surgery? Low-risk surgery is defined as cardiac or myocardial infarction less than 1%, including (but not limited to) endoscopic pr ocedures, superficial procedures, cataract surgery, and excisional breast surgery: Answer: No Measure 323 - Is this imaging test performed primarily for the monitoring of an asymptomatic patient who had percutaneous coronary intervention on the visit date or within 2 years of the visit date? An swer: No Measure 324 - Is this imaging test performed primarily for the initial detection and risk assessment on an asymptomatic, low coronary heart disease patient? Low CHD risk definition = clinicians should consider the maximum number of available patient factors used to estimate risk based on [place] (A TP III criteria), typically age, gender, diabetes, smoking status, and use of blood pressure medicati on, and integrate age appropriate estimates for missing elements, such as LDL or standard blood press ure. Answer: No Reviewed by: Herman Marquez MD on 07/11/2020 3:07 PM PDT Approved by: Herman Marquez MD on 07/11/2020 3:07 PM PDT Station ID: [id number]
== END 2020-07-11 09:08 | disposition home or self-care (01) ==
LOC: DI 09:07
PROVIDERS: ATTEND Internal Medicine Cardiovascular Disease
DX: Z01.810 Encounter for preprocedural cardiovascular examination (principal); I50.9 Heart failure, unspecified; I25.5 Ischemic cardiomyopathy; I48.91 Unspecified atrial fibrillation; I44.7 Left bundle-branch block, unspecified
CPT/HCPCS: 78452; 93017; A9500; J2785

== ENCOUNTER 2020-07-15 14:30 | Outpatient (CLI) | payer MEDICARE, OTHER ==
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
== END 2020-07-15 14:31 | disposition home or self-care (01) ==
LOC: PC 14:30
PROVIDERS: ATTEND Nurse Practitioner Adult Health
DX: Z51.5 Encounter for palliative care (principal); G62.0 Drug-induced polyneuropathy; T45.1X5A Adverse effect of antineoplastic and immunosuppressive drugs, initial encounter; I25.5 Ischemic cardiomyopathy; I11.0 Hypertensive heart disease with heart failure; I50.9 Heart failure, unspecified; I48.91 Unspecified atrial fibrillation; C64.2 Malignant neoplasm of left kidney, except renal pelvis; E27.40 Unspecified adrenocortical insufficiency; E11.9 Type 2 diabetes mellitus without complications; Z79.899 Other long term (current) drug therapy; Z79.4 Long term (current) use of insulin
CPT/HCPCS: 99350

== ENCOUNTER 2020-07-31 15:15 | Outpatient (CLI) | payer MEDICARE, OTHER ==
--- NOTE | 2020-07-31 17:52 | CONSULTATION NOTE ---
Palliative Care Follow Up - Referral Referring Provider: Dr. Connor Time of Visit: 9034-0074 Referral setting: Home Referral Reason: s/p nephrectomy/CIPN/CHF - Information Sources Records reviewed: RN notes reviewed History/Review of Systems obtained from: Patient, Family ( Arlene present) Exam limitations: Clinical condition (patient cont with STM challenges) - History of Present Illness Update Brief HPI Update: This is a 65-year-old gentleman with metastatic clear-cell renal carcinoma of the left kidney, with known lung and retroperitoneal nodes. He was originally considered not a surgical candidate due to his mets and comorbidities of obesity and cardiac issues of CHF and atrial fib. He has been on immunotherapy, but did experience adrenal insufficiency and hypothyroidism. In 14 started bleeding, with hematuria and clots. Was found to be bleeding from his kidney mass. They did refer back to Dr. Brown, who reevaluated and given patient's weight loss, and current status, was okayed for nephrectomy. He had his nephrectomy last Tuesday, unfortunately triggered delirium again, unclear underlying etiology if adrenal crisis, drug withdrawal, or consequence of anesthesia. It was a pretty harrowing time both for the patient and for his family. I am seeing today he is doing fairly well, he does have some memory regarding his experience, he is quite weak, has mild acute on chronic pain. He does have some serosanguineous drainage coming out of one of his incisions, dressing was changed. No signs or symptoms of infection, does have some mild fluid retention in his lower extremities and abdomen, though this is continued to improve. He is in good spirits, is hopeful this will extend both his quantity of life as well as improve his quality of life. They are hoping for some relief, from his immunotherapy schedule, patient is hoping he will be considered in "remission" for a while. Past Medical History: Heart failure, hypertension, atrial fib, valve disorder, LBBB, sleep apnea no CPAP, CVA with known left thalamic lunar Cooner infarcts, severe peripheral neuropathy, tremors, type 2 diabetes, colon polyps, depression, anxiety, osteoarthritis, chronic fatigue, hypothyroidism, adrenal insufficiency Social History - Living Situation Living arrangement: At home Living Situation: With spouse/s.o. 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 They do have 4 children, who are very supportive and caring for their parents. Medications/Allergies - Medications Home Medications: Ambulatory Orders Medication Instructions Recorded Confirmed Furosemide 40 mg PO DAILY PRN 02/25/20 07/31/20 Spironolactone [Aldactone] 12.5 mg PO 1200 tablet 02/28/20 07/31/20 Isosorbide Mononitrate ER [Imdur] 30 mg PO DAILY 03/03/20 07/31/20 Levothyroxine Sodium [Euthyrox] 100 mcg PO QDAC 03/19/20 07/31/20 Metoprolol Succinate [Toprol Xl] 100 mg PO DAILY 03/19/20 07/31/20 hydrALAZINE [Apresoline] 25 mg PO TID 03/19/20 07/31/20 Hydrocortisone [Cortef] 5 mg PO .3TABS AM 1 TAB 1400 03/20/20 07/31/20 Pregabalin [Lyrica] 50 mg PO BID 04/09/20 07/31/20 Senna [Senokot] 1 - 2 tab PO DAILY PRN 04/21/20 07/31/20 polyethylene glycoL 3350 [Miralax] 17 gm PO DAILY PRN 04/21/20 07/31/20 Fluticasone [Flonase] 1 inh INH DAILY PRN 05/15/20 06/07/20 Triamcinolone Acetonide 0.1% 1 applic TOP DAILY MDD on two 05/27/20 07/31/20 [Triamcinolone Acetonide] weeks;off one Prochlorperazine Maleate 5 - 10 mg PO Q6HR PRN 06/07/20 07/31/20 [Compazine] Tamsulosin [Flomax] 0.4 mg PO DAILY 06/07/20 07/31/20 - Allergies Allergies/Adverse Reactions: Allergies Allergy/AdvReac Type Severity Reaction Status Date / Time atorvastatin [From Lipitor] Allergy Unknown Verified 06/04/20 21:30 Review of Systems - Constitutional Constitutional: reports: Fatigue, Weakness (feels he is 10%), Weight loss - Eyes Eyes: reports: Vision loss - Ears, Nose & Throat Ears, Nose & Throat: reports: Hearing loss, Nasal congestion, Dry mouth - Cardiovascular Cardiovascular: reports: Irregular heart rate, Exertional dyspnea, Decr. exercise tolerance - Respiratory Respiratory: reports: SOB with exertion. denies: Cough, Wheezing, SOB at rest - Gastrointestinal Gastrointestinal: reports: Abdominal distention, Bloating, Good appetite. denies: Constipation, Nausea, Reflux/heartburn - Genitourinary Genitourinary: reports: Frequency, Other (diff starting stream) - Musculoskeletal Musculoskeletal: reports: Muscle aches, Stiffness, Limited range of motion, Muscle weakness, Joint pain. denies: Assistive devices (using walker;) - Integumentary Integumentary: reports: Rash, Pruritis, Dryness, Other (surgical wound) - Neurological Neurological: reports: General weakness, Numbness, Memory problems - Psychiatric Psychiatric: reports: Depression, Anxiety, Other (delerium in hospital) - Endocrine Endocrine: reports: Diabetes type 2 (reports has been okay; not using insulin currently;), Hypothyroidism, Intolerance to cold, Other (adrenal insufficiency) - All Other Systems All Other Systems: reports: Reviewed and negative Physical Exam - Vital Signs Temperature: 97.0 C Pulse Rate: 79 Respiratory Rate: 18 O2 Saturation: 98 (ra @ rest) Blood Pressure: 102/72 - Physical Exam General Appearance: positive: No acute distress, Alert Eyes Bilateral: positive: Normal inspection ENT: positive: No signs of dehydration Neck: positive: Trachea midline Cardiovascular: positive: Irregularly irregular Respiratory: positive: No respiratory distress, Breath sounds nml, Diminished in bases. negative: Wheezes Abdomen: positive: Soft, Tenderness, Other (mild increase in distension LLQ compared to right; where surgical site is) Skin: positive: Pallor, Dryness, Pruritis, Rash, Wound (One 6 inch incision well approximated along the curve of the lower abdomen, 1 cm area slightly open and draining serosanguineous drainage 50% of soaked gauze 4 x 4 folded. Several other 1 cm areas dried and no signs or symptoms of opening or infection) Extremities: positive: Pedal edema (trace ankle), Other (mild tremors) Neurologic/Psychiatric: positive: Oriented x3, Mood/affect nml, Weakness, Flat affect Palliative Care - POLST Patient has POLST: No Pain: Location (LLQ surgical/incisinal pain; pain with twisting deep breaths; using APAP q6 hours with good relief) Tiredness/Fatigue: Moderate (4-6) Drowsiness/Sedation: Mild (1-3) Nausea: None Anorexia: Mild (1-3) Dyspnea: Mild (1-3) Depression: Mild (1-3) Anxiety: Mild (1-3) Feelings of wellbeing/Perceived Quality of Life: Good, Acceptable, Improved Sleep: Variable sleep pattern Constipation: Yes, Intermittent constipation (no BM today) Performance Status: Patient reports he feels like is about 10% of his baseline, he is having some increased difficulty even sitting to standing, was quite weak as he was sedentar y/bedbound most of his hospital stay secondary to his delirium. He is still feeling quite weak and shaky, is able to ambulate with walker, has always had some ataxic gait related to balance, but does appear steady on exam. Physical therapy is supposed to start Tuesday - Palliative Care Discussion: Patient does have poor recall of his descending into delirium. He does remember being paranoid, afraid to eat, altered sensory status, including smell. Family was very frustrated is unable to get in and provide support, recognizing he would be more easily reoriented. Patient though did find some meaning in some spiritual guidance as well as reassurance and his florencio in God related to his experience. Patient does though demonstrate some symptoms of PTSD, he had similar experience back in the fall as well. Patient's perception is he is much better off, does not have cancer anymore, is feeling very positive overall. He feels that his surgery was very successful, and family though despite distress through this. Are very thankful for the outcome. Now multiple questions are arising regarding patient's treatment plan and future, helping sort through some of this, and process feelings regarding most recent trauma. Impression and Recommendations - Palliative Care Impression: This is a 65-year-old gentleman with metastatic clear-cell renal carcinoma, status post nephrectomy, with complications of delirium, functional decline, and weakness. Patient has atrial for up, currently of coag secondary to history of hematuria, will need to revisit this post surgery. Palliative care providing support and follow-up after surgery, to help with coordination of care and symptom management. Recommendations/Counseling Done: 1.Congestive heart failure with known cardiomyopathy. Patient did fairly well through his surgery, he does present today with some lower extremity edema. Suspect this is related to fluid overload, patient's lungs are clear though diminished in the bases, patient denies any increased shortness of breath or cough. Counseling provided regarding instruction on incentive spirometer, progressive activity, and review of current medication status. Encouraged after speak with Dr. Brown, to follow-up with Dr. Tracy regarding anticoag for his atrial fib now that his kidney has been removed. 2. CI PN. He was discharged on decreased pregabalin, is now currently taking 50 mg twice daily, which can again be titrated depending on kidney function. Patient has not been active, this is usually what exacerbates his pain. Of note patient did fairly well off of immunotherapy with improved peripheral neuropathy, noted increased with first round of nivolumab after break, and worsened after second. Would consider it is a side effect or exacerbated by his immunotherapy. Will reach out to Dr. Zarate, regarding questions related to this, as well as overall bigger picture plan. 3. Metastatic clear-cell renal carcinoma. Patient perceives himself as cured, the cancer has been taken out, their understanding of his lung and retroperitoneal nodes, as they are "unremarkable". Unclear if patient is going to need to continue immunotherapy, or watch for disease projection, they are quite anxious about upcoming plan, scheduled to go to [facility] on 08/14, will reach out to Dr. Zarate in meantime. 4. Surgical wound. Cleansed area with normal saline, applied Mepilex foam dressing, instructed change every 2 days, until no longer draining. verbalized understanding, dressings left. 5. Constipation. Patient has had intermittent constipation, no BM today, instructed to restart MiraLAX at half capful daily for regular bowel movements. 6. Generalized weakness. Patient to start physical therapy with [facility] on Tuesday, does have home exercises, reviewed with encouraged to continue progressive ambulation, and integrate exercises through the weekend, with many questions regarding into the future. Can be transition to outpatient therapy, or would be a good candidate for cardiac rehab given his underlying cardiac disease. 7. Advanced care planning. It was pretty harrowing for all the family, as patient did have significant delirium, he has come through it. There all feeling quite hopeful, unclear if patient ever finished his advance care planning document, will explore at next visit. 60 minutes with greater 50% of this done in counseling regarding pain and symptom management, management of wound, coordination of care with home health and oncology as well as anticipatory guidance.
== END 2020-07-31 15:16 | disposition home or self-care (01) ==
LOC: PC 15:15
PROVIDERS: ATTEND Nurse Practitioner Adult Health
DX: Z51.5 Encounter for palliative care (principal); C64.2 Malignant neoplasm of left kidney, except renal pelvis; G62.0 Drug-induced polyneuropathy; T45.1X5A Adverse effect of antineoplastic and immunosuppressive drugs, initial encounter; I11.0 Hypertensive heart disease with heart failure; I50.9 Heart failure, unspecified; I43 Cardiomyopathy in diseases classified elsewhere; I48.91 Unspecified atrial fibrillation; G47.30 Sleep apnea, unspecified; E11.42 Type 2 diabetes mellitus with diabetic polyneuropathy; E03.9 Hypothyroidism, unspecified; E27.40 Unspecified adrenocortical insufficiency; H91.90 Unspecified hearing loss, unspecified ear; C78.00 Secondary malignant neoplasm of unspecified lung; C77.2 Secondary and unspecified malignant neoplasm of intra-abdominal lymph nodes; E66.9 Obesity, unspecified; R35.0 Frequency of micturition; F32.9 Major depressive disorder, single episode, unspecified; F41.9 Anxiety disorder, unspecified; Z74.09 Other reduced mobility; R53.1 Weakness; K59.00 Constipation, unspecified; Z90.5 Acquired absence of kidney; Z86.73 Personal history of transient ischemic attack (TIA), and cerebral infarction without residual deficits; Z79.899 Other long term (current) drug therapy
CPT/HCPCS: 99350

== ENCOUNTER 2020-08-12 09:18 | Outpatient (CLI) | payer MEDICARE, OTHER ==
[2020-08-12 09:37] LABS: BASOPHILS # (AUTO) 0.1 10^3/uL (0.0-0.1); BASOPHILS % (AUTO) 1.2 %; EOSINOPHILS # (AUTO) 0.8 10^3/uL (0.0-0.7); EOSINOPHILS % (AUTO) 7.3 %; HCT - HEMATOCRIT 34.9 % (42.0-52.0); HGB - HEMOGLOBIN 11.2 g/dL (14.0-18.0); LYMPHOCYTES # (AUTO) 0.9 10^3/uL (1.5-3.5); LYMPHOCYTES % (AUTO) 8.6 %; MEAN CORPUSCULAR HGB CONC 32.1 g/dL (32.0-36.0); MEAN CORPUSCULAR VOLUME 87.3 fL (80.0-94.0); MEAN PLATELET VOLUME 10.8 fL (7.4-11.4); MONOCYTES # (AUTO) 0.7 10^3/uL (0.0-1.0); NEUTROPHILS # (AUTO) 7.9 10^3/uL (1.5-6.6); NEUTROPHILS % (AUTO) 75.3 %; PLT - PLATELET COUNT 365 10^3/uL (130-450); WHITE BLOOD COUNT 10.5 x10^3/uL (4.8-10.8)
[2020-08-12 09:58] LABS: ALBUMIN 3.8 g/dL (3.2-5.5); BILIRUBIN,DIRECT 0.2 mg/dL (0.1-0.5); BILIRUBIN,TOTAL 0.6 mg/dL (0.2-1.0); CALCIUM 9.1 mg/dL (8.5-10.3); CREATININE 1.6 mg/dL (0.6-1.2); POTASSIUM 4.3 mmol/L (3.5-5.0)
== END 2020-08-12 09:19 | disposition home or self-care (01) ==
LOC: LAB 09:18
PROVIDERS: ATTEND Nurse Practitioner Adult Health
DX: C64.9 Malignant neoplasm of unspecified kidney, except renal pelvis (principal); Z79.899 Other long term (current) drug therapy
CPT/HCPCS: 36415; 80048; 80076; 83615; 85025

== ENCOUNTER 2020-08-13 14:45 | Outpatient (CLI) | payer MEDICARE, OTHER ==
--- NOTE | 2020-08-13 17:04 | CONSULTATION NOTE ---
Palliative Care Follow Up - Referral Referring Provider: Dr. 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 He recently had a nephrectomy, as you had been bleeding from his kidney mass, originally was not a candidate because of his underlying comorbidities of obesity and cardiac issues of CHF and atrial fib. Unfortunately he had a fairly rough course which triggered delirium, as similar to his previous hospitalization, unknown if this is related to adrenal crisis, drug withdrawal or consequence of anesthesia. He has continued to recover. I saw him on 07/31 he said he was about 10%, today he reports he is at about 65%. Patient's surgical incisions are all healed, no signs or symptoms of infection, abdomen is soft to palpation without any pain. His strength is recovering, he is no longer needing to use a walker. He continues though to have significant short-term memory issues, unfortunately his is out of town for the week, and tends to be very lax days a call in his follow-up with providers. For the most part he "forgets". He has not seen Dr. Brown in follow-up, as he missed his telehealth visit, he was also scheduled for immunotherapy this week, but had canceled that given his 's trip and his recovering from surgery. Unfortunately at this point he still has not rescheduled, nor has he followed up with Dr. Tracy regarding his need for anticoagulation now that he has had his nephrectomy. I did call the oncology clinic and arrange for him to have his labs. His BUN is 44, creatinine 1.6, and GFR 43. His other labs are unremarkable, other hemoglobin 11.2 hematocrit 34.9, and LDH of 226. Patient has had an exacerbation in his peripheral neuropathy, this does limit his ability for ambulation. He does seem a little less distressed from last visit I suspect he had some PTSD from his hospital stay, but still has difficulty tracking overall. He is quite hopeful with the removal of the kidney, he will have both prolonged quality as well as quantity of life. It is unclear if he is going to need to continue immunotherapy, he is hoping he will be considered in "remission". 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 They do have 4 children, who are very supportive and caring for their parents. Medications/Allergies - Medications Home Medications: Ambulatory Orders Medication Instructions Recorded Confirmed Furosemide 40 mg PO DAILY PRN 02/25/20 07/31/20 Spironolactone [Aldactone] 12.5 mg PO 1200 tablet 02/28/20 07/31/20 Isosorbide Mononitrate ER [Imdur] 30 mg PO DAILY 03/03/20 07/31/20 Levothyroxine Sodium [Euthyrox] 100 mcg PO QDAC 03/19/20 07/31/20 Metoprolol Succinate [Toprol Xl] 100 mg PO DAILY 03/19/20 07/31/20 hydrALAZINE [Apresoline] 25 mg PO TID 03/19/20 07/31/20 Hydrocortisone [Cortef] 5 mg PO .3TABS AM 1 TAB 1400 03/20/20 07/31/20 Pregabalin [Lyrica] 50 mg PO BID 04/09/20 07/31/20 Senna [Senokot] 1 - 2 tab PO DAILY PRN 04/21/20 07/31/20 polyethylene glycoL 3350 [Miralax] 17 gm PO DAILY PRN 04/21/20 07/31/20 Fluticasone [Flonase] 1 inh INH DAILY PRN 05/15/20 06/07/20 Triamcinolone Acetonide 0.1% 1 applic TOP DAILY MDD on two 05/27/20 07/31/20 [Triamcinolone Acetonide] weeks;off one Prochlorperazine Maleate 5 - 10 mg PO Q6HR PRN 06/07/20 07/31/20 [Compazine] Tamsulosin [Flomax] 0.4 mg PO DAILY 06/07/20 07/31/20 - Allergies Allergies/Adverse Reactions: Allergies Allergy/AdvReac Type Severity Reaction Status Date / Time atorvastatin [From Lipitor] Allergy Unknown Verified 06/04/20 21:30 Review of Systems - Constitutional Constitutional: reports: Fatigue (persistent; patient continues to sleep poorly), Weakness (feels he is 65%), Weight stable - Eyes Eyes: reports: Vision loss - Ears, Nose & Throat Ears, Nose & Throat: reports: Hearing loss, Nasal congestion, Dry mouth - Cardiovascular Cardiovascular: reports: Irregular heart rate, Exertional dyspnea, Decr. exercise tolerance - Respiratory Respiratory: reports: SOB with exertion. denies: Cough, Wheezing, SOB at rest - Gastrointestinal Gastrointestinal: reports: Abdominal distention, Bloating, Good appetite. denies: Constipation, Nausea, Reflux/heartburn - Genitourinary Genitourinary: reports: Frequency, Other (diff starting stream) - Musculoskeletal Musculoskeletal: reports: Muscle aches, Stiffness, Limited range of motion, Muscle weakness, Joint pain - Integumentary Integumentary: reports: Rash, Pruritis, Dryness, Other (surgical wound) - Neurological Neurological: reports: General weakness, Numbness, Memory problems - Psychiatric Psychiatric: reports: Depression, Anxiety, Other (delerium in hospital) - Endocrine Endocrine: reports: Diabetes type 2 (reports has been okay; not using insulin currently;), Hypothyroidism, Intolerance to cold, Other (adrenal insufficiency) - All Other Systems All Other Systems: reports: Reviewed and negative Physical Exam - Vital Signs Temperature: 97.0 C Pulse Rate: 72 Respiratory Rate: 18 O2 Saturation: 97 (ra @ rest) Blood Pressure: 122/74 - Physical Exam General Appearance: positive: No acute distress, Alert Eyes Bilateral: positive: Normal inspection ENT: positive: No signs of dehydration Neck: positive: Trachea midline Cardiovascular: positive: Irregularly irregular Respiratory: positive: No respiratory distress, Breath sounds nml, Diminished in bases. negative: Wheezes Abdomen: positive: Non-tender, Soft, Nml bowel sounds, Other (mild increase in distension LLQ compared to right; where surgical site is) Skin: positive: Pallor, Dryness, Pruritis, Rash, Wound (surgical incisions all healed; dry eschar remaining; no s/s infection) Extremities: positive: Pedal edema (trace ankle; reports took 20 mg furosemide yesterday feeling edema worse; improved today), Other (mild tremors) Neurologic/Psychiatric: positive: Oriented x3, Mood/affect nml, Weakness, Flat affect, Other (had spoken to patient remembered to get labs yesterday; forgot I was coming in follow up today) Palliative Care - POLST Patient has POLST: No Pain: Pain worsening, Location (feet), Severity (12/02), Comment (pregablin decreased to 50 mg BID (from TID) since hospitalization; pain worse- awaiting final direction from surgeon regarding expectations of kidney function ( do not have comparison from [facility])) Tiredness/Fatigue: Severe (7-10) Drowsiness/Sedation: Moderate (4-6), Comment (sleeping poorly) Nausea: None Anorexia: Moderate (4-6) Dyspnea: Mild (1-3) Depression: Moderate (4-6) Anxiety: Mild (1-3) Feelings of wellbeing/Perceived Quality of Life: Fair, Acceptable, Improved Sleep: Sleeps poorly Constipation: Yes, Intermittent constipation Performance Status: Patient's balance is impacted by his peripheral neuropathy, gait is shuffled and somewhat ataxic. He denies having any falls, is not using his walker for balance. He does have some difficulty getting from sitting to standing, is able to manage his own ADLs. He does complain of fatigue that is interfering with his activity tolerance. - Palliative Care Discussion: Patient is feeling hopeful that his future will continue to improve, he has not had any follow-up with any providers at this point in time. We did discuss in the context of his overall health, he needs to follow-up with Dr. Brown, Dr. Zarate regarding next face for treatment or follow-up, as well as Dr. Tracy for management of his atrial fib and anticoag. He does struggle with his short-term memory issues regarding following through on things, his gets quite frustrated with him, he wants to wait until on her return. His biggest impact on his quality life at this point time remains his painful neuropathy. Results - Lab Results Lab results reviewed: Yes Impression and Recommendations - Palliative Care Impression: This is a 65-year-old gentleman with metastatic clear-cell renal carcinoma, status post nephrectomy, with hospital complications of delirium, functional decline and weakness. Patient is improving, has not had a follow-up with any of his providers, patient's labs show persistent kidney dysfunction, unclear what expected baseline will be. Patient continues to be impacted by insomnia, severe peripheral neuropathy, ataxic gait, as well as memory problems. Palliative care providing support regarding coordination of care, follow-up regarding pain and symptom management issues, as well as anticipatory guidance Recommendations/Counseling Done: 1. Atrial fib. Patient continues with atrial fib, is currently on no anticoag. Patient has had stroke in the past, remains at high risk. Will follow up with Dr. Tracy regarding recommendations, but most likely needs to be cleared by Dr. Brown first. Will reach out and see if can facilitate reconciling answer. 2. CI PN. Patient was discharged on decreased pregabalin, is currently taking 50 mg twice a day, his kidney function is still compromised, but most likely would be able to tolerate his previous dose of 150 mg total in 24 hours. His pain had been fairly well managed prior to his restart of immunotherapy on this dose, still awaiting answer back from Dr. Zarate regarding plan for treatment, patient with immunotherapy SE of Adrenal insufficiency, hypothyroidism, rash, and worsening peripheral neuropathy. Patient also presents with myalgias and arthralgias suspect attributed or exacerbated by treatment. 3. Metastatic clear-cell renal carcinoma. Patient is unclear of ongoing plan, as has not met with Dr. Zarate. Patient had not followed up with Dr. Zarate in rescheduling visits, recommended reschedule as soon as possible given his overall treatment plan. 4. Surgical wounds. Patient well-healed from status post nephrectomy, no signs or symptoms of infection, no longer needs dressings. 5. Generalized weakness. Patient has been participating with physical therapy through [facility], he is currently able to ambulate without walker, though with his neuropathies he is at high risk for falls. His patient's pain but is better controlled, would recommend transitioning to outpatient therapy and consider even cardiac rehab. 30 minutes with greater than 50% of this done in counseling regarding need for further follow-up with oncology and cardiology, unfortunately is gone, son present, patient with visitors was unable to explore further patient's goals of care. Will reach out to cardiology and oncology regarding recent labs and recommendations.
== END 2020-08-13 14:46 | disposition home or self-care (01) ==
LOC: PC 14:45
PROVIDERS: ATTEND Nurse Practitioner Adult Health
DX: Z51.5 Encounter for palliative care (principal); I48.91 Unspecified atrial fibrillation; G62.0 Drug-induced polyneuropathy; T45.1X5D Adverse effect of antineoplastic and immunosuppressive drugs, subsequent encounter; C64.2 Malignant neoplasm of left kidney, except renal pelvis; C78.00 Secondary malignant neoplasm of unspecified lung; C77.2 Secondary and unspecified malignant neoplasm of intra-abdominal lymph nodes; R53.1 Weakness; G47.00 Insomnia, unspecified; E66.9 Obesity, unspecified; I11.0 Hypertensive heart disease with heart failure; I50.9 Heart failure, unspecified; E27.40 Unspecified adrenocortical insufficiency; Z90.5 Acquired absence of kidney
CPT/HCPCS: 99348

== ENCOUNTER 2020-09-02 19:03 | Emergency (ER) | payer MEDICARE, OTHER ==
--- OUTSIDE RECORDS SUMMARY | 2020-09-02 19:07 | EXTERNAL MEDICAL SUMMARY RPT | Continuity of Care Document ---
:1955 Demographics Phone Unavailable Preferred Language Unknown Marital Status Unknown Anglican Affiliation Unknown Race Unknown Ethnic Group Unknown Author Organization [place] Address [address] [place] [address] Phone Problems date description facility [id number] Malignant neoplasm of left kidney, [facility] except renal pelvis
--- OUTSIDE RECORDS SUMMARY | 2020-09-02 19:25 | EXTERNAL MEDICAL SUMMARY RPT | Continuity of Care Document ---
:1955 Demographics Phone Unavailable Preferred Language Unknown Marital Status Unknown Samaritan Affiliation Unknown Race Unknown Ethnic Group Unknown Author Organization [place] Address [address] [place] [address] Phone Problems date description facility [id number] Malignant neoplasm of left kidney, [facility] except renal pelvis
[2020-09-02] MEDS ORDERED: PSEUDOEPHEDRINE 30 MG TABLET PO STA (19:41)
--- NOTE | 2020-09-02 20:14 | ED Physician Documentation ---
History of Present Illness - Stated complaint Stated Complaint: HEAD CONGESTION - Chief complaint Chief Complaint: Heent - History obtained from History obtained from: Patient - History of Present Illness Timing: How many days ago (3) Pain level max: 1 Pain level now: 1 - Additonal information Additional information: 65-year-old male states he has had nasal congestion for the past 3 days. No fever. No chills. No sore throat. Nothing makes it better or worse. Has been using Afrin regularly. Tried Claritin and Flonase without relief. No cough. Review of Systems Constitutional: denies: Fever, Chills Nose: reports: Congestion. denies: Epistaxis, Sinus pressure / pain Respiratory: denies: Cough GI: denies: Nausea, Vomiting, Diarrhea Skin: denies: Rash PD PAST MEDICAL HISTORY - Past Medical History Past Medical History: Yes Cardiovascular: Congestive heart failure, Hypertension, Atrial fibrillation, Valve disorder, Other Respiratory: Shortness of breath, Sleep apnea Neuro: CVA, Peripheral neuropathy, Tremors Endocrine/Autoimmune: Type 2 diabetes GI: Colon polyps : Other HEENT: None Psych: Depression, Anxiety Musculoskeletal: Osteoarthritis, Fatigue Derm: None - Past Surgical History Past Surgical History: Yes General: Colonoscopy Ortho: Knee replacement, Arthroscopic surgery, Other - Present Medications Home Medications: Ambulatory Orders Medication Instructions Recorded Confirmed Furosemide 40 mg PO DAILY PRN 02/25/20 07/31/20 Spironolactone [Aldactone] 12.5 mg PO 1200 tablet 02/28/20 07/31/20 Isosorbide Mononitrate ER [Imdur] 30 mg PO DAILY 03/03/20 07/31/20 Levothyroxine Sodium [Euthyrox] 100 mcg PO QDAC 03/19/20 07/31/20 Metoprolol Succinate [Toprol Xl] 100 mg PO DAILY 03/19/20 07/31/20 hydrALAZINE [Apresoline] 25 mg PO TID 03/19/20 07/31/20 Hydrocortisone [Cortef] 5 mg PO .3TABS AM 1 TAB 1400 03/20/20 07/31/20 Pregabalin [Lyrica] 50 mg PO BID 04/09/20 07/31/20 Senna [Senokot] 1 - 2 tab PO DAILY PRN 04/21/20 07/31/20 polyethylene glycoL 3350 [Miralax] 17 gm PO DAILY PRN 04/21/20 07/31/20 Fluticasone [Flonase] 1 inh INH DAILY PRN 05/15/20 06/07/20 Triamcinolone Acetonide 0.1% 1 applic TOP DAILY MDD on two 05/27/20 07/31/20 [Triamcinolone Acetonide] weeks;off one Prochlorperazine Maleate 5 - 10 mg PO Q6HR PRN 06/07/20 07/31/20 [Compazine] Tamsulosin [Flomax] 0.4 mg PO DAILY 06/07/20 07/31/20 Cetirizine HCl/Pseudoephedrine 1 each PO BID PRN #30 ea 09/02/20 [Zyrtec-D Tablet] - Allergies Allergies/Adverse Reactions: Allergies Allergy/AdvReac Type Severity Reaction Status Date / Time atorvastatin [From Lipitor] Allergy Unknown Verified 06/04/20 21:30 - Social History Does the pt smoke?: No Smoking Status: Never smoker Does the pt drink ETOH?: No Does the pt have substance abuse?: No - Immunizations Immunizations are current?: Yes - POLST Patient has POLST: No POLST Status: DNR PD ED PE NORMAL - Vitals Vital signs reviewed: Yes - General General: Alert and oriented X 3, No acute distress - HEENT HEENT: Ears normal, Moist mucous membranes, Pharynx benign, Other (Swollen nasal turbinates) - Neck Neck: Supple, no meningeal sign - Cardiac Cardiac: RRR - Respiratory Respiratory: No respiratory distress, Clear bilaterally - Derm Derm: Warm and dry - Neuro Neuro: Alert and oriented X 3 Results - Vitals Vitals: Vital Signs - 24 hr 09/02/20 09/02/20 19:09 20:44 Temperature 36.8 C Heart Rate 64 60 Respiratory 18 16 Rate Blood Pressure 140/79 H 123/77 O2 Saturation 98 98 Oxygen O2 Source [With Activity] Room air O2 Source [Without Activity] Room air O2 Source Room air PD MEDICAL DECISION MAKING - ED course Complexity details: considered differential, d/w patient ED course: 65-year-old male with nasal congestion. Given pseudoephedrine and is able to breathe through his nose better. Recommend that he stop using the Afrin as this could be rebound congestion from overuse. No indication for antibiotics. Does not appear to be a sinus infection. No fever. Patient counseled regarding signs and symptoms for which I believe and urgent re-evaluation would be necessary. Patient with good understanding of and agreement to plan and is comfortable going home at this time This document was made in part using voice recognition software. While efforts are made to proofread this document, sound alike and grammatical errors may occur. Departure - Departure Disposition: 01 Home, Self Care Clinical Impression: Sinus congestion Condition: Good Instructions: ED URI Viral Follow-Up: Alban Connor MD [Primary Care Provider] - Within 3 Days Prescriptions: Cetirizine HCl/Pseudoephedrine [Zyrtec-D Tablet] 1 each PO BID PRN #30 ea PRN Reason: nasal congestion Comments: We will start you on a decongestant and have you follow-up with your doctor for further care. You can use Afrin, but do not use this longer than 3 days. Return if you worsen. Discharge Date/Time: 09/02/20 21:24
[2020-09-02 20:44] VITALS: BP 123/77
== END 2020-09-02 21:24 | disposition home or self-care (01) ==
LOC: ED 19:03
DX: R09.81 Nasal congestion (principal); I11.0 Hypertensive heart disease with heart failure; I50.9 Heart failure, unspecified; E11.42 Type 2 diabetes mellitus with diabetic polyneuropathy; Z66 Do not resuscitate
CPT/HCPCS: 99282; 99284; A9270

== ENCOUNTER 2020-10-21 07:06 | Outpatient (CLI) | payer MEDICARE, OTHER | END 2020-10-21 07:07 | disposition home or self-care (01) | LOC: DI 07:06 | PROVIDERS: ATTEND Internal Medicine Cardiovascular Disease | DX: I48.91 Unspecified atrial fibrillation (principal); I10 Essential (primary) hypertension; I11.9 Hypertensive heart disease without heart failure; I28.1 Aneurysm of pulmonary artery; I87.8 Other specified disorders of veins | CPT/HCPCS: 93306 ==

== ENCOUNTER 2020-11-07 12:30 | Outpatient (CLI) | payer MEDICARE, OTHER ==
[2020-11-07 13:08] LABS: CALCIUM 9.1 mg/dL (8.5-10.3); CREATININE 1.8 mg/dL (0.6-1.2); POTASSIUM 4.6 mmol/L (3.5-5.0)
== END 2020-11-07 12:31 | disposition home or self-care (01) ==
LOC: LAB 12:30
PROVIDERS: ATTEND Physician Assistant Medical
DX: C64.9 Malignant neoplasm of unspecified kidney, except renal pelvis (principal)
CPT/HCPCS: 36415; 80048

== ENCOUNTER 2020-11-25 08:04 | Outpatient (CLI) | payer MEDICARE, OTHER ==
[2020-11-25 08:35] LABS: CREATININE 1.7 mg/dL (0.6-1.2); POTASSIUM 4.1 mmol/L (3.5-5.0)
== END 2020-11-25 08:05 | disposition home or self-care (01) ==
LOC: LAB 08:04
PROVIDERS: ATTEND Physician Assistant Medical
DX: C64.9 Malignant neoplasm of unspecified kidney, except renal pelvis (principal)
CPT/HCPCS: 36415; 80048

== ENCOUNTER 2020-12-17 14:50 | Outpatient (CLI) | payer MEDICARE, OTHER ==
[2020-12-17 15:09] LABS: CALCIUM 8.9 mg/dL (8.5-10.3); CREATININE 1.7 mg/dL (0.6-1.2); POTASSIUM 4.5 mmol/L (3.5-5.0)
== END 2020-12-17 14:51 | disposition home or self-care (01) ==
LOC: LAB 14:50
PROVIDERS: ATTEND Internal Medicine Medical Oncology
DX: C64.2 Malignant neoplasm of left kidney, except renal pelvis (principal)
CPT/HCPCS: 36415; 80048

== ENCOUNTER 2020-12-19 14:00 | Outpatient (CLI) | payer MEDICARE, OTHER ==
--- NOTE | 2020-12-19 17:31 | CONSULTATION NOTE ---
Palliative Care Follow Up - Referral Referring Provider: Dr. 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 He is recovering from his surgery, though he had a fairly rough course with delirium, adrenal crisis, and drug withdrawal and consequences of anesthesia. He is feeling much better, and has followed up in the meantime with oncology. There is concern patient having immunotherapy side effects of skin rash, at this point in time his nivolumab remains on hold and he will have a new CT scan in December. He is quite pleased with this, but continues with persistent chemotherapy-induced peripheral neuropathy and fatigue. Patient's other issue is his comorbidities of left ventricular dysfunction, CHF, had been recently started in October on statin, and when he saw the provider in August, was supposed to have started on apixaban for his atrial fib. Unfortunately patient has very poor memory, does not remember conversation regarding the Eliquis though vaguely now that I am reviewing the note from 09/04/[address] Tracy, he does, does not remember having conversation about the Watchman device, and is unclear when he had started the at atrovastatin which is interesting as it is an allergy on his medication list from May 2020. gets quite frustrated with patient, as he is not a person who pays attention to details. She has been traveling a lot because of health issues with her parents, her father has since , and patient has most recently taken over managing his meds. Unfortunately he does just take meds from the bottles, from no main list. She is requesting we reviewed the meds and establish a baseline list. 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 They do have 4 children who are quite supportive and caring for their parents Medications/Allergies - Medications Home Medications: Ambulatory Orders Medication Instructions Recorded Confirmed Furosemide 40 mg PO .2 X WEEK PRN 02/25/20 12/19/20 Spironolactone [Aldactone] 12.5 mg PO 1200 tablet 02/28/20 12/19/20 Isosorbide Mononitrate ER [Imdur] 30 mg PO DAILY 03/03/20 12/19/20 Levothyroxine Sodium [Euthyrox] 100 mcg PO QDAC 03/19/20 12/19/20 Metoprolol Succinate [Toprol Xl] 100 mg PO DAILY 03/19/20 12/19/20 hydrALAZINE [Apresoline] 25 mg PO TID 03/19/20 12/19/20 Hydrocortisone [Cortef] 5 mg PO .3TABS AM 1 TAB 1400 03/20/20 12/19/20 Pregabalin [Lyrica] 50 mg PO TID MDD 4 th pill am or 04/09/20 12/19/20 noon polyethylene glycoL 3350 [Miralax] 17 gm PO DAILY PRN 04/21/20 12/19/20 Fluticasone [Flonase] 1 inh INH DAILY PRN 05/15/20 12/19/20 Triamcinolone Acetonide 0.1% 1 applic TOP DAILY MDD on two 05/27/20 12/19/20 [Triamcinolone Acetonide] weeks;off one Prochlorperazine Maleate 5 - 10 mg PO Q6HR PRN 06/07/20 12/19/20 [Compazine] Tamsulosin [Flomax] 0.4 mg PO DAILY 06/07/20 12/19/20 Cetirizine HCl/Pseudoephedrine 1 each PO BID PRN #30 ea 09/02/20 12/19/20 [Zyrtec-D Tablet] Apixaban [Eliquis] 5 mg PO BID 12/19/20 12/19/20 Atorvastatin Calcium 40 mg PO DAILY 12/19/20 12/19/20 - Allergies Allergies/Adverse Reactions: Allergies Allergy/AdvReac Type Severity Reaction Status Date / Time No Known Drug Allergies Allergy Verified 12/19/20 17:56 Review of Systems - Constitutional Constitutional: reports: Fatigue (persistent; mild improvement only; influenced by sleep), Weakness, Weight gain (patient eating more up to 238 from low of 211) - Eyes Eyes: reports: Vision loss - Ears, Nose & Throat Ears, Nose & Throat: reports: Hearing loss (to get referral to audiology), Nasal congestion, Postnasal drainage, Dry mouth - Cardiovascular Cardiovascular: reports: Irregular heart rate, Exertional dyspnea, Decr. exercise tolerance - Respiratory Respiratory: reports: SOB with exertion. denies: Cough, Wheezing, SOB at rest - Gastrointestinal Gastrointestinal: reports: Abdominal distention, Bloating, Good appetite. denies: Constipation, Nausea, Reflux/heartburn - Genitourinary Genitourinary: reports: Frequency, Other (diff starting stream) - Musculoskeletal Musculoskeletal: reports: Muscle aches, Stiffness, Limited range of motion, Muscle weakness, Joint pain - Integumentary Integumentary: reports: Rash, Pruritis, Dryness - Neurological Neurological: reports: General weakness, Numbness, Memory problems - Psychiatric Psychiatric: reports: Depression, Anxiety - Endocrine Endocrine: reports: Diabetes type 2 (reports has been okay; not using insulin currently;), Hypothyroidism, Intolerance to cold, Other (adrenal insufficiency) - All Other Systems All Other Systems: reports: Reviewed and negative Physical Exam - Vital Signs Temperature: 97.0 C Pulse Rate: 67 Respiratory Rate: 18 O2 Saturation: 98 (ra @ rest) Blood Pressure: 108/74 - Physical Exam General Appearance: positive: No acute distress, Alert Eyes Bilateral: positive: Normal inspection ENT: positive: No signs of dehydration Neck: positive: Trachea midline Cardiovascular: positive: Irregularly irregular Respiratory: positive: No respiratory distress, Breath sounds nml, Diminished in bases. negative: Wheezes Abdomen: positive: Non-tender, Soft, Nml bowel sounds Skin: positive: Pallor, Dryness, Pruritis (almost resolved), Rash (faded; few scabbed areas), Wound (surgical incisions all healed; dry eschar remaining; no s/s infection) Extremities: positive: Pedal edema (trace ankle; reports took 20 mg furosemide yesterday feeling edema worse; improved today), Other (mild tremors) Neurologic/Psychiatric: positive: Oriented x3, Mood/affect nml, Weakness, Flat affect, Other (memory continues to be challenging) Palliative Care - POLST Patient has POLST: No POLST Status: Full Code Pain: Pain unchanged, Location (feet; left knee; legs), Severity (7/10), Comment (fluctuates as far as intensity; no triggering events noted; pain worse in day when active;) Tiredness/Fatigue: Severe (7-10) Drowsiness/Sedation: Moderate (4-6) Nausea: Mild (1-3) (intermittent) Anorexia: Mild (1-3) Dyspnea: Mild (1-3) Depression: Mild (1-3) Anxiety: Mild (1-3) Feelings of wellbeing/Perceived Quality of Life: Good, Acceptable, Improved Sleep: Variable sleep pattern Constipation: Yes, Managed, Intermittent constipation Performance Status: Patient's performance status continues to be quite poor, is ambulatory around the house. Is only taken when short walk with his . He had had home health PT and has not done any of his exercises he was assigned, is not interested in outpatient referral. He is limited both by pain, fatigue, and now his left knee discomfort. He does need some assistance with a few ADLs support things but otherwise is managing independently and driving again. - Palliative Care Discussion: Patient is very pleased with his current "remission", continues with very little insight into the severity of his forgetfulness and impact on his care. gets quite frustrated with him, and with multiple specialists it is hard to track. She has many stressors with her parents these last few weeks to months. 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 Reports he is motivated to focus on his health again, and will look at addressing his weight. Results - Lab Results Lab results reviewed: Yes Lab and Imaging Results: Patient's labs improved from his cancer visit, kidney function continues to be compromised with BUN of 31, creatinine 1.7, GFR 40, his glucose was 138 but this was not fasting. Impression and Recommendations - Palliative Care Impression: Is a 65-year-old gentleman with known metastatic clear-cell renal carcinoma, status post nephrectomy and currently on surveillance for his cancer diagnosis. He has been deemed in "remission". Patient continues to have persistent kidney dysfunction, though has improved from his last appointment. Patient symptom burden continues fairly high impacted by fatigue, peripheral neuropathy in his feet, and generalized weakness. Patient continues have fluctuating trouble with sleep. Palliative care providing support regarding coordination of care, follow-up regarding pain and symptom management issues, and anticipatory guidance Recommendations/Counseling Done: 1. Atrial fib. Patient had been directed to Dr. Tracy to meet and consider restarting his anticoag, he had had an appointment but unfortunately has not received the medication or remembers the information. In review of patient's records, he was to have started apixaban 5 mg twice daily, Rx sent to [facility], they have been having difficulty with the pharmacy. Reviewed signs and symptoms to be concerned as far as side effects of bleeding. Acknowledged understanding. 2. CI PN. Patient continues with fluctuating levels of pain, is currently taking pregabalin 50 mg 3 times daily, had added extra dose for worsening pain, and discussing strategies, patient had been taking extra dose at night, given patient's worst pain is the middle of the day, will change that to his 2:00 dosing. Recommended adding also topical of CBD ointment. 3. Generalized weakness. Patient continues to be quite sedentary, has declined outpatient therapy. Patient reports deterrent has also his new left knee pain, worse with weightbearing. No effusion noted he has a ataxic gait at baseline, though does seem to be moving better today. Counseling provided again regarding progressive ambulation, encouraged to consider a peddler, as well as revisit physical therapy referral. 4. Metastatic clear-cell renal carcinoma, currently in remission. Patient has seen provider, given concerns for immunotherapy side effect of rash, currently nivolumab on hold. Will be receiving scans in December, encouraged to continue to focus on lifestyle and healthy behaviors. 5. Weight gain. Patient admits to increase caloric intake, and not watching diet. Instructed to restart watching his glucose, patient was able to lose large amount of weight before, reviewed his previous strategy and encouraged to focus on weight loss again. Particularly given the increased pain in his knees, as well as would most likely benefit pain in his feet as well. Patient verbalized understanding and has made a commitment to move forward on this. 6. Medication adherence. Patient continues to struggle with managing medications, tracking appointments, instructions, remembering information provided. Review of notes from physicians with patient and . often does not go with patient and finds it very frustrating with all the specialists and trying to negotiate plan of care. Updated medication list reviewed and corrected patient was taking hydralazine wrong, ordered apixaban. Patient is using Mediset's encouraged to double check with list. 7. Advanced care planning. Patient's short-term goals are to lose weight, increase his activity, and enjoy the time off treatment. Patient is hopeful for long-term remission, finds his florencio of good support, will continue to see patient to palliative care every 2 to 3 months unless other issues arise. 60 minutes with greater than 50% of this done in counseling regarding medication and medication adherence, symptom management, anticipatory guidance, and coordination of care
== END 2020-12-19 14:01 | disposition home or self-care (01) ==
LOC: PC 14:00
PROVIDERS: ATTEND Nurse Practitioner Adult Health
DX: Z51.5 Encounter for palliative care (principal); R53.83 Other fatigue; G62.0 Drug-induced polyneuropathy; T45.1X5S Adverse effect of antineoplastic and immunosuppressive drugs, sequela; R41.3 Other amnesia; R53.1 Weakness; I48.91 Unspecified atrial fibrillation; R21 Rash and other nonspecific skin eruption; E11.9 Type 2 diabetes mellitus without complications; M25.562 Pain in left knee; R63.5 Abnormal weight gain; N28.9 Disorder of kidney and ureter, unspecified; R26.0 Ataxic gait; C64.2 Malignant neoplasm of left kidney, except renal pelvis; C78.00 Secondary malignant neoplasm of unspecified lung; C77.2 Secondary and unspecified malignant neoplasm of intra-abdominal lymph nodes; I11.0 Hypertensive heart disease with heart failure; I50.1 Left ventricular failure, unspecified; H91.90 Unspecified hearing loss, unspecified ear; Z79.4 Long term (current) use of insulin; Z79.899 Other long term (current) drug therapy; Z79.52 Long term (current) use of systemic steroids; Z91.14 Patient's other noncompliance with medication regimen; Z90.5 Acquired absence of kidney; Z92.21 Personal history of antineoplastic chemotherapy; Z86.73 Personal history of transient ischemic attack (TIA), and cerebral infarction without residual deficits
CPT/HCPCS: 99350

== ENCOUNTER 2021-03-27 09:30 | Outpatient (CLI) | payer MEDICARE, OTHER ==
--- NOTE | 2021-03-27 17:56 | CONSULTATION NOTE ---
Palliative Care Follow Up - Referral Referring Provider: Dr. 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 His original diagnosis was in April 2017. He had been having bleeding from his kidney mass, was originally not a candidate for nephrectomy because of his underlying comorbidities of obesity and cardiac issues of CHF and atrial fib, did have a complicated course with delirium but did recover. His left nephrectomy was on 07/23/[address] Brown, showed grade 3 clear cell renal carcinoma. Patient's immunotherapy and nivolumab has been held secondary to concern for dermatologic toxicity, had not been biopsy confirmed. He has been recently traveling, in [place], is awaiting follow-up with Dr. Zarate. He did have a CT scan that unfortunately showed changes of the left nephrectomy with soft tissue thickening along the resection site and had a follow-up PET scan that showed disease progression with multiple mildly hypermetabolic peritoneal soft tissue nodules, multiple foci of subdural increased intake along the bladder wall with consideration of the setting of cystitis. Patient has had multiple urinary issues, including retention history of a catheter, and hematuria previous to surgery. In oncology note it does look at possible radiation for local control, as well as systemic therapy of ipilimumab and nivolumab or Tyrosine Kinase inhibitor, but needed his follow-up with his echo. Patient is often challenged with follow-up on appointments, because of his mild cognitive impairment and difficulty with memory, his is assisting him with making calls today. Patient has gained back a significant amount of weight, he is up to 240, he had been sitting less than 220. When he was in [place], he had forgotten to fill his pregabalin, he did take his gabapentin, which he perceived worked better, though in review it was a higher dose than his pregabalin equal analgesic. He continues to struggle with severe peripheral neuropathy, worsened by weightbearing and walking. He also had an episode that landed him in urgent care, because he had overused his Flonase. He continues to struggle with persistent recurrent symptoms of sinusitis. He reports currently it is manageable, he does have difficult sleep-wake cycles, as well as fluctuating fatigue. He has had significant rash, does have areas where he has scratched raw, when he went to the urgent care, he did get a course of steroids with improvement as he had had welts at that point in time. Currently he has some residual, he is supposed to get a biopsy through Derm. They will try and get this appointment as well with the echo. I have worked with patient and his multiple times on medication adherence, patient has difficulty completing all the steps of ordering, filling his Mediset's, he tends to read from the bottles so there have been medication adjustments in the meantime. We reviewed his meds thoroughly with corrections, and will send them their updated medication list. 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 Patient and his have been for 40 years. 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 They do have 4 children who are quite supportive and caring of their parents. They are both overwhelmed having just gotten back from the trip, with multiple things to follow through on, have been forgetful, have set appointment twice and forgotten. Medications/Allergies - Medications Home Medications: Ambulatory Orders Medication Instructions Recorded Confirmed Spironolactone [Aldactone] 12.5 mg PO 1200 tablet 02/28/20 03/27/21 Isosorbide Mononitrate ER [Imdur] 30 mg PO DAILY 03/03/20 03/27/21 Levothyroxine Sodium [Euthyrox] 100 mcg PO QDAC 03/19/20 03/27/21 Metoprolol Succinate [Toprol Xl] 100 mg PO DAILY 03/19/20 03/27/21 hydrALAZINE [Apresoline] 50 mg PO TID 03/19/20 03/27/21 Hydrocortisone [Cortef] 5 mg PO .3TABS AM 1 TAB 1400 03/20/20 03/27/21 polyethylene glycoL 3350 [Miralax] 17 gm PO DAILY PRN 04/21/20 03/27/21 Fluticasone [Flonase] 1 inh INH DAILY PRN 05/15/20 03/27/21 Triamcinolone Acetonide 0.1% 1 applic TOP DAILY MDD on two 05/27/20 03/27/21 [Triamcinolone Acetonide] weeks;off one Prochlorperazine Maleate 5 - 10 mg PO Q6HR PRN 06/07/20 03/27/21 [Compazine] Tamsulosin [Flomax] 0.4 mg PO DAILY 06/07/20 03/27/21 Apixaban [Eliquis] 5 mg PO BID 12/19/20 03/27/21 Atorvastatin Calcium 40 mg PO DAILY 12/19/20 03/27/21 Cetirizine HCl [Zyrtec] 10 mg PO DAILY 03/27/21 03/27/21 Gabapentin [Neurontin] 300 mg PO TID MDD 1200 mg 03/27/21 03/27/21 - Allergies Allergies/Adverse Reactions: Allergies Allergy/AdvReac Type Severity Reaction Status Date / Time No Known Drug Allergies Allergy Verified 12/19/20 17:56 Review of Systems - Constitutional Constitutional: reports: Fatigue (persistent; mild improvement only; influenced by sleep), Weakness, Weight gain (patient eating more up to 240from low of 211) - Eyes Eyes: reports: Vision loss - Ears, Nose & Throat Ears, Nose & Throat: reports: Hearing loss (to get referral to audiology), Nasal congestion, Postnasal drainage, Dry mouth - Cardiovascular Cardiovascular: reports: Irregular heart rate, Exertional dyspnea, Decr. exercise tolerance - Respiratory Respiratory: reports: SOB with exertion. denies: Cough, Wheezing, SOB at rest - Gastrointestinal Gastrointestinal: reports: Abdominal distention, Bloating, Good appetite. denies: Constipation, Nausea, Reflux/heartburn - Genitourinary Genitourinary: reports: Frequency, Other (diff starting stream) - Musculoskeletal Musculoskeletal: reports: Muscle aches, Stiffness, Limited range of motion, Muscle weakness, Joint pain - Integumentary Integumentary: reports: Rash, Pruritis, Dryness - Neurological Neurological: reports: General weakness, Numbness, Memory problems - Psychiatric Psychiatric: reports: Depression, Anxiety - Endocrine Endocrine: reports: Diabetes type 2 (reports has been okay; not using insulin currently;), Hypothyroidism, Intolerance to cold, Other (adrenal insufficiency; recent cortisol level low) - Hematologic/Lymphatic Hematologic/Lymph: reports: Recurrent infections - All Other Systems All Other Systems: reports: Reviewed and negative Physical Exam - Vital Signs Temperature: 97 C Pulse Rate: 60 Respiratory Rate: 16 O2 Saturation: 97 Blood Pressure: 132/78 - Physical Exam General Appearance: positive: No acute distress, Alert Eyes Bilateral: positive: Normal inspection ENT: positive: No signs of dehydration Neck: positive: Trachea midline Cardiovascular: positive: Irregularly irregular Respiratory: positive: No respiratory distress, Breath sounds nml, Diminished in bases. negative: Wheezes Abdomen: positive: Non-tender, Soft, Nml bowel sounds Skin: positive: Pallor, Dryness, Pruritis (remains persistent), Rash (faded; few scabbed areas upper shoulder neck area) Extremities: positive: Other (mild tremors) Neurologic/Psychiatric: positive: Oriented x3, Mood/affect nml, Weakness, Flat affect, Other (memory continues to be challenging) Palliative Care - POLST Patient has POLST: No POLST Status: Full Code Pain: Pain improved (perceives improved on gabapentin (took 's when on vacation)), Location (feet), Severity (7/10), Pattern (fluctuates) Tiredness/Fatigue: Moderate (4-6) Drowsiness/Sedation: Moderate (4-6) Nausea: None (occasionl) Anorexia: None Dyspnea: Mild (1-3) Depression: Mild (1-3) Anxiety: Mild (1-3) Feelings of wellbeing/Perceived Quality of Life: Fair, Acceptable Sleep: Variable sleep pattern Constipation: No Performance Status: Patient's performance status continues to be quite poor, is ambulatory around the house. Had worked himself up to walking longer distances but this has declined. He remains limited both by his pain, fatigue, and intermittent left knee discomfort. He is independent though and does drive and attends to his own ADLs. - Palliative Care Discussion: Patient and are both disappointed at the reoccurrence, though they do understand there are some treatment options yet, though these will be palliative in nature. Reviewed again what metastatic diseases, in the context of health literacy. They remain quite challenged again to manage her medications, appointments, and follow-through. We did discuss in the context of his surgery though, the complications regarding hematuria and voiding and being able to be off his immunotherapy for a while were nice respite. Patient is grateful in the context of his original diagnosis was supposed to be your left, and he is going on almost 4 years now. We will continue to follow along with patient and for support, awaiting next treatment plan. Results - Lab Results Lab results reviewed: Yes Lab and Imaging Results: Labs all within normal limits except cortisol done on 01/13 was 3.3. Patient has not seen his licensed life and health agent, is on hydrocortisone for adrenal insufficiency and levothyroxine for hypothyroidism. Review requested they follow up with next appointment. Impression and Recommendations - Palliative Care Impression: This is a 66-year-old gentleman who presents with relapse of his metastatic renal cell carcinoma, awaiting treatment plan that may or may not include radiat ion, immunotherapy, or possible TKI. Patient continues to be challenged by medication management and adherence, follow through with appropriate medical appointments and support, currently presents with high symptom burden of his peripheral neuropathy. He did have a recent vacation to visit his son and [id number] which he enjoyed. Palliative care continue to provide support for patient and in helping to navigate his cancer journey. Recommendations/Counseling Done: 1. Medication adherence we reviewed how he was taking his medications, he does set up a Mediset, that was missing several as they had "run out". Patient had been out of pregabalin and not replaced, had used his 's gabapentin. Reinstructed again the dangers of stop starting Pregabalin/gabapentin, can cause withdrawals as patient has experienced in the past. Patient would like to trial gabapentin again, will provide equal analgesic dosing to pregabalin, initiated on 300 mg 3 times daily, can take fourth dose middle of the day for support or bedtime if needed. Ordered medications needed, and requested follow- up with appropriate physicians after this. Will send updated medication list so can continue to communicate this to his medical team. 2. Rash. This is multifactorial, has been attributed to his immunotherapy as a side effect. They had wanted to try and biopsy it, currently is settled down has not had immunotherapy since previous to his nephrectomy. He still though has a diffuse rash on his back, which he does scratching gets irritated with welts and exacerbations. Currently just dried lesions. Did recommend follow through on getting established with dermatology, so when has exacerbation or flare can get in and get appropriate biopsy as well as they may have other input on to underlying etiology. and patient agreed to. 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 3. Peripheral neuropathy. This continues to fluctuate, but is limiting as far as his activities and comfort level. Patient would like to trial gabapentin versus pregabalin with, though when switched from gabapentin [place] to pregabalin had better pain control. We will go ahead and initiate gabapentin 300 mg 3 times daily. Instructed patient to still trial to walk more, despite discomfort. Patient also instructed to follow-up with podiatry regarding better care of his feet. Patient with fungal nails, and multiple calluses. 4. Metastatic renal cell carcinoma. Patient now presents with progression, needing to restart therapy. Patient needing to complete echo to continue treatment planning. Requested patient follow-up with scheduling today. Encouraged again to continue to focus on lifestyle healthy behaviors, patient has had good weight loss in the past. Patient verbalized understanding. 5. Chronic sinusitis. Patient had over uses Flonase, ended up with a adverse reaction in [place]. Patient is currently using saline spray. Reviewed patient to use chronic antihistamine, Flonase 1 spray daily each nostril, and can use saline for discomfort. Patient has been offered ENT follow-up, will see how patient does and consider again in the future. 6. Advanced care planning. Patient short-term goals are to establish appointments needed to complete treatment planning, lose weight, and is quite disappointed with his progression of his disease. He did enjoy his short remission in time with family over the summer. We will continue to follow alongside and provide support for pain and symptom management, and particularly in medication adherence and navigating his treatment regimen. 60 minutes with greater than 50% of this done in counseling regarding medication adherence, pain and symptom management, and anticipatory guidance.
== END 2021-03-27 09:31 | disposition home or self-care (01) ==
LOC: PC 09:30
PROVIDERS: ATTEND Nurse Practitioner Adult Health
DX: Z51.5 Encounter for palliative care (principal); C64.9 Malignant neoplasm of unspecified kidney, except renal pelvis; R21 Rash and other nonspecific skin eruption; T45.1X5A Adverse effect of antineoplastic and immunosuppressive drugs, initial encounter; J32.9 Chronic sinusitis, unspecified; E11.42 Type 2 diabetes mellitus with diabetic polyneuropathy; I48.91 Unspecified atrial fibrillation; G47.30 Sleep apnea, unspecified; E66.9 Obesity, unspecified; G31.84 Mild cognitive impairment of uncertain or unknown etiology
CPT/HCPCS: 99350

== ENCOUNTER 2021-05-18 08:55 | Outpatient (CLI) | payer MEDICARE, OTHER | END 2021-05-18 08:56 | disposition critical access hospital (66) | LOC: EMS 08:55 | DX: R53.1 Weakness (principal); R42 Dizziness and giddiness; R03.1 Nonspecific low blood-pressure reading | CPT/HCPCS: A0425; A0427 ==

== ENCOUNTER 2021-05-18 09:08 | Emergency (ER) | payer MEDICARE, OTHER ==
--- NOTE | 2021-05-18 09:22 | ED Physician Documentation ---
PD [facility] - Stated complaint Stated Complaint: WEAKNESS/DIZZINESS - Chief complaint Chief Complaint: Cardiac - History obtained from History obtained from: Patient PD PAST MEDICAL HISTORY - Past Medical History Past Medical History: Yes Cardiovascular: Congestive heart failure, Hypertension, Atrial fibrillation, Valve disorder, Other Respiratory: Shortness of breath, Sleep apnea Neuro: CVA, Peripheral neuropathy, Tremors Endocrine/Autoimmune: Type 2 diabetes GI: Colon polyps : Other HEENT: None Psych: Depression, Anxiety Musculoskeletal: Osteoarthritis, Fatigue Derm: None - Past Surgical History Past Surgical History: Yes General: Colonoscopy Ortho: Knee replacement, Arthroscopic surgery, Other - Present Medications Home Medications: Ambulatory Orders Medication Instructions Recorded Confirmed Spironolactone [Aldactone] 12.5 mg PO 1200 tablet 02/28/20 03/27/21 Isosorbide Mononitrate ER [Imdur] 30 mg PO DAILY 03/03/20 03/27/21 Levothyroxine Sodium [Euthyrox] 100 mcg PO QDAC 03/19/20 03/27/21 Metoprolol Succinate [Toprol Xl] 100 mg PO DAILY 03/19/20 03/27/21 hydrALAZINE [Apresoline] 50 mg PO TID 03/19/20 03/27/21 Hydrocortisone [Cortef] 5 mg PO .3TABS AM 1 TAB 1400 03/20/20 03/27/21 polyethylene glycoL 3350 [Miralax] 17 gm PO DAILY PRN 04/21/20 03/27/21 Fluticasone [Flonase] 1 inh INH DAILY PRN 05/15/20 03/27/21 Triamcinolone Acetonide 0.1% 1 applic TOP DAILY MDD on two 05/27/20 03/27/21 [Triamcinolone Acetonide] weeks;off one Prochlorperazine Maleate 5 - 10 mg PO Q6HR PRN 06/07/20 03/27/21 [Compazine] Tamsulosin [Flomax] 0.4 mg PO DAILY 06/07/20 03/27/21 Apixaban [Eliquis] 5 mg PO BID 12/19/20 03/27/21 Atorvastatin Calcium 40 mg PO DAILY 12/19/20 03/27/21 Cetirizine HCl [Zyrtec] 10 mg PO DAILY 03/27/21 03/27/21 Gabapentin [Neurontin] 300 mg PO TID MDD 1200 mg 03/27/21 03/27/21 - Allergies Allergies/Adverse Reactions: Allergies Allergy/AdvReac Type Severity Reaction Status Date / Time No Known Drug Allergies Allergy Verified 05/18/21 09:19 - Social History Does the pt smoke?: No Smoking Status: Never smoker Does the pt drink ETOH?: No Does the pt have substance abuse?: No - Immunizations Immunizations are current?: Yes - POLST Patient has POLST: No POLST Status: DNR Results - Vitals Vitals: Vital Signs - 24 hr 05/18/21 09:16 Temperature 36.0 C L Heart Rate 58 L Respiratory 14 Rate Blood Pressure 120/76 O2 Saturation 98 Oxygen O2 Source [With Activity] Room air O2 Source [Without Activity] Room air O2 Source Room air
[2021-05-18] MEDS ORDERED: SODIUM CHLORIDE 0.9% 250 ML IV STA (09:49)
--- NOTE | 2021-05-18 09:49 | ED Physician Documentation ---
PD HPI SYNCOPE - Stated complaint Stated Complaint: WEAKNESS/DIZZINESS - Chief complaint Chief Complaint: Cardiac - History obtained from History obtained from: Patient - History of Present Illness Witnessed: Witnessed Timing - onset: How many hours ago (1) Duration: Minutes Preceding symptoms: Nausea / vomiting (nausea but not vomiting), Light headed, Generalized weakness. No: Headache, Abdominal pain Associated symptoms: Other (he felt nausea and lightheaded this morning. Near syncope without fainting. Noted BP to be low at 80s systolic. Recnet BPs have been about 140s systolic in mornings the past couple of weeks. felt okay yesterday. Not feeling ill otherwise. Improving enroute.). No: Seizure, Headache, Chest pain, Palpitations, Abdominal pain Contributing factors: Recent med change (he had lightheaded and low bp around Dana time, and had some BP meds held. Seen by [employer] Dr. Tracy 2 weeks ago and BP 140s-150s systolic so had meds resumed. Pt doing okay for couple of weeks, then low BP this morning without obvious cause.). 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 Presumed related to meds at the time.) Recently seen: Clinic (cardiology about 2 weeks ago.), Emergency Dept (a month ago) Review of Systems Constitutional: denies: Fever, Chills Nose: denies: Rhinorrhea / runny nose, Congestion Throat: denies: Sore throat Cardiac: denies: Chest pain / pressure, Palpitations Respiratory: denies: Dyspnea, Cough GI: reports: Nausea. denies: Abdominal Pain, Vomiting, Diarrhea, Bloody / black stool Skin: reports: Rash (skin sores side effect of meds recently, healing without any localized secondary infections.) PD PAST MEDICAL HISTORY - Past Medical History Past Medical History: Yes Cardiovascular: Congestive heart failure, Hypertension, Atrial fibrillation, Valve disorder, Other Respiratory: Shortness of breath, Sleep apnea Neuro: CVA, Peripheral neuropathy, Tremors Endocrine/Autoimmune: Type 2 diabetes GI: Colon polyps : Other HEENT: None Psych: Depression, Anxiety Musculoskeletal: Osteoarthritis, Fatigue Derm: None - Past Surgical History Past Surgical History: Yes General: Colonoscopy Ortho: Knee replacement, Arthroscopic surgery, Other - Present Medications Home Medications: Ambulatory Orders Medication Instructions Recorded Confirmed Spironolactone [Aldactone] 12.5 mg PO 1200 tablet 02/28/20 05/18/21 Isosorbide Mononitrate ER [Imdur] 30 mg PO DAILY 03/03/20 05/18/21 Levothyroxine Sodium [Euthyrox] 100 mcg PO QDAC 03/19/20 05/18/21 Metoprolol Succinate [Toprol Xl] 100 mg PO DAILY 03/19/20 05/18/21 hydrALAZINE [Apresoline] 50 mg PO TID 03/19/20 05/18/21 Hydrocortisone [Cortef] 5 mg PO .3TABS AM 1 TAB 1400 03/20/20 05/18/21 Fluticasone [Flonase] 1 inh INH DAILY PRN 05/15/20 05/18/21 Triamcinolone Acetonide 0.1% 1 applic TOP DAILY MDD on two 05/27/20 05/18/21 [Triamcinolone Acetonide] weeks;off one Tamsulosin [Flomax] 0.4 mg PO DAILY 06/07/20 05/18/21 Apixaban [Eliquis] 5 mg PO BID 12/19/20 05/18/21 Atorvastatin Calcium 40 mg PO DAILY 12/19/20 05/18/21 Cetirizine HCl [Zyrtec] 10 mg PO DAILY 03/27/21 05/18/21 Gabapentin [Neurontin] 300 mg PO TID MDD 1200 mg 03/27/21 05/18/21 Insulin Lispro [Insulin Lispro 5 unit SQ TID 05/18/21 05/18/21 Kwikpen U-100] Insulin NPH Human [Humulin N] 20 unit SQ BID 05/18/21 05/18/21 - Allergies Allergies/Adverse Reactions: Allergies Allergy/AdvReac Type Severity Reaction Status Date / Time coban AdvReac Itching Uncoded 05/18/21 09:23 - Social History Does the pt smoke?: No Smoking Status: Never smoker Does the pt drink ETOH?: No Does the pt have substance abuse?: No - Immunizations Immunizations are current?: Yes - POLST Patient has POLST: No POLST Status: DNR PD ED PE NORMAL - Vitals Vital signs reviewed: Yes - General General: Alert and oriented X 3, No acute distress, Well developed/nourished - HEENT HEENT: Moist mucous membranes, Pharynx benign - Neck Neck: Supple, no meningeal sign, No adenopathy - Cardiac Cardiac: RRR (borderline bradycardia), Other (1/6 murmur left chest) - Respiratory Respiratory: Clear bilaterally - Abdomen Abdomen: Normal bowel sounds, Soft, Non tender - Male Male : Deferred - Rectal Rectal: Deferred - Back Back: No CVA TTP - Derm Derm: Normal color, Warm and dry, Other (discrete superficially ulcerative rounded lesions diffusely, nonconfluent. No noted infectious appearance on visible areas of chest/abd/back/upper extremities. ) - Extremities Extremities: No tenderness to palpate, No edema, No calf tenderness / cord Results - Vitals Vitals: Vital Signs - 24 hr 05/18/21 05/18/21 09:16 11:21 Temperature 36.0 C L Heart Rate 58 L 70 Respiratory 14 17 Rate Blood Pressure 120/76 121/84 H O2 Saturation 98 94 Oxygen O2 Source [With Activity] Room air O2 Source [Without Activity] Room air O2 Source Room air - EKG (time done) 10:01 Rate: Rate (enter#) (64) Rhythm: Atrial fibrillation [place]: Normal QRS: Normal Ischemia: Normal ST segments. No: ST elevation c/w ischemia, ST depression Compare to prior EKG: Unchanged from prior EKG - Labs Labs: Laboratory Tests 05/18/21 05/18/21 05/18/21 10:00 10:00 10:00 WBC 10.4 RBC 4.93 Hgb 14.1 Hct 42.9 MCV 87.0 MCH 28.6 MCHC 32.9 RDW 14.1 Plt Count 277 MPV 11.2 Neut # (Auto) 7.8 H Lymph # (Auto) 1.1 L [place] # (Auto) 1.0 Eos # (Auto) 0.4 Baso # (Auto) 0.1 Absolute Nucleated RBC 0.00 Nucleated RBC % 0.0 Sodium 132 L Potassium 4.7 Chloride 99 L Carbon Dioxide 25 Anion Gap 8.0 BUN 25 H Creatinine 1.6 H Estimated GFR (MDRD) 43 L Glucose 278 H Calcium 10.5 H Magnesium 1.8 Total Bilirubin 0.9 AST 24 ALT 25 Alkaline Phosphatase 93 Troponin I High Sens 16.2 B-Natriuretic Peptide Total Protein 6.8 Albumin 3.5 Globulin 3.3 Albumin/Globulin Ratio 1.1 Lipase 27 05/18/21 10:00 WBC RBC Hgb Hct MCV MCH MCHC RDW Plt Count MPV Neut # (Auto) Lymph # (Auto) [place] # (Auto) Eos # (Auto) Baso # (Auto) Absolute Nucleated RBC Nucleated RBC % Sodium Potassium Chloride Carbon Dioxide Anion Gap BUN Creatinine Estimated GFR (MDRD) Glucose Calcium Magnesium Total Bilirubin AST ALT Alkaline Phosphatase Troponin I High Sens B-Natriuretic Peptide 220 H Total Protein Albumin Globulin Albumin/Globulin Ratio Lipase - Rads (name of study) chest xray Radiology: Prelim report reviewed (no acute process), See rad report PD MEDICAL DECISION MAKING - ED course Complexity details: reviewed results, re-evaluated patient (feeling better with BP reasonable at 120/76 after small fluid bolus IV. ), considered differential (no change in intake, no current illness, unclear the cause of BP drop this morning. COnsider lower dose of med or two. I would pick the nitrate as direct BP effect, rather than beta yajaira, which also helps with afib control. ), d/w patient Departure - Departure Disposition: Home, Self Care Clinical Impression: Transient hypotension, Near syncope Condition: Stable Record reviewed to determine appropriate education?: Yes Instructions: ED Near Syncope Unkn Follow-Up: Alban Connor MD [Primary Care Provider] - Comments: No signs of heart attack or heart failure. Your basic electrolytes are good. Your kidney function is creatinine 1.6 which is baseline for you. No signs of obvious infection with a normal white count. Your blood count is good as well so you are not anemic. Chest x-ray is clear. Unclear the cause of your low blood pressure today. It looks like your trend of blood pressure over the last week or so has been good. Be sure to stay well-hydrated though low-salt diet. Continue mainly your usual medicines with suggestion of holding your isosorbide (Imdur) for a day or so and seeing how your blood pressure does. If your blood pressure remains good, you could resume the isosorbide perhaps at half tablet (if it is scored and cutable) so 15 mg daily rather than 30. See how you do over the ensuing week or so. Follow-up with your primary or Dr. Tracy as needed. Discharge Date/Time: 05/18/21 13:47
[2021-05-18 10:04] LABS: BASOPHILS # (AUTO) 0.1 10^3/uL (0.0-0.1); BASOPHILS % (AUTO) 0.7 %; EOSINOPHILS # (AUTO) 0.4 10^3/uL (0.0-0.7); EOSINOPHILS % (AUTO) 4.2 %; HCT - HEMATOCRIT 42.9 % (42.0-52.0); HGB - HEMOGLOBIN 14.1 g/dL (14.0-18.0); LYMPHOCYTES # (AUTO) 1.1 10^3/uL (1.5-3.5); LYMPHOCYTES % (AUTO) 10.5 %; MEAN CORPUSCULAR HEMOGLOBIN 28.6 pg (27.0-31.0); MEAN CORPUSCULAR HGB CONC 32.9 g/dL (32.0-36.0); MEAN PLATELET VOLUME 11.2 fL (7.4-11.4); MONOCYTES % (AUTO) 9.8 %; NEUTROPHILS # (AUTO) 7.8 10^3/uL (1.5-6.6); NEUTROPHILS % (AUTO) 74.4 %; PLT - PLATELET COUNT 277 10^3/uL (130-450); RED BLOOD COUNT 4.93 10^6/uL (4.70-6.10); RED CELL DISTRIBUTION WIDTH 14.1 % (12.0-15.0); WHITE BLOOD COUNT 10.4 x10^3/uL (4.8-10.8)
[2021-05-18 10:26] LABS: ALBUMIN 3.5 g/dL (3.2-5.5); ALBUMIN/GLOBULIN RATIO 1.1 (1.0-2.2); BILIRUBIN,TOTAL 0.9 mg/dL (0.2-1.0); CALCIUM 10.5 mg/dL (8.5-10.3); CREATININE 1.6 mg/dL (0.6-1.2); MAGNESIUM 1.8 mg/dL (1.7-2.8); POTASSIUM 4.7 mmol/L (3.5-5.0); TOTAL PROTEIN 6.8 g/dL (6.7-8.2)
--- NOTE | 2021-05-18 10:59 | XRAY Report ---
PROCEDURE: Chest 1 View X-Ray INDICATIONS: Chest Pain TECHNIQUE: One view of the chest was acquired. COMPARISON: Chest x-ray 04/02/2020 FINDINGS: Surgical changes and devices: None. Lungs and pleura: There is mild appearance of increased interstitial markings. However, poor inspirat ory effort limits exam. Mediastinum: Mediastinal contours appear normal. Heart size is enlarged. Bones and chest wall: No suspicious bony lesions. Overlying soft tissues appear unremarkable. IMPRESSION: Increased interstitial markings which could be secondary to poor inspiratory effort. Alternately, mil d areas of edema or potentially developing airspace disease cannot be definitively excluded. Reviewed by: Teri Armstrong MD on 05/18/2021 10:57 AM [facility] Approved by: Teri Armstrong MD on 05/18/2021 10:57 AM [facility] Station ID: [id number]
[2021-05-18 11:22] VITALS: BP 121/84
== END 2021-05-18 13:47 | disposition home or self-care (01) ==
LOC: EDUNIT# → ED 09:08
DX: I95.9 Hypotension, unspecified (principal); R55 Syncope and collapse
CPT/HCPCS: 36415; 80053; 83690; 83735; 83880; 84484; 85025; 93005; 99283; 99284

== ENCOUNTER 2021-05-21 14:30 | Outpatient (CLI) | payer MEDICARE, OTHER ==
--- NOTE | 2021-05-21 16:23 | CONSULTATION NOTE ---
Palliative Care Follow Up - Referral Referring Provider: Dr. 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 Patient with recent consult to oncology, shows recurrent disease in surgical bed, and awaiting work-up from cardiology, to proceed forth with immunotherapy.Unfortunate in the meantime patient has had 2 episodes of hypotension, has been restarted recently on his insulin for his worsening diabetes, and continues with difficulty with short-term memory issues impacting medication adherence.Patient had seen primary care provider, who would modified his medications secondary to hypotension and worsening side effects, around Dana time, when he went back to Dr. Tracy cardiology, he restarted him at baseline doses. Patient had an episode this last Tuesday that took him to the ED, with weakness/dizziness, and had scared him, so had left the ED as he was stable once he got there, no signs of heart attack or heart failure, electrolytes were good kidney function was at baseline and had been asked to hold his isosorbide until follow-up with cardiology or PCP.In the context of this had called both PCP, myself, and there is much confusion as she wanted to return back to his previous level of medications, there is a pending appointment with Dr. Connor on 05/25, patient has done very poorly with any kind of medication adherence over the last several days. He is not taking any blood pressure meds when I showed up this afternoon, nor taken his blood sugars, unable to really explain this. Patient has had a history of a stroke, and is quite forgetful and given who he is often just covers up this. He does admit to not understanding or following medications, forgetting appointments, gets very frustrated with him and trying to help him be compliant. There is quite a bit of tension between the 2 of them and she is quite distressed as she is trying to help him, and feels these are medications that she does not want to make a mistake on. We did review the instructions she thinks she received from Dr. Connor, and filled Mediset through Tuesday. Reviewed her current list and updated it with with currently is in his Mediset's. 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 They do have 4 children are quite supportive and caring of their parents, both patient and are overwhelmed with patient's multiple medical n) Living Situation: With spouse/s.o. Medications/Allergies - Medications Home Medications: Ambulatory Orders Medication Instructions Recorded Confirmed Spironolactone [Aldactone] 12.5 mg PO 1200 tablet 02/28/20 05/21/21 Isosorbide Mononitrate ER [Imdur] 30 mg PO DAILY MDD HOLD 03/03/20 05/21/21 Levothyroxine Sodium [Euthyrox] 100 mcg PO QDAC 03/19/20 05/21/21 Metoprolol Succinate [Toprol Xl] 50 mg PO DAILY 03/19/20 05/21/21 hydrALAZINE [Apresoline] 25 mg PO TID 03/19/20 05/21/21 Hydrocortisone [Cortef] 5 mg PO .3TABS AM 1 TAB 1400 03/20/20 05/21/21 Fluticasone [Flonase] 1 inh INH DAILY PRN 05/15/20 05/21/21 Triamcinolone Acetonide 0.1% 1 applic TOP DAILY 05/27/20 05/21/21 [Triamcinolone Acetonide] Apixaban [Eliquis] 5 mg PO BID 12/19/20 05/21/21 Atorvastatin Calcium 40 mg PO DAILY 12/19/20 05/21/21 Cetirizine HCl [Zyrtec] 10 mg PO DAILY PRN 03/27/21 05/21/21 Gabapentin [Neurontin] 300 mg PO TID MDD 1200 mg 03/27/21 05/21/21 Insulin Lispro [Insulin Lispro 5 unit SQ TID 05/18/21 05/21/21 Kwikpen U-100] Insulin NPH Human [Humulin N] 20 unit SQ BID MDD titrating 05/18/21 05/21/21 expected to change hydrOXYzine HCL [Hydroxyzine HCl] 25 mg PO QPM 05/21/21 05/21/21 - Allergies Allergies/Adverse Reactions: Allergies Allergy/AdvReac Type Severity Reaction Status Date / Time coban AdvReac Itching Uncoded 05/18/21 09:23 Review of Systems - Constitutional Constitutional: reports: Fatigue (persistent; mild improvement only; influenced by sleep), Weakness, Weight gain (patient eating more up from low of 211) - Eyes Eyes: reports: Vision loss - Ears, Nose & Throat Ears, Nose & Throat: reports: Hearing loss (to get referral to audiology), Nasal congestion, Postnasal drainage, Dry mouth - Cardiovascular Cardiovascular: reports: Irregular heart rate, Exertional dyspnea, Decr. exercise tolerance - Respiratory Respiratory: reports: SOB with exertion. denies: Cough, Wheezing, SOB at rest - Gastrointestinal Gastrointestinal: reports: Abdominal distention, Bloating, Good appetite. denies: Constipation, Nausea, Reflux/heartburn - Genitourinary Genitourinary: reports: Frequency, Other (diff starting stream) - Musculoskeletal Musculoskeletal: reports: Muscle aches, Stiffness, Limited range of motion, Muscle weakness, Joint pain - Integumentary Integumentary: reports: Rash (saw dermatology; put on same ointment), Pruritis, Dryness - Neurological Neurological: reports: General weakness, Numbness, Memory problems (very poor STM; does not know medications/poor recall of events or history; often goes to appointments by self) - Psychiatric Psychiatric: reports: Depression, Anxiety - Endocrine Endocrine: reports: Diabetes type 2 (restarted by PCP on insulin; is mildly compliant BS have been high; had not taken when got there at 1430 was 228 just now taking N), Hypothyroidism, Intolerance to cold, Other (adrenal insufficiency; recent cortisol level low) - All Other Systems All Other Systems: reports: Reviewed and negative Physical Exam - Vital Signs Temperature: 97.2 C Pulse Rate: 50 Respiratory Rate: 18 O2 Saturation: 98 (ra @ rest) Blood Pressure: 132/62 - Physical Exam General Appearance: positive: No acute distress, Alert Eyes Bilateral: positive: Normal inspection ENT: positive: No signs of dehydration Neck: positive: Trachea midline Cardiovascular: positive: Irregularly irregular Respiratory: positive: No respiratory distress, Breath sounds nml, Diminished in bases. negative: Wheezes Abdomen: positive: Non-tender, Soft, Nml bowel sounds Skin: positive: Pallor, Dryness, Pruritis (remains persistent), Rash (faded; few scabbed areas upper shoulder neck area) Extremities: positive: Other (mild tremors) Neurologic/Psychiatric: positive: Oriented x3, Mood/affect nml, Weakness, Flat affect, Other (memory continues to be challenging) Palliative Care - POLST Patient has POLST: No Pain: Pain unchanged, Location (feet), Comment (gabapentin 300 mg TID; uses 4th one intermittently) Feelings of wellbeing/Perceived Quality of Life: Fair, Acceptable, Worsening Constipation: Yes, Managed Performance Status: Patient continues to be quite sedentary, has a shuffled gait. Has not been very active and watches quite a bit of TV. Has been encouraged and also suggested to go to physical therapy, remains quite resistant to this. - Palliative Care Discussion: Patient and continues to struggle there is quite a bit of tension between the 2 of them about risks nonengagement in his health care. I have explained to Virginie multiple times that patient has had a stroke, has deficits that are hard to recognize, but having spent much time with him he has short-term memory issues, unable to recall what he did in the morning, for example whether he took his morning meds or not, had not taken his blood sugars, this is a common pattern for him when I have met with him. She has been helping with the medications, but would like him to be a little bit more engaged. I do worry which I have shared with her about him going to appointments by himself, as most medical decisions are made based on what the patient is telling us and assuming it is accurate information. She does get overwhelmed with the feeling of responsibility regarding this, goes back and forth and he can be quite stubborn as well as distressed with her nagging.Patient does understand that his cancer is back, they are looking at treatment starting 06/11, continue to hope for the best. Patient is fairly nonplussed by the seriousness of his illness, unclear if this is his personality, or yet some other deficits. Results - Lab Results Lab results reviewed: Yes Lab and Imaging Results: ED labs Impression and Recommendations - Palliative Care Impression: This is a 66-year-old gentleman who presents with relapse of his metastatic renal cell carcinoma, awaiting treatment plan for immunotherapy based on review of cardiac status. Patient continues to be challenged by medication management and adherence, follow through on appropriate medical appointments and support and continued challenges between he and his regarding his short-term memory deficits. Patient with recent episode of severe hypotension, feels very vulnerable and worried regarding cardiac status. Though patient has not taken his cardiac meds for a couple days now. Palliative care continue provide suppor t for patient and in helping navigate cancer journey as well as symptom management. Recommendations/Counseling Done: 1. Medication adherence. This is been a common theme, as patient "runs out" had an listed who has been feeling Mediset's, they had set up a system so that he would record his blood pressure, blood sugars, and what he was doing, unfortunately with his memory deficits he forgets to do this. They had not readjusted his cardiac meds since ED visit, and patient has not been taking them as he told his he was taking them from the pill bottles. It is unclear exactly what he has done over the last few days. We did go ahead and fill his Mediset with adjusted doses, these are written out, he does have follow-up with his PCP on 05/25. is anxious about taking on the responsibility, without some support. Patient has difficulty engaging around this, and with short-term memory issues does not have a significant sense of understanding. 2. BPH. Patient had stopped Flomax, after much conversation was because he told his PCP he was not have any trouble. Patient has been on this for's almost a year, secondary to difficulty with stream, frequent nocturia, and difficulty with emptying. Reports he is have returned, at this point he will call me if he wants this refilled. I can really iterated both with patient and given patient's short-term memory issues it is difficult for medical providers to do their best if we do not have are accurate information. 3. Peripheral neuropathy. This continues to fluctuate, continues to be limiting of his activity. Patient wanted to trial gabapentin versus pregabalin, so is currently taking 300 mg 3 times daily. Unfortunately does not remember how or what it felt like before to compare it. We will continue on the current regimen. 4. Metastatic renal cell carcinoma. Patient now presents with progression, he is to restart therapy, hopefully in May. He does have his echocardiogram scheduled for tomorrow. 5. MCI. Patient may benefit from neuropsychiatric testing, there does seem to be some deficits, and often is a bone of contention between he and his . I think if this was confirmed and we could see where those are he may benefit from some speech therapy for cognitive improvement. We will suggest this to his PCP. 6. CHF. Patient has not taken any of his meds, blood pressure today is 132/62. We will go ahead and put adjusted medications in his Mediset, instructed to take blood pressure twice a day so we have data to work with, as well as being more adherent and consistent with his blood sugars. 60 minutes with greater than 50% of this done in counseling room and teasing out medication adherence/management, support for patient and with increasing tension and distress, counseling regarding coordination of care and need for follow through. Did follow-up and confirm testing for 05/22. Patient is to see PCP on 05/25, will follow up afterwards regarding medication list and update accordingly. Sent with corrected 1
== END 2021-05-21 14:31 | disposition home or self-care (01) ==
LOC: PC 14:30
PROVIDERS: ATTEND Nurse Practitioner Adult Health
DX: Z51.5 Encounter for palliative care (principal); Z91.14 Patient's other noncompliance with medication regimen; I69.311 Memory deficit following cerebral infarction; I11.0 Hypertensive heart disease with heart failure; I50.9 Heart failure, unspecified; I48.91 Unspecified atrial fibrillation; G62.0 Drug-induced polyneuropathy; T45.1X5A Adverse effect of antineoplastic and immunosuppressive drugs, initial encounter; R26.89 Other abnormalities of gait and mobility; N40.1 Benign prostatic hyperplasia with lower urinary tract symptoms; R39.14 Feeling of incomplete bladder emptying; R35.1 Nocturia; C64.2 Malignant neoplasm of left kidney, except renal pelvis; Z79.01 Long term (current) use of anticoagulants; Z79.899 Other long term (current) drug therapy; Z79.4 Long term (current) use of insulin; Z90.5 Acquired absence of kidney
CPT/HCPCS: 99350

== ENCOUNTER 2021-05-22 10:33 | Outpatient (CLI) | payer MEDICARE, OTHER | END 2021-05-22 10:34 | disposition home or self-care (01) | LOC: DI 10:33 | PROVIDERS: ATTEND Internal Medicine Medical Oncology | DX: C64.9 Malignant neoplasm of unspecified kidney, except renal pelvis (principal); I48.91 Unspecified atrial fibrillation; I34.0 Nonrheumatic mitral (valve) insufficiency; I07.1 Rheumatic tricuspid insufficiency | CPT/HCPCS: 93306 ==

== ENCOUNTER 2021-07-06 09:40 | Outpatient (CLI) | payer MEDICARE, OTHER ==
[2021-07-06 09:58] LABS: BASOPHILS # (AUTO) 0.1 10^3/uL (0.0-0.1); BASOPHILS % (AUTO) 1.1 %; EOSINOPHILS # (AUTO) 0.6 10^3/uL (0.0-0.7); EOSINOPHILS % (AUTO) 7.7 %; HCT - HEMATOCRIT 39.9 % (42.0-52.0); HGB - HEMOGLOBIN 13.1 g/dL (14.0-18.0); LYMPHOCYTES # (AUTO) 1.3 10^3/uL (1.5-3.5); LYMPHOCYTES % (AUTO) 18.3 %; MEAN CORPUSCULAR HEMOGLOBIN 28.7 pg (27.0-31.0); MEAN CORPUSCULAR HGB CONC 32.8 g/dL (32.0-36.0); MEAN CORPUSCULAR VOLUME 87.3 fL (80.0-94.0); MEAN PLATELET VOLUME 11.7 fL (7.4-11.4); MONOCYTES # (AUTO) 0.9 10^3/uL (0.0-1.0); NEUTROPHILS # (AUTO) 4.3 10^3/uL (1.5-6.6); NEUTROPHILS % (AUTO) 59.8 %; PLT - PLATELET COUNT 247 10^3/uL (130-450); RED BLOOD COUNT 4.57 10^6/uL (4.70-6.10); RED CELL DISTRIBUTION WIDTH 14.4 % (12.0-15.0); WHITE BLOOD COUNT 7.2 x10^3/uL (4.8-10.8)
[2021-07-06 10:12] LABS: ALBUMIN 3.7 g/dL (3.2-5.5); ALBUMIN/GLOBULIN RATIO 1.1 (1.0-2.2); BILIRUBIN,TOTAL 0.4 mg/dL (0.2-1.0); CALCIUM 11.4 mg/dL (8.5-10.3); CREATININE 2.1 mg/dL (0.6-1.2); POTASSIUM 4.4 mmol/L (3.5-5.0)
[2021-07-06 10:25] LABS: CORTISOL 27.1 ug/dL
[2021-07-06 10:28] LABS: THYROID STIMULATING HORMONE 6.01 uIU/mL (0.34-5.60)
[2021-07-06 11:09] LABS: FREE T4 (FREE THYROXINE) 1.26 ng/dL (0.58-1.64)
== END 2021-07-06 09:41 | disposition home or self-care (01) ==
LOC: LAB 09:40
PROVIDERS: ATTEND Nurse Practitioner
DX: C64.9 Malignant neoplasm of unspecified kidney, except renal pelvis (principal)
CPT/HCPCS: 36415; 80053; 82533; 84439; 84443; 85025

== ENCOUNTER 2021-07-13 10:05 | Outpatient (CLI) | payer MEDICARE, OTHER ==
[2021-07-13 10:37] LABS: CALCIUM 11.9 mg/dL (8.5-10.3); CREATININE 2.4 mg/dL (0.6-1.2); POTASSIUM 4.9 mmol/L (3.5-5.0)
== END 2021-07-13 10:06 | disposition home or self-care (01) ==
LOC: LAB 10:05
PROVIDERS: ATTEND Physician Assistant Medical
DX: C64.2 Malignant neoplasm of left kidney, except renal pelvis (principal)
CPT/HCPCS: 36415; 80048

== ENCOUNTER 2021-07-29 21:17 | Observation (INO) | payer MEDICARE, OTHER ==
[2021-07-29 21:45] LABS: BASOPHILS # (AUTO) 0.1 10^3/uL (0.0-0.1); BASOPHILS % (AUTO) 1.2 %; EOSINOPHILS # (AUTO) 0.5 10^3/uL (0.0-0.7); EOSINOPHILS % (AUTO) 5.8 %; HCT - HEMATOCRIT 42.6 % (42.0-52.0); HGB - HEMOGLOBIN 13.9 g/dL (14.0-18.0); LYMPHOCYTES # (AUTO) 0.8 10^3/uL (1.5-3.5); LYMPHOCYTES % (AUTO) 10.9 %; MEAN CORPUSCULAR HEMOGLOBIN 28.3 pg (27.0-31.0); MEAN CORPUSCULAR HGB CONC 32.6 g/dL (32.0-36.0); MEAN CORPUSCULAR VOLUME 86.6 fL (80.0-94.0); MEAN PLATELET VOLUME 11.2 fL (7.4-11.4); MONOCYTES # (AUTO) 1.1 10^3/uL (0.0-1.0); NEUTROPHILS # (AUTO) 5.2 10^3/uL (1.5-6.6); NEUTROPHILS % (AUTO) 67.6 %; PLT - PLATELET COUNT 293 10^3/uL (130-450); RED BLOOD COUNT 4.92 10^6/uL (4.70-6.10); RED CELL DISTRIBUTION WIDTH 14.2 % (12.0-15.0); WHITE BLOOD COUNT 7.7 x10^3/uL (4.8-10.8)
[2021-07-29 21:59] LABS: ALBUMIN 3.9 g/dL (3.2-5.5); ALBUMIN/GLOBULIN RATIO 1.1 (1.0-2.2); CALCIUM 9.3 mg/dL (8.5-10.3); CREATININE 2.9 mg/dL (0.6-1.2); POTASSIUM 4.4 mmol/L (3.5-5.0); TOTAL PROTEIN 7.3 g/dL (6.7-8.2)
--- NOTE | 2021-07-29 23:00 | XRAY Report ---
PROCEDURE: Chest 1 View X-Ray INDICATIONS: SOB TECHNIQUE: One view of the chest was acquired. COMPARISON: 05/18/2021. FINDINGS: Surgical changes and devices: None. Lungs and pleura: There is a moderate right pleural effusion with associated right basilar opacities consistent with compressive atelectasis or consolidation. Pulmonary edema is also demonstrated. No p leural effusions or pneumothorax. Mediastinum: Mediastinal contours appear unchanged. Heart size is enlarged. Bones and chest wall: No suspicious bony lesions. Overlying soft tissues appear unremarkable. IMPRESSION: 1. Moderate size right pleural effusion with right basilar compressive atelectasis or consolidation. 2. Pulmonary edema and cardiomegaly suggestive of congestive heart failure. Reviewed by: Franc Carmichael MD on 07/29/2021 10:58 PM PDT Approved by: Franc Carmichael MD on 07/29/2021 10:58 PM PDT Station ID: [id number]
[2021-07-30] MEDS ORDERED: FUROSEMIDE 40 MG/4 ML VIAL IVP STA (00:06)
--- NOTE | 2021-07-30 00:50 | ED Physician Documentation ---
PD HPI DYSPNEA - Stated complaint Stated Complaint: SOA/DIZZY - Chief complaint Chief Complaint: Neuro - Additional information Additional information: Patient with a history significant for renal cell cancer, CHF, chronic A. fib on Eliquis presenting for evaluation of shortness of breath that started this evening. Patient was at home when he started feeling increasingly short of breath, worse with exertion and laying back. He denies recent fever, Chest pain,cough, congestion, abdominal pain, vomiting. He has not noted increased leg swelling. He recently was treated with 2 L of IV fluids for hypercalcemia. He does have a prescription for Lasix to use as needed but has not recently been using it. Review of Systems Constitutional: denies: Fever Nose: denies: Congestion Cardiac: denies: Chest pain / pressure, Palpitations Respiratory: reports: Dyspnea. denies: Hemoptysis GI: denies: Abdominal Pain, Nausea, Vomiting : denies: Dysuria Musculoskeletal: denies: Back pain Neurologic: denies: Headache PD PAST MEDICAL HISTORY - Past Medical History Past Medical History: Yes Cardiovascular: Congestive heart failure, Hypertension, Atrial fibrillation, Valve disorder, Other Respiratory: Shortness of breath, Sleep apnea Neuro: CVA, Peripheral neuropathy, Tremors Endocrine/Autoimmune: Type 2 diabetes GI: Colon polyps : Other HEENT: None Psych: Depression, Anxiety Musculoskeletal: Osteoarthritis, Fatigue Derm: None - Past Surgical History Past Surgical History: Yes General: Colonoscopy Ortho: Knee replacement, Arthroscopic surgery, Other - Present Medications Home Medications: Ambulatory Orders Medication Instructions Recorded Confirmed Spironolactone [Aldactone] 12.5 mg PO 1200 tablet 02/28/20 05/21/21 Isosorbide Mononitrate ER [Imdur] 30 mg PO DAILY MDD HOLD 03/03/20 05/21/21 Levothyroxine Sodium [Euthyrox] 100 mcg PO QDAC 03/19/20 05/21/21 Metoprolol Succinate [Toprol Xl] 50 mg PO DAILY 03/19/20 05/21/21 hydrALAZINE [Apresoline] 25 mg PO TID 03/19/20 05/21/21 Hydrocortisone [Cortef] 5 mg PO .3TABS AM 1 TAB 1400 03/20/20 05/21/21 Fluticasone [Flonase] 1 inh INH DAILY PRN 05/15/20 05/21/21 Triamcinolone Acetonide 0.1% 1 applic TOP DAILY 05/27/20 05/21/21 [Triamcinolone Acetonide] Apixaban [Eliquis] 5 mg PO BID 12/19/20 05/21/21 Atorvastatin Calcium 40 mg PO DAILY 12/19/20 05/21/21 Cetirizine HCl [Zyrtec] 10 mg PO DAILY PRN 03/27/21 05/21/21 Gabapentin [Neurontin] 300 mg PO TID MDD 1200 mg 03/27/21 05/21/21 Insulin Lispro [Insulin Lispro 5 unit SQ TID 05/18/21 05/21/21 Kwikpen U-100] Insulin NPH Human [Humulin N] 20 unit SQ BID MDD titrating 05/18/21 05/21/21 expected to change hydrOXYzine HCL [Hydroxyzine HCl] 25 mg PO QPM 05/21/21 05/21/21 - Allergies Allergies/Adverse Reactions: Allergies Allergy/AdvReac Type Severity Reaction Status Date / Time coban AdvReac Itching Uncoded 07/29/21 21:37 - Social History Does the pt smoke?: No Smoking Status: Never smoker Does the pt drink ETOH?: No Does the pt have substance abuse?: No - Immunizations Immunizations are current?: Yes - POLST Patient has POLST: No POLST Status: DNR PD ED PE NORMAL - General General: Alert and oriented X 3, Well developed/nourished, Other (Appears mildly dyspneic) - HEENT HEENT: Atraumatic, Moist mucous membranes - Neck Neck: Supple, no meningeal sign - Cardiac Cardiac: No murmur, Strong equal pulses, Other (Irregularly irregular, normal rate) - Respiratory Respiratory: Other (Diminished breath sounds to the right, Mildly dyspneic when changing positions). No: No respiratory distress - Abdomen Abdomen: Normal bowel sounds, Soft, Non tender - Derm Derm: Normal color - Extremities Extremities: No deformity, No calf tenderness / cord - Neuro Neuro: Alert and oriented X 3, No motor deficit, Normal speech - Psych Psych: Normal mood, Normal affect Results - Vitals Vitals: Vital Signs - 24 hr 07/29/21 07/29/21 07/29/21 21:25 22:07 22:30 Temperature 36.6 C Heart Rate 87 72 84 Respiratory 14 23 15 Rate Blood Pressure 136/100 H 167/104 H 147/100 H O2 Saturation 96 96 96 07/29/21 07/29/21 07/29/21 23:00 23:10 23:30 Temperature Heart Rate 82 89 88 Respiratory 21 18 Rate Blood Pressure 120/76 114/83 H 108/84 H O2 Saturation 98 96 07/30/21 07/30/21 00:00 00:36 Temperature Heart Rate 74 96 Respiratory 15 22 Rate Blood Pressure 117/77 118/95 H O2 Saturation 98 94 Oxygen O2 Source [With Activity] Room air O2 Source [Without Activity] Room air O2 Source Room air - EKG (time done) 2142 Rate: Rate (enter#) (74) Rhythm: Atrial fibrillation Ischemia: Non specific changes (T wave flattening) - Labs Labs: Laboratory Tests 07/29/21 07/29/21 07/29/21 21:40 21:40 21:40 WBC 7.7 RBC 4.92 Hgb 13.9 L Hct 42.6 MCV 86.6 MCH 28.3 MCHC 32.6 RDW 14.2 Plt Count 293 MPV 11.2 Neut # (Auto) 5.2 Lymph # (Auto) 0.8 L [place] # (Auto) 1.1 H Eos # (Auto) 0.5 Baso # (Auto) 0.1 Absolute Nucleated RBC 0.00 Nucleated RBC % 0.0 Sodium 130 L Potassium 4.4 Chloride 100 L Carbon Dioxide 22 Anion Gap 8.0 BUN 33 H Creatinine 2.9 H Estimated GFR (MDRD) 22 L Glucose 160 H Calcium 9.3 Total Bilirubin 1.0 AST 30 ALT 28 Alkaline Phosphatase 102 Troponin I High Sens 9.9 B-Natriuretic Peptide Total Protein 7.3 Albumin 3.9 Globulin 3.4 Albumin/Globulin Ratio 1.1 Lipase 33 SARS-CoV-2 (PCR) 07/29/21 07/30/21 21:40 00:55 WBC RBC Hgb Hct MCV MCH MCHC RDW Plt Count MPV Neut # (Auto) Lymph # (Auto) Mont[place] # (Auto) Eos # (Auto) Baso # (Auto) Absolute Nucleated RBC Nucleated RBC % Sodium Potassium Chloride Carbon Dioxide Anion Gap BUN Creatinine Estimated GFR (MDRD) Glucose Calcium Total Bilirubin AST ALT Alkaline Phosphatase Troponin I High Sens B-Natriuretic Peptide 79 Total Protein Albumin Globulin Albumin/Globulin Ratio Lipase SARS-CoV-2 (PCR) NOT DETECTED PD MEDICAL DECISION MAKING - ED course Complexity details: reviewed results, d/w patient ED course: Patient is a 66-year-old male with a history of CHF presenting for evaluation of shortness of breath. He is not requiring oxygen but does appear dyspneic with movement. On exam he has decreased breath sounds to the right and chest x-ray demonstrates a moderate sized pleural effusion. Patient does not exhibit signs of pneumonia. Labs are reviewed with mild hyponatremia. EKG shows patient in A. fib which she has a history of. He was given a dose of Lasix with no diuresis.Discussed the case with the hospitalist who will admit the patient for observation with likely plans for thoracentesis by interventional radiology. Departure - Departure Disposition: ED Place in Observation Clinical Impression: Pleural effusion, Hyponatremia, Chronic atrial fibrillation Condition: Stable Discharge Date/Time: 07/30/21 01:49
[2021-07-30] MEDS ORDERED: SODIUM CHLORIDE FLUSH 0.9% 10 ML SYRINGE IVP PRN (00:57)
[2021-07-30] MEDS ORDERED: ACETAMINOPHEN 325 MG TABLET PO PRN (00:57)
[2021-07-30] MEDS ORDERED: ONDANSETRON 4 MG/2 ML VIAL IVP PRN (00:57)
[2021-07-30] MEDS ORDERED: CETIRIZINE 10 MG TABLET PO PRN (01:01)
[2021-07-30] MEDS ORDERED: hydrOXYzine PAMOATE 25 MG CAPSULE PO PRN (01:22)
--- NOTE | 2021-07-30 01:23 | HISTORY & PHYSICAL EXAMINATION ---
Chief Complaint - Chief Complaint Chief Complaint: SOB History of Present Illness - Admitted From Admitted From:: ED - History Obtained From History obtained from: ED provider and chart review - History of Present Illness HPI Comment/Other: This is a 66 y/o WM with Hx of systolic Heart failure, hypertension, chronic atrial fib on Eliquis, LBBB, sleep apnea on CPAP, CVA with poor memory and frequent lapses in taking his meds and Insulin, severe peripheral neuropathy, tremors, type 2 diabetes on Insulin, depression and anxiety, osteoarthritis, chronic fatigue, hypothyroidism, and adrenal insufficiency. He has a Hx of renal cell carcinoma of the left kidney, s/p nephrectomy with CKD (usual creat is 2.5- 2.9). 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 His cancer recurred in Apr 2021, and Echo showed improved LVEF from 15% in 2019, to 25% in 2020, to 55% 3 mos ago, and he was cleared to resume chemo therapy. Yesterday he was found to have hypercalcemia which was treated with iv saline of 2 L. Today he developed SOB and presented to the ED. His troponin and BNP are low and O2 sat is 94% on room air but he is dyspneic. His CXR shows a moderate R pleural effusion. He received Lasix 40 mg iv in the ED and has had no obvious diuresis. The ED provider contacted the Hospitalist Team for placing him in Observation to undergo a thoracenteisi to be done by IR tomorrow. He has a POLST that states his CODE BLUE status is DNR. History - Past Medical History Cardiovascular: reports: Congestive heart failure, Hypertension, Atrial fibrillation, Valve disorder, Other Respiratory: reports: Shortness of breath, Sleep apnea Neuro: reports: CVA, Peripheral neuropathy, Tremors Endocrine/Autoimmune: reports: Type 2 diabetes GI: reports: Colon polyps : reports: Other (Renal cell CA w/ mets) HEENT: reports: None Psych: reports: Depression, Anxiety Musculoskeletal: reports: Osteoarthritis, Fatigue Derm: reports: None MRSA Hx?: No - Past Surgical History General: reports: Colonoscopy Ortho: reports: Knee replacement, Arthroscopic surgery, Other /[employer]: reports: Other (L nephrectomy) - Family & Social History Family History: Mother: , CAD, Father: , CAD, CVA/TIA, Sister: Alive and Well, Diabetes, Type 2 Family History Comment/Other: Dad of old age 89. Mom was living in care facility, diabetic. 80s when she . half Sister with diabetes. brother of suicide. other sister in car accident. 4 kids: completely healthy. one son w crohn's? Living arrangement: At home Living Situation: With spouse/s.o. 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 and he and his live in their own home. Does not smoke. Drinks 1 drink once a month. No history of alcohol abuse or recreational substance abuse - Substance History Use: Uses substance without health or social issues: NONE - POLST Patient has POLST: No POLST Status: DNR Meds/Allgy - Home Medications Home Medications: Ambulatory Orders Medication Instructions Recorded Confirmed Spironolactone [Aldactone] 12.5 mg PO 1200 tablet 02/28/20 05/21/21 Isosorbide Mononitrate ER [Imdur] 30 mg PO DAILY MDD HOLD 03/03/20 05/21/21 Levothyroxine Sodium [Euthyrox] 100 mcg PO QDAC 03/19/20 05/21/21 Metoprolol Succinate [Toprol Xl] 50 mg PO DAILY 03/19/20 05/21/21 hydrALAZINE [Apresoline] 25 mg PO TID 03/19/20 05/21/21 Hydrocortisone [Cortef] 5 mg PO .3TABS AM 1 TAB 1400 03/20/20 05/21/21 Fluticasone [Flonase] 1 inh INH DAILY PRN 05/15/20 05/21/21 Triamcinolone Acetonide 0.1% 1 applic TOP DAILY 05/27/20 05/21/21 [Triamcinolone Acetonide] Apixaban [Eliquis] 5 mg PO BID 12/19/20 05/21/21 Atorvastatin Calcium 40 mg PO DAILY 12/19/20 05/21/21 Cetirizine HCl [Zyrtec] 10 mg PO DAILY PRN 03/27/21 05/21/21 Gabapentin [Neurontin] 300 mg PO TID MDD 1200 mg 03/27/21 05/21/21 Insulin Lispro [Insulin Lispro 5 unit SQ TID 05/18/21 05/21/21 Kwikpen U-100] Insulin NPH Human [Humulin N] 20 unit SQ BID MDD titrating 05/18/21 05/21/21 expected to change hydrOXYzine HCL [Hydroxyzine HCl] 25 mg PO QPM 05/21/21 05/21/21 - Allergies Allergies/Adverse Reactions: Allergies Allergy/AdvReac Type Severity Reaction Status Date / Time coban AdvReac Itching Uncoded 07/29/21 21:37 Review of Systems - Constitutional Constitutional: reports: Weakness - Respiratory Respiratory: reports: SOB at rest, SOB with exertion - Neurological Neurological: reports: Memory problems - All Other Systems All Other Systems: reports: Other (Obtained from chart review, due to his poor memory) Exam - Vital Signs Vital Signs: Vital Signs x48h Temp Pulse Resp BP Pulse Ox 07/30/21 01:00 86 17 129/90 H 97 07/30/21 00:36 96 22 118/95 H 94 07/30/21 00:00 74 15 117/77 98 07/29/21 23:30 88 18 108/84 H 96 07/29/21 23:10 89 114/83 H 07/29/21 23:00 82 21 120/76 98 07/29/21 22:30 84 15 147/100 H 96 07/29/21 22:07 72 23 167/104 H 96 07/29/21 21:25 36.6 C 87 14 136/100 H 96 - Physical Exam General Appearance: positive: Alert Eyes Bilateral: positive: Normal inspection, EOMI ENT: positive: ENT inspection nml, No signs of dehydration Neck: positive: Nml inspection Respiratory: positive: Other (Diminished breath sounds entire R side) Cardiovascular: positive: Irregularly irregular Abdomen: positive: Non-tender Skin: positive: Warm, Dry Extremities: positive: Non-tender, No pedal edema Neurologic/Psychiatric: positive: Motor nml Conclusion/Plan - Problem List (1) Pleural effusion Conclusion/Plan: The CXR shows a moderate R-sided effusion and underlying compressive atelecta sis. This is new, developed after receiving 2L of iv fluids yesterday to treat hypercalcemia. Today he is SOB with a normal troponin and normal BNP. His last Echo done 3 mos ago showed recovery of systolic function from his 15% LVEF in 2019, to 25% LVEF in 2020, to 55% in Apr of this year. Likely the rapid iv fluids administered yesterday caused the pleural fluid. Alternatively, this may be a malignant effusion, since he has known lung metastesis of his renal cell CA. Will order Incentive Spirometry and prn suppl. O2 Will order a diagnostic and therapeutic thoracentsis by IR, under US guidance. Will give iv Lasix daily, to help diurese the fluid as well, watching his CKD closley (2) Hyponatremia Conclusion/Plan: This is likely hypervolemic hyponatremia because of the recent IV fluids that were administered yesterday. Will order dietary fluid restriction and carefully give IV Lasix. Follow his Na and creat daily. (3) CKD (chronic kidney disease) Conclusion/Plan: He has 1 kidney, the other was removed because of renal cell cancer His creatinine is 2.9 which is at his baseline. His fluid management needs to be very carefully monitored as described above in #1 and #2 Qualifiers: Chronic kidney disease stage: unspecified stage Qualified Code(s): N18.9 - Chronic kidney disease, unspecified (4) Chronic a-fib Conclusion/Plan: Will continue his Metoprolol and his Eliquis (5) Diabetes mellitus Conclusion/Plan: We will continue his usual long-acting and short acting insulin and also order fingerstick glucose checks before meals and at bedtime, hypoglycemia protocol and sliding scale insulin coverage. Check A1c in a.m. (6) Hypothyroidism Conclusion/Plan: We will continue his usual thyroid replacement dose. Check TSH in a.m. (7) History of sleep apnea Conclusion/Plan: Will order his home CPAP device to be used here (8) Adrenal insufficiency Conclusion/Plan: We will continue with his usual doses of Cortef, not stress doses, since he has no acute infection (9) Hx of heart failure Conclusion/Plan: We will continue his beta-yajaira, IV Lasix daily, continue oral spironolactone and hydralazine plus nitrates (this combination is obviously being used instead of JUSTIN inhibitor or ARB because of his CKD), to maintain his improved LVEF (10) Poor memory Conclusion/Plan: This is a result of his CVA. - Lab Results Fish Bones: 07/29/21 21:40 07/29/21 21:40 - Diagnostic Imaging Results Diagnostic Imaging Results: positive: Final report reviewed - Other Other Results/Comments: Attestation: The patient is expected to be discharged or transferred to another facility within 96 hours: Yes.
[2021-07-30 01:25] LABS: BILIRUBIN,URINE NEGATIVE (NEGATIVE); CLARITY,URINE CLEAR (CLEAR); GLUCOSE, URINE (UA) NEGATIVE (NEGATIVE); KETONES,URINE (UA) NEGATIVE (NEGATIVE); LEUKOCYTE ESTERASE, URINE NEGATIVE (NEGATIVE); NITRITE,URINE NEGATIVE (NEGATIVE); OCCULT BLOOD,URINE NEGATIVE (NEGATIVE); PH,URINE 5.5 PH (5.0-7.5); PROTEIN,URINE TRACE mg/dL (NEGATIVE); UROBILINOGEN,URINE 0.2 (NORMAL) E.U./dL (NORMAL)
[2021-07-30] MEDS: SODIUM CHLORIDE FLUSH 0.9% 10 ML SYRINGE IVP SCH ×2 (04:46→13:44)
[2021-07-30] MEDS ORDERED: FUROSEMIDE 40 MG/4 ML VIAL IVP SCH ×2 (06:00→09:00)
[2021-07-30] MEDS ORDERED: LEVOTHYROXINE 100 MCG TABLET PO SCH (07:00)
[2021-07-30 07:01] LABS: CALCIUM 9.6 mg/dL (8.5-10.3); CREATININE 2.8 mg/dL (0.6-1.2); MAGNESIUM 1.8 mg/dL (1.7-2.8); PHOSPHORUS 3.9 mg/dL (2.5-4.6)
[2021-07-30 07:14] LABS: HCT - HEMATOCRIT 43.2 % (42.0-52.0); HGB - HEMOGLOBIN 14.3 g/dL (14.0-18.0); MEAN CORPUSCULAR HEMOGLOBIN 28.4 pg (27.0-31.0); MEAN CORPUSCULAR HGB CONC 33.1 g/dL (32.0-36.0); MEAN CORPUSCULAR VOLUME 85.7 fL (80.0-94.0); MEAN PLATELET VOLUME 11.9 fL (7.4-11.4); RED BLOOD COUNT 5.04 10^6/uL (4.70-6.10); RED CELL DISTRIBUTION WIDTH 14.3 % (12.0-15.0)
[2021-07-30] MEDS ORDERED: HYDROmorphone 0.5 MG/0.5 ML SYRINGE IVP PRN (07:25)
[2021-07-30] MEDS ORDERED: INSULIN NPH HUMAN 300 UNIT/3 ML VIAL SUBQ SCH (08:00)
[2021-07-30] MEDS: HYDROcod/ACETAM 5/325 MG TABLET PO PRN ×2 (08:00→13:39)
[2021-07-30] MEDS ORDERED: HYDROCORTISONE 10 MG TABLET PO SCH ×2 (08:00→14:00)
[2021-07-30] MEDS ORDERED: FLUTICASONE NASAL SPRAY NAS PRN (08:00)
[2021-07-30] MEDS: GABAPENTIN 300 MG CAPSULE PO SCH ×2 (08:02→13:22)
[2021-07-30] MEDS: hydrALAZINE 25 MG TABLET PO SCH ×2 (08:04→12:55)
[2021-07-30] MEDS: INSULIN ASPART 300 UNIT/3 ML PEN SUBQ SCH ×4 (08:29→13:44)
[2021-07-30] MEDS ORDERED: ISOSORBIDE MONONITRATE ER 30 MG TABLET PO SCH (09:00)
[2021-07-30] MEDS ORDERED: METOPROLOL SUCCINATE 50 MG TABLET PO SCH (09:00)
[2021-07-30] MEDS ORDERED: TRIAMCINOLONE ACETONIDE 454 APPLIC/454 GM JAR TOP SCH (09:00)
[2021-07-30] MEDS ORDERED: NYSTATIN POWDER 15 GM TOP SCH (09:00)
[2021-07-30] MEDS ORDERED: APIXABAN 5 MG TABLET PO SCH (09:00)
[2021-07-30 09:07] LABS: INR 1.4 (0.8-1.2)
[2021-07-30 09:15] LABS: PARTIAL THROMBOPLASTIN TIME 36.7 secs (24.9-33.3)
[2021-07-30 11:56] LABS: ESTIMATED AVERAGE GLUCOSE 206 mg/dL (70-100); HEMOGLOBIN A1c% 8.8 % (4.27-6.07)
[2021-07-30] MEDS ORDERED: SPIRONOLACTONE 25 MG TABLET PO SCH (12:00)
[2021-07-30] MEDS ORDERED: LIDOCAINE-MPF 1% 10 ML AMP ONE (15:01)
--- NOTE | 2021-07-30 16:03 | DISCHARGE SUMMARY ---
Discharge Summary Admit Date: 07/30/21 Discharge Date: 07/30/21 Discharging Provider: Wilda Bach Primary Care Provider: Alban Connor Code Status: Do Not Attempt Resuscitation Condition at Discharge: Stable Discharge Disposition: 01 Home, Self Care - DIAGNOSES Admission Diagnoses: Pleural effusion Hyponatremia Chronic kidney disease Chronic atrial fibrillation Diabetes mellitus Hypothyroidism History of sleep apnea Adrenal insufficiency History of heart failure Poor memory Discharge Diagnoses with Status of Each Condition: Pleural effusion: Acute. s/p Therapeutic Thoracentesis. 1L fluid extracted Hyponatremia: Acute. Mild. Likely secondary to IV hydration with 2 L of fluid for hypercalcemia 2 days ago. Patient given Lasix in the ED. Chronic kidney disease Chronic atrial fibrillation Diabetes mellitus: Chronic. Stable Hypothyroidism: Chronic. Stable History of sleep apnea: Chronic. Adrenal insufficiency: Stable. Continue home medication. History of heart failure: Chronic. Stable. Continue home medications Poor memory; Chronic. due to CVA in the past - HPI History of Present Illness: This is a 66 y/o WM with Hx of systolic Heart failure, hypertension, chronic atr ial fib on Eliquis, LBBB, sleep apnea on CPAP, CVA with poor memory and frequent lapses in taking his meds and Insulin, severe peripheral neuropathy, tremors, type 2 diabetes on Insulin, depression and anxiety, osteoarthritis, chronic fatigue, hypothyroidism, and adrenal insufficiency. He has a Hx of renal cell carcinoma of the left kidney, s/p nephrectomy with CKD (usual creat is 2.5-2.9). 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 His cancer recurred in Apr 2021, and Echo showed improved LVEF from 15% in 2019, to 25% in 2020, to 55% 3 mos ago, and he was cleared to resume chemo therapy. Yesterday he was found to have hypercalcemia which was treated with iv saline of 2 L. Today he developed SOB and presented to the ED. His troponin and BNP are low and O2 sat is 94% on room air but he is dyspneic. His CXR shows a moderate R pleural effusion. He received Lasix 40 mg iv in the ED and has had no obvious diuresis. The ED provider contacted the Hospitalist Team for placing him in Observation to undergo a thoracenteisi to be done by IR tomorrow. He has a POLST that states his CODE BLUE status is DNR. - HOSPITAL COURSE Hospital Course: Patient was administered Lasix in the ED. He was admitted to the hospital and interventional radiology was consulted. He underwent a therapeutic thoracentesis with 1 L of pleural effusion extracted. Patient was breathing comfortably at room air after procedure. He was able to ambulate around the [facility] floor without any difficulties. Vitals before discharge were: Blood pressure 105 145, pulse 65, respirations 16, O2 sats 96% on room air. Temperature 36.3 C. - ALLERGIES Allergies/Adverse Reactions: Allergies Allergy/AdvReac Type Severity Reaction Status Date / Time coban AdvReac Itching Uncoded 07/29/21 21:37 - MEDICATIONS Home Medications: Ambulatory Orders Medication Instructions Recorded Confirmed Spironolactone [Aldactone] 12.5 mg PO 1200 tablet 02/28/20 07/30/21 hydrALAZINE [Apresoline] 25 mg PO TID 03/19/20 07/30/21 Hydrocortisone [Cortef] 5 mg PO .3TABS AM 1 TAB 1400 03/20/20 07/30/21 Fluticasone [Flonase] 1 inh INH DAILY PRN 05/15/20 07/30/21 Triamcinolone Acetonide 0.1% 1 applic TOP DAILY PRN 05/27/20 07/30/21 [Triamcinolone Acetonide] Apixaban [Eliquis] 5 mg PO BID 12/19/20 07/30/21 Atorvastatin Calcium 40 mg PO DAILY 12/19/20 07/30/21 Cetirizine HCl [Zyrtec] 10 mg PO DAILY PRN 03/27/21 07/30/21 Gabapentin [Neurontin] 600 mg PO HS MDD 1200 mg 03/27/21 07/30/21 Insulin Lispro [Insulin Lispro 5 unit SQ TID 05/18/21 07/30/21 Kwikpen U-100] Insulin NPH Human [Humulin N] 12 unit SQ BID MDD titrating 05/18/21 07/30/21 expected to change Acetaminophen [Acetaminophen Extra 500 mg PO Q6HR PRN 07/30/21 07/30/21 Strength] Furosemide [Lasix] 80 mg PO DAILY PRN 07/30/21 07/30/21 Gabapentin [Neurontin] 300 mg PO DAILY MDD 1200 07/30/21 07/30/21 LORazepam [Ativan] 0.5 mg PO PRN PRN 07/30/21 07/30/21 Levothyroxine [Synthroid] 100 mg PO QDAC 07/30/21 07/30/21 Metoprolol Succinate [Toprol Xl] 25 mg PO ONCE 07/30/21 07/30/21 Ondansetron Odt [Zofran Odt] 4 mg PO Q6H PRN 07/30/21 07/30/21 Prochlorperazine [Compazine] 5 mg PO Q6H PRN 07/30/21 07/30/21 Senna [Senokot] 8.6 mg PO PRN PRN 07/30/21 07/30/21 - PHYSICAL EXAM AT DISCHARGE General Appearance: positive: Alert, Mild distress Eyes Bilateral: positive: PERRL, EOMI ENT: positive: No signs of dehydration Neck: positive: No JVD, Trachea midline Respiratory: positive: Chest non-tender, No respiratory distress, Breath sounds nml. negative: Wheezes, Rhonchi Cardiovascular: positive: Regular rate & rhythm, No murmur Abdomen: positive: Non-tender, Nml bowel sounds, No distention. negative: Guarding, Rebound Back: positive: Nml inspection Skin: positive: No rash, Warm, Dry Extremities: positive: Non-tender, Full ROM, Nml appearance, No pedal edema Neurologic/Psychiatric: positive: Oriented x3, Motor nml, Mood/affect nml - LABS Result Diagrams: 07/30/21 06:25 07/30/21 06:25 - TIME SPENT Time Spent in Discharge (Minutes): 15
[2021-07-30 16:06] VITALS: BP 105/45
--- NOTE | 2021-07-30 16:07 | Discharge Plan ---
Discharge Plan Problem Reviewed?: Yes Disposition: Home, Self Care Condition: Stable Diet: Regular Activity Restrictions: Activity as Tolerated Health Concerns: You were admitted earlier today with shortness of breath. Work-up in the emergency room included a chest x-ray which showed a moderate right-sided pleural effusion. You were admitted and interventional radiology was consulted for an ultrasound- guided thoracentesis. This was successfully done and 1 L of pleural effusion was extracted. The pleural effusions are believed to be secondary to your renal cell cancer which has spread to the lungs. It was at therapeutic thoracentesis. After the procedure chest x-ray done was unremarkable. It was negative for pneumothorax. You were able to ambulate around the [facility] floor without any difficulties and while on room air only. Consequently you are being discharged home in stable condition. You may follow-up with your primary care physician and your oncologist as needed or as scheduled. The above plan was explained to you you expressed understanding and are in agreement. No Smoking: If you smoke, Please STOP! Call for help. Follow-up with: Alban Connor MD [Primary Care Provider] -
--- NOTE | 2021-07-30 16:15 | PHARMACY PROGRESS NOTE ---
- Best Possible Medication History Admit Date and Time: 07/30/21 0057 Processed by: Pharmacy Medication History completed: Yes Patient Interview: Completed Secondary Source(s): Written medication list, Insurance records (PT ALSO HAS CARBOMETIX 60MG QD, WAS TO BE STARTED ON 07/29 BUT DID NOT DUE TO HOSPITALIZATION. PRESCRIBED BY [facility] PER PT REPORT.) As the person ultimately responsible for medication therapy, providers are able to order a medication from an existing home medication list in [facility] via the "Reconcile Routine" prior to Confirmation of that medication by support specialist. Such practice is discouraged except when the physician, in their clinical judgment, deems that a medical need exists for a medication without regard to previous use.
[2021-07-30] MEDS ORDERED: LIDOCAINE-MPF 1% 10 ML AMP SUBQ ONE (16:18)
--- NOTE | 2021-07-30 16:53 | Ultrasound Report ---
PROCEDURE: Thoracentesis Puncture INDICATIONS: R pleural effusion and dyspnea TECHNIQUE: The indications, alternatives, benefits, risks, and complications of the procedure were explained to the patient. Written informed consent was obtained and placed in the chart. The chest was examined sonographically, and an appropriate site was chosen for thoracentesis. The skin was prepared and alonso ped in the usual sterile fashion, and 1% lidocaine was infiltrated from the skin down through the ple ural surface. A 19-gauge catheter-covered needle was then introduced into the pleural space, the cat heter was advanced and the needle was withdrawn, and thereafter pleural fluid was aspirated. The cat heter was then removed and a dressing was applied. COMPARISON: None. FINDINGS: Access site: Right hemithorax. Needle: One-Step centesis catheter with introducer needle. Fluid volume and description: 1.2 L, reddish, somewhat thick fluid Fluid sent for diagnostic testing: Yes Medications: 1% lidocaine for local anaesthesia. Complications: None; post-procedural chest radiograph is pending to assess for pneumothorax. IMPRESSION: Successful ultrasound-guided thoracentesis. Reviewed by: Remy Adhikari MD on 07/30/2021 4:51 PM PDT Approved by: Remy Adhikari MD on 07/30/2021 4:51 PM PDT Station ID: [id number]
[2021-07-30] MEDS ORDERED: ATORVASTATIN 40 MG TABLET PO SCH (21:00)
--- NOTE | 2021-07-31 07:09 | XRAY Report ---
PROCEDURE: Post Thoracentesis 1V CXR INDICATIONS: Status post thoracentesis TECHNIQUE: One view of the chest was acquired. COMPARISON: 07/29/2021 chest radiograph. FINDINGS: Decreased size of right pleural effusion when compared with the prior study. No evidence of pneumotho rax. There is still a small residual right pleural effusion with overlying atelectasis. Left lung and pleural space are clear. Cardiomegaly noted. IMPRESSION: Decreased right pleural effusion and no evidence of pneumothorax status post right thoracentesis. Reviewed by: Sp Acosta MD on 07/30/2021 4:27 PM PDT Approved by: Sp Acosta MD on 07/30/2021 4:27 PM PDT Station ID: [id number]
== END 2021-07-30 17:02 | disposition home or self-care (01) ==
LOC: ED 21:17 → MS2 07-30 00:57
PROVIDERS: ADMIT Internal Medicine; ATTEND Internal Medicine
DX: J90 Pleural effusion, not elsewhere classified (principal); E87.1 Hypo-osmolality and hyponatremia; E11.22 Type 2 diabetes mellitus with diabetic chronic kidney disease; I13.0 Hypertensive heart and chronic kidney disease with heart failure and stage 1 through stage 4 chronic kidney disease, or unspecified chronic kidney disease; N18.9 Chronic kidney disease, unspecified; I50.22 Chronic systolic (congestive) heart failure; E11.42 Type 2 diabetes mellitus with diabetic polyneuropathy; I48.20 Chronic atrial fibrillation, unspecified; E03.9 Hypothyroidism, unspecified; G47.30 Sleep apnea, unspecified; E27.40 Unspecified adrenocortical insufficiency; F32.A Depression, unspecified; J98.11 Atelectasis; C64.9 Malignant neoplasm of unspecified kidney, except renal pelvis; C77.2 Secondary and unspecified malignant neoplasm of intra-abdominal lymph nodes; C78.00 Secondary malignant neoplasm of unspecified lung; F41.9 Anxiety disorder, unspecified; Z79.4 Long term (current) use of insulin; I69.811 Memory deficit following other cerebrovascular disease; Z20.822 Contact with and (suspected) exposure to COVID-19; Z79.01 Long term (current) use of anticoagulants; Z66 Do not resuscitate
CPT/HCPCS: 32555; 36415; 71045; 80048; 80053; 81003; 83036; 83690; 83735; 83880; 84100; 84443; 84484; 85025; 85027; 85610; 85730; 87635; 93005; 96374; 99283; 99285; A9270; G0378; J1815; 81001; 87086

== ENCOUNTER 2021-08-04 13:31 | Outpatient (CLI) | payer MEDICARE, OTHER ==
[2021-08-04 14:07] LABS: ALBUMIN 3.7 g/dL (3.2-5.5); ALBUMIN/GLOBULIN RATIO 1.1 (1.0-2.2); BILIRUBIN,TOTAL 0.2 mg/dL (0.2-1.0); CREATININE 2.3 mg/dL (0.6-1.2); TOTAL PROTEIN 7.2 g/dL (6.7-8.2)
== END 2021-08-04 13:32 | disposition home or self-care (01) ==
LOC: LAB 13:31
PROVIDERS: ATTEND Nurse Practitioner
DX: C64.2 Malignant neoplasm of left kidney, except renal pelvis (principal)
CPT/HCPCS: 36415; 80053

== ENCOUNTER 2021-08-08 21:35 | Emergency (ER) | payer MEDICARE, OTHER ==
--- NOTE | 2021-08-08 22:30 | ED Physician Documentation ---
History of Present Illness - Stated complaint Stated Complaint: SOA, DIZZ, WEAKNESS, HIGH HR - Chief complaint Chief Complaint: Resp - History obtained from History obtained from: Patient - History of Present Illness Timing: Today Pain level max: 0 Pain level now: 0 Improved by: nausea resolved with zofran Worsened by: dyspnea worse with exertion - Additonal information Additional information: patient's chief complaint on my HPI is sinus congestion, particularly left- sided; he says he "can't breathe through the left side" of his nose due to congestion. He says he was here in the past for similar problem and was given/prescribed ceterizine/pseudoephedrine which resulted in rapid resolution. He also says he has sensation of heart pounding earlier today but this has since resolved. He says he has had episodic dizziness and dyspnea today but denies at the time of my HPI/ROS. He also says he had nausea earlier today but this resolved after he took zofran. Denies fever, cough Review of Systems Constitutional: denies: Fever, Chills, Sweats Nose: reports: Congestion Throat: denies: Sore throat Cardiac: reports: Palpitations, Pedal edema (chronic). denies: Chest pain / pressure Respiratory: reports: Dyspnea. denies: Cough GI: reports: Nausea (resolved). denies: Abdominal Pain, Vomiting, Constipation, Diarrhea : denies: Dysuria Musculoskeletal: reports: Extremity swelling (chronic BLE) Neurologic: denies: Focal weakness, Numbness, Confused, Altered mental status, Headache PD PAST MEDICAL HISTORY - Past Medical History Cardiovascular: Congestive heart failure, Hypertension, Atrial fibrillation, Valve disorder, Other Respiratory: Shortness of breath, Sleep apnea Neuro: CVA, Peripheral neuropathy, Tremors Endocrine/Autoimmune: Type 2 diabetes GI: Colon polyps : Other HEENT: None Psych: Depression, Anxiety Musculoskeletal: Osteoarthritis, Fatigue Derm: None - Past Surgical History Past Surgical History: Yes General: Colonoscopy Ortho: Knee replacement, Arthroscopic surgery, 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) - Present Medications Home Medications: Ambulatory Orders Medication Instructions Recorded Confirmed Spironolactone [Aldactone] 12.5 mg PO 1200 tablet 02/28/20 07/30/21 hydrALAZINE [Apresoline] 25 mg PO TID 03/19/20 07/30/21 Hydrocortisone [Cortef] 5 mg PO .3TABS AM 1 TAB 1400 03/20/20 07/30/21 Fluticasone [Flonase] 1 inh INH DAILY PRN 05/15/20 07/30/21 Triamcinolone Acetonide 0.1% 1 applic TOP DAILY PRN 05/27/20 07/30/21 [Triamcinolone Acetonide] Apixaban [Eliquis] 5 mg PO BID 12/19/20 07/30/21 Atorvastatin Calcium 40 mg PO DAILY 12/19/20 07/30/21 Cetirizine HCl [Zyrtec] 10 mg PO DAILY PRN 03/27/21 07/30/21 Gabapentin [Neurontin] 600 mg PO HS MDD 1200 mg 03/27/21 07/30/21 Insulin Lispro [Insulin Lispro 5 unit SQ TID 05/18/21 07/30/21 Kwikpen U-100] Insulin NPH Human [Humulin N] 12 unit SQ BID MDD titrating 05/18/21 07/30/21 expected to change Acetaminophen [Acetaminophen Extra 500 mg PO Q6HR PRN 07/30/21 07/30/21 Strength] Furosemide [Lasix] 80 mg PO DAILY PRN 07/30/21 07/30/21 Gabapentin [Neurontin] 300 mg PO DAILY MDD 1200 07/30/21 07/30/21 LORazepam [Ativan] 0.5 mg PO PRN PRN 07/30/21 07/30/21 Levothyroxine [Synthroid] 100 mg PO QDAC 07/30/21 07/30/21 Metoprolol Succinate [Toprol Xl] 25 mg PO ONCE 07/30/21 07/30/21 Ondansetron Odt [Zofran Odt] 4 mg PO Q6H PRN 07/30/21 07/30/21 Prochlorperazine [Compazine] 5 mg PO Q6H PRN 07/30/21 07/30/21 Senna [Senokot] 8.6 mg PO PRN PRN 07/30/21 07/30/21 Cetirizine HCl/Pseudoephedrine 1 tablet PO BID PRN #14 tablet 08/09/21 [Zyrtec-D Tablet] - Allergies Allergies/Adverse Reactions: Allergies Allergy/AdvReac Type Severity Reaction Status Date / Time coban AdvReac Itching Uncoded 08/08/21 21:43 - Social History Does the pt smoke?: No Smoking Status: Never smoker Does the pt drink ETOH?: No Does the pt have substance abuse?: No - Immunizations Immunizations are current?: Yes - POLST Patient has POLST: No POLST Status: DNR PD ED PE NORMAL - Vitals Vital signs reviewed: Yes - General General: Alert and oriented X 3, No acute distress, Well developed/nourished - HEENT HEENT: Moist mucous membranes - Neck Neck: Supple, no meningeal sign - Cardiac Cardiac: No murmur - Respiratory Respiratory: No respiratory distress, Other (diminished breath sounds right lower lung field) - Abdomen Abdomen: Soft, Non tender - Derm Derm: Normal color, Warm and dry PD ED PE EXPANDED - Cardiac Cardiac: Irregularly irregular - Extremities Extremities: Pedal edema bilateral Results - Vitals Vitals: Oxygen O2 Source [] Room air O2 Source [] Room air O2 Source Room air - EKG (time done) No standard instances Rate: Rate (enter#) (114) Rhythm: Atrial fibrillation [place]: LAD Intervals: Wide QRS Compare to prior EKG: Other (has had LBBB on some previous EKGs) - Labs Labs: Laboratory Tests 08/08/21 08/08/21 08/08/21 22:35 22:35 22:35 WBC RBC Hgb Hct MCV MCH MCHC RDW Plt Count MPV Neut # (Auto) Lymph # (Auto) Phelps # (Auto) Eos # (Auto) Baso # (Auto) Absolute Nucleated RBC Nucleated RBC % Sodium 134 L Potassium 5.0 Chloride 98 L Carbon Dioxide 24 Anion Gap 12.0 BUN 58 H Creatinine 2.4 H Estimated GFR (MDRD) 27 L Glucose 220 H Calcium 9.4 Total Bilirubin 0.3 AST 97 H ALT 104 H Alkaline Phosphatase 110 Troponin I High Sens 11.9 B-Natriuretic Peptide 71 Total Protein 7.1 Albumin 3.7 Globulin 3.4 Albumin/Globulin Ratio 1.1 Lipase 37 08/08/21 22:40 WBC 9.0 RBC 5.14 Hgb 14.5 Hct 43.1 MCV 83.9 MCH 28.2 MCHC 33.6 RDW 13.7 Plt Count 327 MPV 11.7 H Neut # (Auto) 7.4 H Lymph # (Auto) 0.6 L Phelps # (Auto) 0.6 Eos # (Auto) 0.3 Baso # (Auto) 0.1 Absolute Nucleated RBC 0.00 Nucleated RBC % 0.0 Sodium Potassium Chloride Carbon Dioxide Anion Gap BUN Creatinine Estimated GFR (MDRD) Glucose Calcium Total Bilirubin AST ALT Alkaline Phosphatase Troponin I High Sens B-Natriuretic Peptide Total Protein Albumin Globulin Albumin/Globulin Ratio Lipase - Rads (name of study) chest xray Radiology: Prelim report reviewed, See rad report PD MEDICAL DECISION MAKING - ED course Complexity details: reviewed old records, reviewed results, re-evaluated patient, considered differential, d/w patient, d/w family ED course: patient's chief complaint on my HPI is nasal/sinus congestion, strongly desires a dose of cetirizine/pseudoephedrine (he says it is a mediation with a long name that he was given on a previous visit for similar nasal congestion; the medication was noted on records of previous visit and when showed to him, he says this was indeed the medication). He is given a dose of this medication and says he feels improvement on reevaluation. He had mild tachycardia earlier in stay although not later in stay. He is in chronic atrial fibrillation for which he is on eliquis. His blood tests are without concerning findings tonight. Normal WBC, H/H, platelets. BUN/Creatinine are 58/2.4, and these results are comparable to past few months' results. Mildly elevated AST/ALT (97, 104). CXR shows right pleural effusion which is not new; although it appears slightly worse than previous, it is markedly improved from the cxr previous to the last one (a thoracentesis was performed after 07/29/21 cxr, and the 07/30 cxr is post- thoracentesis). On reevaluation, test results d/w patient. he says he feels he is ready to go home. Return precautions discussed Departure - Departure Disposition: 01 Home, Self Care Clinical Impression: Sinus congestion, Dizziness Condition: Good Instructions: ED Dizziness UKO, ED Sinusitis No Abx Follow-Up: Alban Connor MD [Primary Care Provider] - Within 1 week Prescriptions: Cetirizine HCl/Pseudoephedrine [Zyrtec-D Tablet] 1 tablet PO BID PRN #14 tablet PRN Reason: Nasal Congestion Discharge Date/Time: 08/09/21 00:17
[2021-08-08 22:59] LABS: BASOPHILS # (AUTO) 0.1 10^3/uL (0.0-0.1); BASOPHILS % (AUTO) 1.1 %; EOSINOPHILS # (AUTO) 0.3 10^3/uL (0.0-0.7); EOSINOPHILS % (AUTO) 3.1 %; HCT - HEMATOCRIT 43.1 % (42.0-52.0); HGB - HEMOGLOBIN 14.5 g/dL (14.0-18.0); LYMPHOCYTES # (AUTO) 0.6 10^3/uL (1.5-3.5); LYMPHOCYTES % (AUTO) 6.5 %; MEAN CORPUSCULAR HEMOGLOBIN 28.2 pg (27.0-31.0); MEAN CORPUSCULAR HGB CONC 33.6 g/dL (32.0-36.0); MEAN CORPUSCULAR VOLUME 83.9 fL (80.0-94.0); MEAN PLATELET VOLUME 11.7 fL (7.4-11.4); MONOCYTES # (AUTO) 0.6 10^3/uL (0.0-1.0); MONOCYTES % (AUTO) 6.6 %; NEUTROPHILS # (AUTO) 7.4 10^3/uL (1.5-6.6); NEUTROPHILS % (AUTO) 82.3 %; PLT - PLATELET COUNT 327 10^3/uL (130-450); RED BLOOD COUNT 5.14 10^6/uL (4.70-6.10); RED CELL DISTRIBUTION WIDTH 13.7 % (12.0-15.0)
[2021-08-08 23:25] LABS: ALBUMIN 3.7 g/dL (3.2-5.5); ALBUMIN/GLOBULIN RATIO 1.1 (1.0-2.2); BILIRUBIN,TOTAL 0.3 mg/dL (0.2-1.0); CALCIUM 9.4 mg/dL (8.5-10.3); CREATININE 2.4 mg/dL (0.6-1.2); TOTAL PROTEIN 7.1 g/dL (6.7-8.2)
--- NOTE | 2021-08-08 23:30 | XRAY Report ---
PROCEDURE: Chest 2 View X-Ray INDICATIONS: dyspnea TECHNIQUE: 2 view(s) of the chest. COMPARISON: 07/30/2021 FINDINGS: Surgical changes and devices: None. Lungs and pleura: Moderate right pleural effusion associated compressive atelectasis. Mediastinum: Mediastinal contours are normal. Heart size is normal. Bones and chest wall: No suspicious bony abnormalities. Soft tissues appear unremarkable. IMPRESSION: Moderate right pleural effusion, slightly larger than the prior Reviewed by: Yang Rivera MD on 08/08/2021 10:31 PM AKDT Approved by: Yang Rivera MD on 08/08/2021 10:31 PM AKDT Station ID: [id number]
[2021-08-08] MEDS ORDERED: CETIRIZINE 10 MG TABLET PO STA (23:35)
[2021-08-08] MEDS ORDERED: PSEUDOEPHEDRINE 30 MG TABLET PO STA (23:35)
[2021-08-09 00:17] VITALS: BP 128/60
== END 2021-08-09 00:17 | disposition home or self-care (01) ==
LOC: ED 21:35
DX: R09.81 Nasal congestion (principal); R42 Dizziness and giddiness; I48.91 Unspecified atrial fibrillation; E11.9 Type 2 diabetes mellitus without complications; Z79.4 Long term (current) use of insulin; Z79.01 Long term (current) use of anticoagulants
CPT/HCPCS: 36415; 71046; 80053; 83690; 83880; 84484; 85025; 93005; 99284; A9270

== ENCOUNTER 2021-08-18 12:51 | Outpatient (CLI) | payer MEDICARE, OTHER ==
[2021-08-18 13:10] LABS: BASOPHILS # (AUTO) 0.1 10^3/uL (0.0-0.1); BASOPHILS % (AUTO) 0.9 %; EOSINOPHILS # (AUTO) 0.6 10^3/uL (0.0-0.7); EOSINOPHILS % (AUTO) 6.6 %; HCT - HEMATOCRIT 44.1 % (42.0-52.0); HGB - HEMOGLOBIN 14.4 g/dL (14.0-18.0); LYMPHOCYTES % (AUTO) 11.2 %; MEAN CORPUSCULAR HEMOGLOBIN 27.7 pg (27.0-31.0); MEAN CORPUSCULAR HGB CONC 32.7 g/dL (32.0-36.0); MEAN CORPUSCULAR VOLUME 84.8 fL (80.0-94.0); MEAN PLATELET VOLUME 11.9 fL (7.4-11.4); MONOCYTES # (AUTO) 0.7 10^3/uL (0.0-1.0); MONOCYTES % (AUTO) 8.4 %; NEUTROPHILS # (AUTO) 6.2 10^3/uL (1.5-6.6); NEUTROPHILS % (AUTO) 72.7 %; PLT - PLATELET COUNT 251 10^3/uL (130-450); RED CELL DISTRIBUTION WIDTH 13.9 % (12.0-15.0); WHITE BLOOD COUNT 8.5 x10^3/uL (4.8-10.8)
[2021-08-18 13:25] LABS: CALCIUM 8.7 mg/dL (8.5-10.3); CREATININE 2.1 mg/dL (0.6-1.2); POTASSIUM 4.7 mmol/L (3.5-5.0)
[2021-08-18 13:36] LABS: THYROID STIMULATING HORMONE 3.76 uIU/mL (0.34-5.60)
[2021-08-18 13:42] LABS: FREE T4 (FREE THYROXINE) 1.3 ng/dL (0.58-1.64)
[2021-08-18 13:46] LABS: BILIRUBIN,URINE NEGATIVE (NEGATIVE); GLUCOSE, URINE (UA) NEGATIVE (NEGATIVE); KETONES,URINE (UA) NEGATIVE (NEGATIVE); LEUKOCYTE ESTERASE, URINE NEGATIVE (NEGATIVE); NITRITE,URINE NEGATIVE (NEGATIVE); OCCULT BLOOD,URINE NEGATIVE (NEGATIVE); PH,URINE 6.5 PH (5.0-7.5); PROTEIN,URINE TRACE mg/dL (NEGATIVE); UROBILINOGEN,URINE 0.2 (NORMAL) E.U./dL (NORMAL)
[2021-08-18 13:51] LABS: CLARITY,URINE CLEAR (CLEAR)
[2021-08-18 14:02] LABS: BACTERIA,URINE Rare /HPF (None Seen); RBC,URINE 0-5 /HPF (0-5); SQUAMOUS EPITHELIAL CELL,UR NONE SEEN (<= Few); WBC,URINE 0-3 /HPF (0-3)
== END 2021-08-18 12:52 | disposition home or self-care (01) ==
LOC: LAB 12:51
PROVIDERS: ATTEND Physician Assistant Medical
DX: C64.2 Malignant neoplasm of left kidney, except renal pelvis (principal)
CPT/HCPCS: 36415; 80048; 81001; 82040; 84439; 84443; 85025; 87086

== ENCOUNTER 2021-08-31 21:08 | Emergency (ER) | payer MEDICARE, OTHER ==
[2021-08-31] MEDS ORDERED: AMOX/CLAV 875 MG/125 MG TABLET PO STA ×2 (21:42→22:26)
[2021-08-31 21:45] VITALS: BP 161/97
[2021-08-31] MEDS ORDERED: PSEUDOEPHEDRINE 30 MG TABLET PO SCH (22:00)
--- NOTE | 2021-08-31 22:19 | ED Physician Documentation ---
History of Present Illness - Stated complaint Stated Complaint: SOA - Chief complaint Chief Complaint: Resp - History obtained from History obtained from: Patient - Additonal information Additional information: Patient is a 66-year-old male with a history of renal cell carcinoma and chronic atrial fibrillation on Eliquis presenting for evaluation of nasal congestion that has been present for 2 weeks. Patient reports worsening nasal congestion with no improvement on treatments that he has already used. He says this makes it hard for him to breathe but denies chest congestion orShortness of breath otherwise. He denies fever, cough or chest pain. He says thatMucus appears creamy when he is able to blow his nose but often has difficulty in expelling any mucus.He was seen in the emergency department on August 08 for similar symptoms and given Sudafed and Zyrtec with little improvement.He denies shortness of breath with exertion. Review of Systems Constitutional: denies: Fever Nose: reports: Congestion Throat: denies: Sore throat Cardiac: denies: Chest pain / pressure Respiratory: denies: Dyspnea, Cough GI: denies: Abdominal Pain, Vomiting : denies: Dysuria Musculoskeletal: denies: Back pain Neurologic: denies: Syncope PD PAST MEDICAL HISTORY - Past Medical History Past Medical History: Yes Cardiovascular: Congestive heart failure, Hypertension, Atrial fibrillation, Valve disorder, Other Respiratory: Shortness of breath, Sleep apnea Neuro: CVA, Peripheral neuropathy, Tremors Endocrine/Autoimmune: Type 2 diabetes GI: Colon polyps : Other HEENT: None Psych: Depression, Anxiety Musculoskeletal: Osteoarthritis, Fatigue Derm: None - Past Surgical History Past Surgical History: Yes General: Colonoscopy Ortho: Knee replacement, Arthroscopic surgery, 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 (L 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) - Present Medications Home Medications: Ambulatory Orders Medication Instructions Recorded Confirmed Spironolactone [Aldactone] 12.5 mg PO 1200 tablet 02/28/20 07/30/21 hydrALAZINE [Apresoline] 25 mg PO TID 03/19/20 07/30/21 Hydrocortisone [Cortef] 5 mg PO .3TABS AM 1 TAB 1400 03/20/20 07/30/21 Fluticasone [Flonase] 1 inh INH DAILY PRN 05/15/20 07/30/21 Triamcinolone Acetonide 0.1% 1 applic TOP DAILY PRN 05/27/20 07/30/21 [Triamcinolone Acetonide] Apixaban [Eliquis] 5 mg PO BID 12/19/20 07/30/21 Atorvastatin Calcium 40 mg PO DAILY 12/19/20 07/30/21 Cetirizine HCl [Zyrtec] 10 mg PO DAILY PRN 03/27/21 07/30/21 Gabapentin [Neurontin] 600 mg PO HS MDD 1200 mg 03/27/21 07/30/21 Insulin Lispro [Insulin Lispro 5 unit SQ TID 05/18/21 07/30/21 Kwikpen U-100] Insulin NPH Human [Humulin N] 12 unit SQ BID MDD titrating 05/18/21 07/30/21 expected to change Acetaminophen [Acetaminophen Extra 500 mg PO Q6HR PRN 07/30/21 07/30/21 Strength] Furosemide [Lasix] 80 mg PO DAILY PRN 07/30/21 07/30/21 Gabapentin [Neurontin] 300 mg PO DAILY MDD 1200 07/30/21 07/30/21 LORazepam [Ativan] 0.5 mg PO PRN PRN 07/30/21 07/30/21 Levothyroxine [Synthroid] 100 mg PO QDAC 07/30/21 07/30/21 Metoprolol Succinate [Toprol Xl] 25 mg PO ONCE 07/30/21 07/30/21 Ondansetron Odt [Zofran Odt] 4 mg PO Q6H PRN 07/30/21 07/30/21 Prochlorperazine [Compazine] 5 mg PO Q6H PRN 07/30/21 07/30/21 Senna [Senokot] 8.6 mg PO PRN PRN 07/30/21 07/30/21 Cetirizine HCl/Pseudoephedrine 1 tablet PO BID PRN #14 tablet 08/09/21 [Zyrtec-D Tablet] Amox/Clav 875/125 [Augmentin] 1 each PO Q12H #14 tablet 08/31/21 - Allergies Allergies/Adverse Reactions: Allergies Allergy/AdvReac Type Severity Reaction Status Date / Time coban AdvReac Itching Uncoded 08/31/21 21:17 - Social History Does the pt smoke?: No Smoking Status: Never smoker Does the pt drink ETOH?: No Does the pt have substance abuse?: No - Immunizations Immunizations are current?: Yes - POLST Patient has POLST: No POLST Status: DNR PD ED PE NORMAL - General General: Alert and oriented X 3, No acute distress, Well developed/nourished - HEENT HEENT: Atraumatic, Moist mucous membranes, Pharynx benign, Other (Nasal mucosal edema) - Neck Neck: Supple, no meningeal sign - Cardiac Cardiac: No murmur, Strong equal pulses (Irregularly irregular, normal rate) - Respiratory Respiratory: No respiratory distress, Clear bilaterally - Abdomen Abdomen: Normal bowel sounds, Soft, Non tender - Derm Derm: No rash - Extremities Extremities: No calf tenderness / cord - Neuro Neuro: Normal speech - Psych Psych: Normal mood Results - Vitals Vitals: Vital Signs - 24 hr 08/31/21 08/31/21 21:11 21:44 Temperature 36.0 C L 37.1 C Heart Rate 75 82 Respiratory 24 20 Rate Blood Pressure 172/89 H 161/97 H O2 Saturation 100 100 Oxygen O2 Source [With Activity] Room air O2 Source [Without Activity] Room air O2 Source Room air PD MEDICAL DECISION MAKING - ED course ED course: Patient is a 66-year-old male presenting for evaluation of nasal congestion making him feel that he cannot breathe. Given patient's significant recent past medical history including recurrent pleural effusions andRenal cell carcinoma, recommendedTesting with labs, x-ray and EKG. Patient was very reluctant for work-up but eventually agreeable to EKG and chest x-ray.After initial attempt failed at getting labs by RN, patient declined furtherNeedlesticks. Explained that I was evaluating for other causes of shortness of breath such as A heart attack or Anemia. Clinically patient does not appear fluid overloaded. Patient does report having nasal congestion and sinus fullness for 2 weeks. He has failed conservative treatments. As such, I do believe antibiotics are appropriate at this time. Patient isAgreeable to this plan and aware of strict return precautions. He is aware of the limitations of today's evaluation as he did not want labs to be obtained. Departure - Departure Disposition: 01 Home, Self Care Clinical Impression: Sinusitis Qualifiers: Sinusitis location: maxillary Chronicity: acute Recurrence: non-recurrent Qualified Code(s): J01.00 - Acute maxillary sinusitis, unspecified Condition: Stable Instructions: ED Sinusitis Abx Tx Prescriptions: Amox/Clav 875/125 [Augmentin] 1 each PO Q12H #14 tablet Comments: Valerio you have been evaluated for nasal congestion. Because your symptoms have been ongoing for at least 2 weeks, it is appropriate to use antibiotics at this time. A prescription for Augmentin was sent to your pharmacy near the hospital. You should also use saline sprays which are available [id number] to help loosen any mucus as well as steam from hot showers which may also make it easier to expel any mucus. If you develop any worsening breathing or chest pain or dizziness or any concerns please return to the emergency department. You have a Covid test pending. You need to self quarantine until the result is done and negative. Do not leave your house. Do not get near anybody. The results should be done in 48 to 72 hours. We will call with a positive result, the fastest way to get a negative result for confirmation though is to go to the hospital website at [email or web address], click on the my [employer] tab and sign up for the patient portal. If any friends or family get sick and would like to have a Covid test done, but do not have signs or symptoms that would necessitate being hospitalized, there are multiple local options for Covid testing. [facility] keeps an updated list of testing and vaccination options at: [email or web address]. Discharge Date/Time: 08/31/21 22:52
--- NOTE | 2021-08-31 23:08 | XRAY Report ---
PROCEDURE: Chest 1 View X-Ray INDICATIONS: SOB TECHNIQUE: One view of the chest was acquired. COMPARISON: 08/08/2021. FINDINGS: Surgical changes and devices: None. Lungs and pleura: Lungs are clear. There is a small residual right pleural effusion, decreased from the prior study. No pneumothorax. Mediastinum: Mediastinal contours appear normal. Heart size is at the upper limits of normal. Bones and chest wall: No suspicious bony lesions. Overlying soft tissues appear unremarkable. IMPRESSION: 1. Small residual pleural effusion, decreased from the prior study. Reviewed by: Franc Carmichael MD on 08/31/2021 11:06 PM PDT Approved by: Franc Carmichael MD on 08/31/2021 11:06 PM PDT Station ID: [id number]
== END 2021-08-31 22:52 | disposition home or self-care (01) ==
LOC: ED 21:08
DX: J01.00 Acute maxillary sinusitis, unspecified (principal); Z20.822 Contact with and (suspected) exposure to COVID-19
CPT/HCPCS: 71045; 93005; 99283; 99284; A9270; U0004; 80053; 83880; 84484; 85025

== ENCOUNTER 2021-09-01 16:23 | Outpatient (CLI) | payer MEDICARE ==
[2021-09-01 16:43] LABS: CREATININE 2.3 mg/dL (0.6-1.2); POTASSIUM 4.6 mmol/L (3.5-5.0)
== END 2021-09-01 16:24 | disposition home or self-care (01) ==
LOC: LAB 16:23
PROVIDERS: ATTEND Internal Medicine Medical Oncology
DX: C64.2 Malignant neoplasm of left kidney, except renal pelvis (principal)
CPT/HCPCS: 36415; 80048

== ENCOUNTER 2021-10-15 12:16 | Emergency (ER) | payer MEDICARE ==
--- NOTE | 2021-10-15 12:25 | ED Physician Documentation ---
PD HPI SYNCOPE - Stated complaint Stated Complaint: HYPOTENSION/PER DR FRANCIS - History obtained from History obtained from: Patient - History of Present Illness Witnessed: Witnessed (he states did not have food/fluids today prior to going to Cardiology appt. Saw Dr. Tracy and was feeling lightheaded after. MAC nurse could not get his BP, so presumed low. No LOC. Brought over to ER for eval.) Timing - onset: How many minutes ago (15), Today Preceding symptoms: Palpitations. No: Headache, Chest pain, Diaphoresis Contributing factors: Decreased PO intake. No: Recent med change, Noxious stimulae Review of Systems Constitutional: denies: Fever, Chills, Myalgias Nose: denies: Rhinorrhea / runny nose, Congestion Throat: denies: Sore throat Cardiac: reports: Palpitations, Pedal edema. 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) - Present Medications Home Medications: Ambulatory Orders Medication Instructions Recorded Confirmed Spironolactone [Aldactone] 12.5 mg PO 1200 tablet 02/28/20 07/30/21 hydrALAZINE [Apresoline] 25 mg PO TID 03/19/20 07/30/21 Hydrocortisone [Cortef] 5 mg PO .3TABS AM 1 TAB 1400 03/20/20 07/30/21 Fluticasone [Flonase] 1 inh INH DAILY PRN 05/15/20 07/30/21 Triamcinolone Acetonide 0.1% 1 applic TOP DAILY PRN 05/27/20 07/30/21 [Triamcinolone Acetonide] Apixaban [Eliquis] 5 mg PO BID 12/19/20 07/30/21 Atorvastatin Calcium 40 mg PO DAILY 12/19/20 07/30/21 Cetirizine HCl [Zyrtec] 10 mg PO DAILY PRN 03/27/21 07/30/21 Gabapentin [Neurontin] 600 mg PO HS MDD 1200 mg 03/27/21 07/30/21 Insulin Lispro [Insulin Lispro 5 unit SQ TID 05/18/21 07/30/21 Kwikpen U-100] Insulin NPH Human [Humulin N] 12 unit SQ BID MDD titrating 05/18/21 07/30/21 expected to change Acetaminophen [Acetaminophen Extra 500 mg PO Q6HR PRN 07/30/21 07/30/21 Strength] Furosemide [Lasix] 80 mg PO DAILY PRN 07/30/21 07/30/21 Gabapentin [Neurontin] 300 mg PO DAILY MDD 1200 07/30/21 07/30/21 LORazepam [Ativan] 0.5 mg PO PRN PRN 07/30/21 07/30/21 Levothyroxine [Synthroid] 100 mg PO QDAC 07/30/21 07/30/21 Metoprolol Succinate [Toprol Xl] 25 mg PO ONCE 07/30/21 07/30/21 Ondansetron Odt [Zofran Odt] 4 mg PO Q6H PRN 07/30/21 07/30/21 Prochlorperazine [Compazine] 5 mg PO Q6H PRN 07/30/21 07/30/21 Senna [Senokot] 8.6 mg PO PRN PRN 07/30/21 07/30/21 Cetirizine HCl/Pseudoephedrine 1 tablet PO BID PRN #14 tablet 08/09/21 [Zyrtec-D Tablet] Amox/Clav 875/125 [Augmentin] 1 each PO Q12H #14 tablet 08/31/21 - Allergies Allergies/Adverse Reactions: Allergies Allergy/AdvReac Type Severity Reaction Status Date / Time coban AdvReac Itching Uncoded 10/15/21 12:20 - Social History Does the pt smoke?: No Smoking Status: Never smoker Does the pt drink ETOH?: No Does the pt have substance abuse?: No - Immunizations Immunizations are current?: Yes - POLST Patient has POLST: No POLST Status: DNR PD ED PE NORMAL - Vitals Vital signs reviewed: Yes (adequate BP on triage at ER. He denies lightheaded now. ) - General General: Alert and oriented X 3, No acute distress, Well developed/nourished - HEENT HEENT: Pharynx benign. No: Moist mucous membranes - Neck Neck: Supple, no meningeal sign, No adenopathy - Cardiac Cardiac: RRR - Respiratory Respiratory: No respiratory distress, Clear bilaterally - Abdomen Abdomen: Soft, Non tender - Derm Derm: Normal color, Warm and dry - Extremities Extremities: No calf tenderness / cord, Other (1+ edema in both lower legs and ankles. ) Results - Vitals Vitals: Vital Signs - 24 hr 10/15/21 10/15/21 12:20 12:25 Temperature 36.5 C 36.5 C Heart Rate 85 85 Respiratory 16 16 Rate Blood Pressure 115/80 115/80 O2 Saturation 92 92 Oxygen O2 Source [With Activity] Room air O2 Source [Without Activity] Room air O2 Source Room air PD MEDICAL DECISION MAKING - ED course Complexity details: reviewed old records, considered differential (the patient is feeling okay at ER triage here. He would prefer no testing at this point. ), d/w patient Departure - Departure Disposition: 01 Home, Self Care Clinical Impression: Transient hypotension Condition: Stable Record reviewed to determine appropriate education?: Yes Follow-Up: Alban Connor MD [Primary Care Provider] - Fidel Tracy MD [Provider Admit Priv/Credential] - Comments: Your recent labs just a couple weeks are normal. I do not see a reason to repeat them right now at this point. You may have been under hydrated and your blood pressure dropped briefly. It appears okay now. Drink some more water this morning. Dr. Tracy suggest holding your Lasix for a day or 2. Recheck or return to the ER if persistent episodes of lightheadedness or weakness. Discharge Date/Time: 10/15/21 12:51
[2021-10-15 12:26] VITALS: BP 115/80
== END 2021-10-15 12:51 | disposition home or self-care (01) ==
LOC: ED 12:16
DX: I95.89 Other hypotension (principal); I11.0 Hypertensive heart disease with heart failure; I50.9 Heart failure, unspecified; E11.9 Type 2 diabetes mellitus without complications; Z79.4 Long term (current) use of insulin; I48.91 Unspecified atrial fibrillation; Z79.01 Long term (current) use of anticoagulants
CPT/HCPCS: 99282; 99283

== ENCOUNTER 2021-11-10 09:19 | Outpatient (CLI) | payer MEDICARE ==
[2021-11-10 09:50] LABS: BASOPHILS # (AUTO) 0.1 10^3/uL (0.0-0.1); EOSINOPHILS # (AUTO) 0.4 10^3/uL (0.0-0.7); EOSINOPHILS % (AUTO) 6.2 %; HCT - HEMATOCRIT 38.9 % (42.0-52.0); HGB - HEMOGLOBIN 12.8 g/dL (14.0-18.0); LYMPHOCYTES # (AUTO) 1.5 10^3/uL (1.5-3.5); LYMPHOCYTES % (AUTO) 21.7 %; MEAN CORPUSCULAR HEMOGLOBIN 29.6 pg (27.0-31.0); MEAN CORPUSCULAR HGB CONC 32.9 g/dL (32.0-36.0); MEAN CORPUSCULAR VOLUME 89.8 fL (80.0-94.0); MEAN PLATELET VOLUME 11.3 fL (7.4-11.4); MONOCYTES # (AUTO) 0.7 10^3/uL (0.0-1.0); MONOCYTES % (AUTO) 9.9 %; NEUTROPHILS # (AUTO) 4.1 10^3/uL (1.5-6.6); NEUTROPHILS % (AUTO) 60.9 %; PLT - PLATELET COUNT 186 10^3/uL (130-450); RED BLOOD COUNT 4.33 10^6/uL (4.70-6.10); RED CELL DISTRIBUTION WIDTH 18.5 % (12.0-15.0); WHITE BLOOD COUNT 6.8 x10^3/uL (4.8-10.8)
[2021-11-10 10:03] LABS: ALBUMIN 3.3 g/dL (3.2-5.5); CALCIUM 9.1 mg/dL (8.5-10.3); PHOSPHORUS 3.7 mg/dL (2.5-4.6); POTASSIUM 4.6 mmol/L (3.5-5.0)
[2021-11-10 10:18] LABS: THYROID STIMULATING HORMONE 4.29 uIU/mL (0.34-5.60)
[2021-11-10 10:22] LABS: FREE T4 (FREE THYROXINE) 1.15 ng/dL (0.58-1.64)
== END 2021-11-10 09:20 | disposition home or self-care (01) ==
LOC: LAB 09:19
PROVIDERS: ATTEND Physician Assistant Medical
DX: C64.2 Malignant neoplasm of left kidney, except renal pelvis (principal)
CPT/HCPCS: 36415; 80069; 81001; 84439; 84443; 85025; 87086

== ENCOUNTER 2021-11-17 09:56 | Outpatient (CLI) | payer MEDICARE ==
[2021-11-17 10:10] LABS: BASOPHILS # (AUTO) 0.1 10^3/uL (0.0-0.1); BASOPHILS % (AUTO) 1.3 %; EOSINOPHILS # (AUTO) 0.4 10^3/uL (0.0-0.7); EOSINOPHILS % (AUTO) 5.7 %; HCT - HEMATOCRIT 40.9 % (42.0-52.0); HGB - HEMOGLOBIN 13.6 g/dL (14.0-18.0); LYMPHOCYTES # (AUTO) 1.3 10^3/uL (1.5-3.5); LYMPHOCYTES % (AUTO) 18.3 %; MEAN CORPUSCULAR HGB CONC 33.3 g/dL (32.0-36.0); MEAN CORPUSCULAR VOLUME 90.1 fL (80.0-94.0); MONOCYTES # (AUTO) 0.6 10^3/uL (0.0-1.0); MONOCYTES % (AUTO) 8.6 %; NEUTROPHILS # (AUTO) 4.6 10^3/uL (1.5-6.6); PLT - PLATELET COUNT 202 10^3/uL (130-450); RED BLOOD COUNT 4.54 10^6/uL (4.70-6.10); RED CELL DISTRIBUTION WIDTH 18.4 % (12.0-15.0)
[2021-11-17 10:16] LABS: BILIRUBIN,URINE NEGATIVE (NEGATIVE); GLUCOSE, URINE (UA) NEGATIVE (NEGATIVE); KETONES,URINE (UA) NEGATIVE (NEGATIVE); LEUKOCYTE ESTERASE, URINE NEGATIVE (NEGATIVE); NITRITE,URINE NEGATIVE (NEGATIVE); OCCULT BLOOD,URINE NEGATIVE (NEGATIVE); PROTEIN,URINE NEGATIVE (NEGATIVE); UROBILINOGEN,URINE 0.2 (NORMAL) E.U./dL (NORMAL)
[2021-11-17 10:17] LABS: CLARITY,URINE CLEAR (CLEAR)
[2021-11-17 10:23] LABS: BACTERIA,URINE Rare /HPF (None Seen); RBC,URINE 0-5 /HPF (0-5); SQUAMOUS EPITHELIAL CELL,UR NONE SEEN (<= Few); WBC,URINE 0-3 /HPF (0-3)
[2021-11-17 10:24] LABS: ALBUMIN 3.4 g/dL (3.2-5.5); CALCIUM 9.1 mg/dL (8.5-10.3); PHOSPHORUS 4.2 mg/dL (2.5-4.6); POTASSIUM 4.5 mmol/L (3.5-5.0)
[2021-11-17 10:41] LABS: THYROID STIMULATING HORMONE 3.94 uIU/mL (0.34-5.60)
[2021-11-17 10:44] LABS: FREE T4 (FREE THYROXINE) 1.08 ng/dL (0.58-1.64)
== END 2021-11-17 09:57 | disposition home or self-care (01) ==
LOC: LAB 09:56
PROVIDERS: ATTEND Physician Assistant Medical
DX: C64.2 Malignant neoplasm of left kidney, except renal pelvis (principal)
CPT/HCPCS: 36415; 80048; 80069; 81001; 84439; 84443; 85025; 87086

== ENCOUNTER 2021-11-19 08:00 | Outpatient (CLI) | payer MEDICARE | END 2021-11-19 23:59 | disposition home or self-care (01) | LOC: LAB.R 08:00 | PROVIDERS: ATTEND Internal Medicine | DX: A04.72 Enterocolitis due to Clostridium difficile, not specified as recurrent (principal) | CPT/HCPCS: 87045; 87046; 87427; 87493 ==

== ENCOUNTER 2021-12-25 13:50 | Outpatient (CLI) | payer MEDICARE ==
[2021-12-25 14:01] LABS: BILIRUBIN,URINE NEGATIVE (NEGATIVE); GLUCOSE, URINE (UA) NEGATIVE (NEGATIVE); KETONES,URINE (UA) NEGATIVE (NEGATIVE); LEUKOCYTE ESTERASE, URINE NEGATIVE (NEGATIVE); NITRITE,URINE NEGATIVE (NEGATIVE); OCCULT BLOOD,URINE NEGATIVE (NEGATIVE); PROTEIN,URINE TRACE mg/dL (NEGATIVE); UROBILINOGEN,URINE 0.2 (NORMAL) E.U./dL (NORMAL)
[2021-12-25 14:14] LABS: BACTERIA,URINE Rare /HPF (None Seen); CLARITY,URINE CLEAR (CLEAR); RBC,URINE None Seen /HPF (0-5); SQUAMOUS EPITHELIAL CELL,UR FEW Squamous (<= Few); WBC,URINE 0-3 /HPF (0-3)
[2021-12-25 14:18] LABS: BASOPHILS # (AUTO) 0.1 10^3/uL (0.0-0.1); BASOPHILS % (AUTO) 0.9 %; EOSINOPHILS # (AUTO) 0.5 10^3/uL (0.0-0.7); EOSINOPHILS % (AUTO) 5.8 %; HCT - HEMATOCRIT 36.3 % (42.0-52.0); HGB - HEMOGLOBIN 11.9 g/dL (14.0-18.0); LYMPHOCYTES # (AUTO) 1.3 10^3/uL (1.5-3.5); LYMPHOCYTES % (AUTO) 15.4 %; MEAN CORPUSCULAR HEMOGLOBIN 31.6 pg (27.0-31.0); MEAN CORPUSCULAR HGB CONC 32.8 g/dL (32.0-36.0); MEAN CORPUSCULAR VOLUME 96.3 fL (80.0-94.0); MEAN PLATELET VOLUME 10.7 fL (7.4-11.4); MONOCYTES # (AUTO) 0.9 10^3/uL (0.0-1.0); MONOCYTES % (AUTO) 10.4 %; NEUTROPHILS # (AUTO) 5.7 10^3/uL (1.5-6.6); NEUTROPHILS % (AUTO) 67.1 %; PLT - PLATELET COUNT 250 10^3/uL (130-450); RED BLOOD COUNT 3.77 10^6/uL (4.70-6.10); RED CELL DISTRIBUTION WIDTH 15.5 % (12.0-15.0); WHITE BLOOD COUNT 8.6 x10^3/uL (4.8-10.8)
[2021-12-25 14:33] LABS: ALBUMIN 3.2 g/dL (3.2-5.5); BILIRUBIN,DIRECT 0.2 mg/dL (0.1-0.5); BILIRUBIN,TOTAL 0.8 mg/dL (0.2-1.0); CALCIUM 8.4 mg/dL (8.5-10.3); CREATININE 2.2 mg/dL (0.6-1.2); PHOSPHORUS 3.1 mg/dL (2.5-4.6); POTASSIUM 4.5 mmol/L (3.5-5.0); TOTAL PROTEIN 6.4 g/dL (6.7-8.2)
[2021-12-25 14:47] LABS: THYROID STIMULATING HORMONE 3.69 uIU/mL (0.34-5.60)
[2021-12-25 14:50] LABS: FREE T4 (FREE THYROXINE) 1.01 ng/dL (0.58-1.64)
== END 2021-12-25 13:51 | disposition home or self-care (01) ==
LOC: LAB 13:50
PROVIDERS: ATTEND Internal Medicine Medical Oncology
DX: C64.2 Malignant neoplasm of left kidney, except renal pelvis (principal); A04.72 Enterocolitis due to Clostridium difficile, not specified as recurrent
CPT/HCPCS: 36415; 80069; 80076; 81001; 84439; 84443; 85025; 87086; 87493

== ENCOUNTER 2022-01-11 10:21 | Outpatient (CLI) | payer MEDICARE ==
[2022-01-11 10:39] LABS: BASOPHILS # (AUTO) 0.1 10^3/uL (0.0-0.1); BASOPHILS % (AUTO) 1.5 %; EOSINOPHILS # (AUTO) 0.6 10^3/uL (0.0-0.7); EOSINOPHILS % (AUTO) 8.8 %; HCT - HEMATOCRIT 42.2 % (42.0-52.0); LYMPHOCYTES # (AUTO) 1.6 10^3/uL (1.5-3.5); LYMPHOCYTES % (AUTO) 23.9 %; MEAN CORPUSCULAR HEMOGLOBIN 32.1 pg (27.0-31.0); MEAN CORPUSCULAR HGB CONC 33.2 g/dL (32.0-36.0); MEAN CORPUSCULAR VOLUME 96.8 fL (80.0-94.0); MEAN PLATELET VOLUME 11.3 fL (7.4-11.4); MONOCYTES % (AUTO) 14.6 %; NEUTROPHILS # (AUTO) 3.5 10^3/uL (1.5-6.6); NEUTROPHILS % (AUTO) 50.9 %; PLT - PLATELET COUNT 239 10^3/uL (130-450); RED BLOOD COUNT 4.36 10^6/uL (4.70-6.10); RED CELL DISTRIBUTION WIDTH 13.9 % (12.0-15.0); WHITE BLOOD COUNT 6.8 x10^3/uL (4.8-10.8)
[2022-01-11 11:14] LABS: ALBUMIN 3.3 g/dL (3.2-5.5); CALCIUM 9.1 mg/dL (8.5-10.3); CREATININE 2.5 mg/dL (0.6-1.2); PHOSPHORUS 4.8 mg/dL (2.5-4.6); POTASSIUM 4.5 mmol/L (3.5-5.0)
[2022-01-11 11:31] LABS: THYROID STIMULATING HORMONE 11.26 uIU/mL (0.34-5.60)
[2022-01-11 11:33] LABS: FREE T4 (FREE THYROXINE) 0.93 ng/dL (0.58-1.64)
== END 2022-01-11 10:22 | disposition home or self-care (01) ==
LOC: LAB 10:21
PROVIDERS: ATTEND Physician Assistant Medical
DX: C64.2 Malignant neoplasm of left kidney, except renal pelvis (principal)
CPT/HCPCS: 36415; 80069; 81001; 84439; 84443; 85025; 87086

== ENCOUNTER 2022-01-19 08:00 | Outpatient (CLI) | payer MEDICARE ==
[2022-01-19 09:36] LABS: BASOPHILS # (AUTO) 0.1 10^3/uL (0.0-0.1); EOSINOPHILS # (AUTO) 0.5 10^3/uL (0.0-0.7); EOSINOPHILS % (AUTO) 6.1 %; HCT - HEMATOCRIT 42.9 % (42.0-52.0); HGB - HEMOGLOBIN 13.8 g/dL (14.0-18.0); LYMPHOCYTES # (AUTO) 1.9 10^3/uL (1.5-3.5); LYMPHOCYTES % (AUTO) 22.8 %; MEAN CORPUSCULAR HEMOGLOBIN 31.1 pg (27.0-31.0); MEAN CORPUSCULAR HGB CONC 32.2 g/dL (32.0-36.0); MEAN CORPUSCULAR VOLUME 96.6 fL (80.0-94.0); MONOCYTES # (AUTO) 0.6 10^3/uL (0.0-1.0); MONOCYTES % (AUTO) 7.5 %; NEUTROPHILS # (AUTO) 5.3 10^3/uL (1.5-6.6); NEUTROPHILS % (AUTO) 62.2 %; PLT - PLATELET COUNT 254 10^3/uL (130-450); RED BLOOD COUNT 4.44 10^6/uL (4.70-6.10); RED CELL DISTRIBUTION WIDTH 13.4 % (12.0-15.0); WHITE BLOOD COUNT 8.4 x10^3/uL (4.8-10.8)
[2022-01-19 10:06] LABS: ALBUMIN 3.6 g/dL (3.2-5.5); CALCIUM 8.4 mg/dL (8.5-10.3); CREATININE 2.2 mg/dL (0.6-1.2); PHOSPHORUS 3.1 mg/dL (2.5-4.6); POTASSIUM 4.3 mmol/L (3.5-5.0)
[2022-01-19 10:08] LABS: THYROID STIMULATING HORMONE 1.02 uIU/mL (0.34-5.60)
[2022-01-19 10:10] LABS: FREE T4 (FREE THYROXINE) 1.32 ng/dL (0.58-1.64)
== END 2022-01-19 23:59 | disposition home or self-care (01) ==
LOC: LAB 08:00
PROVIDERS: ATTEND Physician Assistant Medical
DX: C64.2 Malignant neoplasm of left kidney, except renal pelvis (principal)
CPT/HCPCS: 36415; 80069; 81001; 81003; 84439; 84443; 85025; 87086

== ENCOUNTER 2022-01-21 11:24 | Outpatient (CLI) | payer MEDICARE ==
[2022-01-21 11:33] LABS: BILIRUBIN,URINE NEGATIVE (NEGATIVE); GLUCOSE, URINE (UA) NEGATIVE (NEGATIVE); KETONES,URINE (UA) NEGATIVE (NEGATIVE); LEUKOCYTE ESTERASE, URINE NEGATIVE (NEGATIVE); NITRITE,URINE NEGATIVE (NEGATIVE); OCCULT BLOOD,URINE NEGATIVE (NEGATIVE); PROTEIN,URINE 30 mg/dL (NEGATIVE); UROBILINOGEN,URINE 0.2 (NORMAL) E.U./dL (NORMAL)
[2022-01-21 11:34] LABS: BACTERIA,URINE Rare /HPF (None Seen); CLARITY,URINE CLEAR (CLEAR); RBC,URINE None Seen /HPF (0-5); SQUAMOUS EPITHELIAL CELL,UR RARE Squamous (<= Few); WBC,URINE 0-3 /HPF (0-3)
== END 2022-01-21 11:25 | disposition home or self-care (01) ==
LOC: LAB 11:24
PROVIDERS: ATTEND Physician Assistant Medical
DX: C64.2 Malignant neoplasm of left kidney, except renal pelvis (principal)
CPT/HCPCS: 81001; 81003; 87086

== ENCOUNTER 2022-01-25 10:47 | Outpatient (CLI) | payer MEDICARE ==
[2022-01-25 11:08] LABS: BILIRUBIN,URINE NEGATIVE (NEGATIVE); GLUCOSE, URINE (UA) NEGATIVE (NEGATIVE); KETONES,URINE (UA) NEGATIVE (NEGATIVE); LEUKOCYTE ESTERASE, URINE NEGATIVE (NEGATIVE); NITRITE,URINE NEGATIVE (NEGATIVE); OCCULT BLOOD,URINE NEGATIVE (NEGATIVE); PROTEIN,URINE TRACE mg/dL (NEGATIVE); UROBILINOGEN,URINE 0.2 (NORMAL) E.U./dL (NORMAL)
[2022-01-25 11:09] LABS: BASOPHILS # (AUTO) 0.1 10^3/uL (0.0-0.1); BASOPHILS % (AUTO) 0.9 %; EOSINOPHILS # (AUTO) 0.4 10^3/uL (0.0-0.7); HCT - HEMATOCRIT 41.9 % (42.0-52.0); HGB - HEMOGLOBIN 13.5 g/dL (14.0-18.0); LYMPHOCYTES # (AUTO) 1.3 10^3/uL (1.5-3.5); LYMPHOCYTES % (AUTO) 14.9 %; MEAN CORPUSCULAR HEMOGLOBIN 31.2 pg (27.0-31.0); MEAN CORPUSCULAR HGB CONC 32.2 g/dL (32.0-36.0); MEAN CORPUSCULAR VOLUME 96.8 fL (80.0-94.0); MEAN PLATELET VOLUME 11.2 fL (7.4-11.4); MONOCYTES # (AUTO) 0.6 10^3/uL (0.0-1.0); MONOCYTES % (AUTO) 7.3 %; NEUTROPHILS % (AUTO) 71.7 %; PLT - PLATELET COUNT 215 10^3/uL (130-450); RED BLOOD COUNT 4.33 10^6/uL (4.70-6.10); RED CELL DISTRIBUTION WIDTH 13.5 % (12.0-15.0); WHITE BLOOD COUNT 8.4 x10^3/uL (4.8-10.8)
[2022-01-25 11:14] LABS: CLARITY,URINE CLEAR (CLEAR)
[2022-01-25 11:26] LABS: ALBUMIN 3.6 g/dL (3.2-5.5); CALCIUM 8.6 mg/dL (8.5-10.3); CREATININE 2.1 mg/dL (0.6-1.2); PHOSPHORUS 2.9 mg/dL (2.5-4.6); POTASSIUM 4.5 mmol/L (3.5-5.0)
[2022-01-25 11:37] LABS: THYROID STIMULATING HORMONE 1.11 uIU/mL (0.34-5.60)
[2022-01-25 11:39] LABS: FREE T4 (FREE THYROXINE) 1.33 ng/dL (0.58-1.64)
[2022-01-25 11:52] LABS: BACTERIA,URINE Rare /HPF (None Seen); RBC,URINE None Seen /HPF (0-5); SQUAMOUS EPITHELIAL CELL,UR FEW Squamous (<= Few); WBC,URINE 0-3 /HPF (0-3)
== END 2022-01-25 10:48 | disposition home or self-care (01) ==
LOC: LAB 10:47
PROVIDERS: ATTEND Physician Assistant Medical
DX: C64.2 Malignant neoplasm of left kidney, except renal pelvis (principal)
CPT/HCPCS: 36415; 80069; 81001; 84439; 84443; 85025; 87086

== ENCOUNTER 2022-02-16 09:05 | Outpatient (CLI) | payer MEDICARE, OTHER ==
[2022-02-16 09:18] LABS: BASOPHILS # (AUTO) 0.1 10^3/uL (0.0-0.1); EOSINOPHILS # (AUTO) 0.6 10^3/uL (0.0-0.7); EOSINOPHILS % (AUTO) 6.4 %; HCT - HEMATOCRIT 43.1 % (42.0-52.0); HGB - HEMOGLOBIN 13.6 g/dL (14.0-18.0); LYMPHOCYTES # (AUTO) 2.2 10^3/uL (1.5-3.5); LYMPHOCYTES % (AUTO) 23.4 %; MEAN CORPUSCULAR HEMOGLOBIN 30.3 pg (27.0-31.0); MEAN CORPUSCULAR HGB CONC 31.6 g/dL (32.0-36.0); MEAN PLATELET VOLUME 11.2 fL (7.4-11.4); MONOCYTES # (AUTO) 0.7 10^3/uL (0.0-1.0); MONOCYTES % (AUTO) 7.9 %; NEUTROPHILS # (AUTO) 5.8 10^3/uL (1.5-6.6); PLT - PLATELET COUNT 264 10^3/uL (130-450); RED BLOOD COUNT 4.49 10^6/uL (4.70-6.10); RED CELL DISTRIBUTION WIDTH 12.9 % (12.0-15.0); WHITE BLOOD COUNT 9.4 x10^3/uL (4.8-10.8)
[2022-02-16 09:33] LABS: ALBUMIN 3.5 g/dL (3.2-5.5); CALCIUM 9.7 mg/dL (8.5-10.3); CREATININE 2.1 mg/dL (0.6-1.2); PHOSPHORUS 4.2 mg/dL (2.5-4.6); POTASSIUM 5.3 mmol/L (3.5-5.0)
[2022-02-16 09:49] LABS: THYROID STIMULATING HORMONE 4.59 uIU/mL (0.34-5.60)
[2022-02-16 09:51] LABS: FREE T4 (FREE THYROXINE) 0.89 ng/dL (0.58-1.64)
== END 2022-02-16 09:06 | disposition home or self-care (01) ==
LOC: LAB 09:05
PROVIDERS: ATTEND Physician Assistant Medical
DX: C64.2 Malignant neoplasm of left kidney, except renal pelvis (principal)
CPT/HCPCS: 36415; 80069; 81001; 84439; 84443; 85025; 87086

== ENCOUNTER 2022-03-12 09:49 | Outpatient (CLI) | payer MEDICARE | END 2022-03-12 09:50 | disposition home or self-care (01) | LOC: LAB.R 09:49 | PROVIDERS: ATTEND Nurse Practitioner | DX: A04.72 Enterocolitis due to Clostridium difficile, not specified as recurrent (principal) | CPT/HCPCS: 87493 ==

== ENCOUNTER 2022-04-04 06:52 | Inpatient (IN) | payer MEDICARE ==
[2022-04-04 07:27] LABS: BASOPHILS # (AUTO) 0.1 10^3/uL (0.0-0.1); BASOPHILS % (AUTO) 0.5 %; EOSINOPHILS # (AUTO) 0.1 10^3/uL (0.0-0.7); EOSINOPHILS % (AUTO) 0.8 %; HCT - HEMATOCRIT 41.5 % (42.0-52.0); HGB - HEMOGLOBIN 13.5 g/dL (14.0-18.0); LYMPHOCYTES # (AUTO) 1.7 10^3/uL (1.5-3.5); LYMPHOCYTES % (AUTO) 13.3 %; MEAN CORPUSCULAR HEMOGLOBIN 30.1 pg (27.0-31.0); MEAN CORPUSCULAR HGB CONC 32.5 g/dL (32.0-36.0); MEAN CORPUSCULAR VOLUME 92.6 fL (80.0-94.0); MEAN PLATELET VOLUME 11.7 fL (7.4-11.4); MONOCYTES # (AUTO) 1.6 10^3/uL (0.0-1.0); MONOCYTES % (AUTO) 12.9 %; NEUTROPHILS % (AUTO) 71.9 %; PLT - PLATELET COUNT 213 10^3/uL (130-450); RED BLOOD COUNT 4.48 10^6/uL (4.70-6.10); RED CELL DISTRIBUTION WIDTH 14.6 % (12.0-15.0); WHITE BLOOD COUNT 12.6 x10^3/uL (4.8-10.8)
[2022-04-04 07:29] LABS: ALBUMIN 2.8 g/dL (3.2-5.5); ALBUMIN/GLOBULIN RATIO 0.8 (1.0-2.2); BILIRUBIN,TOTAL 1.2 mg/dL (0.2-1.0); CALCIUM 7.2 mg/dL (8.5-10.3); CREATININE 3.6 mg/dL (0.6-1.2); MAGNESIUM 1.3 mg/dL (1.7-2.8); POTASSIUM 3.7 mmol/L (3.5-5.0); TOTAL PROTEIN 6.1 g/dL (6.7-8.2)
[2022-04-04] MEDS ORDERED: SODIUM CHLORIDE 0.9% 1,000 ML IV STA ×3 (07:32→12:59)
[2022-04-04] MEDS ORDERED: MAGNESIUM SULFATE 2 GRAM 2 GM/50 ML BAG IV ONE (07:33)
--- NOTE | 2022-04-04 07:44 | ED Physician Documentation ---
History of Present Illness - Stated complaint Stated Complaint: LETHARGIC/WEAKNESS - Chief complaint Chief Complaint: Abd Pain - History obtained from History obtained from: Patient, EMS - Additonal information Additional information: Patient is a 67-year-old male with a history of metastatic renal cell carcinoma, chronic atrial fibrillation (on Eliquis) presenting for evaluation of generalized weakness, nausea, vomiting and diarrhea that has been present for approximately 1 week.Patient reports having multiple episodes of loose stools as well as having difficulty holding anything down.He denies any associated pain with his symptoms.Patient appears very sleepy And therefore history is somewhat limited. He denies falling or hitting his head. Through [facility] I did review a nursing note from April 02. They were following up with the patient regarding doing some recent lab test which he had not done because he had been feeling ill.He does have a prescription for prochlorperazine but does not appear to have been taking it. Per the note, has also recently been ill With diarrhea. Review of Systems Constitutional: reports: Fever Cardiac: denies: Chest pain / pressure Respiratory: reports: Cough. denies: Dyspnea GI: reports: Nausea, Vomiting, Diarrhea. denies: Abdominal Pain Musculoskeletal: reports: Extremity swelling Neurologic: denies: Syncope PD PAST MEDICAL HISTORY - Past Medical History Cardiovascular: Congestive heart failure, Hypertension, Atrial fibrillation, Valve disorder, Other Respiratory: Shortness of breath, Sleep apnea Neuro: CVA, Peripheral neuropathy, Tremors Endocrine/Autoimmune: Type 2 diabetes GI: Colon polyps : Other HEENT: None Psych: Depression, Anxiety Musculoskeletal: Osteoarthritis, Fatigue Derm: None - Past Surgical History Past Surgical History: Yes General: Colonoscopy Ortho: Knee replacement, Arthroscopic surgery, 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 (L 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) - Present Medications Home Medications: Ambulatory Orders Medication Instructions Recorded Confirmed Spironolactone [Aldactone] 12.5 mg PO 1200 tablet 02/28/20 07/30/21 hydrALAZINE [Apresoline] 25 mg PO TID 03/19/20 07/30/21 Hydrocortisone [Cortef] 5 mg PO .3TABS AM 1 TAB 1400 03/20/20 07/30/21 Fluticasone [Flonase] 1 inh INH DAILY PRN 05/15/20 07/30/21 Triamcinolone Acetonide 0.1% 1 applic TOP DAILY PRN 05/27/20 07/30/21 [Triamcinolone Acetonide] Apixaban [Eliquis] 5 mg PO BID 12/19/20 07/30/21 Atorvastatin Calcium 40 mg PO DAILY 12/19/20 07/30/21 Cetirizine HCl [Zyrtec] 10 mg PO DAILY PRN 03/27/21 07/30/21 Gabapentin [Neurontin] 600 mg PO HS MDD 1200 mg 03/27/21 07/30/21 Insulin Lispro [Insulin Lispro 5 unit SQ TID 05/18/21 07/30/21 Kwikpen U-100] Insulin NPH Human [Humulin N] 12 unit SQ BID MDD titrating 05/18/21 07/30/21 expected to change Acetaminophen [Acetaminophen Extra 500 mg PO Q6HR PRN 07/30/21 07/30/21 Strength] Furosemide [Lasix] 80 mg PO DAILY PRN 07/30/21 07/30/21 Gabapentin [Neurontin] 300 mg PO DAILY MDD 1200 07/30/21 07/30/21 LORazepam [Ativan] 0.5 mg PO PRN PRN 07/30/21 07/30/21 Levothyroxine [Synthroid] 100 mg PO QDAC 07/30/21 07/30/21 Metoprolol Succinate [Toprol Xl] 25 mg PO ONCE 07/30/21 07/30/21 Ondansetron Odt [Zofran Odt] 4 mg PO Q6H PRN 07/30/21 07/30/21 Prochlorperazine [Compazine] 5 mg PO Q6H PRN 07/30/21 07/30/21 Senna [Senokot] 8.6 mg PO PRN PRN 07/30/21 07/30/21 Cetirizine HCl/Pseudoephedrine 1 tablet PO BID PRN #14 tablet 08/09/21 [Zyrtec-D Tablet] Amox/Clav 875/125 [Augmentin] 1 each PO Q12H #14 tablet 08/31/21 - Allergies Allergies/Adverse Reactions: Allergies Allergy/AdvReac Type Severity Reaction Status Date / Time coban AdvReac Itching Uncoded 04/04/22 07:18 - Social History Does the pt smoke?: No Smoking Status: Never smoker Does the pt drink ETOH?: No Does the pt have substance abuse?: No - Immunizations Immunizations are current?: Yes - POLST Patient has POLST: No POLST Status: DNR PD ED PE NORMAL - General General: No acute distress, Well developed/nourished, Other (Sleepy but awakes t o verbal) - HEENT HEENT: Atraumatic, Pharynx benign. No: Moist mucous membranes - Neck Neck: Supple, no meningeal sign, No bony TTP - Cardiac Cardiac: Other (Tachycardic, irregularly irregular) - Respiratory Respiratory: No respiratory distress, Clear bilaterally - Abdomen Abdomen: Soft, Non tender, Non distended - Derm Derm: Warm and dry - Extremities Extremities: No calf tenderness / cord, Other (Bilateral lower extremity edema) - Neuro Neuro: supervisory it specialist 2-12 intact, No motor deficit, No sensory deficit, Normal speech. No: Alert and oriented X 3 (Alert and oriented to person, place and situation but unable to state date or year) Results - Vitals Vitals: Vital Signs - 24 hr 04/04/22 04/04/22 04/04/22 10:30 11:00 11:30 Temperature Heart Rate 61 122 H 95 Respiratory Rate Blood Pressure 102/51 L 181/90 H 109/89 H O2 Saturation 98 95 96 04/04/22 04/04/22 04/04/22 12:00 12:32 14:00 Temperature Heart Rate 105 H 80 114 H Respiratory 22 Rate Blood Pressure 78/61 L 109/69 O2 Saturation 98 100 04/04/22 04/04/22 04/04/22 14:03 14:30 15:00 Temperature Heart Rate 98 107 H 99 Respiratory 22 Rate Blood Pressure 98/68 108/70 O2 Saturation 100 100 04/04/22 04/04/22 04/04/22 15:30 16:00 16:01 Temperature Heart Rate 96 99 100 Respiratory Rate Blood Pressure 105/72 134/89 H O2 Saturation 100 100 04/04/22 04/04/22 04/04/22 16:30 17:00 17:49 Temperature Heart Rate 98 76 Respiratory Rate Blood Pressure 100/71 72/29 L O2 Saturation 100 100 04/04/22 04/04/22 04/04/22 18:00 18:30 20:00 Temperature Heart Rate 96 70 58 L Respiratory 16 Rate Blood Pressure 124/102 H 137/88 H 157/91 H O2 Saturation 100 100 100 04/04/22 04/04/22 04/04/22 20:19 20:26 20:30 Temperature 36.7 C Heart Rate 92 78 66 Respiratory 16 20 Rate Blood Pressure 169/84 H 178/82 H O2 Saturation 100 99 04/04/22 04/04/22 04/04/22 21:00 21:30 21:56 Temperature Heart Rate 62 67 64 Respiratory 18 20 Rate Blood Pressure 181/109 H 166/83 H O2 Saturation 100 100 04/04/22 04/04/22 04/04/22 22:11 22:30 23:00 Temperature 36.5 C 36.5 C Heart Rate 65 60 66 Respiratory 16 16 17 Rate Blood Pressure 170/82 H 148/97 H 143/96 H O2 Saturation 100 99 99 04/04/22 04/04/22 04/05/22 23:30 23:50 00:00 Temperature 36.3 C L 36.3 C L Heart Rate 64 65 70 Respiratory 17 17 Rate Blood Pressure 171/96 H 150/90 H O2 Saturation 100 100 04/05/22 04/05/22 04/05/22 00:30 01:00 01:30 Temperature 36.3 C L 36.3 C L 36.2 C L Heart Rate 77 70 84 Respiratory 18 18 17 Rate Blood Pressure 161/90 H 161/90 H 157/99 H O2 Saturation 100 100 100 04/05/22 04/05/22 04/05/22 02:00 02:45 03:09 Temperature 36.1 C L Heart Rate 85 60 78 Respiratory 20 20 20 Rate Blood Pressure 160/89 H 144/105 H 155/84 H O2 Saturation 100 99 100 04/05/22 04/05/22 04/05/22 03:30 03:43 04:00 Temperature 36 C L 36 C L Heart Rate 60 63 66 Respiratory 17 17 Rate Blood Pressure 151/93 H 158/84 H O2 Saturation 100 100 04/05/22 04/05/22 04/05/22 04:30 05:00 05:30 Temperature 36 C L 35.8 C L 35.7 C L Heart Rate 76 68 82 Respiratory 17 17 16 Rate Blood Pressure 134/89 H 149/101 H 149/87 H O2 Saturation 99 99 99 04/05/22 04/05/22 04/05/22 05:35 06:00 06:30 Temperature 35.7 C L 35.7 C L Heart Rate 64 68 62 Respiratory 17 16 Rate Blood Pressure 138/87 H 149/94 H O2 Saturation 99 99 04/05/22 04/05/22 04/05/22 07:28 07:48 08:13 Temperature Heart Rate 84 70 68 Respiratory 23 17 Rate Blood Pressure 154/93 H 149/99 H O2 Saturation 98 98 04/05/22 04/05/22 04/05/22 08:30 09:00 09:16 Temperature 36.0 C L 35.7 C L Heart Rate 73 66 83 Respiratory 19 18 Rate Blood Pressure 165/106 H 172/141 H O2 Saturation 99 100 04/05/22 09:30 Temperature 35.7 C L Heart Rate 66 Respiratory 18 Rate Blood Pressure 171/105 H O2 Saturation 99 Oxygen O2 Source [] Room air O2 Source [] Room air O2 Source Mechanical ventilator Oxygen Flow Rate 16 - EKG (time done) 0705 Rate: Rate (enter#) (134) Rhythm: Atrial fibrillation Intervals: LBBB Ischemia: No: ST elevation c/w ischemia - Labs Labs: Microbiology 04/04/22 07:14 Blood Culture - Preliminary Blood - Right Arm NO GROWTH AFTER 1 DAY 04/04/22 06:55 Blood Culture - Preliminary Blood - Left Arm NO GROWTH AFTER 1 DAY Laboratory Tests 04/04/22 04/04/22 04/04/22 06:56 07:03 07:14 WBC 12.6 H RBC 4.48 L Hgb 13.5 L Hct 41.5 L MCV 92.6 MCH 30.1 MCHC 32.5 RDW 14.6 Plt Count 213 MPV 11.7 H Neut # (Auto) 9.0 H Lymph # (Auto) 1.7 [place] # (Auto) 1.6 H Eos # (Auto) 0.1 Baso # (Auto) 0.1 Absolute Nucleated RBC 0.00 Nucleated RBC % 0.0 Manual Slide Review Indicated WBC Morphology NORMAL APPEARANCE Platelet Estimate NORMAL (130-450,000) Platelet Morphology NORMAL APPEARANCE RBC Morph Micro Appear NORMAL APPEARANCE PT INR Bld Gas Analysis Time Sample Site ABG pH ABG pCO2 ABG pO2 ABG HCO3 ABG Total CO2 ABG O2 Saturation ABG Base Excess Jemal Test VBG pH Ionized Calcium Respiration Rate O2 Delivery Device Vent Mode FiO2 Tidal Volume PEEP Pressure Support Vent Sodium Potassium Chloride Carbon Dioxide Anion Gap BUN Creatinine Estimated GFR (MDRD) Glucose Lactic Acid Calcium Magnesium Total Bilirubin Direct Bilirubin AST ALT Alkaline Phosphatase Troponin I High Sens B-Natriuretic Peptide 239 H Total Protein Albumin Globulin Albumin/Globulin Ratio Lipase Urine Color Urine Clarity Urine pH Ur Specific [place] Urine Protein Urine Glucose (UA) Urine Ketones Urine Occult Blood Urine Nitrite Urine Bilirubin Urine Urobilinogen Ur Leukocyte Esterase Urine RBC Urine WBC Ur Squamous Epith Cells Urine Bacteria Urine Casts Ur Microscopic Review Urine Culture Comments Nasal Adenovirus (PCR) NOT DETECTED Nasal B. parapertussis DNA (PCR) NOT DETECTED Nasal Coronavir 229E PCR NOT DETECTED Nasal Coronavir HKU1 PCR NOT DETECTED Nasal Coronavir NL63 PCR NOT DETECTED Nasal Coronavir OC43 PCR NOT DETECTED Nasal Enterovir/Rhinovir PCR NOT DETECTED Nasal Influenza B PCR NOT DETECTED Nasal Influenza A PCR NOT DETECTED Nasal Parainfluen 1 PCR NOT DETECTED Nasal Parainfluen 2 PCR NOT DETECTED Nasal Parainfluen 3 PCR NOT DETECTED Nasal Parainfluen 4 PCR NOT DETECTED Nasal RSV (PCR) NOT DETECTED Nasal B.pertussis DNA PCR NOT DETECTED Nasal C.pneumoniae (PCR) NOT DETECTED [place] Human Metapneumo PCR NOT DETECTED Nasal M.pneumoniae (PCR) NOT DETECTED Nasal SARS-CoV-2 (PCR) NOT DETECTED Stl C. diff Tox B Gene 04/04/22 04/04/22 04/04/22 07:14 07:14 08:22 WBC RBC Hgb Hct MCV MCH MCHC RDW Plt Count MPV Neut # (Auto) Lymph # (Auto) [place] # (Auto) Eos # (Auto) Baso # (Auto) Absolute Nucleated RBC Nucleated RBC % Manual Slide Review WBC Morphology Platelet Estimate Platelet Morphology RBC Morph Micro Appear PT INR Bld Gas Analysis Time Sample Site ABG pH ABG pCO2 ABG pO2 ABG HCO3 ABG Total CO2 ABG O2 Saturation ABG Base Excess Jemal Test VBG pH 7.348 Ionized Calcium 0.87 L Respiration Rate O2 Delivery Device Vent Mode FiO2 Tidal Volume PEEP Pressure Support Vent Sodium 132 L Potassium 3.7 Chloride 96 L Carbon Dioxide 26 Anion Gap 10.0 BUN 22 H Creatinine 3.6 H Estimated GFR (MDRD) 17 L Glucose 93 Lactic Acid 2.3 H Calcium 7.2 L Magnesium 1.3 L Total Bilirubin 1.2 H Direct Bilirubin AST 163 H ALT 39 Alkaline Phosphatase 66 Troponin I High Sens B-Natriuretic Peptide Total Protein 6.1 L Albumin 2.8 L Globulin 3.3 Albumin/Globulin Ratio 0.8 L Lipase 81 H Urine Color Urine Clarity Urine pH Ur Specific [place] Urine Protein Urine Glucose (UA) Urine Ketones Urine Occult Blood Urine Nitrite Urine Bilirubin Urine Urobilinogen Ur Leukocyte Esterase Urine RBC Urine WBC Ur Squamous Epith Cells Urine Bacteria Urine Casts Ur Microscopic Review Urine Culture Comments Nasal Adenovirus (PCR) Nasal B. parapertussis DNA (PCR) Nasal Coronavir 229E PCR Nasal Coronavir HKU1 PCR Nasal Coronavir NL63 PCR Nasal Coronavir OC43 PCR Nasal Enterovir/Rhinovir PCR Nasal Influenza B PCR Nasal Influenza A PCR Nasal Parainfluen 1 PCR Nasal Parainfluen 2 PCR Nasal Parainfluen 3 PCR Nasal Parainfluen 4 PCR Nasal RSV (PCR) Nasal B.pertussis DNA PCR Nasal C.pneumoniae (PCR) [place] Human Metapneumo PCR Nasal M.pneumoniae (PCR) Nasal SARS-CoV-2 (PCR) Stl C. diff Tox B Gene 04/04/22 04/04/22 04/04/22 11:06 11:18 11:18 WBC RBC Hgb Hct MCV MCH MCHC RDW Plt Count MPV Neut # (Auto) Lymph # (Auto) [place] # (Auto) Eos # (Auto) Baso # (Auto) Absolute Nucleated RBC Nucleated RBC % Manual Slide Review WBC Morphology Platelet Estimate Platelet Morphology RBC Morph Micro Appear PT INR Bld Gas Analysis Time Sample Site ABG pH ABG pCO2 ABG pO2 ABG HCO3 ABG Total CO2 ABG O2 Saturation ABG Base Excess Jemal Test VBG pH Ionized Calcium Respiration Rate O2 Delivery Device Vent Mode FiO2 Tidal Volume PEEP Pressure Support Vent Sodium 134 L Potassium 3.1 L Chloride 105 Carbon Dioxide 15 L Anion Gap 14.0 H BUN 21 H Creatinine 3.9 H Estimated GFR (MDRD) 15 L Glucose 108 H Lactic Acid Calcium 8.3 L Magnesium 2.2 Total Bilirubin 1.0 Direct Bilirubin AST 292 H ALT 122 H Alkaline Phosphatase 63 Troponin I High Sens 412.6 H* B-Natriuretic Peptide Total Protein 4.2 L Albumin 1.9 L Globulin 2.3 Albumin/Globulin Ratio 0.8 L Lipase Urine Color YELLOW Urine Clarity CLEAR Urine pH 7.0 Ur Specific [place] 1.015 Urine Protein 100 H Urine Glucose (UA) NEGATIVE Urine Ketones NEGATIVE Urine Occult Blood SMALL H Urine Nitrite NEGATIVE Urine Bilirubin NEGATIVE Urine Urobilinogen 0.2 (NORMAL) Ur Leukocyte Esterase NEGATIVE Urine RBC 0-5 Urine WBC 4-5 Ur Squamous Epith Cells RARE Squamous Urine Bacteria None Seen Urine Casts 0-2 Granular Casts Ur Microscopic Review INDICATED Urine Culture Comments NOT INDICATED Nasal Adenovirus (PCR) Nasal B. parapertussis DNA (PCR) Nasal Coronavir 229E PCR Nasal Coronavir HKU1 PCR Nasal Coronavir NL63 PCR Nasal Coronavir OC43 PCR Nasal Enterovir/Rhinovir PCR Nasal Influenza B PCR Nasal Influenza A PCR Nasal Parainfluen 1 PCR Nasal Parainfluen 2 PCR Nasal Parainfluen 3 PCR Nasal Parainfluen 4 PCR Nasal RSV (PCR) Nasal B.pertussis DNA PCR Nasal C.pneumoniae (PCR) [place] Human Metapneumo PCR Nasal M.pneumoniae (PCR) Nasal SARS-CoV-2 (PCR) Stl C. diff Tox B Gene 04/04/22 04/04/22 04/04/22 11:18 12:10 14:43 WBC RBC Hgb Hct MCV MCH MCHC RDW Plt Count MPV Neut # (Auto) Lymph # (Auto) [place] # (Auto) Eos # (Auto) Baso # (Auto) Absolute Nucleated RBC Nucleated RBC % Manual Slide Review WBC Morphology Platelet Estimate Platelet Morphology RBC Morph Micro Appear PT INR Bld Gas Analysis Time 1220 Sample Site RIGHT RADIAL ABG pH 7.31 L ABG pCO2 31 L ABG pO2 87 ABG HCO3 15.0 L ABG Total CO2 15.9 L ABG O2 Saturation 96 ABG Base Excess -10.0 L Jemal Test POSITIVE VBG pH Ionized Calcium Respiration Rate 8 O2 Delivery Device VENTILATOR Vent Mode SIMV FiO2 50.00 Tidal Volume 550 PEEP 5 Pressure Support Vent 10 Sodium Potassium Chloride Carbon Dioxide Anion Gap BUN Creatinine Estimated GFR (MDRD) Glucose Lactic Acid 7.0 H* Calcium Magnesium Total Bilirubin Direct Bilirubin AST ALT Alkaline Phosphatase Troponin I High Sens B-Natriuretic Peptide Total Protein Albumin Globulin Albumin/Globulin Ratio Lipase Urine Color Urine Clarity Urine pH Ur Specific [place] Urine Protein Urine Glucose (UA) Urine Ketones Urine Occult Blood Urine Nitrite Urine Bilirubin Urine Urobilinogen Ur Leukocyte Esterase Urine RBC Urine WBC Ur Squamous Epith Cells Urine Bacteria Urine Casts Ur Microscopic Review Urine Culture Comments Nasal Adenovirus (PCR) Nasal B. parapertussis DNA (PCR) Nasal Coronavir 229E PCR Nasal Coronavir HKU1 PCR Nasal Coronavir NL63 PCR Nasal Coronavir OC43 PCR Nasal Enterovir/Rhinovir PCR Nasal Influenza B PCR Nasal Influenza A PCR Nasal Parainfluen 1 PCR Nasal Parainfluen 2 PCR Nasal Parainfluen 3 PCR Nasal Parainfluen 4 PCR Nasal RSV (PCR) Nasal B.pertussis DNA PCR Nasal C.pneumoniae (PCR) [place] Human Metapneumo PCR Nasal M.pneumoniae (PCR) Nasal SARS-CoV-2 (PCR) Stl C. diff Tox B Gene NEGATIVE 04/04/22 04/04/22 04/04/22 16:56 16:56 16:56 WBC RBC Hgb Hct MCV MCH MCHC RDW Plt Count MPV Neut # (Auto) Lymph # (Auto) [place] # (Auto) Eos # (Auto) Baso # (Auto) Absolute Nucleated RBC Nucleated RBC % Manual Slide Review WBC Morphology Platelet Estimate Platelet Morphology RBC Morph Micro Appear PT INR Bld Gas Analysis Time Sample Site ABG pH ABG pCO2 ABG pO2 ABG HCO3 ABG Total CO2 ABG O2 Saturation ABG Base Excess Jemal Test VBG pH Ionized Calcium YES Respiration Rate O2 Delivery Device Vent Mode FiO2 Tidal Volume PEEP Pressure Support Vent Sodium 131 L Potassium 5.6 H Chloride 101 Carbon Dioxide 16 L Anion Gap 14.0 H BUN 22 H Creatinine 4.0 H Estimated GFR (MDRD) 15 L Glucose 164 H Lactic Acid 3.2 H* Calcium 7.7 L Magnesium 1.8 Total Bilirubin 2.1 H Direct Bilirubin AST 451 H ALT 172 H Alkaline Phosphatase 66 Troponin I High Sens 8099.7 H* B-Natriuretic Peptide Total Protein 5.3 L Albumin 2.2 L Globulin 3.1 Albumin/Globulin Ratio 0.7 L Lipase Urine Color Urine Clarity Urine pH Ur Specific [place] Urine Protein Urine Glucose (UA) Urine Ketones Urine Occult Blood Urine Nitrite Urine Bilirubin Urine Urobilinogen Ur Leukocyte Esterase Urine RBC Urine WBC Ur Squamous Epith Cells Urine Bacteria Urine Casts Ur Microscopic Review Urine Culture Comments Nasal Adenovirus (PCR) Nasal B. parapertussis DNA (PCR) Nasal Coronavir 229E PCR Nasal Coronavir HKU1 PCR Nasal Coronavir NL63 PCR Nasal Coronavir OC43 PCR Nasal Enterovir/Rhinovir PCR Nasal Influenza B PCR Nasal Influenza A PCR Nasal Parainfluen 1 PCR Nasal Parainfluen 2 PCR Nasal Parainfluen 3 PCR Nasal Parainfluen 4 PCR Nasal RSV (PCR) Nasal B.pertussis DNA PCR Nasal C.pneumoniae (PCR) [place] Human Metapneumo PCR Nasal M.pneumoniae (PCR) Nasal SARS-CoV-2 (PCR) Stl C. diff Tox B Gene 04/04/22 04/04/2222 16:56 17:42 19:33 WBC RBC Hgb Hct MCV MCH MCHC RDW Plt Count MPV Neut # (Auto) Lymph # (Auto) [place] # (Auto) Eos # (Auto) Baso # (Auto) Absolute Nucleated RBC Nucleated RBC % Manual Slide Review WBC Morphology Platelet Estimate Platelet Morphology RBC Morph Micro Appear PT 13.8 H INR 1.3 H Bld Gas Analysis Time Sample Site ABG pH ABG pCO2 ABG pO2 ABG HCO3 ABG Total CO2 ABG O2 Saturation ABG Base Excess Jemal Test VBG pH 7.298 L Ionized Calcium 1.02 L Respiration Rate O2 Delivery Device Vent Mode FiO2 Tidal Volume PEEP Pressure Support Vent Sodium 133 L Potassium 5.3 H Chloride 104 Carbon Dioxide 16 L Anion Gap 13.0 BUN 24 H Creatinine 4.0 H Estimated GFR (MDRD) 15 L Glucose 188 H Lactic Acid Calcium 8.2 L Magnesium 1.8 Total Bilirubin 2.3 H Direct Bilirubin AST 403 H ALT 162 H Alkaline Phosphatase 69 Troponin I High Sens B-Natriuretic Peptide Total Protein 5.2 L Albumin 2.2 L Globulin 3.0 Albumin/Globulin Ratio 0.7 L Lipase 54 H Urine Color Urine Clarity Urine pH Ur Specific [place] Urine Protein Urine Glucose (UA) Urine Ketones Urine Occult Blood Urine Nitrite Urine Bilirubin Urine Urobilinogen Ur Leukocyte Esterase Urine RBC Urine WBC Ur Squamous Epith Cells Urine Bacteria Urine Casts Ur Microscopic Review Urine Culture Comments Nasal Adenovirus (PCR) Nasal B. parapertussis DNA (PCR) Nasal Coronavir 229E PCR Nasal Coronavir HKU1 PCR Nasal Coronavir NL63 PCR Nasal Coronavir OC43 PCR Nasal Enterovir/Rhinovir PCR Nasal Influenza B PCR Nasal Influenza A PCR Nasal Parainfluen 1 PCR Nasal Parainfluen 2 PCR Nasal Parainfluen 3 PCR Nasal Parainfluen 4 PCR Nasal RSV (PCR) Nasal B.pertussis DNA PCR Nasal C.pneumoniae (PCR) [place] Human Metapneumo PCR Nasal M.pneumoniae (PCR) Nasal SARS-CoV-2 (PCR) Stl C. diff Tox B Gene 04/04/22 04/04/22 04/05/22 19:35 21:50 06:35 WBC 13.2 H RBC 3.78 L Hgb 11.5 L Hct 34.7 L MCV 91.8 MCH 30.4 MCHC 33.1 RDW 14.7 Plt Count 161 MPV 11.4 Neut # (Auto) 12.0 H Lymph # (Auto) 0.4 L [place] # (Auto) 0.7 Eos # (Auto) 0.0 Baso # (Auto) 0.0 Absolute Nucleated RBC 0.00 Nucleated RBC % 0.0 Manual Slide Review WBC Morphology Platelet Estimate Platelet Morphology RBC Morph Micro Appear PT INR Bld Gas Analysis Time 1940 Sample Site RIGHT RADIAL ABG pH 7.38 ABG pCO2 27 L ABG pO2 230 H* ABG HCO3 15.9 L ABG Total CO2 16.7 L ABG O2 Saturation 99 H ABG Base Excess -7.8 L Jemal Test NOT APPLICABLE VBG pH Ionized Calcium Respiration Rate 8 O2 Delivery Device VENTILATOR Vent Mode ASSIST/CONTROL FiO2 60.00 Tidal Volume 500 PEEP 5 Pressure Support Vent Sodium Potassium Chloride Carbon Dioxide Anion Gap BUN Creatinine Estimated GFR (MDRD) Glucose Lactic Acid Calcium Magnesium Total Bilirubin Direct Bilirubin AST ALT Alkaline Phosphatase Troponin I High Sens 9928.6 H* B-Natriuretic Peptide Total Protein Albumin Globulin Albumin/Globulin Ratio Lipase Urine Color Urine Clarity Urine pH Ur Specific [place] Urine Protein Urine Glucose (UA) Urine Ketones Urine Occult Blood Urine Nitrite Urine Bilirubin Urine Urobilinogen Ur Leukocyte Esterase Urine RBC Urine WBC Ur Squamous Epith Cells Urine Bacteria Urine Casts Ur Microscopic Review Urine Culture Comments Nasal Adenovirus (PCR) Nasal B. parapertussis DNA (PCR) Nasal Coronavir 229E PCR Nasal Coronavir HKU1 PCR Nasal Coronavir NL63 PCR Nasal Coronavir OC43 PCR Nasal Enterovir/Rhinovir PCR Nasal Influenza B PCR Nasal Influenza A PCR Nasal Parainfluen 1 PCR Nasal Parainfluen 2 PCR Nasal Parainfluen 3 PCR Nasal Parainfluen 4 PCR Nasal RSV (PCR) Nasal B.pertussis DNA PCR Nasal C.pneumoniae (PCR) [place] Human Metapneumo PCR Nasal M.pneumoniae (PCR) Nasal SARS-CoV-2 (PCR) Stl C. diff Tox B Gene 04/05/22 04/05/22 04/05/22 06:35 06:35 06:35 WBC RBC Hgb Hct MCV MCH MCHC RDW Plt Count MPV Neut # (Auto) Lymph # (Auto) [place] # (Auto) Eos # (Auto) Baso # (Auto) Absolute Nucleated RBC Nucleated RBC % Manual Slide Review WBC Morphology Platelet Estimate Platelet Morphology RBC Morph Micro Appear PT 13.8 H INR 1.3 H Bld Gas Analysis Time Sample Site ABG pH ABG pCO2 ABG pO2 ABG HCO3 ABG Total CO2 ABG O2 Saturation ABG Base Excess Jemal Test VBG pH Ionized Calcium Respiration Rate O2 Delivery Device Vent Mode FiO2 Tidal Volume PEEP Pressure Support Vent Sodium 132 L Potassium 4.7 Chloride 101 Carbon Dioxide 18 L Anion Gap 13.0 BUN 30 H Creatinine 4.3 H Estimated GFR (MDRD) 14 L Glucose 225 H Lactic Acid Calcium 8.1 L Magnesium Total Bilirubin 2.7 H Direct Bilirubin 1.3 H AST 288 H ALT 147 H Alkaline Phosphatase 69 Troponin I High Sens 7387.4 H* B-Natriuretic Peptide Total Protein 5.3 L Albumin 2.2 L Globulin 3.1 Albumin/Globulin Ratio Lipase Urine Color Urine Clarity Urine pH Ur Specific [place] Urine Protein Urine Glucose (UA) Urine Ketones Urine Occult Blood Urine Nitrite Urine Bilirubin Urine Urobilinogen Ur Leukocyte Esterase Urine RBC Urine WBC Ur Squamous Epith Cells Urine Bacteria Urine Casts Ur Microscopic Review Urine Culture Comments Nasal Adenovirus (PCR) Nasal B. parapertussis DNA (PCR) Nasal Coronavir 229E PCR Nasal Coronavir HKU1 PCR Nasal Coronavir NL63 PCR Nasal Coronavir OC43 PCR Nasal Enterovir/Rhinovir PCR Nasal Influenza B PCR Nasal Influenza A PCR Nasal Parainfluen 1 PCR Nasal Parainfluen 2 PCR Nasal Parainfluen 3 PCR Nasal Parainfluen 4 PCR Nasal RSV (PCR) Nasal B.pertussis DNA PCR Nasal C.pneumoniae (PCR) [place] Human Metapneumo PCR Nasal M.pneumoniae (PCR) Nasal SARS-CoV-2 (PCR) Stl C. diff Tox B Gene 04/05/22 04/05/22 06:35 07:05 WBC RBC Hgb Hct MCV MCH MCHC RDW Plt Count MPV Neut # (Auto) Lymph # (Auto) [place] # (Auto) Eos # (Auto) Baso # (Auto) Absolute Nucleated RBC Nucleated RBC % Manual Slide Review WBC Morphology Platelet Estimate Platelet Morphology RBC Morph Micro Appear PT INR Bld Gas Analysis Time 0716 Sample Site LEFT RADIAL ABG pH 7.42 ABG pCO2 28 L ABG pO2 83 ABG HCO3 17.8 L ABG Total CO2 18.7 L ABG O2 Saturation 96 ABG Base Excess -5.5 L Jemal Test POSITIVE VBG pH Ionized Calcium Respiration Rate 16 O2 Delivery Device VENTILATOR Vent Mode ASSIST/CONTROL FiO2 30.00 Tidal Volume 500 PEEP 5 Pressure Support Vent Sodium Potassium Chloride Carbon Dioxide Anion Gap BUN Creatinine Estimated GFR (MDRD) Glucose Lactic Acid Calcium Magnesium 1.8 Total Bilirubin Direct Bilirubin AST ALT Alkaline Phosphatase Troponin I High Sens B-Natriuretic Peptide Total Protein Albumin Globulin Albumin/Globulin Ratio Lipase Urine Color Urine Clarity Urine pH Ur Specific [place] Urine Protein Urine Glucose (UA) Urine Ketones Urine Occult Blood Urine Nitrite Urine Bilirubin Urine Urobilinogen Ur Leukocyte Esterase Urine RBC Urine WBC Ur Squamous Epith Cells Urine Bacteria Urine Casts Ur Microscopic Review Urine Culture Comments Nasal Adenovirus (PCR) Nasal B. parapertussis DNA (PCR) Nasal Coronavir 229E PCR Nasal Coronavir HKU1 PCR Nasal Coronavir NL63 PCR Nasal Coronavir OC43 PCR Nasal Enterovir/Rhinovir PCR Nasal Influenza B PCR Nasal Influenza A PCR Nasal Parainfluen 1 PCR Nasal Parainfluen 2 PCR Nasal Parainfluen 3 PCR Nasal Parainfluen 4 PCR Nasal RSV (PCR) Nasal B.pertussis DNA PCR Nasal C.pneumoniae (PCR) Aquilino Human Metapneumo PCR Nasal M.pneumoniae (PCR) Nasal SARS-CoV-2 (PCR) Stl C. diff Tox B Gene Procedures - Intubation Provider: Emergency physician Blade: Glidescope Tube: Size-enter number (8), Cuffed Route: Oral Confirmation: Direct visualization, Bilateral breath sounds, End tidal CO2, Pulse ox, Chest xray Complications: No compications - Central Line Central Line Preparation: Consent Obtained (Verbal from ), Ultrasound used, Sterile prep and drape Central line location: Right IJ Central line type: Triple lumen Central line aftercare: Chlorhexidine disc placed, Secured, Placement confirmed, No pneumothorax, No complications, Pt tolerated well PD MEDICAL DECISION MAKING - ED course Complexity details: reviewed results, re-evaluated patient, d/w patient, d/w family ED course: Patient presenting for evaluation of altered mental status with recent nausea, vomiting and diarrhea. He is noted to be febrile, tachycardic. He is moving all extremities but is Weak appearing.Labs were obtained which demonstrated a mild leukocytosis and Low magnesium and calcium levels.IV magnesium and calcium were ordered.CT brain and abdomen and pelvis were pending. Once patient had returned from CT scan he was noted to be increasingly lethargic and unable to arouse him. had arrived in the hospital at this time and reported that he is on hydrocortisone and she does not believe he has been taking it recently Given his nausea and vomiting. IV hydrocortisone was ordered at this time. He then lost pulses and CPR Was initiated with ACLS protocol. Patient did arrest 3 separate times with ROSC obtained. He received several doses of Epinephrine, Additional IV mag and calcium. Nor epi and epi drips were also started Postarrest. Epinephrine drip was weaned off And patient remains on nor epi. A central line was placed. Patient was started on antibiotics.CT head is unremarkable and CT abdomen pelvis demonstrates pancreatitis.Patient is not appropriate for admission at [facility] and he was [facility]. Unfortunately there is a region wide bed shortage and it is unclear as to when a bed will become available that is suitable for this patient. I did consult with the [facility] fur liner to ensure that Patient was on the proper treatments Given his complexity. Patient will remain in the emergency department and care was turned over to Dr. Babb at shift change. 8 D/W Dr. Santa Castorena (ICU, ) - Requested ICU consultation as this patient is complex and unfortunately there are no available facilities with an open bed. It is unclear how long he will be boarding in our emergency department. Dr. Castorena was a gracious enough to offer suggestions. We discussed the case. She recommends continuing the vancomycin and would recommend changing the ceftriaxone to cefepime.We reviewed his recent labs which now indicate hyperkalemia of 5.6. She recommends giving him Lasix for this but would not give the full treatment. She is concerned that his renal function is worsening but does not recommend giving additional fluids. She does recommend checking his INR Given that his liver function seems to be worsening. She is in agreement with our current dosing for his hydrocortisone. She does not recommend routine anticoagulation for the elevated troponin unless there are EKG changes to suggest a STEMI. She is available for further consultation should he have additional questions. - Critical Care Time(min): 42 Time Includes: Direct patient care, Review records, Reassess patient, Document c are, Coordinate care Procedures excluded from critical care time: Central IV, Intubation, EKG, CPR Departure - Departure Disposition: 02 Transfer Acute Care Hosp Clinical Impression: Cardiac arrest, Adrenal crisis, Sepsis, Pancreatitis, Hypomagnesemia, Hypocalcemia, Pneumonia Condition: Critical
[2022-04-04] MEDS ORDERED: ACETAMINOPHEN 325 MG TABLET PO STA (07:46)
[2022-04-04 07:53] LABS: SLIDE REVIEW? Indicated
[2022-04-04 07:55] LABS: PLATELET ESTIMATE, MANUAL NORMAL (130-450,000) (NORMAL); PLATELET MORPHOLOGY NORMAL APPEARANCE (NORMAL); RBC MORPHOLOGY (MULTIPLE) NORMAL APPEARANCE (NORMAL); WBC MORPHOLOGY (MULTIPLE) NORMAL APPEARANCE (NORMAL)
[2022-04-04 08:32] LABS: CALCIUM, IONIZED 0.87 mmol/L (1.15-1.33); VBG PH 7.348 (7.31-7.41)
--- NOTE | 2022-04-04 08:35 | XRAY Report ---
PROCEDURE: Chest 1 View X-Ray INDICATIONS: weakness TECHNIQUE: One view of the chest was acquired. COMPARISON: 08/31/2021 FINDINGS: Surgical changes and devices: None. Lungs and pleura: No pleural effusions or pneumothorax. Lung volumes are low. Bilateral perihilar an d basilar atelectasis versus pneumonia. Mediastinum: Mediastinal contours appear normal. Heart size is enlarged. Bones and chest wall: No suspicious bony lesions. Overlying soft tissues appear unremarkable. IMPRESSION: Low lung volumes with bilateral perihilar and basilar atelectasis versus pneumonia. Reviewed by: Margaux Arellano MD on 04/04/2022 7:34 AM [facility] Approved by: Margaux Arellano MD on 04/04/2022 7:34 AM [facility] Station ID: [id number]
[2022-04-04] MEDS ORDERED: CALCIUM GLUC 1,000MG/50ML-NACL 1,000 MG/50 ML BAG IV STA ×2 (08:42→19:23)
[2022-04-04 08:44] LABS: B. PARAPERTUSSIS- RESP PCR PAN NOT DETECTED; B. PERTUSSIS- RESP PCR PANEL NOT DETECTED; C. PNEUMONIAE- RESP PCR PANEL NOT DETECTED; CORONAVIRUS 229E-RESP PCR NOT DETECTED; CORONAVIRUS HKU1-RESP PCR NOT DETECTED; CORONAVIRUS NL63-RESP PCR NOT DETECTED; CORONAVIRUS OC43-RESP PCR NOT DETECTED; HUMAN METAPNEUMOVIRUS NOT DETECTED; INFLUENZA A- RESP PCR PANEL NOT DETECTED; INFLUENZA B - RESP PCR PANEL NOT DETECTED; M. PNEUMONIAE- RESP PCR PANEL NOT DETECTED; PARAINFLUENZA VIRUS 1 NOT DETECTED; PARAINFLUENZA VIRUS 2 NOT DETECTED; PARAINFLUENZA VIRUS 3 NOT DETECTED; PARAINFLUENZA VIRUS 4 NOT DETECTED; RHINOVIRUS/ENTEROVIRUS NOT DETECTED; RSV- RESP PCR PANEL NOT DETECTED; SARS-CoV-2 -RESP PCR PANEL NOT DETECTED
[2022-04-04] MEDS ORDERED: HYDROCORTISONE SUCCINATE 100 MG/2 ML VIAL IVP STA (10:24)
--- NOTE | 2022-04-04 10:28 | CT Report ---
PROCEDURE: HEAD WO INDICATIONS: AMS; on eliquis TECHNIQUE: Noncontrast 4.5 mm thick angled axial sections acquired from the foramen magnum to the vertex. For r adiation dose reduction, the following was used: automated exposure control, adjustment of mA and/or kV according to patient size. COMPARISON: CT dated 02/25/2020 FINDINGS: Image quality: Excellent. CSF spaces: Basal cisterns are patent. No extra-axial fluid collections. Ventricles are normal in size and shape. Brain: No midline shift. No intracranial masses or hemorrhage. Whitley-white matter interface is norm al. Skull and face: Calvarium and visualized facial bones are intact, without suspicious lesions. Sinuses: Visualized sinuses and mastoids are clear. IMPRESSION: No acute process. Reviewed by: Margaux Arellano MD on 04/04/2022 9:27 AM [facility] Approved by: Margaux Arellano MD on 04/04/2022 9:27 AM [facility] Station ID: [id number]
[2022-04-04] MEDS ORDERED: SUCCINYLCHOLINE 200 MG/10 ML VIAL ONE (10:30)
[2022-04-04] MEDS ORDERED: ETOMIDATE 40 MG/20 ML VIAL IVP ONE (10:30)
--- NOTE | 2022-04-04 10:31 | CT Report ---
PROCEDURE: ABDOMEN/PELVIS WO INDICATIONS: N/V/D; increased creatinine TECHNIQUE: Noncontrast 5 mm thick sections acquired from the diaphragms to the symphysis. 5 mm coronal and sagi ttal reformats were then performed. For radiation dose reduction, the following was used: automated exposure control, adjustment of mA and/or kV according to patient size. COMPARISON: CT examination dated 05/23/2019. FINDINGS: Image quality: Excellent. ABDOMEN: Lung bases: Lung bases are clear. Heart size is enlarged. There is calcification of the coronary va sculature. Solid organs: Liver and spleen are normal in size. Gallbladder is within normal limits Pancreas is enlarged and demonstrates mild surrounding fat stranding. No adrenal nodules. Left nephrectomy has b een performed, new since the prior examination. Right kidney is grossly unremarkable.. Peritoneum and bowel: Unenhanced bowel loops demonstrate normal wall thickness and caliber. No free fluid or air. Nodes and vessels: No retroperitoneal or mesenteric adenopathy by size criteria. Aorta and inferior vena cava are normal in caliber. Miscellaneous: No ventral hernias. PELVIS: Genitourinary: Bladder wall thickness is normal. Miscellaneous: No inguinal hernias or adenopathy. Bones: No suspicious bony lesions. No vertebral body compression fractures. IMPRESSION: 1. Pancreatitis. 2. Postoperative sequelae. 3. Cardiomegaly. Coronary artery disease. Reviewed by: Margaux Arellano MD on 04/04/2022 9:30 AM [facility] Approved by: Margaux Arellano MD on 04/04/2022 9:30 AM [facility] Station ID: [id number]
[2022-04-04] MEDS ORDERED: cefTRIAXone 2 GM in SODIUM CHLORIDE 0.9% MINIBAG 100 ML IV STA (11:03)
--- NOTE | 2022-04-04 11:17 | XRAY Report ---
PROCEDURE: Chest for Line Placement INDICATIONS: ET TUBE PLACEMENT TECHNIQUE: One view of the chest was acquired. COMPARISON: 04/04/2022 FINDINGS: Examination limited by overlying structures. Surgical changes and devices: ETT is present, tip of which is at the dia. Lungs and pleura: No pleural effusions or pneumothorax. Mild multifocal patchy bilateral airspace op acities. Mediastinum: Mediastinal contours appear normal. Heart size is normal. Bones and chest wall: No suspicious bony lesions. Overlying soft tissues appear unremarkable. IMPRESSION: 1. Low ETT. 2. Bilateral pneumonia. Reviewed by: Margaux Arellano MD on 04/04/2022 10:16 AM [facility] Approved by: Margaux Arellano MD on 04/04/2022 10:16 AM [facility] Station ID: [id number]
[2022-04-04] MEDS ORDERED: EPINEPHrine 4 MG in DEXTROSE 5% 246 ML IV STA (11:23)
[2022-04-04 11:49] LABS: ALBUMIN 1.9 g/dL (3.2-5.5); ALBUMIN/GLOBULIN RATIO 0.8 (1.0-2.2); CALCIUM 8.3 mg/dL (8.5-10.3); CREATININE 3.9 mg/dL (0.6-1.2); MAGNESIUM 2.2 mg/dL (1.7-2.8); POTASSIUM 3.1 mmol/L (3.5-5.0); TOTAL PROTEIN 4.2 g/dL (6.7-8.2)
[2022-04-04] MEDS ORDERED: VANCOMYCIN INJ 1.75 GM in SODIUM CHLORIDE 0.9% 500 ML IV SCH (12:00)
[2022-04-04] MEDS ORDERED: VANCOMYCIN INJ 1.75 GM in SODIUM CHLORIDE 0.9% 500 ML IV STA (12:06)
--- NOTE | 2022-04-04 12:07 | XRAY Report ---
PROCEDURE: Chest for Line Placement INDICATIONS: CENTRAL LINE PLACEMENT TECHNIQUE: One view of the chest was acquired. COMPARISON: Plain film examination dated 04/04/2022 at 1028 hours FINDINGS: Surgical changes and devices: Tip of ETT remains at the dia. Right internal jugular vein central venous catheter is present, tip of which is in the right atrium. Lungs and pleura: No pleural effusions or pneumothorax. Lungs are clear. Mediastinum: Mediastinal contours appear normal. Heart size is normal. Bones and chest wall: No suspicious bony lesions. Overlying soft tissues appear unremarkable. IMPRESSION: 1. No change in low ETT. 2. Right internal jugular vein central venous catheter tip is in the right atrium. Reviewed by: Margaux Arellano MD on 04/04/2022 11:06 AM [facility] Approved by: Margaux Arellano MD on 04/04/2022 11:06 AM [facility] Station ID: [id number]
[2022-04-04] MEDS: POTASSIUM CHLOR 10 MEQ/100 ML 10 MEQ/100 ML BAG IV SCH ×4 (12:08→15:29)
[2022-04-04] MEDS ORDERED: NOREPINEPHRINE/D5W 8 MG/250 ML BAG IV STA (12:21)
[2022-04-04 12:23] LABS: ABG OXYGEN SATURATION 96 % (94-98); ABG PCO2 31 mmHg (34-45); ABG PH 7.31 (7.35-7.45); ABG PO2 87 mmHg (80-100); ABG TCO2 15.9 MMOL/L (21.0-29.0); ALLEN TEST POSITIVE
[2022-04-04 12:24] LABS: ABG MODE OF VENTILATION SIMV; ABG RESPIRATORY RATE 8 b/min
[2022-04-04 14:19] LABS: BILIRUBIN,URINE NEGATIVE (NEGATIVE); GLUCOSE, URINE (UA) NEGATIVE (NEGATIVE); KETONES,URINE (UA) NEGATIVE (NEGATIVE); LEUKOCYTE ESTERASE, URINE NEGATIVE (NEGATIVE); NITRITE,URINE NEGATIVE (NEGATIVE); OCCULT BLOOD,URINE SMALL (NEGATIVE); PROTEIN,URINE 100 mg/dL (NEGATIVE); UROBILINOGEN,URINE 0.2 (NORMAL) E.U./dL (NORMAL)
[2022-04-04 14:27] LABS: CLARITY,URINE CLEAR (CLEAR)
[2022-04-04 14:29] LABS: BACTERIA,URINE None Seen /HPF (None Seen); RBC,URINE 0-5 /HPF (0-5); SQUAMOUS EPITHELIAL CELL,UR RARE Squamous (<= Few)
[2022-04-04 14:30] LABS: CASTS, URINE 0-2 Granular Casts /LPF
[2022-04-04] MEDS: HYDROCORTISONE SUCCINATE 100 MG/2 ML VIAL IVP SCH ×3 (16:54→23:37)
[2022-04-04 17:19] LABS: ALBUMIN 2.2 g/dL (3.2-5.5); ALBUMIN/GLOBULIN RATIO 0.7 (1.0-2.2); ALKALINE PHOSPHATASE 66 IU/L (42-121); ALT ALANINE AMINOTRANSFERASE 172 IU/L (10-60); AST ASPARTATE AMINOTRANSFERASE 451 IU/L (10-42); BILIRUBIN,TOTAL 2.1 mg/dL (0.2-1.0); BUN - BLOOD UREA NITROGEN 22 mg/dL (6-20); CALCIUM 7.7 mg/dL (8.5-10.3); CARBON DIOXIDE - CO2 16 mmol/L (21-32); CHLORIDE 101 mmol/L (101-111); GFR - MDRD 15 (>89); GLUCOSE 164 mg/dL (70-100); IONIZED CALCIUM IF INDICATED YES; MAGNESIUM 1.8 mg/dL (1.7-2.8); POTASSIUM 5.6 mmol/L (3.5-5.0); SODIUM 131 mmol/L (135-145); TOTAL PROTEIN 5.3 g/dL (6.7-8.2)
[2022-04-04 17:27] LABS: CALCIUM, IONIZED 1.02 mmol/L (1.15-1.33); VBG PH 7.298 (7.31-7.41)
[2022-04-04] MEDS ORDERED: FUROSEMIDE 40 MG/4 ML VIAL IVP STA (17:29)
[2022-04-04] MEDS ORDERED: CEFEPIME 1 GM in SODIUM CHLORIDE 0.9% MINIBAG 100 ML IV STA (17:35)
[2022-04-04] MEDS ORDERED: CALCIUM CHLORIDE ABBOJECT 1000MG/10 ML SYRINGE IVP STA (17:36)
[2022-04-04 17:59] LABS: INR 1.3 (0.8-1.2); PT - PROTHROMBIN TIME 13.8 secs (9.9-12.6)
[2022-04-04] MEDS ORDERED: PANTOPRAZOLE 40 MG TABLET PO SCH (19:00)
[2022-04-04] MEDS ORDERED: SODIUM BICARBONATE ABBOJECT 50 MEQ/50 ML SYRINGE IVP STA ×2 (19:22→20:22)
[2022-04-04 19:45] LABS: ABG PCO2 27 mmHg (34-45); ABG PH 7.38 (7.35-7.45)
[2022-04-04 19:46] LABS: ABG HCO3 15.9 mmol/L (22.0-26.0); ABG TCO2 16.7 MMOL/L (21.0-29.0)
[2022-04-04 19:47] LABS: ABG BASE EXCESS -7.8 mmol/L (-2.0-3.0); ABG OXYGEN SATURATION 99 % (94-98)
[2022-04-04 19:48] LABS: ABG MODE OF VENTILATION ASSIST/CONTROL; ABG RESPIRATORY RATE 8 b/min
[2022-04-04 19:50] LABS: ABG PO2 230 mmHg (80-100)
[2022-04-04 19:55] LABS: ALBUMIN 2.2 g/dL (3.2-5.5); ALBUMIN/GLOBULIN RATIO 0.7 (1.0-2.2); BILIRUBIN,TOTAL 2.3 mg/dL (0.2-1.0); CALCIUM 8.2 mg/dL (8.5-10.3); MAGNESIUM 1.8 mg/dL (1.7-2.8); POTASSIUM 5.3 mmol/L (3.5-5.0); TOTAL PROTEIN 5.2 g/dL (6.7-8.2)
[2022-04-04] MEDS: PANTOPRAZOLE 40 MG VIAL IVP SCH (20:18)
[2022-04-04] MEDS ORDERED: LORazepam 2 MG/ML VIAL IVP STA (21:42)
[2022-04-04] MEDS ORDERED: LORazepam 2 MG/ML VIAL ONE (21:45)
[2022-04-04] MEDS: PROPOFOL 1000 MG/100 ML 1,000 MG/100 ML BOTTLE IV SCH (21:48)
--- NOTE | 2022-04-05 01:08 | ED Physician Documentation ---
ED Addendum - Addendum Addendum: 04/05/22 01:04 The patient was signed out to me on change of shift with sepsis and altered mental status and respiratory failure on ventilator. He is status postarrest. Through the evening he maintained on the respirator ventilator without needing any sedation. Correction in the oxygenation amount was made after blood gas. The ventilatory aspects remained the same. The patient did have some episodes of mild bradycardia down to 40s or 50s. We had checked electrolytes a few hours earlier but I repeated them to see if his potassium was getting excessively high. He also presumably had some metabolic acidosis. Preliminarily in response to the lower heart rate and also some lower blood pressure, I did give some bicarbonate IV. This did seem to help his status. He did maintain palpable femoral pulses throughout the whole time. No He is blood pressure improved with some IV small bolus of fluid. We do not want to give too much since he is still having very little urine output. He seemed to stabilize again on heart rate and blood pressure. He did start having some aches to remedy and body response to the out breath on the ventilator. He would have a body lunge minorly. It did not look seizure-like and timed with every third or fourth breath on the expiratory phase I presume was bronchial irritation or hiccup type movement. He was given some Ativan and then started on a propofol drip and this actually stopped those. I would see this is a good sign that he was having some response to irritation of the intubation. He remained stable still with good blood pressure and heart rate. We are continuing with the prior orders for antibiotics and maintains a norepinephrine drip at 8 mcg. We are still hoping for bed availability in any outlying facility or even our own as he is a high-level ICU patient here in the ER for an extended period of time.
[2022-04-05] MEDS: PROPOFOL 1000 MG/100 ML 1,000 MG/100 ML BOTTLE IV SCH (02:35)
[2022-04-05] MEDS ORDERED: FUROSEMIDE 40 MG/4 ML VIAL IVP SCH (05:00)
[2022-04-05] MEDS: HYDROCORTISONE SUCCINATE 100 MG/2 ML VIAL IVP SCH (05:42)
[2022-04-05 06:39] LABS: BASOPHILS % (AUTO) 0.2 %; EOSINOPHILS % (AUTO) 0.1 %; HCT - HEMATOCRIT 34.7 % (42.0-52.0); HGB - HEMOGLOBIN 11.5 g/dL (14.0-18.0); LYMPHOCYTES # (AUTO) 0.4 10^3/uL (1.5-3.5); MEAN CORPUSCULAR HEMOGLOBIN 30.4 pg (27.0-31.0); MEAN CORPUSCULAR HGB CONC 33.1 g/dL (32.0-36.0); MEAN CORPUSCULAR VOLUME 91.8 fL (80.0-94.0); MEAN PLATELET VOLUME 11.4 fL (7.4-11.4); MONOCYTES # (AUTO) 0.7 10^3/uL (0.0-1.0); MONOCYTES % (AUTO) 4.9 %; NEUTROPHILS % (AUTO) 91.5 %; PLT - PLATELET COUNT 161 10^3/uL (130-450); RED BLOOD COUNT 3.78 10^6/uL (4.70-6.10); RED CELL DISTRIBUTION WIDTH 14.7 % (12.0-15.0); WHITE BLOOD COUNT 13.2 x10^3/uL (4.8-10.8)
[2022-04-05 06:54] LABS: INR 1.3 (0.8-1.2); PT - PROTHROMBIN TIME 13.8 secs (9.9-12.6)
[2022-04-05 07:20] LABS: ABG BASE EXCESS -5.5 mmol/L (-2.0-3.0); ABG HCO3 17.8 mmol/L (22.0-26.0); ABG OXYGEN SATURATION 96 % (94-98); ABG PCO2 28 mmHg (34-45); ABG PH 7.42 (7.35-7.45); ABG PO2 83 mmHg (80-100); ABG TCO2 18.7 MMOL/L (21.0-29.0); ALLEN TEST POSITIVE
[2022-04-05 07:21] LABS: ABG MODE OF VENTILATION ASSIST/CONTROL; ABG RESPIRATORY RATE 16 b/min
[2022-04-05 07:21] LABS: POTASSIUM 4.7 mmol/L (3.5-5.0)
[2022-04-05 07:22] LABS: ALBUMIN 2.2 g/dL (3.2-5.5); BILIRUBIN,DIRECT 1.3 mg/dL (0.1-0.5); BILIRUBIN,TOTAL 2.7 mg/dL (0.2-1.0); CALCIUM 8.1 mg/dL (8.5-10.3); CREATININE 4.3 mg/dL (0.6-1.2); TOTAL PROTEIN 5.3 g/dL (6.7-8.2)
--- NOTE | 2022-04-05 08:03 | XRAY Report ---
PROCEDURE: Chest 1 View X-Ray INDICATIONS: chest pain TECHNIQUE: One view of the chest was acquired. COMPARISON: 04/04/2022 FINDINGS: Surgical changes and devices: ET tube, NG tube, and central line are in satisfactory position. Lungs and pleura: Patchy bilateral atelectasis. Mediastinum: Mediastinal contours appear normal. Cardiomegaly. Bones and chest wall: No suspicious bony lesions. Overlying soft tissues appear unremarkable. IMPRESSION: Lines and tubes in satisfactory position. Patchy bilateral atelectasis. Reviewed by: Remy Adhikari MD on 04/05/2022 8:02 AM PST Approved by: Remy Adhikari MD on 04/05/2022 8:02 AM PST Station ID: [id number]
[2022-04-05] MEDS ORDERED: cefTRIAXone 2 GM VIAL IVP SCH (09:00)
[2022-04-05] MEDS: PANTOPRAZOLE 40 MG VIAL IVP SCH (09:40)
[2022-04-05 11:16] LABS: ABG BASE EXCESS -5.8 mmol/L (-2.0-3.0); ABG HCO3 16.1 mmol/L (22.0-26.0); ABG PH 7.47 (7.35-7.45); ABG PO2 84 mmHg (80-100); ABG TCO2 16.8 MMOL/L (21.0-29.0)
[2022-04-05 11:17] LABS: ABG MODE OF VENTILATION ASSIST/CONTROL; ABG OXYGEN SATURATION 97 % (94-98); ABG RESPIRATORY RATE 16 b/min; ALLEN TEST POSITIVE
[2022-04-05 11:20] LABS: ABG PCO2 23 mmHg (34-45)
--- NOTE | 2022-04-05 17:55 | ED Physician Documentation ---
ED Addendum - Addendum Addendum: Patient has remained boarding in the emergency department awaiting transfer postcardiac arrest. He has been weaned off the nor epi drip. He is on propofol for sedation due to some movements noticed last night although did not appear to be purposeful movements.His labs from this morning were reviewed with mild worsening of his renal function. His blood cultures have not grown anything to date. Vent adjustments were made based on this morning's ABG and another has been ordered for this evening. Patient continues on vancomycin, cefepime and hydrocortisone Stress dosed.His was at the bedside and I did update her.
[2022-04-05 19:23] LABS: ABG BASE EXCESS -3.3 mmol/L (-2.0-3.0); ABG HCO3 19.3 mmol/L (22.0-26.0); ABG OXYGEN SATURATION 97 % (94-98); ABG PCO2 28 mmHg (34-45); ABG PH 7.46 (7.35-7.45); ABG PO2 95 mmHg (80-100); ABG TCO2 20.1 MMOL/L (21.0-29.0); ALLEN TEST POSITIVE
[2022-04-05 19:24] LABS: ABG MODE OF VENTILATION ASSIST/CONTROL; ABG RESPIRATORY RATE 14 b/min
[2022-04-05] MEDS ORDERED: HYDROmorphone 1 MG/ML CARPUJECT IVP STA (21:22)
[2022-04-05 22:04] LABS: ABG BASE EXCESS -4.2 mmol/L (-2.0-3.0); ABG HCO3 19.7 mmol/L (22.0-26.0); ABG OXYGEN SATURATION 97 % (94-98); ABG PCO2 32 mmHg (34-45); ABG PH 7.41 (7.35-7.45); ABG PO2 99 mmHg (80-100); ABG TCO2 20.6 MMOL/L (21.0-29.0)
[2022-04-05 22:05] LABS: ABG MODE OF VENTILATION ASSIST/CONTROL; ABG RESPIRATORY RATE 14 b/min; ALLEN TEST POSITIVE
[2022-04-05] MEDS ORDERED: diltiaZEM INJ 125 MG in DEXTROSE 5% 100 ML IV STA (22:06)
--- NOTE | 2022-04-05 22:06 | ED Physician Documentation ---
ED Addendum - Addendum Addendum: 04/05/22 22:06 Patient appears to be in atrial fibrillation with rapid ventricular response. We will start a diltiazem drip and reassess.
[2022-04-05] MEDS ORDERED: diltiaZEM INJ 5 MG/ML VIAL ONE (22:15)
[2022-04-06] MEDS ORDERED: VANCOMYCIN INJ 1 GM, VANCOMYCIN INJ 500 MG in SODIUM CHLORIDE 0.9% 500 ML IV SCH (01:00)
[2022-04-06] MEDS: PROPOFOL 1000 MG/100 ML 1,000 MG/100 ML BOTTLE IV SCH ×3 (05:27→23:03)
[2022-04-06 07:17] LABS: BASOPHILS % (AUTO) 0.3 %; EOSINOPHILS % (AUTO) 0.1 %; HCT - HEMATOCRIT 31.9 % (42.0-52.0); LYMPHOCYTES # (AUTO) 0.8 10^3/uL (1.5-3.5); LYMPHOCYTES % (AUTO) 5.3 %; MEAN CORPUSCULAR HGB CONC 34.5 g/dL (32.0-36.0); MEAN CORPUSCULAR VOLUME 89.9 fL (80.0-94.0); MEAN PLATELET VOLUME 11.3 fL (7.4-11.4); MONOCYTES % (AUTO) 7.1 %; NEUTROPHILS # (AUTO) 12.4 10^3/uL (1.5-6.6); NEUTROPHILS % (AUTO) 86.8 %; PLT - PLATELET COUNT 184 10^3/uL (130-450); RED BLOOD COUNT 3.55 10^6/uL (4.70-6.10); RED CELL DISTRIBUTION WIDTH 14.9 % (12.0-15.0); WHITE BLOOD COUNT 14.3 x10^3/uL (4.8-10.8)
[2022-04-06 07:30] LABS: ALBUMIN 2.1 g/dL (3.2-5.5); ALBUMIN/GLOBULIN RATIO 0.6 (1.0-2.2); BILIRUBIN,TOTAL 2.3 mg/dL (0.2-1.0); CALCIUM 7.9 mg/dL (8.5-10.3); CREATININE 5.6 mg/dL (0.6-1.2); POTASSIUM 4.4 mmol/L (3.5-5.0); TOTAL PROTEIN 5.4 g/dL (6.7-8.2)
--- NOTE | 2022-04-06 08:53 | ED Physician Documentation ---
ED Addendum - Addendum Addendum: 04/06/22 08:36 Patient is approximately 48 hours out from his cardiac arrest. He was started on a diltiazem drip overnight for atrial fibrillation with RVR. He does have a history of atrial fib.He is remained off the Levophed drip. He had been on a propofol and did receive 1 dose of Dilaudid last night for Concerned that his elevated heart rate was due to pain.This morning we have Stopped his propofol drip to give him a break from sedation To assess his neurologic state.His labs show continued decline of his renal function. His blood cultures have had no growth to date.His troponin continues to trend downwards.He did have a cough/gag With deep suctioning. I did speak with our hospitalist today to see if there is a possibility of moving him into an ICU bed here at [facility] while he continues to await transfer. 04/06/22 09:06 Patient's heart rate started to increase while off sedation and he was bucking with the vent so sedation was turned back on. There is no spontaneous eye opening and patient was not able to follow commands such as squeezing hands. 04/06/22 11:03 Per [facility], pt will be admitted to [facility] as there is no estimate for when an available bed may become available at another facility.
--- NOTE | 2022-04-06 09:25 | XRAY Report ---
PROCEDURE: Chest 1 View X-Ray INDICATIONS: intubated/post arrest TECHNIQUE: One view of the chest was acquired. COMPARISON: CXR 04/05/2022. Lung bases on CT 04/04/2022.. FINDINGS: Surgical changes and devices: Endotracheal tube at the lower trachea. Enteric tube coiled in the sto mach. Right IJ central venous line with the tip projecting at the right atrium. Defibrillator pad. Lungs and pleura: No pneumothorax. No significant pleural effusion. Minimal streaky suprahilar opaci ty is similar. Mediastinum: Mediastinal contours appear unchanged. Heart size is within normal limits. Bones and chest wall: No suspicious bony lesions. Overlying soft tissues appear unremarkable. IMPRESSION: 1. Tubes and lines are unchanged. 2. Similar mild atelectasis is suspected. Reviewed by: Steve Landa MD on 04/06/2022 9:24 AM [facility] Approved by: Steve Landa MD on 04/06/2022 9:24 AM [facility] Station ID: [id number]
[2022-04-06] MEDS: PANTOPRAZOLE 40 MG VIAL IVP SCH (09:38)
--- NOTE | 2022-04-06 12:38 | XRAY Report ---
PROCEDURE: Chest for Line Placement INDICATIONS: tube repositioned TECHNIQUE: One view of the chest was acquired. COMPARISON: CXR earlier today, 04/05/2022. FINDINGS: Semiupright position. Surgical changes and devices: Endotracheal tube in the lower trachea. Approximately 4.5 cm above the dia. Enteric tube coiled in the stomach. Right IJ central venous line with the catheter tip projecting at the right age. Lungs and pleura: No pleural effusions or pneumothorax. Minimal streaky opacity at the right upper l obe is less prominent. Mediastinum: Mediastinal contours appear unchanged. Heart size is normal. Bones and chest wall: No suspicious bony lesions. Overlying soft tissues appear unremarkable. IMPRESSION: Tubes and lines appear similar in positioning. Reviewed by: Steve Landa MD on 04/06/2022 12:37 PM PST Approved by: Steve Landa MD on 04/06/2022 12:37 PM PST Station ID: [id number]
--- NOTE | 2022-04-06 13:23 | HISTORY & PHYSICAL EXAMINATION ---
Chief Complaint - Chief Complaint Chief Complaint: Cardiac arrest in ER on 04/04/22 History of Present Illness - Admitted From Admitted From:: ED - History Obtained From History obtained from: ED provider and the pt's , at his bedside - History of Present Illness HPI Comment/Other: This is a 66 y/o WM with Hx of systolic Heart failure, hypertension, chronic atrial fib on Eliquis, LBBB, sleep apnea on CPAP, CVA with poor memory and frequent lapses in taking his meds and Insulin, severe peripheral neuropathy, tremors, type 2 diabetes on Insulin, depression and anxiety, osteoarthritis, chronic fatigue, hypothyroidism, and adrenal insufficiency. He has a Hx of renal cell carcinoma of the left kidney, s/p nephrectomy with CKD (usual creat is 2.5- 2.9). 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 His cancer recurred in Apr 2021, and Echo showed improved LVEF from 15% in 2019, to 25% in 2020, to 55% 3 mos ago, and he was cleared to resume chemo therapy. He presented to the ED 2 days ago on 04/04/2022 with complaints of diarrhea, poor p.o. intake and feeling weak. He was noted to have a "soft" blood pressure. His labs and respiratory panel showed he was COVID-negative and RSV and influenza negative. When the arrived, she informed the ED provider that the patient was taking hydrocortisone for adrenal insufficiency and had possibly not taken it recently, thus he received iv hydrocortisone 100 mg [id number] was underway and when he returned back from [place] to his ER bed, he had a cardiac arrest. He underwent CPR and defibrillation and was intubated and survived the CODE. The ED providers' impression was that he had sepsis and there he received empiric antibiotics: Ceftriaxone on 04/04, Cefepime 1gm on 04/04, and Vancomycin iv.. The CT abdomen showed pancreatitis, his lipase level was only 83 and has normalized. Yesterday he went into A. fib with RVR and has been started on a Cardizem drip. Today a family member at bedside moved his ET tube (while applying Chapstick on the patient) and repeat chest imaging showed that it had b een withdrawn 4.5 cm but was still above the dia. He has had a central line placed. The ED providers have been trying to have this man transferred to a tertiary care facility with higher level of care and have specialists available, since the family wants "everything done". There [place] a severe shortage of [place] the [place] and he has not not been transferred out, and has been boarding in the ED, on a ventilator for 2.5 days. Today the university administrator on-call has reached out to [facility] and other locations and has determined that this patient "is 50th in line for being accepted in transfer". Therefore the patient is being admitted to the Hospitalist service into the ICU in critical condition. He is on a propofol drip for sedation while on a ventilator, and the ED providers have tried minimal ly to decrease the propofol drip and assess his neurologic status postarrest, and he is does not follow commands. When he was hospitalized here in August 2021 for hypercalcemia and CHF exacerbation, his CODE STATUS then was a DNR. There is no POLST scanned into his EMR, however. The is at bedside and she told me that he has told his family, that they can make decisions for him regarding his CODE STATUS. History - Past Medical History Cardiovascular: reports: Congestive heart failure, Hypertension, Atrial fibrillation, Valve disorder, Other Respiratory: reports: Shortness of breath, Sleep apnea Neuro: reports: CVA, Peripheral neuropathy, Tremors Endocrine/Autoimmune: reports: Type 2 diabetes GI: reports: Colon polyps : reports: Other HEENT: reports: None Psych: reports: Depression, Anxiety Musculoskeletal: reports: Osteoarthritis, Fatigue Derm: reports: None MRSA Hx?: No - Past Surgical History General: reports: Colonoscopy Ortho: reports: Knee replacement, Arthroscopic surgery, Other /PROTECTIVE SERVICES SOCIAL WORKER: reports: Other (L nephrectomy) - Family & Social History Family History: Mother: , CAD, Father: , CAD, CVA/TIA, Sister: Alive and Well, Diabetes, Type 2 Family History Comment/Other: Dad of old age 89. Mom was living in care facility, diabetic. 80s when she . half Sister with diabetes. brother of suicide. other sister in car accident. 4 kids: completely healthy. one son w crohn's? Living arrangement: At home Living Situation: With spouse/s.o. 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 and he and his live in their own home. Does not smoke. Drinks 1 drink once a month. No history of alcohol abuse or recreational substance abuse - Substance History Use: Uses substance without health or social issues: NONE - POLST Patient has POLST: No POLST Status: DNR Meds/Allgy - Home Medications Home Medications: Ambulatory Orders Medication Instructions Recorded Confirmed Spironolactone [Aldactone] 12.5 mg PO 1200 tablet 02/28/20 04/06/22 hydrALAZINE [Apresoline] 25 mg PO TID 03/19/20 04/06/22 Hydrocortisone [Cortef] 5 - 15 mg PO 0800,1400 03/20/20 04/06/22 Fluticasone [Flonase] 1 inh AYANA DAILY PRN 05/15/20 04/06/22 Atorvastatin Calcium 40 mg PO QPM 12/19/20 04/06/22 Cetirizine HCl [Zyrtec] 10 mg PO DAILY PRN 03/27/21 04/06/22 Gabapentin [Neurontin] 600 mg PO HS 03/27/21 04/06/22 Insulin Lispro [Insulin Lispro 8 unit SQ TIDWM 05/18/21 04/06/22 Kwikpen U-100] Insulin NPH Human [Humulin N] 12 unit SQ BID 05/18/21 04/06/22 Acetaminophen [Acetaminophen Extra 500 mg PO Q6HR PRN 07/30/21 04/06/22 Strength] Furosemide [Lasix] 40 - 80 mg PO DAILY PRN 07/30/21 04/06/22 Gabapentin [Neurontin] 300 mg PO DAILY 07/30/21 04/06/22 Levothyroxine [Synthroid] 100 mg PO QDAC 07/30/21 04/06/22 Metoprolol Succinate [Toprol Xl] 12.5 mg PO DAILY 07/30/21 04/06/22 Ondansetron Odt [Zofran Odt] 4 mg PO Q6H PRN 07/30/21 04/06/22 Prochlorperazine [Compazine] 5 mg PO Q6H PRN 07/30/21 04/06/22 Senna [Senokot] 8.6 mg PO DAILY PRN 07/30/21 04/06/22 Cabozantinib S-Malate [Cabometyx] 60 mg PO DAILY 04/06/22 04/06/22 DULoxetine [Cymbalta] 30 mg PO DAILY 04/06/22 04/06/22 Mirtazapine 15 mg PO QPM 04/06/22 04/06/22 Rivaroxaban [Xarelto] 15 mg PO QDDINNER 04/06/22 04/06/22 Tamsulosin [Flomax] 0.4 mg PO DAILY 04/06/22 04/06/22 - Allergies Allergies/Adverse Reactions: Allergies Allergy/AdvReac Type Severity Reaction Status Date / Time adhesive tape AdvReac Itching Verified 04/06/22 13:35 Review of Systems - Constitutional Constitutional: reports: Fatigue (for the past year), Weakness, Poor appetite - Gastrointestinal Gastrointestinal: reports: Diarrhea (for the past 1-2 weeks), Nausea, Vomiting - All Other Systems All Other Systems: reports: Reviewed and negative (This is obtained from the who is at bedside) Exam - Vital Signs Vital Signs: Vital Signs x48h Temp Pulse Resp BP Pulse Ox 04/06/22 11:30 37.1 C 102 H 14 109/75 98 04/06/22 11:29 95 04/06/22 11:00 37.1 C 99 14 119/89 H 98 04/06/22 10:30 37.2 C 101 H 14 123/71 98 04/06/22 10:00 37.2 C 102 H 14 124/80 97 04/06/22 09:30 37.2 C 117 H 14 131/78 H 97 04/06/22 09:00 37.2 C 118 H 21 168/94 H 95 04/06/22 08:40 110 H 04/06/22 08:30 37.3 C 124 H 16 147/92 H 99 04/06/22 08:00 37.3 C 105 H 15 142/79 H 99 04/06/22 07:32 102 H 130/84 H 99 04/06/22 07:00 37.3 C 98 15 133/80 H 99 04/06/22 06:30 101 H 14 128/82 H 99 04/06/22 06:00 37.3 C 100 14 125/88 H 99 04/06/22 05:30 37.3 C 99 14 123/81 H 99 - Physical Exam General Appearance: positive: Other Eyes Bilateral: positive: Other (Trace lid edema) ENT: positive: Other (Has ET tube in place) Neck: positive: Other (Cannot assess JVP with ET tube in place and CVP line in neck) Respiratory: positive: No respiratory distress (while on vent), Breath sounds nml Cardiovascular: positive: Regular rate & rhythm, No murmur Abdomen: positive: Nml bowel sounds, No distention Skin: positive: Warm, Dry Extremities: positive: Other (2+ eema of legs to posterior thighs, 1+ edema of arms to elbows) Neurologic/Psychiatric: positive: Other (Sedated on propofol) Conclusion/Plan - Problem List (1) Cardiac arrest Conclusion/Plan: As per events in the ER on day of presentation. When sedation was weaned down in the ED, he did not awaken much or follow directions. It is unknown if there was adequate time given for the sedative effects to stop, however. Plan: Continue with mechanical ventilator, try weaning attempts by decreasing propofol every morning, CPAP trials, then possible extubation Continue with cardiac meds. Will obtain a repeat head CT, and compare it to the one he had on day of admis donny before his cardiac arrest, when it was done for his AMS presentation>> no acute findings except sinusitis seen. Will discuss with the family what they wish regarding transfer for Cardiology evaluation and management, if we find that his renal failure or neurology deficits are so severe that he is not expected to survive. Will obtain repeat Troponin and order an Echo. Continue telemetry. (2) Type 2 IA (myocardial infarction) Conclusion/Plan: His repeat Troponin today was 45, up from 16 at presentation, thus it has more than doubled, but is not excessively high. I suspect it is elevated because of the CPR and defib, not primary causing the cardiac arrest, at this low level. EKG was done today and showed (my interpretation): A. fib, rate 75-100, left IVCD, poor R wave progression, lateral ST-T abnormality and flat anterior T waves. Since his admission EKG, low voltage is now absent. Since EKG from after the cardiac arrest on 04/04/2022, LBBB has now resolved. Plan: Continue cardiac meds Continue telemetry Will order an Echo (3) Acute kidney injury superimposed on chronic kidney disease Conclusion/Plan: Patient had a nephrectomy because of renal cell carcinoma, only has 1 kidney. He used to run chronic creatinine levels of 1.5-2.0. Since his cardiac arrest, the creatinine has been rising steadily daily. Plan: Will continue with IV fluids. Place a Rico to closely follow urine output Avoid nephrotoxins. Follow BMP daily. Will determine if the family wants aggressive management, including if they would consider him getting hemodialysis. If so, will continue to reach out daily to get him transferred to a hospital with higher level of care. (4) Leukocytosis Conclusion/Plan: For the 2 and half days he was in the ER, the providers felt that he had sepsis. But he did not have an elevated white blood count at admission, has had no fever spikes and there was no ESR, or procalcitonin levels done. His lactic acid was 2.3 at admission, then increased to 7 after the Code. In addition chest x- ray shows no infiltrate, urinalysis is normal, CT abdomen and pelvis only showed pancreatitis (which has now resolved per his labs). In the ED, he received empiric antibiotics: Ceftriaxone on 04/04, cefepime only 1 g and only on 04/04 and vancomycin was ordered. Plan: He now has a minimally elevated white blood count of 11K, but has been getting hydrocortisone Given the patient's negative blood cultures thus far and no history of MRSA, will stop his vancomycin. Will start ceftriaxone 2 g daily which is also empiric treatment. Since the CT head shows sinusitis, will add Flagyl for anaerobic coverage. This plan was all discussed today with Pharmacist Carrillo. Will also start Florastor per OG. (5) On mechanically assisted ventilation Conclusion/Plan: Plan: As in #1 Follow daily ABG while intubated (6) Adrenal insufficiency Conclusion/Plan: As per history. Per my chart review, he only received hydrocortisone 100 mg IV x1 which was 2 days ago. Plan: Will give stress doses of steroids for 72 hours, hydrocortisone 100 mg 3 times daily After that we will give hydrocortisone 100 mg daily or his usual steroid dose per OG (7) Chronic a-fib Conclusion/Plan: He went into RVR a day ago and was started on a Cardizem drip. The patient has been on Eliquis 5 mg twice daily at home Plan: We will continue with Cardizem drip, adjusting dose and changing to oral/per OG, as tolerated by his heart rate. Will continue with his Eliquis but decrease the dose to 2.5 mg because of the worsening renal failure (8) On anticoagulant therapy Conclusion/Plan: Plan: We will continue his Eliquis but because of worsening renal failure, will decrease the dose of Eliquis to 2.5 twice daily (9) Diabetes mellitus Conclusion/Plan: As per history. Plan.: Will order OG feeds to start with diabetic diet and renal diet restrictions Will order fingerstick glu checks every 6 hours with sliding scale insulin coverage and also order hypoglycemia protocol (10) Renal cell carcinoma Conclusion/Plan: As per Hx. He did restart chemo 8 mos ago. The pill may have been causing the recent N/V/D, per his , and Oncologist just stopped it last Tue, then he presented to ER 2 days later Plan: We will request consultation from Palliative care, Cristine Szymanski NP, who has seen him in the past, will request help with family, if we have nothing more to offer him Qualifiers: Laterality: right Qualified Code(s): C64.1 - Malignant neoplasm of right kidney, except renal pelvis (11) Chronic systolic heart failure Conclusion/Plan: He was on appropriate treatment at home for his systolic heart failure. He is getting anasarca, likely from CHF plus RAMBO on CKD Plan: Will obtain an Echo Will continue with his appropriate cardiac meds as his blood pressure will allow (12) Pancreatitis Conclusion/Plan: This was the finding on initial CT abdomen/pelvis. Lipase was elevated very minimally at 83. It has normalized over the past 2 days. Impression is that his pancreatitis is resolved and etiology is not clear - Lab Results Fish Bones: 04/06/22 07:12 04/06/22 07:12 - Diagnostic Imaging Results Diagnostic Imaging Results: positive: Final report reviewed - Other Other Results/Comments: Attestation: The patient is expected to be discharged or transferred to another facility within 96 hours: Yes.
--- NOTE | 2022-04-06 14:19 | PHARMACY PROGRESS NOTE ---
- Best Possible Medication History Admit Date and Time: 04/06/22 1300 Processed by: Pharmacy Medication History completed: Yes Patient Interview: Pt unable to participate Secondary Source(s): Physician records, Insurance records, Previous admit rec ords Per PCP records, patient was switched from Eliquis to Xarelto in January 2022 due to insurance coverage. As the person ultimately responsible for medication therapy, providers are able to order a medication from an existing home medication list in [facility] via the "Reconcile Routine" prior to Confirmation of that medication by it support analyst. Such practice is discouraged except when the physician, in their clinical judgment, deems that a medical need exists for a medication without regard to previous use.
[2022-04-06 14:33] LABS: BILIRUBIN,URINE NEGATIVE (NEGATIVE); GLUCOSE, URINE (UA) NEGATIVE (NEGATIVE); KETONES,URINE (UA) NEGATIVE (NEGATIVE); LEUKOCYTE ESTERASE, URINE NEGATIVE (NEGATIVE); NITRITE,URINE NEGATIVE (NEGATIVE); OCCULT BLOOD,URINE MODERATE (NEGATIVE); PH,URINE 5.5 PH (5.0-7.5); PROTEIN,URINE NEGATIVE (NEGATIVE); UROBILINOGEN,URINE 0.2 (NORMAL) E.U./dL (NORMAL)
[2022-04-06 15:04] LABS: AMORPHOUS SEDIMENT,UR Few /LPF; BACTERIA,URINE Rare /HPF (None Seen); CLARITY,URINE HAZY (CLEAR); MUCUS,URINE Few Strands; SQUAMOUS EPITHELIAL CELL,UR NONE SEEN (<= Few)
--- NOTE | 2022-04-06 16:13 | CT Report ---
PROCEDURE: HEAD WO INDICATIONS: S/P cardiac arrest with poss anoxia TECHNIQUE: Noncontrast 4.5 mm thick angled axial sections acquired from the foramen magnum to the vertex. For r adiation dose reduction, the following was used: automated exposure control, adjustment of mA and/or kV according to patient size. COMPARISON: 04/04/[address] FINDINGS: Image quality: Excellent. CSF spaces: Basal cisterns are patent. No extra-axial fluid collections. Ventricles are normal in size and shape. Brain: No midline shift. No intracranial masses or hemorrhage. Whitley-white matter interface is norm al. Skull and face: Calvarium and visualized facial bones are intact, without suspicious lesions. Sinuses: Diffuse aerated secretions opacifying the bilateral paranasal sinuses. Mastoid air cells are predominantly clear. IMPRESSION: No acute intracranial finding. Reviewed by: Sp Acosta MD on 04/06/2022 4:12 PM PST Approved by: Sp Acosta MD on 04/06/2022 4:12 PM PST Station ID: [id number]
[2022-04-06] MEDS: HYDROCORTISONE SUCCINATE 100 MG/2 ML VIAL IVP SCH ×2 (17:09→22:22)
[2022-04-06] MEDS: CHLORHEXIDINE GLUCONATE 15 ML UDC PO SCH ×2 (17:09→20:36)
[2022-04-06] MEDS: cefTRIAXone 2 GM in SODIUM CHLORIDE 0.9% MINIBAG 100 ML IV SCH (17:25)
[2022-04-06] MEDS: SODIUM CHLORIDE FLUSH 0.9% 10 ML SYRINGE IVP SCH (17:26)
[2022-04-06] MEDS: metroNIDAZOLE 500 MG/100 ML 500 MG/100 ML BAG IV SCH (17:26)
[2022-04-06] MEDS: SACCHAROMYCES BOULARDII 250 MG CAPSULE PO SCH (17:26)
[2022-04-06] MEDS: diltiaZEM INJ 125 MG in DEXTROSE 5% 100 ML IV SCH (20:14)
[2022-04-06] MEDS: APIXABAN 2.5 MG TABLET PO SCH (20:36)
[2022-04-06] MEDS: SODIUM CHLORIDE FLUSH 0.9% 10 ML SYRINGE IVP PRN (22:22)
[2022-04-07] MEDS: metroNIDAZOLE 500 MG/100 ML 500 MG/100 ML BAG IV SCH ×2 (00:34→10:40)
[2022-04-07] MEDS: SODIUM CHLORIDE FLUSH 0.9% 10 ML SYRINGE IVP SCH ×4 (00:35→18:16)
[2022-04-07] MEDS: SODIUM CHLORIDE FLUSH 0.9% 10 ML SYRINGE IVP PRN ×4 (04:20→22:06)
[2022-04-07 05:31] LABS: CALCIUM, IONIZED 1.02 mmol/L (1.15-1.33); VBG PH 7.366 (7.31-7.41)
[2022-04-07 05:33] LABS: BASOPHILS % (AUTO) 0.3 %; EOSINOPHILS % (AUTO) 0.1 %; HCT - HEMATOCRIT 31.8 % (42.0-52.0); HGB - HEMOGLOBIN 10.7 g/dL (14.0-18.0); LYMPHOCYTES # (AUTO) 0.2 10^3/uL (1.5-3.5); LYMPHOCYTES % (AUTO) 1.9 %; MEAN CORPUSCULAR HEMOGLOBIN 30.1 pg (27.0-31.0); MEAN CORPUSCULAR HGB CONC 33.6 g/dL (32.0-36.0); MEAN CORPUSCULAR VOLUME 89.3 fL (80.0-94.0); MEAN PLATELET VOLUME 12.1 fL (7.4-11.4); MONOCYTES # (AUTO) 0.3 10^3/uL (0.0-1.0); MONOCYTES % (AUTO) 2.3 %; NEUTROPHILS # (AUTO) 11.1 10^3/uL (1.5-6.6); NEUTROPHILS % (AUTO) 94.6 %; PLT - PLATELET COUNT 180 10^3/uL (130-450); RED BLOOD COUNT 3.56 10^6/uL (4.70-6.10); RED CELL DISTRIBUTION WIDTH 14.9 % (12.0-15.0); WHITE BLOOD COUNT 11.7 x10^3/uL (4.8-10.8)
[2022-04-07 05:41] LABS: ABG BASE EXCESS -2.5 mmol/L (-2.0-3.0); ABG HCO3 21.6 mmol/L (22.0-26.0); ABG MODE OF VENTILATION ASSIST/CONTROL; ABG OXYGEN SATURATION 97 % (94-98); ABG PCO2 35 mmHg (34-45); ABG PH 7.41 (7.35-7.45); ABG PO2 95 mmHg (80-100); ABG RESPIRATORY RATE 14 b/min; ABG TCO2 22.7 MMOL/L (21.0-29.0); ALLEN TEST POSITIVE
[2022-04-07 05:47] LABS: ALBUMIN 2.1 g/dL (3.2-5.5); BILIRUBIN,DIRECT 0.9 mg/dL (0.1-0.5); BILIRUBIN,TOTAL 1.5 mg/dL (0.2-1.0); CALCIUM 7.6 mg/dL (8.5-10.3); CREATININE 5.9 mg/dL (0.6-1.2); PHOSPHORUS 5.8 mg/dL (2.5-4.6); POTASSIUM 4.4 mmol/L (3.5-5.0); TOTAL PROTEIN 5.4 g/dL (6.7-8.2)
[2022-04-07] MEDS ORDERED: CALCIUM GLUC 1,000MG/50ML-NACL 1,000 MG/50 ML BAG IV ONE (06:00)
[2022-04-07] MEDS: HYDROCORTISONE SUCCINATE 100 MG/2 ML VIAL IVP SCH ×3 (06:34→22:06)
[2022-04-07] MEDS: LEVOTHYROXINE 100 MCG TABLET PO SCH (06:34)
[2022-04-07] MEDS: CARBOXYMETHYLCELLULOSE OPHTH DROPS EACHEYE PRN ×2 (09:11→20:00)
[2022-04-07] MEDS: APIXABAN 2.5 MG TABLET PO SCH ×2 (09:24→20:30)
[2022-04-07] MEDS: cefTRIAXone 2 GM in SODIUM CHLORIDE 0.9% MINIBAG 100 ML IV SCH (10:13)
[2022-04-07] MEDS: PANTOPRAZOLE 40 MG VIAL IVP SCH (10:28)
[2022-04-07] MEDS: SACCHAROMYCES BOULARDII 250 MG CAPSULE PO SCH ×2 (10:39→18:22)
[2022-04-07] MEDS: CHLORHEXIDINE GLUCONATE 15 ML UDC PO SCH ×2 (10:40→20:29)
[2022-04-07] MEDS: CLINDAMYCIN IV 600 MG/50 ML IV SCH ×2 (12:20→19:59)
[2022-04-07] MEDS ORDERED: VANCOMYCIN INJ 1 GM, VANCOMYCIN INJ 500 MG in SODIUM CHLORIDE 0.9% 500 ML IV SCH (13:00)
--- NOTE | 2022-04-07 19:25 | PROVIDER PROGRESS NOTE ---
Subjective - Subjective Pt reports feeling: Worse (No neurologic activity after sedatives stopped for 3 hours. In afternoon, he started to have decerebrate posturing.) Objective - Vital Signs/Intake & Output Vital Signs: Vital Signs Temp Pulse Pulse Resp BP Pulse Ox 04/07/22 19:00 37.3 C 92 17 169/98 H 99 04/07/22 18:42 89 04/07/22 18:05 95 04/07/22 18:00 37.2 C 86 17 154/76 H 98 04/07/22 17:00 37.2 C 103 H 18 137/87 H 96 04/07/22 16:00 37.1 C 118 H 20 174/90 H 98 04/07/22 15:26 96 Intake & Output: Intake & Output 04/04/22 04/05/22 04/06/22 04/07/22 23:59 23:59 23:59 23:59 Intake Total 4362.313 138.095 578.304 474.186 Output Total 125 823 196 3834 Balance 4237.313 -51.905 -301.696 -1017.814 - Objective General Appearance: positive: Other (Comatose) Eyes Bilateral: positive: No lid inflammation ENT: positive: No signs of dehydration, Other (ET tube in place) Neck: positive: Nml inspection Respiratory: positive: No respiratory distress (On ventilator,), Breath sounds nml Cardiovascular: positive: Regular rate & rhythm, No murmur Abdomen: positive: No distention Skin: positive: Warm, Dry Extremities: positive: Other (2+ edema upper extremities to the elbows, 3+ edema of lower extremities up to his hips) Neurologic/Psychiatric: positive: Other (Comatose, withdraws and grimaces to pain, negative Babinski's, negative doll's eyes.) - Lab Results Fish Bones: 04/08/22 04:12 04/08/22 04:12 Other Labs: Lab Results x24hrs 04/07/22 04/07/22 04/07/22 Range/Units 05:30 04:28 04:28 WBC (4.8-10.8) x10^3/uL RBC (4.70-6.10) 10^6/uL Hgb (14.0-18.0) g/dL Hct (42.0-52.0) % MCV (80.0-94.0) fL MCH (27.0-31.0) pg MCHC (32.0-36.0) g/dL RDW (12.0-15.0) % Plt Count (130-450) 10^3/uL MPV (7.4-11.4) fL Neut # (Auto) (1.5-6.6) 10^3/uL Lymph # (Auto) (1.5-3.5) 10^3/uL Osborne # (Auto) (0.0-1.0) 10^3/uL Eos # (Auto) (0.0-0.7) 10^3/uL Baso # (Auto) (0.0-0.1) 10^3/uL Absolute Nucleated RBC x10^3/uL Nucleated RBC % /100WBC Bld Gas Analysis Time 0537 Sample Site LEFT RADIAL ABG pH 7.41 (7.35-7.45) ABG pCO2 35 (34-45) mmHg ABG pO2 95 (80-100) mmHg ABG HCO3 21.6 L (22.0-26.0) mmol/L ABG Total CO2 22.7 (21.0-29.0) MMOL/L ABG O2 Saturation 97 (94-98) % ABG Base Excess -2.5 L (-2.0-3.0) mmol/L Jemal Test POSITIVE VBG pH 7.366 (7.31-7.41) Ionized Calcium 1.02 L (1.15-1.33) mmol/L Respiration Rate 14 b/min O2 Delivery Device VENTILATOR Vent Mode ASSIST/CONTROL FiO2 30.00 Tidal Volume 450 mL PEEP 5 cmH2O Sodium 134 L (135-145) mmol/L Potassium 4.4 (3.5-5.0) mmol/L Chloride 101 (101-111) mmol/L Carbon Dioxide 21 (21-32) mmol/L Anion Gap 12.0 (6-13) BUN 61 H (6-20) mg/dL Creatinine 5.9 H (0.6-1.2) mg/dL Estimated GFR (MDRD) 10 L (>89) Glucose 244 H (70-100) mg/dL Calcium 7.6 L (8.5-10.3) mg/dL Phosphorus 5.8 H (2.5-4.6) mg/dL Magnesium (1.7-2.8) mg/dL Total Bilirubin 1.5 H (0.2-1.0) mg/dL Direct Bilirubin 0.9 H (0.1-0.5) mg/dL AST 88 H (10-42) IU/L ALT 91 H (10-60) IU/L Alkaline Phosphatase 86 (42-121) IU/L Total Protein 5.4 L (6.7-8.2) g/dL Albumin 2.1 L (3.2-5.5) g/dL Globulin 3.3 (2.1-4.2) g/dL 04/07/22 04/07/22 Range/Units 04:28 04:20 WBC 11.7 H (4.8-10.8) x10^3/uL RBC 3.56 L (4.70-6.10) 10^6/uL Hgb 10.7 L (14.0-18.0) g/dL Hct 31.8 L (42.0-52.0) % MCV 89.3 (80.0-94.0) fL MCH 30.1 (27.0-31.0) pg MCHC 33.6 (32.0-36.0) g/dL RDW 14.9 (12.0-15.0) % Plt Count 180 (130-450) 10^3/uL MPV 12.1 H (7.4-11.4) fL Neut # (Auto) 11.1 H (1.5-6.6) 10^3/uL Lymph # (Auto) 0.2 L (1.5-3.5) 10^3/uL Osborne # (Auto) 0.3 (0.0-1.0) 10^3/uL Eos # (Auto) 0.0 (0.0-0.7) 10^3/uL Baso # (Auto) 0.0 (0.0-0.1) 10^3/uL Absolute Nucleated RBC 0.00 x10^3/uL Nucleated RBC % 0.0 /100WBC Bld Gas Analysis Time Sample Site ABG pH (7.35-7.45) ABG pCO2 (34-45) mmHg ABG pO2 (80-100) mmHg ABG HCO3 (22.0-26.0) mmol/L ABG Total CO2 (21.0-29.0) MMOL/L ABG O2 Saturation (94-98) % ABG Base Excess (-2.0-3.0) mmol/L Jemal Test VBG pH (7.31-7.41) Ionized Calcium (1.15-1.33) mmol/L Respiration Rate b/min O2 Delivery Device Vent Mode FiO2 Tidal Volume mL PEEP cmH2O Sodium (135-145) mmol/L Potassium (3.5-5.0) mmol/L Chloride (101-111) mmol/L Carbon Dioxide (21-32) mmol/L Anion Gap (6-13) BUN (6-20) mg/dL Creatinine (0.6-1.2) mg/dL Estimated GFR (MDRD) (>89) Glucose (70-100) mg/dL Calcium (8.5-10.3) mg/dL Phosphorus (2.5-4.6) mg/dL Magnesium 2.0 (1.7-2.8) mg/dL Total Bilirubin (0.2-1.0) mg/dL Direct Bilirubin (0.1-0.5) mg/dL AST (10-42) IU/L ALT (10-60) IU/L Alkaline Phosphatase (42-121) IU/L Total Protein (6.7-8.2) g/dL Albumin (3.2-5.5) g/dL Globulin (2.1-4.2) g/dL Assessment/Plan - Problem List (1) Cardiac arrest Impression: As per events in the ER on day of presentation. When sedation was weaned down in the ED, he did not awaken much or follow directions. Today his IV propofol was turned off before hi, I examined him at 1 hour post and 3 hours post and he has no neurologic activity except withdrawing to pain. In the afternoon decerebrate posturing has started. In the late afternoon, RN told me that the family likely want to make him a DNR and comfort measures and take him home if he survives extubation Plan: Continue with mechanical ventilator, we tried weaning attempts today by decreasing rate for 1 hour, then back on vent at previous settings The family had initially wanted aggressive management, to be transferred for cardiology and nephrology care. They now will make him a DNR and request comfort measures. Will not plan on OG feeds therefore. Will not continue to request transfer to a larger hospital. (2) Comatose Today his IV propofol was turned off and I examined him at 1 hour post and 3 hours post and he has no neurologic activity except withdrawing to pain. In the afternoon decerebrate posturing has started. Plan: Continue with mechanical ventilator, we tried weaning attempts today by decreasing rate for 1 hour, then back on vent at previous settings The family had initially wanted aggressive management, including to be transferred for cardiology and nephrology care. They now will make him a DNR and request comfort measures. Will not plan on OG feeds therefore. Will cancel extensive list of labs during feeding. Will not continue to request transfer to a larger hospital. Will plan extubation tomoorw (it is 1900 now), and I suggested that they have family here at his bedside in case he does not survive. (3) On mechanically assisted ventilation Conclusion/Plan: Plan: As in #1 (4) Acute kidney injury superimposed on chronic kidney disease Conclusion/Plan: Patient had a nephrectomy because of renal cell carcinoma, only has 1 kidney. He used to run chronic creatinine levels of 1.5-2.0. Since his cardiac arrest, the creatinine has been rising steadily daily. Plan: He has not been accepted in transfer for neprology management, during the first 2 days while boarding in ER. His chances of surviving without hemodialysys are low, but his poor neurologic prognosis also makes him likely not to survive. Follow BMP daily. (5) Type 2 NV (myocardial infarction) Conclusion/Plan: His Troponins were 400 then 8000, 9000, 7000, and today down to 5000 (not the 16 and 45 as described in original H&P, below). Therefore, whether his elevated Troponins are a sign of a primary NV causing the Cardiac Arrest, or if the Cardiac Arrest caused the elevated troponins (and a Type 2 NV) is actually not clear. Plan was to check Lipid panel and treat to LDL goal per guidelines Plan: Continue his cardiac meds Aggressive management with Cardiology (coronary angogram, EP consult, AICD implant), was depending on if he can be accepted in transfer at a larger hospital with specialists, which was dependant on his neuro recovery, which now appears unlikley (6) Adrenal insufficiency Conclusion/Plan: As per history. Plan: We planned to give stress doses of steroids for 72 hours after admission to ICU, hydrocortisone 100 mg 3 times daily, then hyrocortisone 100 mg daily or his usual steroid dose per OG (7) Chronic a-fib Conclusion/Plan: When he went into RVR he was started on a Cardizem drip. The patient has been on Eliquis 5 mg twice daily at home Plan: We will continue with Cardizem drip, adjusting dose and changing to oral/per OG, as tolerated by his heart rate. Will continue with his Eliquis but decrease the dose to 2.5 mg because of the worsening renal failure (8) On anticoagulant therapy Conclusion/Plan: Plan: We will continue his Eliquis but because of worsening renal failure, will decrease the dose of Eliquis to 2.5 twice daily (9) Diabetes mellitus Conclusion/Plan: As per history. Plan.: We were planning to order OG feeds to start with diabetic diet and renal diet r estrictions, then fingerstick glu checks every 6 hours with sliding scale insulin coverage and also order hypoglycemia protocol. Will not plan on OG feeds therefore. Will cancel extensive list of labs during feeding. (10) Renal cell carcinoma Conclusion/Plan: As per Hx. He had been on chemo. The pill may have been causing the recent N/V/D, per his , and Oncologist just stopped it, then he presented to ER 2 days later Plan: We planned a consultation from Palliative care, Cristine Szymanski NP, who has seen him in the past, but family is understanding that we have nothing more to offer him Qualifiers: Laterality: right Qualified Code(s): C64.1 - Malignant neoplasm of right kidney, except renal pelvis (11) Chronic systolic heart failure Conclusion/Plan: He was on appropriate treatment at home for his systolic heart failure. He is getting anasarca, likely from CHF plus RAMBO on CKD Plan: Will continue with his appropriate cardiac meds as his blood pressure will allow (12) Sinusitis Conclusion/Plan: For the 2 and half days he was in the ER, the providers felt that he had sepsis. But he did not have an elevated white blood count at admission, has had no fever spikes and there was no ESR, or procalcitonin levels done. His lactic acid was 2.3 at admission, then increased to 7 after the Code. In addition chest x- ray showed no infiltrate, urinalysis was normal, CT abdomen and pelvis only showed pancreatitis (which has now resolved per his labs). In the ED, he received empiric antibiotics: Ceftriaxone on 04/04, cefepime only 1 g and only on 04/04 and vancomycin was ordered. Plan: He now has a minimally elevated white blood count, but has been getting hydrocortisone Given the patient's negative blood cultures thus far and no history of MRSA, will stop his vancomycin. We started ceftriaxone 2 g daily which is also empiric treatment. Since the CT head shows sinusitis, we started Flagyl for anaerobic coverage. 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 This was the finding on initial CT abdomen/pelvis. Lipase was elevated very minimally at 83. It has normalized over the past 2 days. Impression is that his pancreatitis is resolved and etiology is not clear.
[2022-04-07] MEDS: diltiaZEM INJ 125 MG in DEXTROSE 5% 100 ML IV SCH (22:56)
[2022-04-07] MEDS ORDERED: MIN OIL/DIMETHICON/COCONUT OIL 92 GM TUBE TOP PRN (23:09)
[2022-04-07] MEDS ORDERED: ZINC OXIDE 20% OINT 30 GM TUBE TOP PRN (23:09)
[2022-04-07] MEDS ORDERED: SODIUM CHLORIDE FLUSH 0.9% 10 ML SYRINGE IVP PRN (23:10)
[2022-04-08] MEDS: SODIUM CHLORIDE FLUSH 0.9% 10 ML SYRINGE IVP SCH ×2 (00:30→08:38)
[2022-04-08] MEDS: CARBOXYMETHYLCELLULOSE OPHTH DROPS EACHEYE PRN ×3 (00:30→08:38)
[2022-04-08] MEDS: PROPOFOL 1000 MG/100 ML 1,000 MG/100 ML BOTTLE IV SCH (04:07)
[2022-04-08] MEDS: CLINDAMYCIN IV 600 MG/50 ML IV SCH ×2 (04:13→14:01)
[2022-04-08] MEDS: SODIUM CHLORIDE FLUSH 0.9% 10 ML SYRINGE IVP PRN (04:13)
[2022-04-08 04:59] LABS: BASOPHILS % (AUTO) 0.2 %; HCT - HEMATOCRIT 31.5 % (42.0-52.0); HGB - HEMOGLOBIN 10.8 g/dL (14.0-18.0); LYMPHOCYTES # (AUTO) 0.2 10^3/uL (1.5-3.5); LYMPHOCYTES % (AUTO) 2.2 %; MEAN CORPUSCULAR HEMOGLOBIN 30.5 pg (27.0-31.0); MEAN CORPUSCULAR HGB CONC 34.3 g/dL (32.0-36.0); MEAN PLATELET VOLUME 11.8 fL (7.4-11.4); MONOCYTES # (AUTO) 0.5 10^3/uL (0.0-1.0); MONOCYTES % (AUTO) 4.2 %; NEUTROPHILS # (AUTO) 9.9 10^3/uL (1.5-6.6); NEUTROPHILS % (AUTO) 92.5 %; PLT - PLATELET COUNT 206 10^3/uL (130-450); RED BLOOD COUNT 3.54 10^6/uL (4.70-6.10); RED CELL DISTRIBUTION WIDTH 14.7 % (12.0-15.0); WHITE BLOOD COUNT 10.7 x10^3/uL (4.8-10.8)
[2022-04-08 05:12] LABS: CALCIUM 7.6 mg/dL (8.5-10.3); CREATININE 5.5 mg/dL (0.6-1.2); POTASSIUM 4.1 mmol/L (3.5-5.0)
[2022-04-08 05:16] LABS: MAGNESIUM 2.2 mg/dL (1.7-2.8)
[2022-04-08 05:31] LABS: VBG PH 7.412 (7.31-7.41)
[2022-04-08] MEDS ORDERED: CALCIUM GLUC 1,000MG/50ML-NACL 1,000 MG/50 ML BAG IV ONE (05:40)
[2022-04-08 05:46] LABS: ABG HCO3 20.6 mmol/L (22.0-26.0); ABG PCO2 30 mmHg (34-45); ABG PH 7.46 (7.35-7.45); ABG PO2 98 mmHg (80-100); ABG TCO2 21.5 MMOL/L (21.0-29.0)
[2022-04-08 05:47] LABS: ABG BASE EXCESS -2.3 mmol/L (-2.0-3.0); ABG MODE OF VENTILATION ASSIST/CONTROL; ABG OXYGEN SATURATION 97 % (94-98); ABG RESPIRATORY RATE 14 b/min; ALLEN TEST POSITIVE
[2022-04-08] MEDS: HYDROCORTISONE SUCCINATE 100 MG/2 ML VIAL IVP SCH ×2 (06:14→14:02)
[2022-04-08] MEDS: LEVOTHYROXINE 100 MCG TABLET PO SCH (06:14)
[2022-04-08] MEDS ORDERED: SODIUM CHLORIDE INHALATION 3 ML NEB ONE (07:20)
[2022-04-08] MEDS: APIXABAN 2.5 MG TABLET PO SCH (08:37)
[2022-04-08] MEDS: PANTOPRAZOLE 40 MG VIAL IVP SCH (08:37)
[2022-04-08] MEDS: SACCHAROMYCES BOULARDII 250 MG CAPSULE PO SCH (08:37)
[2022-04-08] MEDS: cefTRIAXone 2 GM in SODIUM CHLORIDE 0.9% MINIBAG 100 ML IV SCH (08:37)
[2022-04-08] MEDS: CHLORHEXIDINE GLUCONATE 15 ML UDC PO SCH (08:37)
[2022-04-08] MEDS ORDERED: MORPHINE 2 MG/ML CARPUJECT ONE (11:45)
[2022-04-08] MEDS ORDERED: MORPHINE 2 MG/ML CARPUJECT IVP STA (11:46)
--- NOTE | 2022-04-08 14:56 | Discharge Plan ---
Discharge Plan Problem Reviewed?: Yes Disposition: 50 Hospice/Home DC/Xfer Condition: Critical Prescriptions: Carboxymethylcellulose 1% Opht [Refresh 1% Ophth Drops] 1 drops EACHEYE Q4HR PRN #1 ea PRN Reason: Dry Eye Haloperidol Oral Soln [Haldol Oral Soln] 1 mg PO Q4H PRN #1 ea PRN Reason: Nausea / Vomiting Morphine Sulfate 5 mg TL Q4H PRN #1 ea PRN Reason: Dyspnea Health Concerns: Patient suffered a cardiac arrest and was resuscitated and intubated. His renal function worsened. His neurologic status showed that he was comatose, once his iv sedative medicines were discontinued. Family wanted to cancel plan for transfer, make him a DNR, extubate him and have him come home to , under the care of Hospice. Plan of Treatment: As above. Care Goals: Comfort and dying with dignity. Assessment: The family is in agreement. No Smoking: If you smoke, Please STOP! Call for help. Follow-up with: Dmoi Luis MD [Provider Admit Priv/Credential] -
--- NOTE | 2022-04-08 15:34 | DISCHARGE SUMMARY ---
Discharge Summary Admit Date: 04/06/22 Discharge Date: 04/08/22 Discharging Provider: Dr Kinga Galvan Primary Care Provider: Dr Domi Luis (Hospice), Previous PCP was Dr Alban Connor Condition at Discharge: Critical Discharge Disposition: 50 Hospice/Home DC/Xfer - HPI History of Present Illness: This is a 66 y/o WM with Hx of systolic Heart failure, hypertension, chronic atrial fib on Eliquis, LBBB, sleep apnea on CPAP, CVA with poor memory and frequent lapses in taking his meds and Insulin, severe peripheral neuropathy, tremors, type 2 diabetes on Insulin, depression and anxiety, osteoarthritis, chronic fatigue, hypothyroidism, and adrenal insufficiency. He has a Hx of renal cell carcinoma of the left kidney, s/p nephrectomy with CKD (usual creat is 2.5- 2.9). 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 His cancer recurred in Apr 2021, and Echo showed improved LVEF from 15% in 2019, to 25% in 2020, to 55% 3 mos ago, and he was cleared to resume chemo therapy. He presented to the ED 2 days ago on 04/04/2022 with complaints of diarrhea, poor p.o. intake and feeling weak. He was noted to have a "soft" blood pressure. His labs and respiratory panel showed he was COVID-negative and RSV and influenza negative. When the arrived, she informed the ED provider that the patient was taking hydrocortisone for adrenal insufficiency and had possibly not taken it recently, thus he received iv hydrocortisone 100 mg [id number] was underway and when he returned back from [place] to his ER bed, he had a cardiac arrest. He underwent CPR and defibrillation and was intubated and survived the CODE. The ED providers' impression was that he had sepsis and there he received empiric antibiotics: Ceftriaxone on 04/04, Cefepime 1gm on 04/04, and Vancomycin iv.. The CT abdomen showed pancreatitis, his lipase level was only 83 and has normalized. Yesterday he went into A. fib with RVR and has been started on a Cardizem drip. Today a family member at bedside moved his ET tube (while applying Chapstick on the patient) and repeat chest imaging showed that it had been withdrawn 4.5 cm but was still above the dia. He has had a central line placed. The ED providers have been trying to have this man transferred to a tertiary care facility with higher level of care and have specialists available, since the family wants "everything done". There is a severe shortage of beds in the [facility] and he has not not been transferred out, and has been boarding in the ED, on a ventilator for 2.5 days. Today the training administrator on-call has reached out to [facility] and other locations and has determined that this patient "is 50th in line for being accepted in transfer". Therefore the patient is being admitted to the Hospitalist service into the ICU in critical condition. He is on a propofol drip for sedation while on a ventilator, and the ED providers have tried minimally to decrease the propofol drip and assess his neurologic status postarrest, and when done, he is did not follow commands. When he was hospitalized here in August 2021 for hypercalcemia and CHF exacerbation, his CODE STATUS then was DNR. There is no POLST scanned into his EMR chart, however. The is at currently bedside and she told me that he has told his family, that they can make decisions for him regarding his CODE STATUS. The wants him to remain a Full Code. - HOSPITAL COURSE Hospital Course: (1) Cardiac arrest He was put on cardiac meds, kept on telemetry, and on the ventilator with gentle iv Propofol sedation. We tried weaning attempts x1. The family initially wanted aggressive management, to be transferred for Cardiology and Nephrology care, but later they made him a DNR and requested comfort measures. We cancelled the plan for OG feeds and to transfer him to a larger hospital. (2) Comatose When his iv propofol was turned off, he had no neurologic activity except withdrawing to pain. Later that afternoon, decerebrate posturing started. Discussions about his prognosis were had, and the made him a DNR and we started comfort measures. We did not continue to request transfer to a larger hospital. The family requested elective extubation. (3) On mechanically assisted ventilation He was electively extubated and survived to be discharged home on 04/08 under Hospice care. (4) Acute kidney injury superimposed on chronic kidney disease Patient had a nephrectomy because of renal cell carcinoma, and only had 1 kidney. His usual creatinine levels were 1.5-2.0. At presentation, his creat now was 3.6. After his cardiac arrest, the creatinine david daily up to as high as 5.9. He developed anasarca and oliguria. Since he had not been accepted in transfer for Nephrology management, his chances of surviving without hemodial ysys were low, and his poor neurologic prognosis made him a poor candidate for transfer. (5) Type 2 MT (myocardial infarction) His Troponins were 412>> 8099>> and peaked at 9928. Whether his elevated Troponins were a sign of a primary MT causing the Cardiac Arrest, or if the Cardiac Arrest caused the elevated troponins (and a Type 2 MT) was not clear. We planned was to check fsting Lipids and treat to LDL goal per guidelines, since the wanted aggressive management with Cardiology (coronary angogram, EP consult, AICD implant). However, he was not accepted in transfer, likely due to his lack of neuro recovery. (6) Adrenal insufficiency We ordered stress doses of steroids for 72 hours after admission to ICU, hydrocortisone 100 mg 3 times daily, then hyrocortisone 100 mg daily or his usual steroid dose per OG, was planned. (7) Chronic a-fib When he went into RVR in the ER, he was started on a Cardizem drip, which as continued and we continued his Eliquis per OG tube. (8) On anticoagulant therapy We continued his Eliquis, but because of worsening renal failure, we decreased the dose of Eliquis from 5 mg BID to 2.5 twice daily (9) Diabetes mellitus We were planning to order OG feeds to start, on diabetic diet with renal diet restrictions, do fingerstick glu checks every 6 hours, and give sliding scale insulin coverage. When the decision was made for stopping treatment, those were not started, icluding the extensive list of lab draws during feeding. (10) Renal cell carcinoma As per Hx. He had been on chemo. That pill may have been causing the recent N/V/D, per his . The Oncologist had just stopped it. Then he presented to ER 2 days later (11) Chronic systolic heart failure He was on appropriate treatment at home for his systolic heart failure. Here, he was getting anasarca, likely from CHF plus RAMBO on top of CKD. Meds were continued as his blood pressure would allow. (12) Sinusitis For the 2 and half days he was in the ER, the providers felt that he had sepsis. His lactic acid was 2.3 at admission, then increased to 7 after the Code Blue. But he did not have an elevated WBC at admission, had no fever, and there were no ESR, or procalcitonin levels done. In addition chest x-ray showed no infiltrate, urinalysis was normal, CT abdomen and pelvis only showed pancreatitis. In the ED, he received empiric antibiotics: Ceftriaxone, cefepime and vancomycin. In the ICU, he had a minimally elevated WBC, but was getting hydrocortisone. He had negative blood cultures and no history of MRSA, thus stop vancomycin, but continued empiric ceftriaxon. 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 (13) Pancreatitis This was the finding on initial CT abdomen/pelvis. Lipase was elevated very minimally at 83. It has normalized over several days. Etiology was not elucidated. - ALLERGIES Allergies/Adverse Reactions: Allergies Allergy/AdvReac Type Severity Reaction Status Date / Time adhesive tape AdvReac Itching Verified 04/06/22 13:35 - MEDICATIONS Home Medications: Ambulatory Orders Medication Instructions Recorded Confirmed Carboxymethylcellulose 1% Opht 1 drops EACHEYE Q4HR PRN #1 ea 04/08/22 [Refresh 1% Ophth Drops] Haloperidol Oral Soln [Haldol Oral 1 mg PO Q4H PRN #1 ea 04/08/22 Soln] Morphine Sulfate 5 mg TL Q4H PRN #1 ea 04/08/22 - LABS Result Diagrams: 04/08/22 04:12 04/08/22 04:12
[2022-04-08 16:35] VITALS: BP 103/71
== END 2022-04-08 16:35 | disposition hospice, home (50) | DRG 280 ==
LOC: EDUNIT# → ED 06:52 → ICU 04-06 13:00
PROVIDERS: ADMIT Internal Medicine; ATTEND Internal Medicine
PROC: 5A1945Z Respiratory Ventilation, 24-96 Consecutive Hours (ICD-10-PCS; principal; 2022-04-06)
DX: A41.9 Sepsis, unspecified organism (principal); J18.9 Pneumonia, unspecified organism; I46.9 Cardiac arrest, cause unspecified; E27.2 Addisonian crisis; I21.A1 Myocardial infarction type 2; E83.42 Hypomagnesemia; E83.51 Hypocalcemia; K85.90 Acute pancreatitis without necrosis or infection, unspecified; R40.20 Unspecified coma; Z85.53 Personal history of malignant neoplasm of renal pelvis; I11.0 Hypertensive heart disease with heart failure; I50.9 Heart failure, unspecified; I13.0 Hypertensive heart and chronic kidney disease with heart failure and stage 1 through stage 4 chronic kidney disease, or unspecified chronic kidney disease; I50.22 Chronic systolic (congestive) heart failure; C64.1 Malignant neoplasm of right kidney, except renal pelvis; R41.82 Altered mental status, unspecified; J96.90 Respiratory failure, unspecified, unspecified whether with hypoxia or hypercapnia; R00.1 Bradycardia, unspecified; Z20.822 Contact with and (suspected) exposure to COVID-19; C78.00 Secondary malignant neoplasm of unspecified lung; C77.2 Secondary and unspecified malignant neoplasm of intra-abdominal lymph nodes; E27.40 Unspecified adrenocortical insufficiency; N18.9 Chronic kidney disease, unspecified; E11.22 Type 2 diabetes mellitus with diabetic chronic kidney disease; I48.20 Chronic atrial fibrillation, unspecified; I44.7 Left bundle-branch block, unspecified; R53.1 Weakness; E03.9 Hypothyroidism, unspecified; F32.A Depression, unspecified; F41.9 Anxiety disorder, unspecified; E11.42 Type 2 diabetes mellitus with diabetic polyneuropathy; G47.30 Sleep apnea, unspecified; R41.3 Other amnesia; Z66 Do not resuscitate; J32.9 Chronic sinusitis, unspecified; T38.3X6A Underdosing of insulin and oral hypoglycemic [antidiabetic] drugs, initial encounter; R53.83 Other fatigue; M19.90 Unspecified osteoarthritis, unspecified site; T38.0X6A Underdosing of glucocorticoids and synthetic analogues, initial encounter; D72.829 Elevated white blood cell count, unspecified; Z79.4 Long term (current) use of insulin; Z79.01 Long term (current) use of anticoagulants; Z91.14 Patient's other noncompliance with medication regimen; Z90.5 Acquired absence of kidney; Z51.5 Encounter for palliative care
CPT/HCPCS: 31500; 36415; 36556; 36600; 70450; 71045; 74176; 80048; 80053; 80076; 81001; 82330; 82803; 83605; 83690; 83735; 83880; 84100; 84484; 85025; 85610; 87040; 87045; 87046; 87150; 87427; 87493; 87633; 93005; 93306; 94002; 94003; 96365; 96366; 96367; 96368; 96375; 96376; 99291; A6250; A9270; J0330; J1170; J2060; J3370; 81003; 87086; 94770

== ENCOUNTER → 2022-04-04 | Outpatient (CLI) | payer MEDICARE | END | disposition critical access hospital (66) | LOC: EMS 06:38 | DX: R53.83 Other fatigue (principal); R41.82 Altered mental status, unspecified; R53.1 Weakness; R19.7 Diarrhea, unspecified; R32 Unspecified urinary incontinence; R15.9 Full incontinence of feces; R23.8 Other skin changes; I48.91 Unspecified atrial fibrillation | CPT/HCPCS: A0425; A0427 ==

== ENCOUNTER → 2022-04-08 | Outpatient (CLI) | payer MEDICARE | END | disposition hospice, home (50) | LOC: EMS 16:38 | PROVIDERS: ATTEND Internal Medicine | DX: Z51.5 Encounter for palliative care (principal); R40.20 Unspecified coma | CPT/HCPCS: A0425; A0428 ==

== ENCOUNTER 2022-04-09 07:57 | Outpatient (CLI) | payer MEDICARE | END 2022-04-09 07:58 | disposition E | LOC: EMS 07:57 | DX: I46.9 Cardiac arrest, cause unspecified (principal) ==